=== PATIENT | female | born 1960 | race Caucasian/White ===

== ENCOUNTER 2016-09-03 11:17 | Inpatient (IN) | payer MEDICAID, MEDICARE ==
[~2016-09-03] VITALS: Ht 157.5 cm; Wt 74.8 kg
[~2016-09-03 11:17] MED LIST: ABILIFY10 MG ORAL; ABILIFY2 MG ORAL; ABILIFY5 MG ORAL; ACETAMINOPHEN325 M1 ORAL; ACETAMINOPHEN325 M3 PO; ACYCLOVIR400 MG ORAL; ALPRAZOLAM1 MG ORAL; AMBIEN10 M1 ORAL; AMBIEN5 MG ORAL; ASPIRIN EC81 MG ORAL; ATARAX25 MG ORAL; ATIVAN1 MG ORAL; ATIVAN2 MG ORAL; BENADRYL ALLERG25 M1 PO; BENADRYL25 M3 PO; BENADRYL25 MG ORAL; BENADRYL50 MG ORAL; BLOOD GLUCOSE1 EAC1 MC; BLOOD GLUCOSE1 EAC5 MC; CARVEDILOL3.125 MG ORAL; CATAPRES0.1 MG ORAL; CATAPRES0.3 MG ORAL; CELEXA20 MG ORAL; CEPHALEXIN500 M1 ORAL; CLONIDINE 0.2M0.2 MG ORAL; CLONIDINE0.1 MG PO; COLACE100 MG ORAL; COREG3.125 MG ORAL; COZAAR25 MG ORAL; CYCLOBENZAPRINE10 MG ORAL; DILAUDID2 MG ORAL; DILAUDID4 MG ORAL; DILAUDID4 MG PO; DITROPAN10 MG ORAL; DUONEB 0.5-3(2.53 ML HHN; ESCITALOPRAM OX20 MG ORAL; FERROUS SULFAT325 MG ORAL; FLUOXETINE HCL20 M2 ORAL; FOLIC ACID1 MG ORAL; FUROSEMIDE40 MG ORAL; GLUCOPHAGE500 MG ORAL; HUMALOG100 UNIT/4 SUBQ; HUMULIN 70100 UNIT/3; IBUPROFEN600 MG ORAL; KENALOG 0.1% CR15 GM APPLIC; LACTULOSE20 GM/301 ORAL; LEVAQUIN500 MG ORAL; LEVEMIR FL100 UNIT/1 SUBQ; LEVEMIR100 UNITS/ SUBQ; LIDOCAINE700 M1 TP; LISINOPRIL20 MG ORAL; LISINOPRIL40 MG ORAL; LISINOPRIL5 MG ORAL; LOMOTIL TABLET1 EACH ORAL; LORAZEPAM1 MG ORAL; LORAZEPAM2 MG ORAL; LYRICA50 MG ORAL; MAGNESIUM OXID400 M1 ORAL; METFORMIN HCL1000 M1 ORAL; METHOCARBAMOL500 MG ORAL; METOPROLOL SUCC25 MG ORAL; METOPROLOL TART25 MG ORAL; MIRALAX17 G2 ORAL; MIRTAZAPINE15 M3 ORAL; MIRTAZAPINE7.5 MG ORAL; MOM30 ML ORAL; MULTIVITAMINS1 EA14 PO; MUPIROCIN22 GM TOPIC; MYLANTA II30 ML ORAL; MYLANTA30 M1 PO; NEUPOGEN300 MCG/1 SQ; NICODERM 21MG/241 EA TD; NICODERM 7MG/24H1 EA TD; NICODERM CQ1 EAC3 TD; NITROGLYCERIN0.4 MG SL; NITROGLYCERIN2.5 M1 SL; NITROSTAT0.4 M1 SL; NORCO 5-325 TA1 EAC1 ORAL; NOVOLOG MI100 UNIT/3 SQ; NOVOLOG MI100 UNIT/3 SUBQ; NOVOLOG100 UNIT/3 SUBQ; NOVOLOG100 UNIT/4 SQ; NTG SL; OMEPRAZOLE20 M2 ORAL; OXYCODONE IR15 MG ORAL; PANTOPRAZOLE SO40 MG ORAL; PERMETHRIN60 GM TOPIC; POTASSIUM CHLO20 ME2 ORAL; PREDNISONE20 M1 PO; PROMETHAZINE-C118 M1 ORAL; PROZAC10 MG ORAL; RANITIDINE HCL150 M1 ORAL; ROBAXIN500 MG PO; SIDEKICK BLOOD1 EACH MC; SPIRONOLACTONE100 MG ORAL; TEMAZEPAM15 MG ORAL; TOPIRAMATE25 MG ORAL; TRAZODONE HCL150 MG ORAL; TYLENOL EXTRA500 MG ORAL; TYLENOL325 MG ORAL; TYLENOL650 MG/20. ORAL; VENLAFAXINE HCL75 M2 ORAL; VENTOLIN HFA18 GM INH; XANAX0.5 MG PO; ZITHROMAX250 MG ORAL; ZOFRAN 4 MG4 MG/2 ML IV; [UNRECOGNIZED DRUG - OTHER] MC
[2016-09-03] MEDS ORDERED: ASPIR 8181 MG ORAL (11:40)
[2016-09-03] MEDS ORDERED: ATIVAN2 MG ORAL (11:40)
[2016-09-03] MEDS ORDERED: Mylanta II UD 30ml ORAL ONE (12:30)
[2016-09-03] MEDS ORDERED: Dicyclomine HCl 10mg/5ml oral soln ORAL ONE (12:30)
[2016-09-03] MEDS ORDERED: Lidocaine 2% Visc 15ml soln ORAL ONE (12:30)
[2016-09-03 12:46] LABS: APPEARANCE,URINE CLEAR; KETONES,URINE 1+ (NEGATIVE); LEUKOCYTE ESTERASE ,URINE 1+ (NEGATIVE); NITRITE,URINE NEGATIVE (NEGATIVE); PH,URINE 5 (4.5-8.0); PROTEIN,URINE 2+ (NEGATIVE); UROBILINOGEN,URINE 1 MG/DL (0.0-1.0)
[2016-09-03 13:05] LABS: BACTERIA,URINE FEW /HPF; HYALINE CASTS, URINE 0-2 /LPF; RBC,URINE 0-2 /HPF (0 - 2); SQUAMOUS EPITHELIAL CELL,UR FEW /LPF (NONE/OCC)
[2016-09-03 13:06] LABS: ICTOTEST NEGATIVE
[2016-09-03 13:22] LABS: MEAN CORPUSCULAR HEMOGLOBIN 30.1 PG (27.0-31.0); MEAN CORPUSCULAR HGB CONC 33.7 G/DL (32.0-36.0); MEAN CORPUSCULAR VOLUME 90 FL (80-99); MEAN PLATELET VOLUME 8.5 FL (6.5-10.1); PLATELET COUNT 95 K/UL (150-450); RED CELL DISTRIBUTION WIDTH 13.9 % (11.6-14.8); WHITE BLOOD COUNT 4.9 K/UL (4.8-10.8)
[2016-09-03 13:39] LABS: ALANINE AMINOTRANSFERASE 32 U/L (3-33); ALBUMIN/GLOBULIN RATIO 0.5 (1.0-2.7); ANION GAP 14 (5-15); ASPARTATE AMINO TRANSFERASE 36 U/L (5-40); CARBON DIOXIDE 24 mEQ/L (20-30); CHLORIDE 93 mEQ/L (98-107); CREATININE 0.7 mg/dL (0.5-0.9); GLOMERULAR FILTRATION RATE > 60 mL/min (>60); HEMOLYSIS 26; LIPASE 83 U/L (< 60); POTASSIUM 4.1 mEQ/L (3.4-4.9); SODIUM 131 mEQ/L (135-145); TOTAL PROTEIN 8.9 g/dL (6.6-8.7)
[2016-09-03 14:22] LABS: EOSINOPHILS % (MANUAL) 3 % (0-3); LYMPHOCYTES % (MANUAL) 24 % (20-45); NEUTROPHILS % (MANUAL) 68 % (45-75); TOTAL CELLS COUNTED 100
[2016-09-03 14:23] LABS: BAND NEUTROPHILS % (MANUAL) 0 % (0-8); BASOPHILS % (MANUAL) 0 % (0-2); HYPOCHROMASIA 1+; PLATELET ESTIMATE DECREASED; PLATELET MORPHOLOGY NORMAL
[2016-09-03] MEDS ORDERED: Morphine Sulfate 4mg/ml Inj IM ONE (15:00)
--- NOTE | 2016-09-03 15:04 | Emergency Room Report ---
History of Present Illness General Chief Complaint: Abdominal Pain Source: Patient Present Illness HPI 56 YO Female presents to the ED c/o RUQ 10/10 abdominal pain with N/V/D x 2 days.Denies blood in the vomit or stool denies dark tarry stools. Patient denies recent travel or ill contacts. Patient states the pain is constant and sharp in nature. Patient denies previous history of abdominal surgeries. Patient denies fevers or chills.-Pt. with recent fx of the left arm. Denies CP, Palpitations, LOC, AMS, dizziness, Changes in Vision, Sensation, paresthesias, or a sudden severe headache. Allergies: Coded Allergies: METOCLOPRAMIDE (Verified Allergy, Severe, Anaphylaxis, 01/31/16) tongue swelling PROCHLORPERAZINE (Verified Allergy, Severe, Anaphylaxis, 01/31/16) tongue swelling PREDNISONE (Verified Allergy, Mild, Facial Edema , 07/28/15) EGG (Unverified Allergy, Unknown, 03/16/15) Pt sts she is allergic to eggs but not products made with eggs such as muffins IODINE (Verified Allergy, Unknown, 01/25/15) SHELLFISH DERIVED (Verified Allergy, Unknown, 04/07/14) Uncoded Allergies: plastic tape (Allergy, Mild, Rash, 01/25/15) PREDISONE (Allergy, Unknown, 04/12/16) SHELLFISH (Allergy, Unknown, 04/12/16) Patient History Past Medical History: see triage record Past Surgical History: none Pertinent Family History: none Last Menstrual Period: Total hysterectomy 2001 Now: No : 2 Para: 2 Reviewed Nursing Documentation: PMH: Agreed, PSxH: Agreed Nursing Documentation-PMH Hx Cardiac Problems: Yes - CHF, NE 2007 and 2011 Hx Hypertension: Yes Hx Pacemaker: No Hx Asthma: Yes Hx COPD: Yes Hx Diabetes: Yes Hx Cancer: No Hx Gastrointestinal Problems: Yes Hx Dialysis: No Hx Neurological Problems: Yes - Anxiety, depression Hx Cerebrovascular Accident: Yes - 1 and 2 years ago stroke Hx Seizures: Yes - last Sezure 07/23/2015 Hx Peripheral Neuropathy: Yes Hx Dizziness: Yes Hx Headaches: Yes Hx Weakness: Yes Hx Neurologic Surgery: No Hx Brain Shunt: No Review of Systems All Other Systems: negative except mentioned in HPI Physical Exam Vital Signs Date Time Temp Pulse Resp B/P Pulse Ox O2 Delivery O2 Flow Rate FiO2 09/03/16 11:31 98.8 94 16 117/81 100 Room Air Sp02 EP Interpretation: reviewed, normal General Appearance: no apparent distress, alert, GCS 15, non-toxic Head: normocephalic, atraumatic Eyes: bilateral eye PERRL, bilateral eye normal inspection ENT: hearing grossly normal, normal pharynx, no angioedema, normal voice Neck: full range of motion, supple/symm/no masses Respiratory: chest non-tender, lungs clear, normal breath sounds, speaking full sentences Cardiovascular #1: regular rate, rhythm, no edema Gastrointestinal: normal bowel sounds, non tender, soft, no guarding, no rebound, tenderness - TTP RUQ and LUQ, no guarding, non-distended. Rectal: deferred Genitourinary: normal inspection, no CVA tenderness Musculoskeletal: back normal, gait/station normal, normal range of motion, no calf tenderness, other - PT has long arm posterior splint on the left arm, good capillary refill. Neurologic: alert, oriented x3, responsive, motor strength/tone normal, sensory intact, speech normal Psychiatric: judgement/insight normal, memory normal, mood/affect normal, no suicidal/homicidal ideation Skin: normal color, no rash, warm/dry, well hydrated Lymphatic: no adenopathy Medical Decision Making PA Attestation Dr. Tyler is my supervising Physician whom patient management has been discussed with. Diagnostic Impression: Primary Impression: Pancreatitis Qualified Codes: K85.90 - Acute pancreatitis without necrosis or infection, unspecified Additional Impression: Hyponatremia ER Course Pt. presents to the ED c/o RUQ abdominal pain with N/V/D x 2 days Ddx considered but are not limited to Diverticulitis, acute appy, diarrhea,UC, PUD, GE, pancreatitis, gallstone Vital signs: are WNL, pt. is afebrile H&PE are most consistent with acute pancreatitis. ORDERS: -CBC, CMP: evidence of mild dehydration with hyponatremia and hypochloremia -lipase: Elevated at 86 -UA: unremarkable -CT Abdomen and Pelvis : PENDING ED INTERVENTIONS: -- 1000NS, -Gi Cocktail -4mg morphine IM -Pt. is placed NPO DISPOSITION: at this time pt. will be admitted to Dr. Hanley for Pancreatitis. Pt is Endorsed to Dr. Hanley 3:00pm whom agreed to admit the pt. and to continue pt. care management. Labs Test 09/03/16 12:00 09/03/16 13:00 Urine Color Brown Urine Appearance Clear Urine pH 5 (4.5-8.0) Urine Specific [place] 1.020 (1.005-1.035) Urine Protein 2+ (NEGATIVE) Urine Glucose (UA) Negative (NEGATIVE) Urine Ketones 1+ (NEGATIVE) Urine Occult Blood Negative (NEGATIVE) Urine Nitrite Negative (NEGATIVE) Urine Bilirubin 1+ (NEGATIVE) Urine Ictotest Negative Urine Urobilinogen 1 MG/DL (0.0-1.0) Urine Leukocyte Esterase 1+ (NEGATIVE) Urine RBC 0-2 /HPF (0 - 2) Urine WBC 2-4 /HPF (0 - 2) Urine Squamous Epithelial Cells Few /LPF (NONE/OCC) Urine Bacteria Few /HPF (NONE) Urine Hyaline Casts 0-2 /LPF (NONE) White Blood Count 4.9 K/UL (4.8-10.8) Red Blood Count 4.00 M/UL (4.20-5.40) Hemoglobin 12.1 G/DL (12.0-16.0) Hematocrit 35.8 % (37.0-47.0) Mean Corpuscular Volume 90 FL (80-99) Mean Corpuscular Hemoglobin 30.1 PG (27.0-31.0) Mean Corpuscular Hemoglobin Concent 33.7 G/DL (32.0-36.0) Red Cell Distribution Width 13.9 % (11.6-14.8) Platelet Count 95 K/UL (150-450) Mean Platelet Volume 8.5 FL (6.5-10.1) Neutrophils (%) (Auto) % (45.0-75.0) Lymphocytes (%) (Auto) % (20.0-45.0) Monocytes (%) (Auto) % (1.0-10.0) Eosinophils (%) (Auto) % (0.0-3.0) Basophils (%) (Auto) % (0.0-2.0) Differential Total Cells Counted 100 Neutrophils % (Manual) 68 % (45-75) Lymphocytes % (Manual) 24 % (20-45) Monocytes % (Manual) 5 % (1-10) Eosinophils % (Manual) 3 % (0-3) Basophils % (Manual) 0 % (0-2) Band Neutrophils 0 % (0-8) Platelet Estimate Decreased Platelet Morphology Normal Hypochromasia 1+ Anisocytosis Sodium Level 131 mEQ/L (135-145) Potassium Level 4.1 mEQ/L (3.4-4.9) Chloride Level 93 mEQ/L (98-107) Carbon Dioxide Level 24 mEQ/L (20-30) Anion Gap 14 (5-15) Blood Urea Nitrogen 16 mg/dL (7-23) Creatinine 0.7 mg/dL (0.5-0.9) Estimat Glomerular Filtration Rate > 60 mL/min (>60) Glucose Level 201 mg/dL (74-106) Calcium Level 9.0 mg/dL (8.6-10.2) Total Bilirubin 0.7 mg/dL (0.0-1.2) Aspartate Amino Transf (AST/SGOT) 36 U/L (5-40) Alanine Aminotransferase (ALT/SGPT) 32 U/L (3-33) Alkaline Phosphatase 100 U/L (35-104) Total Protein 8.9 g/dL (6.6-8.7) Albumin 3.2 g/dL (3.5-5.2) Globulin 5.7 g/dL Albumin/Globulin Ratio 0.5 (1.0-2.7) Lipase 83 U/L (< 60) Last Vital Signs Date Time Temp Pulse Resp B/P Pulse Ox O2 Delivery O2 Flow Rate FiO2 09/03/16 11:31 98.8 94 16 117/81 100 Room Air Disposition: ADMITTED INPATIENT Condition: Stable Referrals: NON PHYSICIAN (PCP) Kylah Odell Sep 03, 2016 15:04
[2016-09-03 15:30] VITALS: BP 121/84
[2016-09-03 18:33] VITALS: BP 114/82
[2016-09-03 20:10] VITALS: BP 129/77
[2016-09-03] MEDS ORDERED: Nitroglycerin Subl 0.4mg tab (Bottle Of 25) SL PRN (22:00)
[2016-09-03] MEDS ORDERED: Miralax 17gm pkt ORAL PRN (22:00)
[2016-09-03] MEDS ORDERED: HYDROmorphone 2mg tab ORAL PRN (22:00)
[2016-09-03] MEDS ORDERED: Mylanta II UD 30ml ORAL PRN (22:00)
[2016-09-03] MEDS: D5 1/2NS 1,000 ML IV SCH (22:26)
[2016-09-03] MEDS: Morphine Sulfate 2mg/ml Inj IVP PRN (22:31)
[2016-09-04] VITALS (7 sets, daily range): BP systolic 117–156; BP diastolic 66–94
[2016-09-04] MEDS: HYDROmorphone 2mg tab ORAL PRN ×4 (02:30→23:23)
[2016-09-04] MEDS: NovoLOG Insulin Flexpen SUBQ SCH ×4 (05:52→20:47)
[2016-09-04] MEDS: D5 1/2NS 1,000 ML IV SCH ×2 (07:00→20:20)
[2016-09-04 07:15] LABS: MEAN CORPUSCULAR HEMOGLOBIN 29.8 PG (27.0-31.0); MEAN CORPUSCULAR HGB CONC 32.8 G/DL (32.0-36.0); MEAN CORPUSCULAR VOLUME 91 FL (80-99); MEAN PLATELET VOLUME 7.5 FL (6.5-10.1); PLATELET COUNT 97 K/UL (150-450); RED BLOOD COUNT 4.04 M/UL (4.20-5.40); WHITE BLOOD COUNT 4.3 K/UL (4.8-10.8)
[2016-09-04 07:17] LABS: ALANINE AMINOTRANSFERASE 34 U/L (3-33); ALBUMIN/GLOBULIN RATIO 0.5 (1.0-2.7); AMYLASE 39 U/L (10-110); ANION GAP 12 (5-15); ASPARTATE AMINO TRANSFERASE 43 U/L (5-40); CALCIUM 8.8 mg/dL (8.6-10.2); CARBON DIOXIDE 24 mEQ/L (20-30); CHLORIDE 100 mEQ/L (98-107); CREATININE 0.5 mg/dL (0.5-0.9); GLOMERULAR FILTRATION RATE > 60 mL/min (>60); HEMOLYSIS 7; LIPASE 51 U/L (< 60); POTASSIUM 4.4 mEQ/L (3.4-4.9); SODIUM 136 mEQ/L (135-145); TOTAL PROTEIN 8.9 g/dL (6.6-8.7)
[2016-09-04 07:55] LABS: CHOLESTEROL/HDL RATIO 1.7 (3.3-4.4); MAGNESIUM 1.3 mg/dL (1.7-2.5); PHOSPHORUS 3.4 mg/dL (2.5-4.8)
--- NOTE | 2016-09-04 08:42 | General Progress Note ---
Assessment/Plan Assessment/Plan (1) Lumbar spondylosis (2) DDD (degenerative disc disease), lumbar (3) OA (osteoarthritis) of knee (4) Pain in limb (5) Cirrhosis (6) S/p left humeral Fracture (7) Intractable Abdominal pain (8) Pancreatitis We will continue Dilaudid tabs and morphine IV. Pt was d/w Dr. Coburn and he concurred. Subjective Date patient seen: Sep 04, 2016 Time patient seen: 08:15 - am Allergies: Coded Allergies: METOCLOPRAMIDE (Verified Allergy, Severe, Anaphylaxis, 01/31/16) tongue swelling PROCHLORPERAZINE (Verified Allergy, Severe, Anaphylaxis, 01/31/16) tongue swelling PREDNISONE (Verified Allergy, Mild, Facial Edema , 07/28/15) EGG (Unverified Allergy, Unknown, 03/16/15) Pt sts she is allergic to eggs but not products made with eggs such as muffins IODINE (Verified Allergy, Unknown, 01/25/15) SHELLFISH DERIVED (Verified Allergy, Unknown, 04/07/14) Uncoded Allergies: plastic tape (Allergy, Mild, Rash, 01/25/15) PREDISONE (Allergy, Unknown, 04/12/16) SHELLFISH (Allergy, Unknown, 04/12/16) Subjective Constitutional: Reports: weakness, Denies: chills, diaphoresis, fever, malaise HEENT: Denies: blurred vision, double vision, ear discharge, ear pain, eye pain , mouth pain, mouth swelling, no symptoms, nose congestion, nose pain, other, tearing, throat pain, throat swelling Cardiovascular: Denies: chest pain, edema, irregular heart rate, lightheadedness, no symptoms, other, palpitations, syncope Respiratory: Denies: SOB at rest, SOB with excertion, cough, no symptoms, orthopnea, other, shortness of breath, sputum, stridor, wheezing Gastrointestinal/Abdominal: Reports: abdominal pain, Denies: abdomen distended , black stools, blood in stool, constipated, diarrhea, difficulty swallowing, nausea, poor appetite, poor fluid intake, rectal bleeding, tarry stools, vomiting Genitourinary: Denies: burning, discharge, flank pain, frequency, hematuria, incontinence, pain, urgency Neurologic/Psychiatric: Reports: weakness, Denies: anxiety, depressed, emotional problems, headache, no symptoms, numbness paresthesia, pre-existing deficit, seizure, tingling, tremors Endocrine: Denies: excessive sweating, flushing, increased hunger, increased thirst, increased urine, intolerance to cold, intolerance to heat, unexplained weight gain, unexplained weight loss Hematologic/Lymphatic: Denies: anemia, easy bleeding, easy bruising Subjective Patient was seen in the past and last admission. She has returned due to abdominal pain due to pancreatitis and left UE pain due to fx in a sling at this time. Patient was started on Dilaudid 2mg PO 1 tab Q4H PRN and Morphine 2mg IV Q4H as needed and is comfortable at this time. Objective Last 24 Hour Vital Signs Date Time Temp Pulse Resp B/P Pulse Ox O2 Delivery O2 Flow Rate FiO2 09/04/16 08:08 97.7 70 20 146/66 96 Room Air 09/04/16 04:00 98.2 66 19 146/94 94 Room Air 09/04/16 03:29 99.1 09/04/16 00:16 99.1 67 20 156/78 95 Room Air 09/03/16 20:10 98.7 65 20 129/77 96 Room Air 09/03/16 18:45 98.5 94 17 114/82 100 Room Air 09/03/16 18:33 98.5 94 17 114/82 100 Room Air 09/03/16 16:01 98.5 09/03/16 15:30 98.6 97 15 121/84 100 Room Air 09/03/16 11:31 98.8 94 16 117/81 100 Room Air Intake and Output 09/03/16 09/04/16 19:00 07:00 Intake Total 1000 ml 525 ml Balance 1000 ml 525 ml Intake IV Total 1000 ml 525 ml # Voids 1 Laboratory Tests 09/03/16 12:00: Urine Color Brown, Urine Appearance Clear, Urine pH 5, Urine Specific [place] 1.020, Urine Protein 2+H, Urine Glucose (UA) Negative, Urine Ketones 1+H, Urine Occult Blood Negative, Urine Nitrite Negative, Urine Bilirubin 1+H, Urine Ictotest Negative, Urine Urobilinogen 1H, Urine Leukocyte Esterase 1+H, Urine RBC 0-2, Urine WBC 2-4, Urine Squamous Epithelial Cells Few, Urine Bacteria Few , Urine Hyaline Casts 0-2H 09/03/16 13:00: White Blood Count 4.9, Red Blood Count 4.00L, Hemoglobin 12.1, Hematocrit 35.8L , Mean Corpuscular Volume 90, Mean Corpuscular Hemoglobin 30.1, Mean Corpuscular Hemoglobin Concent 33.7, Red Cell Distribution Width 13.9, Platelet Count 95L, Mean Platelet Volume 8.5, Neutrophils (%) (Auto) , Lymphocytes (%) ( Auto) , Monocytes (%) (Auto) , Eosinophils (%) (Auto) , Basophils (%) (Auto) , Differential Total Cells Counted 100, Neutrophils % (Manual) 68, Lymphocytes % ( Manual) 24, Monocytes % (Manual) 5, Eosinophils % (Manual) 3, Basophils % ( Manual) 0, Band Neutrophils 0, Platelet Estimate DecreasedL, Platelet Morphology Normal, Hypochromasia 1+, Anisocytosis , Sodium Level 131L, Potassium Level 4.1, Chloride Level 93L, Carbon Dioxide Level 24, Anion Gap 14, Blood Urea Nitrogen 16, Creatinine 0.7, Estimat Glomerular Filtration Rate > 60 , Glucose Level 201H, Calcium Level 9.0, Total Bilirubin 0.7, Aspartate Amino Transf (AST/SGOT) 36, Alanine Aminotransferase (ALT/SGPT) 32, Alkaline Phosphatase 100, Total Protein 8.9H, Albumin 3.2L, Globulin 5.7, Albumin/ Globulin Ratio 0.5L, Lipase 83H 09/04/16 05:10: White Blood Count 4.3L, Red Blood Count 4.04L, Hemoglobin 12.0, Hematocrit 36.7L , Mean Corpuscular Volume 91, Mean Corpuscular Hemoglobin 29.8, Mean Corpuscular Hemoglobin Concent 32.8, Red Cell Distribution Width 14.0, Platelet Count 97L, Mean Platelet Volume 7.5, Neutrophils (%) (Auto) , Lymphocytes (%) ( Auto) , Monocytes (%) (Auto) , Eosinophils (%) (Auto) , Basophils (%) (Auto) , Neutrophils % (Manual) [Pending], Lymphocytes % (Manual) [Pending], Platelet Estimate [Pending], Platelet Morphology [Pending], Sodium Level 136, Potassium Level 4.4, Chloride Level 100, Carbon Dioxide Level 24, Anion Gap 12, Blood Urea Nitrogen 8, Creatinine 0.5, Estimat Glomerular Filtration Rate > 60, Glucose Level 134H, Calcium Level 8.8, Total Bilirubin 1.0, Aspartate Amino Transf (AST/SGOT) 43H, Alanine Aminotransferase (ALT/SGPT) 34H, Alkaline Phosphatase 101, Total Protein 8.9H, Albumin 3.1L, Globulin 5.8, Albumin/ Globulin Ratio 0.5L, Lipase 51, Activated Partial Thromboplast Time 22L, Phosphorus Level 3.4, Magnesium Level 1.3L, Triglycerides Level 43, Cholesterol Level 90, LDL Cholesterol 29L, HDL Cholesterol 52, Cholesterol/HDL Ratio 1.7L, Amylase Level 39 Height (Feet): 5 Height (Inches): 2.00 Weight (Pounds): 165 Objective General Appearance: no apparent distress, alert, mild distress EENT: normal ENT inspection Neck: non-tender, normal alignment Cardiovascular: normal rate Respiratory/Chest: lungs clear, normal breath sounds Abdomen: distended Extremities: swelling, left UE in sling Edema: mild edema Neurologic: alert, oriented x 3 Skin: warm/dry LUIS JOHNSON N. P.Jose Antonio Sep 04, 2016 08:42
[2016-09-04 08:43] LABS: ANISOCYTOSIS 1+; BAND NEUTROPHILS % (MANUAL) 0 % (0-8); BASOPHILS % (MANUAL) 0 % (0-2); EOSINOPHILS % (MANUAL) 4 % (0-3); LYMPHOCYTES % (MANUAL) 19 % (20-45); NEUTROPHILS % (MANUAL) 74 % (45-75); PLATELET ESTIMATE DECREASED; PLATELET MORPHOLOGY NORMAL; TOTAL CELLS COUNTED 100
[2016-09-04] MEDS: Lisinopril 20mg tab ORAL SCH (08:55)
[2016-09-04] MEDS: Oxybutynin 5mg tab ORAL SCH ×2 (08:55→17:05)
[2016-09-04] MEDS: Citalopram 20mg Tab ORAL SCH (08:55)
[2016-09-04] MEDS: Aspirin EC 81mg tab ORAL SCH (08:56)
[2016-09-04] MEDS: Heparin 5000 units/ml inj SUBQ SCH ×2 (09:00→20:43)
--- NOTE | 2016-09-04 11:19 | GI Initial Consult Note ---
History of Present Illness General Date patient seen: Sep 04, 2016 Time patient seen: 10:00 Reason for Hospitalization: Abdominal Pain Referring physician: CHARLIE PEREZ Reason for Consultation: PANCREATITIS Present Illness HPI 56 YO Female presents to the ED c/o RUQ 10/10 abdominal pain with N/V/D x 2 days.Denies blood in the vomit or stool denies dark tarry stools. Patient denies recent travel or ill contacts. Patient states the pain is constant and sharp in nature. Patient denies previous history of abdominal surgeries. Patient denies fevers or chills.-Pt. with recent fx of the left arm. Denies CP, Palpitations, LOC, AMS, dizziness, Changes in Vision, Sensation, paresthesias, or a sudden severe headache. GI CONSULT: HPI as noted above. GI consulted for pancreatitis. Pt seen on floor, awake A&Ox4 NAD with no abdominal complaints at this time. C/o of left elbow fx pain with splint. Pt admitted for pancreatitis now with normal lipase levels. Denies ETOH and IVDA. Tobacco user. Pt presents today with abdominal pain and abnormal LFTs. Pt has history of gastritis and hepatitis C. Last colonoscopy over 5 years ago with unknown results. Endoscopy Procedure Note Indication for Procedure: abd pain Procedures Performed: EGD Operative Findings/Diagnosis: gastritis HENRIEDITH - Aug 02, 2015 11:24 Home Meds Active Scripts Metoprolol Succinate* (METOPROLOL SUCCINATE*) 25 Mg Tab.er.24h, 25 MG ORAL BID, #60 TAB Prov:Shirley Ward ASSISTANT PROFESSOR [employer] 07/17/15 Aripiprazole* (ABILIFY*) 5 Mg Tablet, 10 MG ORAL DAILY, #1 TAB Prov:Shirley Ward ASSISTANT PROFESSOR [employer] ART 07/17/15 Reported Medications Lorazepam* (ATIVAN*) 2 Mg Tablet, 2 MG ORAL Q6HR, TAB 09/03/16 Aspirin* (ASPIR 81*) 81 Mg Tablet.dr, 81 MG ORAL DAILY, TAB 09/03/16 Fluoxetine Hcl* (PROZAC*) 10 Mg Capsule, ORAL DAILY, CAP 03/09/16 Ranitidine Hcl (RANITIDINE HCL) 150 Mg Capsule, 150 MG ORAL BIDAC, CAP 03/07/16 Nicotine (Nicotine Patch) 1 Each Patch.td24, 1 EA TD DAILY, PATCH 03/07/16 Mupirocin* (MUPIROCIN*) 22 Gm Oint...g., 1 APPLIC TOPIC THREE TIMES A DAY, GM 03/07/16 Insulin Aspart* (NOVOLOG*) 100 Unit/1 Ml Insuln.pen, 12 SUBQ AC, #1 EA 0 Refills 03/07/16 Insulin Detemir (LEVEMIR FLEXPEN) 100 Unit/1 Ml Insuln.pen, 20 SUBQ Q12HR, #300 UNITS 0 Refills 03/07/16 Clonidine Hcl* (CATAPRES*) 0.1 Mg Tablet, 0.1 MG ORAL EVERY 6 HOURS Y for For High Blood Pressure, TAB 03/07/16 Codeine/Promethazine Hcl* (PROMETHAZINE-CODEINE SYRUP*) 118 Ml Syrup, 5 ML ORAL Q6H Y for For Cough, ML 0 Refills 03/07/16 Alprazolam* (XANAX*) 1 Mg Tablet, 1 MG ORAL TID Y for PRN, TAB 03/07/16 Acetaminophen (Acetaminophen) 325 Mg Capsule, 650 MG PO Q4HR Y for Prn Headache/ Temp > 101, CAP 03/07/16 Nitroglycerin/D5w (NTG 0.2 MG/ML IN D5W) 50 Mg/250 Ml Infus..btl, 0.4 MG SL PRN for Prn Chest Pain 02/05/16 Ipratropium/Albuterol Sulfate (DuoNeb 0.5-3(2.5)mg/3ml) 3 Ml Ampul.neb, 3 ML HHN EVERY 4 HOURS Y for Shortness of Breath, EA 02/05/16 Temazepam (TEMAZEPAM*) 15 Mg Capsule, 15 MG ORAL HS Y for Insomnia, #30 CAP 0 Refills 01/01/16 Hydromorphone HCl (Dilaudid) 2 Mg Tab, 2 MG ORAL Q4H Y for Severe Pain (Pain Scale 7-10), #20 TAB 0 Refills 01/01/16 Citalopram Hydrobromide* (CELEXA*) 20 Mg Tablet, 20 MG ORAL DAILY, TAB 07/28/15 Lisinopril (LISINOPRIL*) 20 Mg Tablet, 40 MG ORAL DAILY, TAB 07/28/15 Oxybutynin Chloride (Oxybutynin Chloride) 10 Mg Tab, 5 MG ORAL TWICE A DAY, TAB 04/08/15 Med list reviewed/reconciled: Yes Allergies: Coded Allergies: METOCLOPRAMIDE (Verified Allergy, Severe, Anaphylaxis, 01/31/16) tongue swelling PROCHLORPERAZINE (Verified Allergy, Severe, Anaphylaxis, 01/31/16) tongue swelling PREDNISONE (Verified Allergy, Mild, Facial Edema , 07/28/15) EGG (Unverified Allergy, Unknown, 03/16/15) Pt sts she is allergic to eggs but not products made with eggs such as muffins IODINE (Verified Allergy, Unknown, 01/25/15) SHELLFISH DERIVED (Verified Allergy, Unknown, 04/07/14) Uncoded Allergies: plastic tape (Allergy, Mild, Rash, 01/25/15) PREDISONE (Allergy, Unknown, 04/12/16) SHELLFISH (Allergy, Unknown, 04/12/16) Patient History History Provided By: Patient, Medical Record PMH Narrative Past Medical History: see triage record Past Surgical History: none Pertinent Family History: none Last Menstrual Period: Total hysterectomy 2001 Now: No : 2 Para: 2 Reviewed Nursing Documentation: PMH: Agreed, PSxH: Agreed Nursing Documentation-PMH Hx Cardiac Problems: Yes - CHF, OK 2007 and 2011 Hx Hypertension: Yes Hx Pacemaker: No Hx Asthma: Yes Hx COPD: Yes Hx Diabetes: Yes Hx Cancer: No Hx Gastrointestinal Problems: Yes Hx Dialysis: No Hx Neurological Problems: Yes - Anxiety, depression Hx Cerebrovascular Accident: Yes - 1 and 2 years ago stroke Hx Seizures: Yes - last Sezure 07/23/2015 Hx Peripheral Neuropathy: Yes Hx Dizziness: Yes Hx Headaches: Yes Hx Weakness: Yes Hx Neurologic Surgery: No Hx Brain Shunt: No Social History: Reports: smoking Review of Systems All Other Systems: negative except mentioned in HPI Physical Exam Vital Signs Date Time Temp Pulse Resp B/P Pulse Ox O2 Delivery O2 Flow Rate FiO2 09/03/16 11:31 98.8 94 16 117/81 100 Room Air Sp02 EP Interpretation: reviewed Labs Laboratory Tests Test 09/03/16 12:00 09/03/16 13:00 09/04/16 05:10 Urine Color Brown Urine Appearance Clear Urine pH 5 (4.5-8.0) Urine Specific Roper 1.020 (1.005-1.035) Urine Protein 2+ (NEGATIVE) H Urine Glucose (UA) Negative (NEGATIVE) Urine Ketones 1+ (NEGATIVE) H Urine Occult Blood Negative (NEGATIVE) Urine Nitrite Negative (NEGATIVE) Urine Bilirubin 1+ (NEGATIVE) H Urine Ictotest Negative Urine Urobilinogen 1 MG/DL (0.0-1.0) H Urine Leukocyte Esterase 1+ (NEGATIVE) H Urine RBC 0-2 /HPF (0 - 2) Urine WBC 2-4 /HPF (0 - 2) Urine Squamous Epithelial Cells Few /LPF (NONE/OCC) Urine Bacteria Few /HPF (NONE) Urine Hyaline Casts 0-2 /LPF (NONE) H White Blood Count 4.9 K/UL (4.8-10.8) 4.3 K/UL (4.8-10.8) L Red Blood Count 4.00 M/UL (4.20-5.40) L 4.04 M/UL (4.20-5.40) L Hemoglobin 12.1 G/DL (12.0-16.0) 12.0 G/DL (12.0-16.0) Hematocrit 35.8 % (37.0-47.0) L 36.7 % (37.0-47.0) L Mean Corpuscular Volume 90 FL (80-99) 91 FL (80-99) Mean Corpuscular Hemoglobin 30.1 PG (27.0-31.0) 29.8 PG (27.0-31.0) Mean Corpuscular Hemoglobin Concent 33.7 G/DL (32.0-36.0) 32.8 G/DL (32.0-36.0) Red Cell Distribution Width 13.9 % (11.6-14.8) 14.0 % (11.6-14.8) Platelet Count 95 K/UL (150-450) L 97 K/UL (150-450) L Mean Platelet Volume 8.5 FL (6.5-10.1) 7.5 FL (6.5-10.1) Neutrophils (%) (Auto) % (45.0-75.0) % (45.0-75.0) Lymphocytes (%) (Auto) % (20.0-45.0) % (20.0-45.0) Monocytes (%) (Auto) % (1.0-10.0) % (1.0-10.0) Eosinophils (%) (Auto) % (0.0-3.0) % (0.0-3.0) Basophils (%) (Auto) % (0.0-2.0) % (0.0-2.0) Differential Total Cells Counted 100 100 Neutrophils % (Manual) 68 % (45-75) 74 % (45-75) Lymphocytes % (Manual) 24 % (20-45) 19 % (20-45) L Monocytes % (Manual) 5 % (1-10) 3 % (1-10) Eosinophils % (Manual) 3 % (0-3) 4 % (0-3) H Basophils % (Manual) 0 % (0-2) 0 % (0-2) Band Neutrophils 0 % (0-8) 0 % (0-8) Platelet Estimate Decreased L Decreased L Platelet Morphology Normal Normal Hypochromasia 1+ Anisocytosis 1+ Sodium Level 131 mEQ/L (135-145) L 136 mEQ/L (135-145) Potassium Level 4.1 mEQ/L (3.4-4.9) 4.4 mEQ/L (3.4-4.9) Chloride Level 93 mEQ/L (98-107) L 100 mEQ/L (98-107) Carbon Dioxide Level 24 mEQ/L (20-30) 24 mEQ/L (20-30) Anion Gap 14 (5-15) 12 (5-15) Blood Urea Nitrogen 16 mg/dL (7-23) 8 mg/dL (7-23) Creatinine 0.7 mg/dL (0.5-0.9) 0.5 mg/dL (0.5-0.9) Estimat Glomerular Filtration Rate > 60 mL/min (>60) > 60 mL/min (>60) Glucose Level 201 mg/dL (74-106) H 134 mg/dL (74-106) H Calcium Level 9.0 mg/dL (8.6-10.2) 8.8 mg/dL (8.6-10.2) Total Bilirubin 0.7 mg/dL (0.0-1.2) 1.0 mg/dL (0.0-1.2) Aspartate Amino Transf (AST/SGOT) 36 U/L (5-40) 43 U/L (5-40) H Alanine Aminotransferase (ALT/SGPT) 32 U/L (3-33) 34 U/L (3-33) H Alkaline Phosphatase 100 U/L (35-104) 101 U/L (35-104) Total Protein 8.9 g/dL (6.6-8.7) H 8.9 g/dL (6.6-8.7) H Albumin 3.2 g/dL (3.5-5.2) L 3.1 g/dL (3.5-5.2) L Globulin 5.7 g/dL 5.8 g/dL Albumin/Globulin Ratio 0.5 (1.0-2.7) L 0.5 (1.0-2.7) L Lipase 83 U/L (< 60) H 51 U/L (< 60) Activated Partial Thromboplast Time 22 SEC (23-33) L Phosphorus Level 3.4 mg/dL (2.5-4.8) Magnesium Level 1.3 mg/dL (1.7-2.5) L Triglycerides Level 43 mg/dL (< 150) Cholesterol Level 90 mg/dL (< 200) LDL Cholesterol 29 mg/dL (60-99) L HDL Cholesterol 52 mg/dL (> 60) Cholesterol/HDL Ratio 1.7 (3.3-4.4) L Amylase Level 39 U/L (10-110) General Appearance: well appearing, no apparent distress, alert Head: normocephalic EENT: normal ENT inspection Neck: normal inspection, full range of motion, supple Respiratory: normal inspection, normal breath sounds, no respiratory distress Cardiovascular: normal rate Gastrointestinal: normal inspection, non tender, soft, normal bowel sounds Neurologic: alert, oriented x3 Psychiatric: normal inspection, judgement/insight normal, memory normal Skin: normal inspection, normal color, no rash, warm/dry Lymphatic: normal inspection, no adenopathy Current Medications Current Medications Medications (Trade) Dose Ordered Sig/Bill Route PRN Reason Start Time Stop Time Status Last Admin Dose Admin Acetaminophen (Tylenol) 650 mg Q4H PRN ORAL fever 09/03/16 22:00 10/03/16 21:59 Al Hydroxide/Mg Hydroxide (Mylanta II) 30 ml Q6H PRN ORAL dyspepsia 09/03/16 22:00 10/03/16 21:59 Aripiprazole (Abilify) 10 mg DAILY ORAL 09/04/16 09:00 10/04/16 08:59 09/04/16 08:55 Aspirin (Ecotrin) 81 mg DAILY ORAL 09/04/16 09:00 10/04/16 08:59 09/04/16 08:56 Citalopram Hydrobromide (celeXA) 20 mg DAILY ORAL 09/04/16 09:00 10/04/16 08:59 09/04/16 08:55 Clonidine HCl (Catapres) 0.1 mg EVERY 6 HOURS PRN ORAL For High Blood Pressure 09/03/16 22:00 10/03/16 21:59 Dextrose (Dextrose 50%) STAT PRN IV Hypoglycemia 09/03/16 22:00 10/03/16 21:59 Dextrose (Dextrose 50%) STAT PRN IV Hypoglycemia 09/03/16 22:00 10/03/16 21:59 Dextrose/Sodium Chloride (D5 0.45% NS) 1,000 ml @ 75 mls/hr [id number] IV 09/03/16 17:40 10/03/16 17:39 09/04/16 07:00 Diphenhydramine HCl (Benadryl) 25 mg Q6H PRN ORAL Itching/Pruritis 09/03/16 22:00 10/03/16 21:59 Heparin Sodium (Porcine) (Heparin 5000 units/ml) 5,000 units EVERY 12 HOURS SUBQ 09/04/16 09:00 10/04/16 08:59 Hydromorphone HCl (Dilaudid) 2 mg Q4H PRN ORAL moderate pain 4-6 09/04/16 02:00 09/11/16 01:59 09/04/16 07:04 Insulin Aspart (NovoLOG) BEFORE MEALS AND HS SUBQ 09/04/16 06:30 10/04/16 06:29 09/04/16 05:52 Lisinopril (Prinivil) 40 mg DAILY ORAL 09/04/16 09:00 10/04/16 08:59 09/04/16 08:55 Lorazepam 1 mg 1 mg Q6H PRN ORAL For Anxiety 09/04/16 11:00 09/11/16 10:59 Magnesium Sulfate (Magnesium Sulfate 1gm/100ml) 100 ml @ 100 mls/hr Q1H IVPB 09/04/16 11:00 09/04/16 13:59 Metoprolol Succinate (Toprol XL) 25 mg BID ORAL 09/04/16 09:00 10/04/16 08:59 09/04/16 08:55 Morphine Sulfate (Morphine Sulfate) 2 mg EVERY 4 HOURS PRN IVP severe Pain (Pain Scale 7-10) 09/03/16 22:00 09/10/16 21:59 09/03/16 22:31 Nitroglycerin (Ntg) 0.4 mg Q5M X 3 DOSES PRN SL Prn Chest Pain 09/03/16 22:00 10/03/16 21:59 Ondansetron HCl (Zofran) 4 mg Q6H PRN IVP Nausea & Vomiting 09/03/16 22:00 10/03/16 21:59 Oxybutynin Chloride (Ditropan) 5 mg TWICE A DAY ORAL 09/04/16 09:00 10/04/16 08:59 09/04/16 08:55 Polyethylene Glycol (Miralax) 17 gm HSPRN PRN ORAL Constipation 09/03/16 22:00 10/03/16 21:59 Ranitidine HCl 150 mg 150 mg DAILY ORAL 09/04/16 09:00 10/04/16 08:59 09/04/16 08:55 Temazepam (Restoril) 15 mg HSPRN PRN ORAL Insomnia 09/03/16 22:00 09/10/16 21:59 09/04/16 02:30 GI: Plan Problems: (1) Hepatitis C (2) Pancreatitis (3) Anxiety (4) Diabetes mellitus (5) Abdominal pain (6) Thrombocytopenia Plan lipid panel unremarkable maintain IVF's CLD for lunch, okay for cardiac diet if tolerated monitor H&H monitor lipase H2 pain mgmt fu labs outpatient colonoscopy & hep C tx abx ortho consult for left elbow fx Kenyetta Cobos N.P. Sep 04, 2016 11:19
[2016-09-04] MEDS: LORazepam 1mg tab ORAL PRN ×2 (11:28→17:35)
[2016-09-04] MEDS: Morphine Sulfate 2mg/ml Inj IVP PRN ×2 (15:30→18:49)
--- NOTE | 2016-09-04 16:31 | Infectious Diseases Prog Note ---
Assessment/Plan Problems: (1) Acute inflammation of the pancreas Assessment & Plan: continue NPO, supportive care, and IVF for hydration, and pain managemnt, GI is following no need for antibiotics for now, just monitor clinically (2) Hepatitis C Assessment & Plan: will confirm and obtain viral load and genotype. (3) Intractable pain Assessment & Plan: due to one, continue pain management as per primary (4) Diabetes mellitus out of control Assessment & Plan: recommend tight glycemic control to keep blood glucose between 80-120 Subjective Allergies: Coded Allergies: METOCLOPRAMIDE (Verified Allergy, Severe, Anaphylaxis, 01/31/16) tongue swelling PROCHLORPERAZINE (Verified Allergy, Severe, Anaphylaxis, 01/31/16) tongue swelling PREDNISONE (Verified Allergy, Mild, Facial Edema , 07/28/15) EGG (Unverified Allergy, Unknown, 03/16/15) Pt sts she is allergic to eggs but not products made with eggs such as muffins IODINE (Verified Allergy, Unknown, 01/25/15) SHELLFISH DERIVED (Verified Allergy, Unknown, 04/07/14) Uncoded Allergies: plastic tape (Allergy, Mild, Rash, 01/25/15) PREDISONE (Allergy, Unknown, 04/12/16) SHELLFISH (Allergy, Unknown, 04/12/16) Objective Vital Signs Last 24 Hour Vital Signs Date Time Temp Pulse Resp B/P Pulse Ox O2 Delivery O2 Flow Rate FiO2 09/04/16 15:57 99.3 58 20 125/80 95 Room Air 09/04/16 14:51 98.2 09/04/16 11:42 98.2 57 20 117/79 97 Room Air 09/04/16 08:55 70 146/66 09/04/16 08:55 146/66 09/04/16 08:08 97.7 70 20 146/66 96 Room Air 09/04/16 04:00 98.2 66 19 146/94 94 Room Air 09/04/16 00:16 99.1 67 20 156/78 95 Room Air 09/03/16 20:10 98.7 65 20 129/77 96 Room Air 09/03/16 18:45 98.5 94 17 114/82 100 Room Air 09/03/16 18:33 98.5 94 17 114/82 100 Room Air Height (Feet): 5 Height (Inches): 2.00 Weight (Pounds): 165 Laboratory Tests Test 09/04/16 05:10 White Blood Count 4.3 K/UL (4.8-10.8) L Red Blood Count 4.04 M/UL (4.20-5.40) L Hemoglobin 12.0 G/DL (12.0-16.0) Hematocrit 36.7 % (37.0-47.0) L Mean Corpuscular Volume 91 FL (80-99) Mean Corpuscular Hemoglobin 29.8 PG (27.0-31.0) Mean Corpuscular Hemoglobin Concent 32.8 G/DL (32.0-36.0) Red Cell Distribution Width 14.0 % (11.6-14.8) Platelet Count 97 K/UL (150-450) L Mean Platelet Volume 7.5 FL (6.5-10.1) Neutrophils (%) (Auto) % (45.0-75.0) Lymphocytes (%) (Auto) % (20.0-45.0) Monocytes (%) (Auto) % (1.0-10.0) Eosinophils (%) (Auto) % (0.0-3.0) Basophils (%) (Auto) % (0.0-2.0) Differential Total Cells Counted 100 Neutrophils % (Manual) 74 % (45-75) Lymphocytes % (Manual) 19 % (20-45) L Monocytes % (Manual) 3 % (1-10) Eosinophils % (Manual) 4 % (0-3) H Basophils % (Manual) 0 % (0-2) Band Neutrophils 0 % (0-8) Platelet Estimate Decreased L Platelet Morphology Normal Anisocytosis 1+ Activated Partial Thromboplast Time 22 SEC (23-33) L Sodium Level 136 mEQ/L (135-145) Potassium Level 4.4 mEQ/L (3.4-4.9) Chloride Level 100 mEQ/L (98-107) Carbon Dioxide Level 24 mEQ/L (20-30) Anion Gap 12 (5-15) Blood Urea Nitrogen 8 mg/dL (7-23) Creatinine 0.5 mg/dL (0.5-0.9) Estimat Glomerular Filtration Rate > 60 mL/min (>60) Glucose Level 134 mg/dL (74-106) H Calcium Level 8.8 mg/dL (8.6-10.2) Phosphorus Level 3.4 mg/dL (2.5-4.8) Magnesium Level 1.3 mg/dL (1.7-2.5) L Total Bilirubin 1.0 mg/dL (0.0-1.2) Aspartate Amino Transf (AST/SGOT) 43 U/L (5-40) H Alanine Aminotransferase (ALT/SGPT) 34 U/L (3-33) H Alkaline Phosphatase 101 U/L (35-104) Total Protein 8.9 g/dL (6.6-8.7) H Albumin 3.1 g/dL (3.5-5.2) L Globulin 5.8 g/dL Albumin/Globulin Ratio 0.5 (1.0-2.7) L Triglycerides Level 43 mg/dL (< 150) Cholesterol Level 90 mg/dL (< 200) LDL Cholesterol 29 mg/dL (60-99) L HDL Cholesterol 52 mg/dL (> 60) Cholesterol/HDL Ratio 1.7 (3.3-4.4) L Amylase Level 39 U/L (10-110) Lipase 51 U/L (< 60) Current Medications Medications (Trade) Dose Ordered Sig/Bill Route PRN Reason Start Time Stop Time Status Last Admin Dose Admin Acetaminophen (Tylenol) 650 mg Q4H PRN ORAL fever 09/03/16 22:00 10/03/16 21:59 Al Hydroxide/Mg Hydroxide (Mylanta II) 30 ml Q6H PRN ORAL dyspepsia 09/03/16 22:00 10/03/16 21:59 Aripiprazole (Abilify) 10 mg DAILY ORAL 09/04/16 09:00 10/04/16 08:59 09/04/16 08:55 Aspirin (Ecotrin) 81 mg DAILY ORAL 09/04/16 09:00 10/04/16 08:59 09/04/16 08:56 Citalopram Hydrobromide (celeXA) 20 mg DAILY ORAL 09/04/16 09:00 10/04/16 08:59 09/04/16 08:55 Clonidine HCl (Catapres) 0.1 mg EVERY 6 HOURS PRN ORAL For High Blood Pressure 09/03/16 22:00 10/03/16 21:59 Dextrose (Dextrose 50%) STAT PRN IV Hypoglycemia 09/03/16 22:00 10/03/16 21:59 Dextrose (Dextrose 50%) STAT PRN IV Hypoglycemia 09/03/16 22:00 10/03/16 21:59 Dextrose/Sodium Chloride (D5 0.45% NS) 1,000 ml @ 75 mls/hr [id number] IV 09/03/16 17:40 10/03/16 17:39 09/04/16 07:00 Diphenhydramine HCl (Benadryl) 25 mg Q6H PRN ORAL Itching/Pruritis 09/03/16 22:00 10/03/16 21:59 Heparin Sodium (Porcine) (Heparin 5000 units/ml) 5,000 units EVERY 12 HOURS SUBQ 09/04/16 09:00 10/04/16 08:59 Hydromorphone HCl (Dilaudid) 2 mg Q4H PRN ORAL moderate pain 4-6 09/04/16 02:00 09/11/16 01:59 09/04/16 13:52 Insulin Aspart (NovoLOG) BEFORE MEALS AND HS SUBQ 09/04/16 06:30 10/04/16 06:29 09/04/16 11:32 Lisinopril (Prinivil) 40 mg DAILY ORAL 09/04/16 09:00 10/04/16 08:59 09/04/16 08:55 Lorazepam (Ativan) 1 mg Q6H PRN ORAL For Anxiety 09/04/16 11:00 09/11/16 10:59 09/04/16 11:28 Metoprolol Succinate (Toprol XL) 25 mg BID ORAL 09/04/16 09:00 10/04/16 08:59 09/04/16 08:55 Morphine Sulfate (Morphine Sulfate) 2 mg EVERY 4 HOURS PRN IVP severe Pain (Pain Scale 7-10) 09/03/16 22:00 09/10/16 21:59 09/04/16 15:30 Nicotine (Nicoderm) 1 patch Q24H TDERMAL 09/04/16 13:00 10/04/16 12:59 09/04/16 14:57 Nitroglycerin (Ntg) 0.4 mg Q5M X 3 DOSES PRN SL Prn Chest Pain 09/03/16 22:00 10/03/16 21:59 Ondansetron HCl (Zofran) 4 mg Q6H PRN IVP Nausea & Vomiting 09/03/16 22:00 10/03/16 21:59 Oxybutynin Chloride (Ditropan) 5 mg TWICE A DAY ORAL 09/04/16 09:00 10/04/16 08:59 09/04/16 08:55 Polyethylene Glycol (Miralax) 17 gm HSPRN PRN ORAL Constipation 09/03/16 22:00 10/03/16 21:59 Ranitidine HCl 150 mg 150 mg DAILY ORAL 09/04/16 09:00 10/04/16 08:59 09/04/16 08:55 Temazepam (Restoril) 15 mg HSPRN PRN ORAL Insomnia 09/03/16 22:00 09/10/16 21:59 09/04/16 02:30 Yordy Contreras M.D. Sep 04, 2016 16:31
--- NOTE | 2016-09-04 19:36 | Consultation ---
Consult Note Consult Note DATE OF CONSULTATION: 09/04/16 HEMATOLOGY AND ONCOLOGY CONSULT: CONSULTING PHYSICIAN: Buddy Rubin M.D. ATTENDING PHYSICIAN: Bubba Hanley M.D. REASON FOR CONSULTATION: Leukopenia and throbocytopenia evaluation CURRENT COMPLAINT/HISTORY OF PRESENT ILLNESS: Dear Dr. Bubba Hanley, Today, I had an opportunity to see one of your patients, the patient is a 56 years old delightful female with an extensive past medical history remarkable for history of pancytopenia, liver cirrhosis, hepatitis C, chronic pain syndrome , opioid dependence, history of drug abuse, COPD, arthritis, hypertension, asthma, anxiety attack, and chronic pain syndrome as well as moderate cytopenias. The patient ended up in [facility] for nausea, vomiting and abdominal pain and a clinical diagnosis of pancreatitis was made. Patient was noted to have leukopenia/thrombocytopenia. Our service was called to handle this issue. PAST MEDICAL HISTORY: 1. History of pancytopenia and leukopenia, persistent. 2. Thrombocytopenia, persistent, hepatitis C, liver cirrhosis, and hepatic encephalopathy. 3. History of hypertension. 4. Opioid dependence. 5. Hypoglycemia. 6. Chronic abdominal pain. 7. Hyponatremia. 8. COPD exacerbation. 9. Diabetes mellitus. 10. Back pain. 11. Osteoarthritis/degenerative joint disease. 12. Chronic knee pain. MEDICATIONS: 1. Albuterol. 2. Abilify. 3. Ecotrin. 4. Celexa. 5. Catapres. 6. Dextrose. 7. Cardizem. 8. Benadryl. 9. Vibramycin. 10. Dilaudid. 11. NovoLog. 12. Levemir. 13. Renagel. 14. Ativan. 15. Nicardipine. ALLERGIES: Eggs, iodine, prednisone, shellfish, and plastic tape. FAMILY HISTORY: Noncontributory. SOCIAL HISTORY: No history of smoking. No history of alcohol abuse. No history of illicit drug use. REVIEW OF SYSTEMS: General Description: The patient not in any significant distress, but looks chronically ill. Respiratory System: Mild shortness of breath on exertion. Gastrointestinal: The patient claims constipation and some abd pain. Neuromuscular: The patient also complains about back pain. PHYSICAL EXAMINATION: VITAL SIGNS: Last 24 Hour Vital Signs Date Time Temp Pulse Resp B/P Pulse Ox O2 Delivery O2 Flow Rate FiO2 09/04/16 17:04 58 125/80 09/04/16 15:57 99.3 58 20 125/80 95 Room Air 09/04/16 14:51 98.2 09/04/16 11:42 98.2 57 20 117/79 97 Room Air 09/04/16 08:55 70 146/66 09/04/16 08:55 146/66 09/04/16 08:08 97.7 70 20 146/66 96 Room Air 09/04/16 04:00 98.2 66 19 146/94 94 Room Air 09/04/16 00:16 99.1 67 20 156/78 95 Room Air 09/03/16 20:10 98.7 65 20 129/77 96 Room Air HEENT: Head is normocephalic and atraumatic. NECK: Supple. No thyroid enlargement. No lymphadenopathy. LUNGS: Decreased breath sounds bilaterally with few rhonchi in the bases. HEART: S1 and S2, regular. ABDOMEN: Soft and benign. No organomegaly present. Bowel sounds present. EXTREMITIES: No cyanosis, clubbing, or edema. LABs: Laboratory Tests Test 09/04/16 05:10 White Blood Count 4.3 K/UL (4.8-10.8) L Red Blood Count 4.04 M/UL (4.20-5.40) L Hemoglobin 12.0 G/DL (12.0-16.0) Hematocrit 36.7 % (37.0-47.0) L Mean Corpuscular Volume 91 FL (80-99) Mean Corpuscular Hemoglobin 29.8 PG (27.0-31.0) Mean Corpuscular Hemoglobin Concent 32.8 G/DL (32.0-36.0) Red Cell Distribution Width 14.0 % (11.6-14.8) Platelet Count 97 K/UL (150-450) L Mean Platelet Volume 7.5 FL (6.5-10.1) Neutrophils (%) (Auto) % (45.0-75.0) Lymphocytes (%) (Auto) % (20.0-45.0) Monocytes (%) (Auto) % (1.0-10.0) Eosinophils (%) (Auto) % (0.0-3.0) Basophils (%) (Auto) % (0.0-2.0) Differential Total Cells Counted 100 Neutrophils % (Manual) 74 % (45-75) Lymphocytes % (Manual) 19 % (20-45) L Monocytes % (Manual) 3 % (1-10) Eosinophils % (Manual) 4 % (0-3) H Basophils % (Manual) 0 % (0-2) Band Neutrophils 0 % (0-8) Platelet Estimate Decreased L Platelet Morphology Normal Anisocytosis 1+ Activated Partial Thromboplast Time 22 SEC (23-33) L Sodium Level 136 mEQ/L (135-145) Potassium Level 4.4 mEQ/L (3.4-4.9) Chloride Level 100 mEQ/L (98-107) Carbon Dioxide Level 24 mEQ/L (20-30) Anion Gap 12 (5-15) Blood Urea Nitrogen 8 mg/dL (7-23) Creatinine 0.5 mg/dL (0.5-0.9) Estimat Glomerular Filtration Rate > 60 mL/min (>60) Glucose Level 134 mg/dL (74-106) H Calcium Level 8.8 mg/dL (8.6-10.2) Phosphorus Level 3.4 mg/dL (2.5-4.8) Magnesium Level 1.3 mg/dL (1.7-2.5) L Total Bilirubin 1.0 mg/dL (0.0-1.2) Aspartate Amino Transf (AST/SGOT) 43 U/L (5-40) H Alanine Aminotransferase (ALT/SGPT) 34 U/L (3-33) H Alkaline Phosphatase 101 U/L (35-104) Total Protein 8.9 g/dL (6.6-8.7) H Albumin 3.1 g/dL (3.5-5.2) L Globulin 5.8 g/dL Albumin/Globulin Ratio 0.5 (1.0-2.7) L Triglycerides Level 43 mg/dL (< 150) Cholesterol Level 90 mg/dL (< 200) LDL Cholesterol 29 mg/dL (60-99) L HDL Cholesterol 52 mg/dL (> 60) Cholesterol/HDL Ratio 1.7 (3.3-4.4) L Amylase Level 39 U/L (10-110) Lipase 51 U/L (< 60) IMPRESSION: 1. Pancytopenia secondary to liver cirrhosis/hepatitis C. 2. Leukopenia, persistent secondary to liver cirrhosis/hepatitis C. 3. Thrombocytopenia, persistent secondary to liver cirrhosis/hepatitis C/drug side effect. 4. Anemia of chronic disease. 5. Pancreatitis 6. Hepatitis C. 7. Liver cirrhosis. 8. Hepatic encephalopathy. 9. History of narcotic dependence. 10. History of migraine headaches. 11. Diabetes mellitus. 12. History of osteoarthritis/degenerative joint disease. 13. History of anxiety attack. 14. Psychosis. 15. Chronic obstructive pulmonary disease. 16. Failure to thrive. RECOMMENDATIONS: 1. Watch count. 2. Watch coagulopathy. 3. PRBC transfusion p.r.n. basis. 4. Platelet transfusion p.r.n. basis. 5. Neupogen on p.r.n. basis. 6. Check hepatitis profile-->+ for hep C 7. Prior duplex negative for clot of lower ext 8. No heparin. 9. Appreciate GI and pulm recs 10. SCD (compression boots). 11. CT scan shows splenomegaly --> obtain US abd again 12. Close followup. Thank you Dr. Bubba Avina for this kind referral, please do not hesitate to contact me with any further questions, Sincerely, MD Scottie David Roman L. Sep 04, 2016 19:36
[2016-09-04 21:02] LABS: INR 1.2 (0.9-1.1); PROTHROMBIN TIME 12.6 SEC (9.30-11.50)
--- NOTE | 2016-09-04 21:48 | History and Physical Report ---
DATE OF ADMISSION: 09/04/2016 CONSULTANTS: 1. Tony Hill M.D. 2. April Denny M.D. 3. Soren Coburn M.D. 4. Oneil Olson M.D. 5. Jerry Torres M.D. CHIEF COMPLAINT: Abdominal pain, pancreatitis, shortness of breath, COPD, and chronic pain. BRIEF HISTORY: The patient is a 56-year-old female, who lives in a [facility], presented to [facility] last night with history of increased nausea, vomiting, and abdominal pain for two days, diagnosed with pancreatitis, and admitted to medical floor for further treatment. Currently, calm in bed, sleeping, and not talking much. PAST MEDICAL HISTORY: Includes diabetes, hypertension, CHF, and COPD. PAST SURGICAL HISTORY: Left knee. MEDICATIONS: Include Ativan, Abilify, Ecotrin, Celexa, Prinivil, metoprolol, Ditropan, Zantac, NovoLog, and Dilaudid. ALLERGIES: Iodine and . SOCIAL HISTORY: No smoking, no alcohol, and no intravenous drug abuse. FAMILY HISTORY: Noncontributory. REVIEW OF SYSTEMS: No chest pain. Slightly short of breath. Slight nausea and vomiting. No diarrhea. PHYSICAL EXAMINATION: GENERAL: Calm in bed, oriented x3, and in no acute distress. VITAL SIGNS: Shows temperature 98 degrees, pulse 57, respirations 20, and blood pressure 117/79. CARDIOVASCULAR: No murmur. LUNGS: Poor air exchange. ABDOMEN: Bowel sounds are positive. Nontender and nondistended. EXTREMITIES: No cyanosis, clubbing, or edema. NEUROLOGIC: The patient moves all extremities. Slightly weak. LABORATORY DATA: Labs at this time show white count 4.3, hemoglobin and hematocrit are 12 and 36, and platelets is 97,000. BNP shows glucose 134. AST 43 and ALT 34. Lipase initially 83 and now it is 51. PTT is 22. Urinalysis show 1+ leukocyte esterase. ASSESSMENT: 1. Pancreatitis. 2. Abdominal pain. 3. Urinary tract infection. 4. Chronic pain. 5. Diabetes. 6. Hypertension. 7. Congestive heart failure. 8. Chronic obstructive pulmonary disease. PLAN: 1. Continue premedications. 2. NPO. 3. IV fluids. 4. Pain control. 5. OT, PT, and dietary evaluation. 6. CBC and BMP in the morning. 7. Resume home medications. 8. Accu-Cheks and sliding scale. 9. Antibiotics per Infectious Disease. 10. Dr. Hill, Dr. Denny, Dr. Coburn, Dr. Olson, Dr. Torres, Dr. Rubin, and Dr. Contreras to consult. Bubba Hanley D.O. DR: BAYRON JOB#: [id number] CC:
--- NOTE | 2016-09-04 22:58 | Consultation ---
DATE OF CONSULTATION: 09/04/2016 INFECTIOUS DISEASE CONSULTATION CONSULTING PHYSICIAN: Yordy Contreras M.D. REQUESTING PHYSICIAN: Bubba Hanley D.O. REASON FOR CONSULTATION: Acute pancreatitis. Recommendation for antibiotics therapy. HISTORY OF PRESENT ILLNESS: The patient is a 56-year-old female with history of chronic hepatitis C, presented to the emergency room with intractable abdominal pain associated with nausea, vomiting, and diarrhea for two days. Her abdominal pain was generalized mainly in the central part of her abdomen, 10/10, dull, deep ache, sometimes radiate to her back. It gets better with fasting and pain medicine. It gets worse with movement and eating. The patient denied any recent travel or sick contact. Her abdominal pain has been constant and sharp sometimes. No previous history of abdominal pain similar to this. No previous abdominal surgery. Denied any fever or chills. The patient had a recent fracture of the left arm with a cast on it. In the emergency department, the patient's lipase was found to be elevated so she was admitted to the hospital for management of acute pancreatitis and I was consulted by the primary provider for antibiotics recommendation. PAST MEDICAL HISTORY: Significant for CHF, coronary artery disease status post NH in 2007 and 2011, hypertension, asthma, COPD, diabetes, GERD, anxiety, depression, CVA, seizure, peripheral neuropathy, dizziness and headache. PAST SURGICAL HISTORY: She had a total hysterectomy in 2001. MEDICATIONS: Please refer to the MAR for further details. ALLERGIES: She is allergic to metoclopramide, prochlorperazine, prednisone, eggs, iodine and shell fish derivatives. FAMILY HISTORY: Negative. Noncontributory. SOCIAL HISTORY: She is unemployed. Denied recent drugs, tobacco, or alcohol. REVIEW OF SYSTEMS: A 12-point of review of system reviewed were all negative apart from the one I mentioned above in my History and Physical. PHYSICAL EXAMINATION: VITAL SIGNS: Temperature is 98.2 degrees, pulse 57, respirations 20, blood pressure 117/79, and pulse oximetry 97% on room air. GENERAL: Middle-aged female, lying in bed with abdominal discomfort, awake, alert, and oriented, not in distress. HEENT: Normocephalic and atraumatic. Pupils reactive to light equally. Moist oral mucosa. NECK: Supple. No lymphadenopathy. CARDIOVASCULAR: Regular rate and rhythm. No murmur or gallop. LUNGS: Clear bilaterally. No wheezing or rhonchi. ABDOMEN: Soft, tender and not distended. No rebound. No organomegaly. EXTREMITIES: No edema. No cyanosis. LABORATORY DATA: White count 4.3, hemoglobin 12, hematocrit 36.7, and platelet count 97,000. BUN of 8 and creatinine of 0.5. Urinalysis showed +1 leukocyte esterase, WBC 2 to 4 and few bacteria. IMAGING STUDIES: I do not see any images done. ASSESSMENT AND PLAN: 1. Acute inflammation of the pancreas suspect pancreatitis. Recommend no antibiotics at this point since she does not have necrosis or phlegmon formation. Recommend CT scan for further evaluation. Continue NPO, supportive care, intravenous fluids and pain management. Gastrointestinal is following. 2. Chronic hepatitis C. We will confirm obtain viral load and genotype. Need referral to gastrointestinal as an outpatient for treatment. 3. Intractable abdominal pain due to #1. Continue supportive care. Pain management as the primary provider. 4. Diabetes out of control. Recommend tight glycemic control to keep blood glucose between 80 to 120. 5. Congestive heart failure, stable. Continue diuretics. Monitor daily weights. Thank you for the consult. Yordy Contreras M.D. DR: KENYATTA JOB#: [id number] CC:
--- NOTE | 2016-09-04 23:22 | Consultation ---
History of Present Illness General Date patient seen: Sep 04, 2016 Chief Complaint: Abdominal Pain Referring physician: CHARLIE PEREZ Reason for Consultation: dyspnea, inpatient management Present Illness HPI 56 year old female with hx of COPD, DM, HTN, chronic pain, presented to [facility] with CC of increased abdominal pain. She has chronic bronchitis and emphysema which is now stable. Allergies: Coded Allergies: METOCLOPRAMIDE (Verified Allergy, Severe, Anaphylaxis, 01/31/16) tongue swelling PROCHLORPERAZINE (Verified Allergy, Severe, Anaphylaxis, 01/31/16) tongue swelling PREDNISONE (Verified Allergy, Mild, Facial Edema , 07/28/15) EGG (Unverified Allergy, Unknown, 03/16/15) Pt sts she is allergic to eggs but not products made with eggs such as muffins IODINE (Verified Allergy, Unknown, 01/25/15) SHELLFISH DERIVED (Verified Allergy, Unknown, 04/07/14) Uncoded Allergies: plastic tape (Allergy, Mild, Rash, 01/25/15) PREDISONE (Allergy, Unknown, 04/12/16) SHELLFISH (Allergy, Unknown, 04/12/16) Medication History Scheduled Aripiprazole* (Abilify*), 10 MG ORAL DAILY Aspirin* (Aspir 81*), 81 MG ORAL DAILY, (Reported) Citalopram Hydrobromide* (Celexa*), 20 MG ORAL DAILY, (Reported) Fluoxetine Hcl* (Prozac*), Unknown Dose ORAL DAILY, (Reported) Insulin Aspart* (Novolog*), 12 SUBQ AC, (Reported) Insulin Detemir (Levemir Flexpen), 20 SUBQ Q12HR, (Reported) Lisinopril (Lisinopril*), 40 MG ORAL DAILY, (Reported) Lorazepam* (Ativan*), 2 MG ORAL Q6HR, (Reported) Metoprolol Succinate* (Metoprolol Succinate*), 25 MG ORAL BID Mupirocin* (Mupirocin*), 1 APPLIC TOPIC THREE TIMES A DAY, (Reported) Nicotine (Nicotine Patch), 1 EA TD DAILY, (Reported) Nitroglycerin/D5w (Ntg 0.2 Mg/Ml In D5w), 0.4 MG SL PRN, (Reported) Oxybutynin Chloride (Oxybutynin Chloride), 5 MG ORAL TWICE A DAY, (Reported) Ranitidine Hcl (Ranitidine Hcl), 150 MG ORAL BIDAC, (Reported) Scheduled PRN Acetaminophen (Acetaminophen), 650 MG PO Q4HR PRN for Prn Headache/Temp > 101, ( Reported) Alprazolam* (Xanax*), 1 MG ORAL TID PRN for PRN, (Reported) Clonidine Hcl* (Catapres*), 0.1 MG ORAL EVERY 6 HOURS PRN for For High Blood Pressure, (Reported) Codeine/Promethazine Hcl* (Promethazine-Codeine Syrup*), 5 ML ORAL Q6H PRN for For Cough, (Reported) Hydromorphone HCl (Dilaudid), 2 MG ORAL Q4H PRN for Severe Pain (Pain Scale 7-10 ), (Reported) Ipratropium/Albuterol Sulfate (DuoNeb 0.5-3(2.5)mg/3ml), 3 ML HHN EVERY 4 HOURS PRN for Shortness of Breath, (Reported) Temazepam (Temazepam*), 15 MG ORAL HS PRN for Insomnia, (Reported) Patient History Healthcare decision maker Resuscitation status Advanced Directive on File Review of Systems All Other Systems: negative except mentioned in HPI Physical Exam Last 24 Hour Vital Signs Date Time Temp Pulse Resp B/P Pulse Ox O2 Delivery O2 Flow Rate FiO2 09/04/16 20:00 98.2 63 20 155/78 97 Room Air 09/04/16 17:04 58 125/80 09/04/16 15:57 99.3 58 20 125/80 95 Room Air 09/04/16 14:51 98.2 09/04/16 11:42 98.2 57 20 117/79 97 Room Air 09/04/16 08:55 70 146/66 09/04/16 08:55 146/66 09/04/16 08:08 97.7 70 20 146/66 96 Room Air 09/04/16 04:00 98.2 66 19 146/94 94 Room Air 09/04/16 00:16 99.1 67 20 156/78 95 Room Air Intake and Output 09/03/16 09/04/16 19:00 07:00 Intake Total 1000 ml 525 ml Balance 1000 ml 525 ml IV Total 1000 ml 525 ml # Voids 1 Laboratory Tests Test 09/04/16 05:10 09/04/16 20:30 White Blood Count 4.3 K/UL (4.8-10.8) L Red Blood Count 4.04 M/UL (4.20-5.40) L Hemoglobin 12.0 G/DL (12.0-16.0) Hematocrit 36.7 % (37.0-47.0) L Mean Corpuscular Volume 91 FL (80-99) Mean Corpuscular Hemoglobin 29.8 PG (27.0-31.0) Mean Corpuscular Hemoglobin Concent 32.8 G/DL (32.0-36.0) Red Cell Distribution Width 14.0 % (11.6-14.8) Platelet Count 97 K/UL (150-450) L Mean Platelet Volume 7.5 FL (6.5-10.1) Neutrophils (%) (Auto) % (45.0-75.0) Lymphocytes (%) (Auto) % (20.0-45.0) Monocytes (%) (Auto) % (1.0-10.0) Eosinophils (%) (Auto) % (0.0-3.0) Basophils (%) (Auto) % (0.0-2.0) Differential Total Cells Counted 100 Neutrophils % (Manual) 74 % (45-75) Lymphocytes % (Manual) 19 % (20-45) L Monocytes % (Manual) 3 % (1-10) Eosinophils % (Manual) 4 % (0-3) H Basophils % (Manual) 0 % (0-2) Band Neutrophils 0 % (0-8) Platelet Estimate Decreased L Platelet Morphology Normal Anisocytosis 1+ Activated Partial Thromboplast Time 22 SEC (23-33) L Sodium Level 136 mEQ/L (135-145) Potassium Level 4.4 mEQ/L (3.4-4.9) Chloride Level 100 mEQ/L (98-107) Carbon Dioxide Level 24 mEQ/L (20-30) Anion Gap 12 (5-15) Blood Urea Nitrogen 8 mg/dL (7-23) Creatinine 0.5 mg/dL (0.5-0.9) Estimat Glomerular Filtration Rate > 60 mL/min (>60) Glucose Level 134 mg/dL (74-106) H Calcium Level 8.8 mg/dL (8.6-10.2) Phosphorus Level 3.4 mg/dL (2.5-4.8) Magnesium Level 1.3 mg/dL (1.7-2.5) L Total Bilirubin 1.0 mg/dL (0.0-1.2) Aspartate Amino Transf (AST/SGOT) 43 U/L (5-40) H Alanine Aminotransferase (ALT/SGPT) 34 U/L (3-33) H Alkaline Phosphatase 101 U/L (35-104) Total Protein 8.9 g/dL (6.6-8.7) H Albumin 3.1 g/dL (3.5-5.2) L Globulin 5.8 g/dL Albumin/Globulin Ratio 0.5 (1.0-2.7) L Triglycerides Level 43 mg/dL (< 150) Cholesterol Level 90 mg/dL (< 200) LDL Cholesterol 29 mg/dL (60-99) L HDL Cholesterol 52 mg/dL (> 60) Cholesterol/HDL Ratio 1.7 (3.3-4.4) L Amylase Level 39 U/L (10-110) Lipase 51 U/L (< 60) Prothrombin Time 12.6 SEC (9.30-11.50) H Prothromb Time International Ratio 1.2 (0.9-1.1) H Height (Feet): 5 Height (Inches): 2.00 Weight (Pounds): 165 Medications Current Medications Medications (Trade) Dose Ordered Sig/Bill Route PRN Reason Start Time Stop Time Status Last Admin Dose Admin Acetaminophen (Tylenol) 650 mg Q4H PRN ORAL fever 09/03/16 22:00 10/03/16 21:59 Al Hydroxide/Mg Hydroxide (Mylanta II) 30 ml Q6H PRN ORAL dyspepsia 09/03/16 22:00 10/03/16 21:59 Aripiprazole (Abilify) 10 mg DAILY ORAL 09/04/16 09:00 10/04/16 08:59 09/04/16 08:55 Aspirin (Ecotrin) 81 mg DAILY ORAL 09/04/16 09:00 10/04/16 08:59 09/04/16 08:56 Citalopram Hydrobromide (celeXA) 20 mg DAILY ORAL 09/04/16 09:00 10/04/16 08:59 09/04/16 08:55 Clonidine HCl (Catapres) 0.1 mg EVERY 6 HOURS PRN ORAL For High Blood Pressure 09/03/16 22:00 10/03/16 21:59 Dextrose (Dextrose 50%) STAT PRN IV Hypoglycemia 09/03/16 22:00 10/03/16 21:59 Dextrose/Sodium Chloride (D5 0.45% NS) 1,000 ml @ 75 mls/hr [id number] IV 09/03/16 17:40 10/03/16 17:39 09/04/16 07:00 Diphenhydramine HCl (Benadryl) 25 mg Q6H PRN ORAL Itching/Pruritis 09/03/16 22:00 10/03/16 21:59 09/04/16 20:52 Heparin Sodium (Porcine) (Heparin 5000 units/ml) 5,000 units EVERY 12 HOURS SUBQ 09/04/16 09:00 10/04/16 08:59 Hydromorphone HCl (Dilaudid) 2 mg Q4H PRN ORAL moderate pain 4-6 09/04/16 02:00 09/11/16 01:59 09/04/16 13:52 Insulin Aspart (NovoLOG) BEFORE MEALS AND HS SUBQ 09/04/16 06:30 10/04/16 06:29 09/04/16 20:47 Lisinopril (Prinivil) 40 mg DAILY ORAL 09/04/16 09:00 10/04/16 08:59 09/04/16 08:55 Lorazepam (Ativan) 1 mg Q6H PRN ORAL For Anxiety 09/04/16 11:00 09/11/16 10:59 09/04/16 17:35 Metoprolol Succinate (Toprol XL) 25 mg BID ORAL 09/04/16 09:00 10/04/16 08:59 09/04/16 17:04 Morphine Sulfate (Morphine Sulfate) 2 mg Q4H PRN IVP Severe Pain (Pain Scale 7-10) 09/04/16 17:30 09/11/16 17:29 09/04/16 18:49 Nicotine (Nicoderm) 1 patch Q24H TDERMAL 09/04/16 13:00 10/04/16 12:59 09/04/16 14:57 Nitroglycerin (Ntg) 0.4 mg Q5M X 3 DOSES PRN SL Prn Chest Pain 09/03/16 22:00 10/03/16 21:59 Ondansetron HCl (Zofran) 4 mg Q6H PRN IVP Nausea & Vomiting 09/03/16 22:00 10/03/16 21:59 Oxybutynin Chloride (Ditropan) 5 mg TWICE A DAY ORAL 09/04/16 09:00 10/04/16 08:59 09/04/16 17:05 Polyethylene Glycol (Miralax) 17 gm HSPRN PRN ORAL Constipation 09/03/16 22:00 10/03/16 21:59 Ranitidine HCl 150 mg 150 mg DAILY ORAL 09/04/16 09:00 10/04/16 08:59 09/04/16 08:55 Temazepam (Restoril) 15 mg HSPRN PRN ORAL Insomnia 09/03/16 22:00 09/10/16 21:59 09/04/16 02:30 Objective Narrative General Appearance: WD/WN, no apparent distress, alert EENT: PERRL/EOMI, normal ENT inspection, TMs normal, hair lose. Neck: non-tender, normal alignment, supple, normal inspection Cardiovascular: normal peripheral pulses, normal rate, regular rhythm, no murmur. 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 Skin: normal pigmentation, warm/dry Assessment/Plan Problem List: (1) COPD (chronic obstructive pulmonary disease) ICD Codes: J44.9 - Chronic obstructive pulmonary disease SNOMED: 15364401 (2) Pancreatitis ICD Codes: K85.90 - Acute pancreatitis without necrosis or infection, unspecified SNOMED: 40862624 Qualifiers: Qualified Codes: K85.90 - Acute pancreatitis without necrosis or infection, unspecified (3) Multiple injuries due to trauma ICD Codes: T07 - Unspecified multiple injuries SNOMED: 306493300 (4) Narcotic dependence ICD Codes: F19.20 - Narcotic dependence SNOMED: 44246358 (5) Hypertension ICD Codes: I10 - Essential (primary) hypertension SNOMED: 27827679 (6) Diabetes ICD Codes: E11.9 - Type 2 diabetes mellitus without complications SNOMED: 67629396 (7) Chronic pain ICD Codes: G89.29 - Chronic pain SNOMED: 40097910 Assessment/Plan npo IV fluids pain management respiratory treatment titrate fio2 to sat of 92% no need for steroids now GI evaluation ORALIA GÓMEZ Sep 04, 2016 23:22
[2016-09-05] MEDS: LORazepam 1mg tab ORAL PRN ×3 (02:27→18:02)
[2016-09-05 04:00] VITALS: BP 120/75
[2016-09-05] MEDS: HYDROmorphone 2mg tab ORAL PRN ×3 (06:05→14:55)
[2016-09-05] MEDS: NovoLOG Insulin Flexpen SUBQ SCH ×4 (06:06→21:22)
[2016-09-05 07:24] LABS: BASOPHILS % (AUTO) 1.2 % (0.0-2.0); EOSINOPHILS % (AUTO) 4.1 % (0.0-3.0); LYMPHOCYTES % (AUTO) 22.3 % (20.0-45.0); MEAN CORPUSCULAR HGB CONC 33.3 G/DL (32.0-36.0); MEAN CORPUSCULAR VOLUME 90 FL (80-99); MEAN PLATELET VOLUME 7.2 FL (6.5-10.1); MONOCYTES % (AUTO) 8.6 % (1.0-10.0); NEUTROPHILS % (AUTO) 63.8 % (45.0-75.0); PLATELET COUNT 104 K/UL (150-450); WHITE BLOOD COUNT 5.1 K/UL (4.8-10.8)
[2016-09-05 07:27] LABS: ANION GAP 11 (5-15); CALCIUM 8.7 mg/dL (8.6-10.2); CARBON DIOXIDE 26 mEQ/L (20-30); CHLORIDE 93 mEQ/L (98-107); CREATININE 0.6 mg/dL (0.5-0.9); GLOMERULAR FILTRATION RATE > 60 mL/min (>60); HEMOLYSIS 12; MAGNESIUM 1.6 mg/dL (1.7-2.5); POTASSIUM 4.2 mEQ/L (3.4-4.9); SODIUM 130 mEQ/L (135-145)
[2016-09-05 08:32] VITALS: BP 125/90
[2016-09-05] MEDS: Citalopram 20mg Tab ORAL SCH (08:39)
[2016-09-05] MEDS: Lisinopril 20mg tab ORAL SCH (08:39)
[2016-09-05] MEDS: Aspirin EC 81mg tab ORAL SCH (08:40)
[2016-09-05] MEDS: Heparin 5000 units/ml inj SUBQ SCH ×2 (08:40→19:41)
[2016-09-05] MEDS: Oxybutynin 5mg tab ORAL SCH ×2 (08:40→18:02)
--- NOTE | 2016-09-05 09:42 | General Progress Note ---
Assessment/Plan Assessment/Plan (1) Lumbar spondylosis (2) DDD (degenerative disc disease), lumbar (3) OA (osteoarthritis) of knee (4) Pain in limb (5) Cirrhosis (6) S/p left humeral Fracture (7) Intractable Abdominal pain (8) Pancreatitis We will continue Dilaudid tabs and morphine IV. A Rx for tramadol 50mg PO 1 tab Q4-6 hrs 30 tabs written for discharge. Pt was d/w Dr. Coburn and he concurred. Subjective Date patient seen: Sep 05, 2016 Time patient seen: 08:30 - am Allergies: Coded Allergies: METOCLOPRAMIDE (Verified Allergy, Severe, Anaphylaxis, 01/31/16) tongue swelling PROCHLORPERAZINE (Verified Allergy, Severe, Anaphylaxis, 01/31/16) tongue swelling PREDNISONE (Verified Allergy, Mild, Facial Edema , 07/28/15) EGG (Unverified Allergy, Unknown, 03/16/15) Pt sts she is allergic to eggs but not products made with eggs such as muffins IODINE (Verified Allergy, Unknown, 01/25/15) SHELLFISH DERIVED (Verified Allergy, Unknown, 04/07/14) Uncoded Allergies: plastic tape (Allergy, Mild, Rash, 01/25/15) PREDISONE (Allergy, Unknown, 04/12/16) SHELLFISH (Allergy, Unknown, 04/12/16) Subjective Constitutional: Reports: weakness, Denies: chills, diaphoresis, fever, malaise HEENT: Denies: blurred vision, double vision, ear discharge, ear pain, eye pain , mouth pain, mouth swelling, no symptoms, nose congestion, nose pain, other, tearing, throat pain, throat swelling Cardiovascular: Denies: chest pain, edema, irregular heart rate, lightheadedness, no symptoms, other, palpitations, syncope Respiratory: Denies: SOB at rest, SOB with excertion, cough, no symptoms, orthopnea, other, shortness of breath, sputum, stridor, wheezing Gastrointestinal/Abdominal: Reports: abdominal pain, Denies: abdomen distended , black stools, blood in stool, constipated, diarrhea, difficulty swallowing, nausea, poor appetite, poor fluid intake, rectal bleeding, tarry stools, vomiting Genitourinary: Denies: burning, discharge, flank pain, frequency, hematuria, incontinence, pain, urgency Neurologic/Psychiatric: Reports: weakness, Denies: anxiety, depressed, emotional problems, headache, no symptoms, numbness paresthesia, pre-existing deficit, seizure, tingling, tremors Endocrine: Denies: excessive sweating, flushing, increased hunger, increased thirst, increased urine, intolerance to cold, intolerance to heat, unexplained weight gain, unexplained weight loss Hematologic/Lymphatic: Denies: anemia, easy bleeding, easy bruising Subjective Pt is comfortable and is tolerating the pain at this time rating it a 5/10. Objective Last 24 Hour Vital Signs Date Time Temp Pulse Resp B/P Pulse Ox O2 Delivery O2 Flow Rate FiO2 09/05/16 08:40 61 120/75 09/05/16 08:39 120/75 09/05/16 08:32 98.2 61 20 125/90 95 Room Air 09/05/16 04:00 98.4 61 18 120/75 96 Room Air 09/04/16 23:58 98.2 58 20 124/77 94 09/04/16 20:00 98.2 63 20 155/78 97 Room Air 09/04/16 17:04 58 125/80 09/04/16 15:57 99.3 58 20 125/80 95 Room Air 09/04/16 14:51 98.2 09/04/16 11:42 98.2 57 20 117/79 97 Room Air Intake and Output 09/04/16 09/05/16 19:00 07:00 Intake Total 1525 ml 240 ml Balance 1525 ml 240 ml Intake Oral 650 ml 240 ml IV Total 875 ml # Voids 2 5 Laboratory Tests 09/04/16 20:30: Prothrombin Time 12.6H, Prothromb Time International Ratio 1.2H 09/05/16 06:00: White Blood Count 5.1, Red Blood Count 4.20, Hemoglobin 12.6, Hematocrit 37.8, Mean Corpuscular Volume 90, Mean Corpuscular Hemoglobin 30.0, Mean Corpuscular Hemoglobin Concent 33.3, Red Cell Distribution Width 14.0, Platelet Count 104L, Mean Platelet Volume 7.2, Neutrophils (%) (Auto) 63.8, Lymphocytes (%) (Auto) 22.3, Monocytes (%) (Auto) 8.6, Eosinophils (%) (Auto) 4.1H, Basophils (%) (Auto ) 1.2, Sodium Level 130L, Potassium Level 4.2, Chloride Level 93L, Carbon Dioxide Level 26, Anion Gap 11, Blood Urea Nitrogen 7, Creatinine 0.6, Estimat Glomerular Filtration Rate > 60, Glucose Level 185H, Calcium Level 8.7, Magnesium Level 1.6L Height (Feet): 5 Height (Inches): 2.00 Weight (Pounds): 165 Objective General Appearance: no apparent distress, alert, mild distress EENT: normal ENT inspection Neck: non-tender, normal alignment Cardiovascular: normal rate Respiratory/Chest: lungs clear, normal breath sounds Abdomen: distended Extremities: swelling, left UE in sling Edema: mild edema Neurologic: alert, oriented x 3 Skin: warm/dry LUIS JOHNSON PArlette Sep 05, 2016 09:42
[2016-09-05] MEDS: D5 1/2NS 1,000 ML IV SCH (11:00)
--- NOTE | 2016-09-05 11:07 | General Progress Note ---
Assessment/Plan Assessment/Plan IMPRESSION: 1. Pancytopenia secondary to liver cirrhosis/hepatitis C. 2. Leukopenia, persistent secondary to liver cirrhosis/hepatitis C. 3. Thrombocytopenia, persistent secondary to liver cirrhosis/hepatitis C/drug side effect. 4. Anemia of chronic disease. 5. Pancreatitis 6. Hepatitis C. 7. Liver cirrhosis. 8. Hepatic encephalopathy. 9. History of narcotic dependence. 10. History of migraine headaches. 11. Diabetes mellitus. 12. History of osteoarthritis/degenerative joint disease. 13. History of anxiety attack. 14. Psychosis. 15. Chronic obstructive pulmonary disease. 16. Failure to thrive. RECOMMENDATIONS: 1. Watch count. 2. Watch coagulopathy. 3. PRBC transfusion p.r.n. basis. 4. Platelet transfusion p.r.n. basis. 5. Neupogen on p.r.n. basis. 6. Check hepatitis profile-->+ for hep C 7. Prior duplex negative for clot of lower ext 8. No heparin. 9. Appreciate GI and pulm recs 10. SCD (compression boots). 11. CT scan shows splenomegaly --> US Abd shows cirrhosis 12. Close followup. Thank you, Buddy Rubin MD Subjective Constitutional: Reports: no symptoms HEENT: Reports: no symptoms Cardiovascular: Reports: no symptoms Respiratory: Reports: no symptoms Gastrointestinal/Abdominal: Reports: no symptoms Genitourinary: Reports: no symptoms Neurologic/Psychiatric: Reports: no symptoms Endocrine: Reports: no symptoms Hematologic/Lymphatic: Reports: anemia Allergies: Coded Allergies: METOCLOPRAMIDE (Verified Allergy, Severe, Anaphylaxis, 01/31/16) tongue swelling PROCHLORPERAZINE (Verified Allergy, Severe, Anaphylaxis, 01/31/16) tongue swelling PREDNISONE (Verified Allergy, Mild, Facial Edema , 07/28/15) EGG (Unverified Allergy, Unknown, 03/16/15) Pt sts she is allergic to eggs but not products made with eggs such as muffins IODINE (Verified Allergy, Unknown, 01/25/15) SHELLFISH DERIVED (Verified Allergy, Unknown, 04/07/14) Uncoded Allergies: plastic tape (Allergy, Mild, Rash, 01/25/15) PREDISONE (Allergy, Unknown, 04/12/16) SHELLFISH (Allergy, Unknown, 04/12/16) Subjective stable, no bleeding noted or reported Objective Last 24 Hour Vital Signs Date Time Temp Pulse Resp B/P Pulse Ox O2 Delivery O2 Flow Rate FiO2 09/05/16 08:40 61 120/75 09/05/16 08:39 120/75 09/05/16 08:32 98.2 61 20 125/90 95 Room Air 09/05/16 04:00 98.4 61 18 120/75 96 Room Air 09/04/16 23:58 98.2 58 20 124/77 94 09/04/16 20:00 98.2 63 20 155/78 97 Room Air 09/04/16 17:04 58 125/80 09/04/16 15:57 99.3 58 20 125/80 95 Room Air 09/04/16 14:51 98.2 09/04/16 11:42 98.2 57 20 117/79 97 Room Air Intake and Output 09/04/16 09/05/16 19:00 07:00 Intake Total 1525 ml 240 ml Balance 1525 ml 240 ml Intake Oral 650 ml 240 ml IV Total 875 ml # Voids 2 5 Laboratory Tests 09/04/16 20:30: Prothrombin Time 12.6H, Prothromb Time International Ratio 1.2H 09/05/16 06:00: White Blood Count 5.1, Red Blood Count 4.20, Hemoglobin 12.6, Hematocrit 37.8, Mean Corpuscular Volume 90, Mean Corpuscular Hemoglobin 30.0, Mean Corpuscular Hemoglobin Concent 33.3, Red Cell Distribution Width 14.0, Platelet Count 104L, Mean Platelet Volume 7.2, Neutrophils (%) (Auto) 63.8, Lymphocytes (%) (Auto) 22.3, Monocytes (%) (Auto) 8.6, Eosinophils (%) (Auto) 4.1H, Basophils (%) (Auto ) 1.2, Sodium Level 130L, Potassium Level 4.2, Chloride Level 93L, Carbon Dioxide Level 26, Anion Gap 11, Blood Urea Nitrogen 7, Creatinine 0.6, Estimat Glomerular Filtration Rate > 60, Glucose Level 185H, Calcium Level 8.7, Magnesium Level 1.6L Height (Feet): 5 Height (Inches): 2.00 Weight (Pounds): 165 General Appearance: no apparent distress EENT: TMs normal Neck: normal alignment Cardiovascular: regular rhythm Respiratory/Chest: normal breath sounds Abdomen: no organomegaly Extremities: normal inspection Edema: 1+ Leg (L), 1+ Leg (R) Edema: mild edema Neurologic: alert Skin: warm/dry Buddy Rubin Sep 05, 2016 11:07
[2016-09-05 11:52] VITALS: BP 124/74
--- NOTE | 2016-09-05 13:11 | General Progress Note ---
Assessment/Plan Problem List: (1) Pancreatitis ICD Codes: K85.90 - Acute pancreatitis without necrosis or infection, unspecified SNOMED: 88873953 (2) COPD (chronic obstructive pulmonary disease) ICD Codes: J44.9 - Chronic obstructive pulmonary disease, unspecified SNOMED: 81165220 (3) Thrombocytopenia ICD Codes: D69.6 - Thrombocytopenia, unspecified SNOMED: 479036197 (4) Failure to thrive ICD Codes: R62.51 - Failure to thrive SNOMED: 88078300 (5) Episode of generalized weakness ICD Codes: R53.1 - Episode of generalized weakness SNOMED: 24762662 (6) UTI (urinary tract infection) ICD Codes: N39.0 - Urinary tract infection, site not specified SNOMED: 81087935 (7) Chronic pain ICD Codes: G89.29 - Other chronic pain SNOMED: 45115414 (8) Narcotic dependence ICD Codes: F19.20 - Other psychoactive substance dependence, uncomplicated SNOMED: 03761995 (9) CHF (congestive heart failure) ICD Codes: I50.9 - Heart failure, unspecified SNOMED: 37580366 (10) Hyponatremia ICD Codes: E87.1 - Hypo-osmolality and hyponatremia SNOMED: 79292988 (11) HTN (hypertension) ICD Codes: I10 - Essential (primary) hypertension SNOMED: 84992017 Status: stable, progressing Assessment/Plan ot pt diet gi f/u pain control cbc bmp am Subjective Constitutional: Reports: weakness Allergies: Coded Allergies: METOCLOPRAMIDE (Verified Allergy, Severe, Anaphylaxis, 01/31/16) tongue swelling PROCHLORPERAZINE (Verified Allergy, Severe, Anaphylaxis, 01/31/16) tongue swelling PREDNISONE (Verified Allergy, Mild, Facial Edema , 07/28/15) EGG (Unverified Allergy, Unknown, 03/16/15) Pt sts she is allergic to eggs but not products made with eggs such as muffins IODINE (Verified Allergy, Unknown, 01/25/15) SHELLFISH DERIVED (Verified Allergy, Unknown, 04/07/14) Uncoded Allergies: plastic tape (Allergy, Mild, Rash, 01/25/15) PREDISONE (Allergy, Unknown, 04/12/16) SHELLFISH (Allergy, Unknown, 04/12/16) All Systems: reviewed and negative except above Subjective sleepy calm in bed Objective Last 24 Hour Vital Signs Date Time Temp Pulse Resp B/P Pulse Ox O2 Delivery O2 Flow Rate FiO2 09/05/16 11:52 98.2 54 20 124/74 99 Room Air 09/05/16 11:41 98.2 09/05/16 08:40 61 120/75 09/05/16 08:39 120/75 09/05/16 08:32 98.2 61 20 125/90 95 Room Air 09/05/16 04:00 98.4 61 18 120/75 96 Room Air 09/04/16 23:58 98.2 58 20 124/77 94 09/04/16 20:00 98.2 63 20 155/78 97 Room Air 09/04/16 17:04 58 125/80 09/04/16 15:57 99.3 58 20 125/80 95 Room Air Intake and Output 09/04/16 09/05/16 19:00 07:00 Intake Total 1525 ml 240 ml Balance 1525 ml 240 ml Intake Oral 650 ml 240 ml IV Total 875 ml # Voids 2 5 Laboratory Tests 09/04/16 20:30: Prothrombin Time 12.6H, Prothromb Time International Ratio 1.2H 09/05/16 06:00: White Blood Count 5.1, Red Blood Count 4.20, Hemoglobin 12.6, Hematocrit 37.8, Mean Corpuscular Volume 90, Mean Corpuscular Hemoglobin 30.0, Mean Corpuscular Hemoglobin Concent 33.3, Red Cell Distribution Width 14.0, Platelet Count 104L, Mean Platelet Volume 7.2, Neutrophils (%) (Auto) 63.8, Lymphocytes (%) (Auto) 22.3, Monocytes (%) (Auto) 8.6, Eosinophils (%) (Auto) 4.1H, Basophils (%) (Auto ) 1.2, Sodium Level 130L, Potassium Level 4.2, Chloride Level 93L, Carbon Dioxide Level 26, Anion Gap 11, Blood Urea Nitrogen 7, Creatinine 0.6, Estimat Glomerular Filtration Rate > 60, Glucose Level 185H, Calcium Level 8.7, Magnesium Level 1.6L Height (Feet): 5 Height (Inches): 2.00 Weight (Pounds): 165 General Appearance: lethargic EENT: normal ENT inspection Neck: normal alignment Cardiovascular: normal peripheral pulses, normal rate, regular rhythm Respiratory/Chest: chest wall non-tender, lungs clear, normal breath sounds Abdomen: normal bowel sounds, non tender, soft Extremities: normal inspection Edema: no edema noted Arm (L), no edema noted Arm (R), no edema noted Leg (L), no edema noted Leg (R), no edema noted Pedal (L), no edema noted Pedal (R), no edema noted Generalized Neurologic: responsive, motor weakness Skin: normal pigmentation, warm/dry CHARLIE PEREZ Sep 05, 2016 13:11
--- NOTE | 2016-09-05 14:22 | Nephrology Progress Note ---
Assessment/Plan Problem List: (1) Hypomagnesemia (2) Weakness (3) Diabetes (4) CHF (congestive heart failure) (5) Thrombocytopenia (6) Abdominal pain (7) Hyponatremia Plan Consult dictated # [id number] Subjective Constitutional: Denies: chills, diaphoresis, fever, malaise, no symptoms, other , weakness HEENT: Denies: blurred vision, double vision, ear discharge, ear pain, eye pain , mouth pain, mouth swelling, no symptoms, nose congestion, nose pain, other, tearing, throat pain, throat swelling Genitourinary: Denies: burning, discharge, flank pain, frequency, hematuria, incontinence, no symptoms, other, pain, urgency Neurologic/Psychiatric: Denies: anxiety, depressed, emotional problems, headache, no symptoms, numbness, other, paresthesia, pre-existing deficit, seizure, tingling, tremors, weakness Objective Objective Last 24 Hour Vital Signs Date Time Temp Pulse Resp B/P Pulse Ox O2 Delivery O2 Flow Rate FiO2 09/05/16 11:52 98.2 54 20 124/74 99 Room Air 09/05/16 11:41 98.2 09/05/16 08:40 61 120/75 09/05/16 08:39 120/75 09/05/16 08:32 98.2 61 20 125/90 95 Room Air 09/05/16 04:00 98.4 61 18 120/75 96 Room Air 09/04/16 23:58 98.2 58 20 124/77 94 09/04/16 20:00 98.2 63 20 155/78 97 Room Air 09/04/16 17:04 58 125/80 09/04/16 15:57 99.3 58 20 125/80 95 Room Air Intake and Output 09/04/16 09/05/16 19:00 07:00 Intake Total 1525 ml 240 ml Balance 1525 ml 240 ml Intake Oral 650 ml 240 ml IV Total 875 ml # Voids 2 5 Laboratory Tests 09/04/16 20:30: Prothrombin Time 12.6H, Prothromb Time International Ratio 1.2H 09/05/16 06:00: White Blood Count 5.1, Red Blood Count 4.20, Hemoglobin 12.6, Hematocrit 37.8, Mean Corpuscular Volume 90, Mean Corpuscular Hemoglobin 30.0, Mean Corpuscular Hemoglobin Concent 33.3, Red Cell Distribution Width 14.0, Platelet Count 104L, Mean Platelet Volume 7.2, Neutrophils (%) (Auto) 63.8, Lymphocytes (%) (Auto) 22.3, Monocytes (%) (Auto) 8.6, Eosinophils (%) (Auto) 4.1H, Basophils (%) (Auto ) 1.2, Sodium Level 130L, Potassium Level 4.2, Chloride Level 93L, Carbon Dioxide Level 26, Anion Gap 11, Blood Urea Nitrogen 7, Creatinine 0.6, Estimat Glomerular Filtration Rate > 60, Glucose Level 185H, Calcium Level 8.7, Magnesium Level 1.6L Height (Feet): 5 Height (Inches): 2.00 Weight (Pounds): 165 General Appearance: no apparent distress, alert EENT: normal ENT inspection Neck: normal alignment, supple, normal inspection Cardiovascular: normal peripheral pulses, normal rate, regular rhythm, no JVD Respiratory/Chest: lungs clear, normal breath sounds Abdomen: non tender, soft Extremities: normal range of motion, non-tender, normal inspection Neurologic: alert, oriented x 3, responsive, normal mood/affect Dennise Baker N.P. Sep 05, 2016 14:22
[2016-09-05 16:06] VITALS: BP 133/80
--- NOTE | 2016-09-05 17:45 | Infectious Diseases Prog Note ---
Assessment/Plan Problems: (1) Acute inflammation of the pancreas Assessment & Plan: continue supportive care, and IVF for hydration, and pain managemnt, GI is following no need for antibiotics for now, just monitor clinically (2) Hepatitis C Assessment & Plan: will confirm and obtain viral load and genotype. (3) Intractable pain Assessment & Plan: due to one, continue pain management as per primary (4) Diabetes mellitus out of control Assessment & Plan: recommend tight glycemic control to keep blood glucose between 80-120 Subjective Gastrointestinal/Abdominal: Reports: bloating, nausea Allergies: Coded Allergies: METOCLOPRAMIDE (Verified Allergy, Severe, Anaphylaxis, 01/31/16) tongue swelling PROCHLORPERAZINE (Verified Allergy, Severe, Anaphylaxis, 01/31/16) tongue swelling PREDNISONE (Verified Allergy, Mild, Facial Edema , 07/28/15) EGG (Unverified Allergy, Unknown, 03/16/15) Pt sts she is allergic to eggs but not products made with eggs such as muffins IODINE (Verified Allergy, Unknown, 01/25/15) SHELLFISH DERIVED (Verified Allergy, Unknown, 04/07/14) Uncoded Allergies: plastic tape (Allergy, Mild, Rash, 01/25/15) PREDISONE (Allergy, Unknown, 04/12/16) SHELLFISH (Allergy, Unknown, 04/12/16) All Systems: reviewed and negative except above Objective Vital Signs Last 24 Hour Vital Signs Date Time Temp Pulse Resp B/P Pulse Ox O2 Delivery O2 Flow Rate FiO2 09/05/16 16:06 98.2 63 20 133/80 96 Room Air 09/05/16 11:52 98.2 54 20 124/74 99 Room Air 09/05/16 11:41 98.2 09/05/16 08:40 61 120/75 09/05/16 08:39 120/75 09/05/16 08:32 98.2 61 20 125/90 95 Room Air 09/05/16 04:00 98.4 61 18 120/75 96 Room Air 09/04/16 23:58 98.2 58 20 124/77 94 09/04/16 20:00 98.2 63 20 155/78 97 Room Air Height (Feet): 5 Height (Inches): 2.00 Weight (Pounds): 165 General Appearance: WD/WN, no acute distress HEENT: normocephalic, atraumatic, anicteric, mucous membranes moist Respiratory/Chest: chest wall non-tender, lungs clear, normal breath sounds, no respiratory distress, no accessory muscle use Cardiovascular: normal peripheral pulses, normal rate, regular rhythm, no gallop/murmur, no JVD Abdomen: normal bowel sounds, soft, non tender, no organomegaly, non distended , no mass, no scars Extremities: no cyanosis, no clubbing Skin: no rash Laboratory Tests Test 09/04/16 20:30 09/05/16 06:00 Prothrombin Time 12.6 SEC (9.30-11.50) H Prothromb Time International Ratio 1.2 (0.9-1.1) H White Blood Count 5.1 K/UL (4.8-10.8) Red Blood Count 4.20 M/UL (4.20-5.40) Hemoglobin 12.6 G/DL (12.0-16.0) Hematocrit 37.8 % (37.0-47.0) Mean Corpuscular Volume 90 FL (80-99) Mean Corpuscular Hemoglobin 30.0 PG (27.0-31.0) Mean Corpuscular Hemoglobin Concent 33.3 G/DL (32.0-36.0) Red Cell Distribution Width 14.0 % (11.6-14.8) Platelet Count 104 K/UL (150-450) L Mean Platelet Volume 7.2 FL (6.5-10.1) Neutrophils (%) (Auto) 63.8 % (45.0-75.0) Lymphocytes (%) (Auto) 22.3 % (20.0-45.0) Monocytes (%) (Auto) 8.6 % (1.0-10.0) Eosinophils (%) (Auto) 4.1 % (0.0-3.0) H Basophils (%) (Auto) 1.2 % (0.0-2.0) Sodium Level 130 mEQ/L (135-145) L Potassium Level 4.2 mEQ/L (3.4-4.9) Chloride Level 93 mEQ/L (98-107) L Carbon Dioxide Level 26 mEQ/L (20-30) Anion Gap 11 (5-15) Blood Urea Nitrogen 7 mg/dL (7-23) Creatinine 0.6 mg/dL (0.5-0.9) Estimat Glomerular Filtration Rate > 60 mL/min (>60) Glucose Level 185 mg/dL (74-106) H Calcium Level 8.7 mg/dL (8.6-10.2) Magnesium Level 1.6 mg/dL (1.7-2.5) L Current Medications Medications (Trade) Dose Ordered Sig/Bill Route PRN Reason Start Time Stop Time Status Last Admin Dose Admin Acetaminophen (Tylenol) 650 mg Q4H PRN ORAL fever 09/03/16 22:00 10/03/16 21:59 Al Hydroxide/Mg Hydroxide (Mylanta II) 30 ml Q6H PRN ORAL dyspepsia 09/03/16 22:00 10/03/16 21:59 Aripiprazole (Abilify) 10 mg DAILY ORAL 09/04/16 09:00 10/04/16 08:59 09/05/16 08:39 Aspirin (Ecotrin) 81 mg DAILY ORAL 09/04/16 09:00 10/04/16 08:59 09/05/16 08:40 Citalopram Hydrobromide (celeXA) 20 mg DAILY ORAL 09/04/16 09:00 10/04/16 08:59 09/05/16 08:39 Clonidine HCl (Catapres) 0.1 mg EVERY 6 HOURS PRN ORAL For High Blood Pressure 09/03/16 22:00 10/03/16 21:59 Dextrose (Dextrose 50%) STAT PRN IV Hypoglycemia 09/03/16 22:00 10/03/16 21:59 Diphenhydramine HCl (Benadryl) 25 mg Q6H PRN ORAL Itching/Pruritis 09/03/16 22:00 10/03/16 21:59 09/04/16 20:52 Heparin Sodium (Porcine) (Heparin 5000 units/ml) 5,000 units EVERY 12 HOURS SUBQ 09/04/16 09:00 10/04/16 08:59 Hydromorphone HCl (Dilaudid) 2 mg Q4H PRN ORAL moderate pain 4-6 09/04/16 02:00 09/11/16 01:59 09/05/16 14:55 Insulin Aspart (NovoLOG) BEFORE MEALS AND HS SUBQ 09/04/16 06:30 10/04/16 06:29 09/05/16 16:57 Lisinopril (Prinivil) 40 mg DAILY ORAL 09/04/16 09:00 10/04/16 08:59 09/05/16 08:39 Lorazepam (Ativan) 2 mg Q6H PRN ORAL For Anxiety 09/05/16 12:00 09/12/16 11:59 Metoprolol Succinate (Toprol XL) 25 mg BID ORAL 09/04/16 09:00 10/04/16 08:59 09/05/16 08:40 Morphine Sulfate (Morphine Sulfate) 2 mg Q4H PRN IVP Severe Pain (Pain Scale 7-10) 09/04/16 17:30 09/11/16 17:29 09/04/16 18:49 Nicotine (Nicoderm) 1 patch Q24H TDERMAL 09/04/16 13:00 10/04/16 12:59 09/05/16 12:18 Nitroglycerin (Ntg) 0.4 mg Q5M X 3 DOSES PRN SL Prn Chest Pain 09/03/16 22:00 10/03/16 21:59 Ondansetron HCl (Zofran) 4 mg Q6H PRN IVP Nausea & Vomiting 09/03/16 22:00 10/03/16 21:59 Oxybutynin Chloride (Ditropan) 5 mg TWICE A DAY ORAL 09/04/16 09:00 10/04/16 08:59 09/05/16 08:40 Polyethylene Glycol (Miralax) 17 gm HSPRN PRN ORAL Constipation 09/03/16 22:00 10/03/16 21:59 Ranitidine HCl (Zantac) 150 mg DAILY ORAL 09/04/16 09:00 10/04/16 08:59 09/05/16 08:40 Sodium Chloride (Sodium Chloride 1000ml bag) 1,000 ml @ 100 mls/hr Q10H IV 09/05/16 14:45 10/05/16 14:44 09/05/16 15:00 Zolpidem Tartrate 5 mg 5 mg HSPRN PRN ORAL Insomnia 09/05/16 21:00 10/05/16 20:59 Yordy Contreras M.D. Sep 05, 2016 17:45
[2016-09-05] MEDS: Morphine Sulfate 2mg/ml Inj IVP PRN (19:50)
[2016-09-05 19:58] VITALS: BP 127/71
[2016-09-05] MEDS ORDERED: Tubing IV Secondary IV ONE (21:17)
[2016-09-05] MEDS: Zolpidem 5mg tab ORAL PRN (21:22)
--- NOTE | 2016-09-05 21:49 | Consultation ---
DATE OF CONSULTATION: 09/05/2016 REFERRING PHYSICIAN: Bubba Hanley D.O. CHIEF COMPLAINT: Left shoulder pain. HISTORY OF PRESENT ILLNESS: The patient is a pleasant female, who is well known to me from previous admissions. She recently had a fall. She lives in a board and [facility]. She was diagnosed with humerus fracture. She was placed in a splint with . Orthopedic consultation was obtained for further care and recommendation. PAST MEDICAL HISTORY: Reviewed from the intake chart. PAST SURGICAL HISTORY: Reviewed from the intake chart. MEDICATIONS: Reviewed from the intake chart. PHYSICAL EXAMINATION: The patient has a posterior splint in place. She is able to flex and extend the fingers. Radial and ulnar pulses +2. IMAGING STUDIES: Not available. ASSESSMENT: Left proximal humerus fracture. DISCUSSION: At this point, we will go ahead and get x-rays of the left shoulder to evaluate the fracture pattern. Further recommendations can be made once to review the imaging studies. Jerry Torres M.D. DR: PHONG JOB#: [id number] CC: Bubba Hanley D.O.
--- NOTE | 2016-09-05 22:40 | Consultation ---
DATE OF CONSULTATION: 09/05/2016 NEPHROLOGY CONSULTATION REFERRING PHYSICIAN: uBbba Hanley D.O. REASON FOR CONSULTATION: Hyponatremia. HISTORY OF PRESENT ILLNESS: The patient is a pleasant 56-year-old female, who resides in a [facility] and [facility] and then presented to the ED with a complaint of nausea, vomiting and abdominal pain x2 days. She has been diagnosed with pancreatitis and admitted to the medical floor. Currently, she is in bed, calm, in no distress. Denies discomfort at this time. MEDICAL HISTORY: Includes hypertension, congestive heart failure, chronic obstructive pulmonary disease and diabetes. MEDICATIONS: Current medications include Ambien, Ativan, morphine sulfate, Abilify, aspirin, lisinopril, metoprolol, Ditropan, , heparin, NovoLog, Dilaudid, Catapres and Tylenol. ALLERGIES: She is allergic to iodine, metoclopramide, prednisone, shellfish, and egg. SOCIAL HISTORY: She has no known history of smoking, alcohol use, or illicit drug use. She resides in a [facility] and [facility]. FAMILY HISTORY: Noncontributory. REVIEW OF SYSTEMS: A full 12-point review of system was reviewed with the patient and positive as stated in history of present illness. PHYSICAL EXAMINATION: VITAL SIGNS: Blood pressure 124/74, heart rate 54, temperature 98.2 degrees, respiratory rate 20, and O2 saturation is 99% on room air. HEENT: Head is normocephalic and atraumatic with moist mucous membranes. Pupils are equal, round, and reactive to light and accommodation. NECK: Supple. No JVD noted. LUNGS: Reduced breath sounds bilaterally. No wheezing. CARDIOVASCULAR: Regular rate and rhythm. S1 and S2. ABDOMEN: Soft and nontender. Positive for normoactive bowel sounds in all 4 quadrants. EXTREMITIES: No edema. No cyanosis. No clubbing. However, the patient has a left upper arm pain. NEUROLOGIC: The patient is awake, alert, and oriented with no focal deficits. LABORATORY DATA: CBC, white count is 5.1, hemoglobin is 12.6, hematocrit is 27.8, and platelet count is 104,000. BMP, sodium is 130, potassium is 4.2, chloride is 93, bicarbonate is 26, BUN is 7, creatinine is 0.6, and glucose is 185. Calcium is 8.7. Magnesium is 1.6. ASSESSMENT: 1. Hyponatremia. 2. Thrombocytopenia. 3. Pancreatitis. 4. Abdominal pain. 5. Diabetes. 6. Hypertension. 7. Congestive heart failure. 8. Chronic obstructive pulmonary disease. PLAN: Plan is to start the patient on normal saline at 100 mL/h. Pain management with current medications. Monitor patient's electrolytes. Monitor magnesium. Continue Accu-Chek with sliding scale coverage. DVT prophylaxis. Monitor the patient's response to treatment. Albert Levi M.D. Dennise Baker DR: VALENTINE JOB#: [id number] CC:
[2016-09-06] VITALS: BP 113/73
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
[2016-09-06] MEDS: Morphine Sulfate 2mg/ml Inj IVP PRN (00:04)
[2016-09-06] MEDS: LORazepam 1mg tab ORAL PRN ×4 (02:06→22:09)
[2016-09-06 04:00] VITALS: BP 125/67
[2016-09-06] MEDS: HYDROmorphone 2mg tab ORAL PRN ×4 (04:08→20:28)
[2016-09-06] MEDS: NovoLOG Insulin Flexpen SUBQ SCH ×4 (06:33→20:33)
[2016-09-06 07:13] LABS: BASOPHILS % (AUTO) 1.3 % (0.0-2.0); EOSINOPHILS % (AUTO) 3.2 % (0.0-3.0); LYMPHOCYTES % (AUTO) 20.2 % (20.0-45.0); MEAN CORPUSCULAR HEMOGLOBIN 30.3 PG (27.0-31.0); MEAN CORPUSCULAR VOLUME 89 FL (80-99); MEAN PLATELET VOLUME 8.5 FL (6.5-10.1); MONOCYTES % (AUTO) 8.5 % (1.0-10.0); NEUTROPHILS % (AUTO) 66.8 % (45.0-75.0); PLATELET COUNT 107 K/UL (150-450); RED BLOOD COUNT 4.17 M/UL (4.20-5.40); RED CELL DISTRIBUTION WIDTH 13.6 % (11.6-14.8); WHITE BLOOD COUNT 5.8 K/UL (4.8-10.8)
[2016-09-06 07:38] LABS: ALANINE AMINOTRANSFERASE 38 U/L (3-33); ALBUMIN/GLOBULIN RATIO 0.4 (1.0-2.7); ANION GAP 14 (5-15); ASPARTATE AMINO TRANSFERASE 49 U/L (5-40); CALCIUM 8.8 mg/dL (8.6-10.2); CARBON DIOXIDE 22 mEQ/L (20-30); CHLORIDE 93 mEQ/L (98-107); CREATININE 0.5 mg/dL (0.5-0.9); GLOMERULAR FILTRATION RATE > 60 mL/min (>60); HEMOLYSIS 33; MAGNESIUM 1.3 mg/dL (1.7-2.5); POTASSIUM 4.7 mEQ/L (3.4-4.9); SODIUM 129 mEQ/L (135-145); TOTAL PROTEIN 9.3 g/dL (6.6-8.7)
--- NOTE | 2016-09-06 07:43 | General Progress Note ---
Assessment/Plan Problem List: (1) Pancreatitis ICD Codes: K85.90 - Acute pancreatitis without necrosis or infection, unspecified SNOMED: 64411957 (2) COPD (chronic obstructive pulmonary disease) ICD Codes: J44.9 - Chronic obstructive pulmonary disease, unspecified SNOMED: 05505640 (3) Thrombocytopenia ICD Codes: D69.6 - Thrombocytopenia, unspecified SNOMED: 110830319 (4) Failure to thrive ICD Codes: R62.51 - Failure to thrive SNOMED: 48338960 (5) Episode of generalized weakness ICD Codes: R53.1 - Episode of generalized weakness SNOMED: 24472433 (6) UTI (urinary tract infection) ICD Codes: N39.0 - Urinary tract infection, site not specified SNOMED: 76783875 (7) Chronic pain ICD Codes: G89.29 - Other chronic pain SNOMED: 94441465 (8) Narcotic dependence ICD Codes: F19.20 - Other psychoactive substance dependence, uncomplicated SNOMED: 73524372 (9) CHF (congestive heart failure) ICD Codes: I50.9 - Heart failure, unspecified SNOMED: 31907013 (10) Hyponatremia ICD Codes: E87.1 - Hypo-osmolality and hyponatremia SNOMED: 42649628 (11) HTN (hypertension) ICD Codes: I10 - Essential (primary) hypertension SNOMED: 00540432 Status: stable, progressing, tolerating diet Assessment/Plan ot pt diet gi f/u pain control cbc bmp am promise ltach eval Subjective Constitutional: Reports: weakness Allergies: Coded Allergies: METOCLOPRAMIDE (Verified Allergy, Severe, Anaphylaxis, 01/31/16) tongue swelling PROCHLORPERAZINE (Verified Allergy, Severe, Anaphylaxis, 01/31/16) tongue swelling PREDNISONE (Verified Allergy, Mild, Facial Edema , 07/28/15) EGG (Unverified Allergy, Unknown, 03/16/15) Pt sts she is allergic to eggs but not products made with eggs such as muffins IODINE (Verified Allergy, Unknown, 01/25/15) SHELLFISH DERIVED (Verified Allergy, Unknown, 04/07/14) Uncoded Allergies: plastic tape (Allergy, Mild, Rash, 01/25/15) PREDISONE (Allergy, Unknown, 04/12/16) SHELLFISH (Allergy, Unknown, 04/12/16) All Systems: reviewed and negative except above Subjective sleepy calm in bed Objective Last 24 Hour Vital Signs Date Time Temp Pulse Resp B/P Pulse Ox O2 Delivery O2 Flow Rate FiO2 09/06/16 04:00 98.1 55 16 125/67 96 Room Air 09/06/16 00:00 99.1 56 16 113/73 97 Room Air 09/05/16 19:58 97.8 60 20 127/71 94 Room Air 09/05/16 18:02 63 133/80 09/05/16 16:06 98.2 63 20 133/80 96 Room Air 09/05/16 11:52 98.2 54 20 124/74 99 Room Air 09/05/16 11:41 98.2 09/05/16 08:40 61 120/75 09/05/16 08:39 120/75 09/05/16 08:32 98.2 61 20 125/90 95 Room Air Intake and Output 09/05/16 09/06/16 19:00 07:00 Intake Total 1060 ml 600 ml Output Total 920 ml 950 ml Balance 140 ml -350 ml Intake Oral 360 ml 300 ml IV Total 700 ml 300 ml Output Urine Total 920 ml 950 ml # Voids 4 2 Laboratory Tests 09/05/16 18:30: Hepatitis C Antibody [Pending], Hepatitis C RNA (PCR) IUs/ml [Pending], Hepatitis C RNA (PCR) log IUs/ml [Pending], Hepatitis C Genotype [Pending] 09/06/16 05:15: White Blood Count 5.8, Red Blood Count 4.17L, Hemoglobin 12.7, Hematocrit 37.2, Mean Corpuscular Volume 89, Mean Corpuscular Hemoglobin 30.3, Mean Corpuscular Hemoglobin Concent 34.0, Red Cell Distribution Width 13.6, Platelet Count 107L, Mean Platelet Volume 8.5, Neutrophils (%) (Auto) 66.8, Lymphocytes (%) (Auto) 20.2, Monocytes (%) (Auto) 8.5, Eosinophils (%) (Auto) 3.2H, Basophils (%) (Auto ) 1.3, Sodium Level 129L, Potassium Level 4.7, Chloride Level 93L, Carbon Dioxide Level 22, Anion Gap 14, Blood Urea Nitrogen 10, Creatinine 0.5, Estimat Glomerular Filtration Rate > 60, Glucose Level 167H, Calcium Level 8.8, Magnesium Level 1.3L, Total Bilirubin 0.8, Aspartate Amino Transf (AST/SGOT) 49H , Alanine Aminotransferase (ALT/SGPT) 38H, Alkaline Phosphatase 104, Total Protein 9.3H, Albumin 3.0L, Globulin 6.3, Albumin/Globulin Ratio 0.4L Height (Feet): 5 Height (Inches): 2.00 Weight (Pounds): 165 General Appearance: lethargic EENT: normal ENT inspection Neck: normal alignment Cardiovascular: normal peripheral pulses, normal rate, regular rhythm Respiratory/Chest: chest wall non-tender, lungs clear, normal breath sounds Abdomen: normal bowel sounds, non tender, soft Extremities: normal inspection Edema: no edema noted Arm (L), no edema noted Arm (R), no edema noted Leg (L), no edema noted Leg (R), no edema noted Pedal (L), no edema noted Pedal (R), no edema noted Generalized Neurologic: responsive, motor weakness Skin: normal pigmentation, warm/dry CHARLIE PEREZ Sep 06, 2016 07:43
[2016-09-06 07:44] VITALS: BP 119/80
[2016-09-06] MEDS: Aspirin EC 81mg tab ORAL SCH (08:32)
[2016-09-06] MEDS: Lisinopril 20mg tab ORAL SCH (08:33)
[2016-09-06] MEDS: Citalopram 20mg Tab ORAL SCH (08:34)
[2016-09-06] MEDS: Oxybutynin 5mg tab ORAL SCH ×2 (08:34→17:17)
[2016-09-06] MEDS: Heparin 5000 units/ml inj SUBQ SCH ×2 (08:34→20:22)
--- NOTE | 2016-09-06 10:40 | Diagnostic Imaging Report ---
Indication: Left shoulder pain Technique: XRAY SHOULDER MIN 3V LEFT Comparison: None Findings: There is a comminuted fracture of the left proximal humerus with involvement of the surgical neck and greater tuberosity. There is no dislocation. Impression: Comminuted fracture of the left proximal humerus with involvement of the surgical neck and greater tuberosity.
[2016-09-06] MEDS ORDERED: Sodium Bicarbonate 8.4% 50ml Inj IV ONE (12:00)
[2016-09-06] MEDS ORDERED: Lidocaine 1% Plain 30 ml INJ ONE (12:00)
[2016-09-06 12:13] VITALS: BP 120/77
--- NOTE | 2016-09-06 12:45 | Nephrology Progress Note ---
Assessment/Plan Problem List: (1) Hypomagnesemia (2) Weakness (3) Diabetes (4) CHF (congestive heart failure) (5) Thrombocytopenia (6) Abdominal pain (7) Hyponatremia Plan Severe Hyponatremia - no IV access, piccline ordered, restart IVF Free water restriction Replace mag Pain management DVT prophylaxis Will monitor lytes AM labs Subjective Constitutional: Denies: chills, diaphoresis, fever, malaise, no symptoms, other , weakness HEENT: Denies: blurred vision, double vision, ear discharge, ear pain, eye pain , mouth pain, mouth swelling, no symptoms, nose congestion, nose pain, other, tearing, throat pain, throat swelling Genitourinary: Denies: burning, discharge, flank pain, frequency, hematuria, incontinence, no symptoms, other, pain, urgency Neurologic/Psychiatric: Denies: anxiety, depressed, emotional problems, headache, no symptoms, numbness, other, paresthesia, pre-existing deficit, seizure, tingling, tremors, weakness Subjective In bed, in no distress Objective Objective Last 24 Hour Vital Signs Date Time Temp Pulse Resp B/P Pulse Ox O2 Delivery O2 Flow Rate FiO2 09/06/16 12:13 99.5 66 19 120/77 98 Room Air 09/06/16 09:32 98.2 09/06/16 08:33 119/80 09/06/16 08:32 63 119/80 09/06/16 07:44 98.2 63 19 119/80 98 Room Air 09/06/16 04:00 98.1 55 16 125/67 96 Room Air 09/06/16 00:00 99.1 56 16 113/73 97 Room Air 09/05/16 19:58 97.8 60 20 127/71 94 Room Air 09/05/16 18:02 63 133/80 09/05/16 16:06 98.2 63 20 133/80 96 Room Air Intake and Output 09/05/16 09/06/16 19:00 07:00 Intake Total 1060 ml 940 ml Output Total 920 ml 950 ml Balance 140 ml -10 ml Intake Oral 360 ml 540 ml IV Total 700 ml 400 ml Output Urine Total 920 ml 950 ml # Voids 4 3 Laboratory Tests 09/05/16 18:30: Hepatitis C Antibody [Pending], Hepatitis C RNA (PCR) IUs/ml [Pending], Hepatitis C RNA (PCR) log IUs/ml [Pending], Hepatitis C Genotype [Pending] 09/06/16 05:15: White Blood Count 5.8, Red Blood Count 4.17L, Hemoglobin 12.7, Hematocrit 37.2, Mean Corpuscular Volume 89, Mean Corpuscular Hemoglobin 30.3, Mean Corpuscular Hemoglobin Concent 34.0, Red Cell Distribution Width 13.6, Platelet Count 107L, Mean Platelet Volume 8.5, Neutrophils (%) (Auto) 66.8, Lymphocytes (%) (Auto) 20.2, Monocytes (%) (Auto) 8.5, Eosinophils (%) (Auto) 3.2H, Basophils (%) (Auto ) 1.3, Sodium Level 129L, Potassium Level 4.7, Chloride Level 93L, Carbon Dioxide Level 22, Anion Gap 14, Blood Urea Nitrogen 10, Creatinine 0.5, Estimat Glomerular Filtration Rate > 60, Glucose Level 167H, Calcium Level 8.8, Magnesium Level 1.3L, Total Bilirubin 0.8, Aspartate Amino Transf (AST/SGOT) 49H , Alanine Aminotransferase (ALT/SGPT) 38H, Alkaline Phosphatase 104, Total Protein 9.3H, Albumin 3.0L, Globulin 6.3, Albumin/Globulin Ratio 0.4L Height (Feet): 5 Height (Inches): 2.00 Weight (Pounds): 165 General Appearance: no apparent distress, alert EENT: normal ENT inspection Neck: normal alignment, supple, normal inspection Cardiovascular: normal rate, regular rhythm, no JVD Respiratory/Chest: normal breath sounds, no respiratory distress Abdomen: soft, no organomegaly Extremities: normal range of motion, non-tender, normal inspection, no calf tenderness, other - left shoulder splint Neurologic: alert, oriented x 3, responsive, normal mood/affect Dennise Baker N.P. Sep 06, 2016 12:45
[2016-09-06] MEDS: Sodium Chloride 1gm Tab ORAL SCH ×2 (14:41→17:20)
[2016-09-06 15:52] VITALS: BP 114/68
--- NOTE | 2016-09-06 15:52 | Infectious Diseases Prog Note ---
Assessment/Plan Problems: (1) Acute inflammation of the pancreas Assessment & Plan: continue supportive care, and IVF for hydration, and pain managemnt, GI is following no need for antibiotics for now, just monitor clinically (2) Hepatitis C Assessment & Plan: will confirm and obtain viral load and genotype. (3) Intractable pain Assessment & Plan: due to one, continue pain management as per primary (4) Diabetes mellitus out of control Assessment & Plan: recommend tight glycemic control to keep blood glucose between 80-120 (5) Humerus head fracture Assessment & Plan: in splint, consult ortho. (6) Fever Assessment & Plan: low grade. suspect due to her fracture, will send blood culture and UA , check CXR Subjective Constitutional: Denies: anorexia, chills, drenching sweats, fatigue, fever, no symptoms, other HEENT: Denies: congestion, coryza, dysphagia, hearing change, no symptoms, other, visual change Respiratory: Denies: dry cough, no symptoms, other, productive cough, shortness of breath Breasts: Denies: discharge, no symptoms, other, swelling, tenderness Cardiovascular: Denies: chest pain, dyspnea on exertion, no symptoms, other, palpitations Gastrointestinal/Abdominal: Denies: bloating, blood in stool, constipation, diarrhea, nausea, no symptoms, other, vomiting Genitourinary: Denies: dysuria, frequency, hematuria, last menstrual period, no symptoms, nocturia, other, vaginal bleed/discharge Neurologic: Denies: confusion, headache, no symptoms, numbness, other, weakness Psychiatric: Denies: anxiety, depression, no symptoms, other Skin: Denies: no symptoms, other, rash, ulcer Endocrine: Denies: feels cold, feels warm, no symptoms, other Musculoskeletal: Reports: pain, swelling - of the left shoulder Allergies: Coded Allergies: METOCLOPRAMIDE (Verified Allergy, Severe, Anaphylaxis, 01/31/16) tongue swelling PROCHLORPERAZINE (Verified Allergy, Severe, Anaphylaxis, 01/31/16) tongue swelling PREDNISONE (Verified Allergy, Mild, Facial Edema , 07/28/15) EGG (Unverified Allergy, Unknown, 03/16/15) Pt sts she is allergic to eggs but not products made with eggs such as muffins IODINE (Verified Allergy, Unknown, 01/25/15) SHELLFISH DERIVED (Verified Allergy, Unknown, 04/07/14) Uncoded Allergies: plastic tape (Allergy, Mild, Rash, 01/25/15) PREDISONE (Allergy, Unknown, 04/12/16) SHELLFISH (Allergy, Unknown, 04/12/16) Objective Vital Signs Last 24 Hour Vital Signs Date Time Temp Pulse Resp B/P Pulse Ox O2 Delivery O2 Flow Rate FiO2 09/06/16 13:42 99.5 09/06/16 13:40 99.5 09/06/16 12:13 99.5 66 19 120/77 98 Room Air 09/06/16 08:33 119/80 09/06/16 08:32 63 119/80 09/06/16 07:44 98.2 63 19 119/80 98 Room Air 09/06/16 04:00 98.1 55 16 125/67 96 Room Air 09/06/16 00:00 99.1 56 16 113/73 97 Room Air 09/05/16 19:58 97.8 60 20 127/71 94 Room Air 09/05/16 18:02 63 133/80 09/05/16 16:06 98.2 63 20 133/80 96 Room Air Height (Feet): 5 Height (Inches): 2.00 Weight (Pounds): 165 General Appearance: WD/WN, no acute distress HEENT: normocephalic, atraumatic, anicteric, mucous membranes moist Respiratory/Chest: chest wall non-tender, lungs clear, normal breath sounds, no respiratory distress, no accessory muscle use Cardiovascular: normal peripheral pulses, normal rate, regular rhythm, no gallop/murmur Abdomen: normal bowel sounds, soft, non tender, no organomegaly, non distended , no mass Extremities: no cyanosis, no clubbing, other - left arm in sling. Skin: no rash, no lesions, no ulcers Laboratory Tests Test 09/05/16 18:30 09/06/16 05:15 Hepatitis C Antibody Pending Hepatitis C RNA (PCR) IUs/ml Pending Hepatitis C RNA (PCR) log IUs/ml Pending Hepatitis C Genotype Pending White Blood Count 5.8 K/UL (4.8-10.8) Red Blood Count 4.17 M/UL (4.20-5.40) L Hemoglobin 12.7 G/DL (12.0-16.0) Hematocrit 37.2 % (37.0-47.0) Mean Corpuscular Volume 89 FL (80-99) Mean Corpuscular Hemoglobin 30.3 PG (27.0-31.0) Mean Corpuscular Hemoglobin Concent 34.0 G/DL (32.0-36.0) Red Cell Distribution Width 13.6 % (11.6-14.8) Platelet Count 107 K/UL (150-450) L Mean Platelet Volume 8.5 FL (6.5-10.1) Neutrophils (%) (Auto) 66.8 % (45.0-75.0) Lymphocytes (%) (Auto) 20.2 % (20.0-45.0) Monocytes (%) (Auto) 8.5 % (1.0-10.0) Eosinophils (%) (Auto) 3.2 % (0.0-3.0) H Basophils (%) (Auto) 1.3 % (0.0-2.0) Sodium Level 129 mEQ/L (135-145) L Potassium Level 4.7 mEQ/L (3.4-4.9) Chloride Level 93 mEQ/L (98-107) L Carbon Dioxide Level 22 mEQ/L (20-30) Anion Gap 14 (5-15) Blood Urea Nitrogen 10 mg/dL (7-23) Creatinine 0.5 mg/dL (0.5-0.9) Estimat Glomerular Filtration Rate > 60 mL/min (>60) Glucose Level 167 mg/dL (74-106) H Calcium Level 8.8 mg/dL (8.6-10.2) Magnesium Level 1.3 mg/dL (1.7-2.5) L Total Bilirubin 0.8 mg/dL (0.0-1.2) Aspartate Amino Transf (AST/SGOT) 49 U/L (5-40) H Alanine Aminotransferase (ALT/SGPT) 38 U/L (3-33) H Alkaline Phosphatase 104 U/L (35-104) Total Protein 9.3 g/dL (6.6-8.7) H Albumin 3.0 g/dL (3.5-5.2) L Globulin 6.3 g/dL Albumin/Globulin Ratio 0.4 (1.0-2.7) L Current Medications Medications (Trade) Dose Ordered Sig/Bill Route PRN Reason Start Time Stop Time Status Last Admin Dose Admin Acetaminophen (Tylenol) 650 mg Q4H PRN ORAL fever 09/03/16 22:00 10/03/16 21:59 09/06/16 12:43 Al Hydroxide/Mg Hydroxide (Mylanta II) 30 ml Q6H PRN ORAL dyspepsia 09/03/16 22:00 10/03/16 21:59 Aripiprazole (Abilify) 10 mg DAILY ORAL 09/04/16 09:00 10/04/16 08:59 09/06/16 08:32 Aspirin (Ecotrin) 81 mg DAILY ORAL 09/04/16 09:00 10/04/16 08:59 09/06/16 08:32 Citalopram Hydrobromide (celeXA) 20 mg DAILY ORAL 09/04/16 09:00 10/04/16 08:59 09/06/16 08:34 Clonidine HCl (Catapres) 0.1 mg EVERY 6 HOURS PRN ORAL For High Blood Pressure 09/03/16 22:00 10/03/16 21:59 Dextrose (Dextrose 50%) STAT PRN IV Hypoglycemia 09/03/16 22:00 10/03/16 21:59 Diphenhydramine HCl (Benadryl) 25 mg Q6H PRN ORAL Itching/Pruritis 09/03/16 22:00 10/03/16 21:59 09/04/16 20:52 Heparin Sodium (Porcine) (Heparin 5000 units/ml) 5,000 units EVERY 12 HOURS SUBQ 09/04/16 09:00 10/04/16 08:59 Hydromorphone HCl (Dilaudid) 2 mg Q4H PRN ORAL moderate pain 4-6 09/04/16 02:00 09/11/16 01:59 09/06/16 12:41 Insulin Aspart (NovoLOG) BEFORE MEALS AND HS SUBQ 09/04/16 06:30 10/04/16 06:29 09/06/16 11:56 Lisinopril (Prinivil) 40 mg DAILY ORAL 09/04/16 09:00 10/04/16 08:59 09/06/16 08:33 Lorazepam (Ativan) 2 mg Q6H PRN ORAL For Anxiety 09/05/16 12:00 09/12/16 11:59 09/06/16 08:37 Metoprolol Succinate (Toprol XL) 25 mg BID ORAL 09/04/16 09:00 10/04/16 08:59 09/06/16 08:32 Morphine Sulfate (Morphine Sulfate) 2 mg Q4H PRN IVP Severe Pain (Pain Scale 7-10) 09/04/16 17:30 09/11/16 17:29 09/06/16 00:04 Nicotine (Nicoderm) 1 patch Q24H TDERMAL 09/04/16 13:00 10/04/16 12:59 09/06/16 12:43 Nitroglycerin (Ntg) 0.4 mg Q5M X 3 DOSES PRN SL Prn Chest Pain 09/03/16 22:00 10/03/16 21:59 Ondansetron HCl (Zofran) 4 mg Q6H PRN IVP Nausea & Vomiting 09/03/16 22:00 10/03/16 21:59 Oxybutynin Chloride (Ditropan) 5 mg TWICE A DAY ORAL 09/04/16 09:00 10/04/16 08:59 09/06/16 08:34 Polyethylene Glycol (Miralax) 17 gm HSPRN PRN ORAL Constipation 09/03/16 22:00 10/03/16 21:59 Ranitidine HCl (Zantac) 150 mg DAILY ORAL 09/04/16 09:00 10/04/16 08:59 09/06/16 08:34 Sodium Chloride (NaCl) 1 gm THREE TIMES A DAY ORAL 09/06/16 13:30 10/06/16 13:29 09/06/16 14:41 Sodium Chloride (Sodium Chloride 1000ml bag) 1,000 ml @ 100 mls/hr Q10H IV 09/05/16 14:45 10/05/16 14:44 09/06/16 09:00 Zolpidem Tartrate 5 mg 5 mg HSPRN PRN ORAL Insomnia 09/05/16 21:00 10/05/16 20:59 09/05/16 21:22 Yordy Contreras M.D. Sep 06, 2016 15:52
--- NOTE | 2016-09-06 16:30 | General Progress Note ---
Assessment/Plan Assessment/Plan IMPRESSION: 1. Pancytopenia secondary to liver cirrhosis/hepatitis C. 2. Leukopenia, persistent secondary to liver cirrhosis/hepatitis C. 3. Thrombocytopenia, persistent secondary to liver cirrhosis/hepatitis C/drug side effect. 4. Anemia of chronic disease. 5. Pancreatitis 6. Hepatitis C. 7. Liver cirrhosis. 8. Hepatic encephalopathy. 9. History of narcotic dependence. 10. History of migraine headaches. 11. Diabetes mellitus. 12. History of osteoarthritis/degenerative joint disease. 13. History of anxiety attack. 14. Psychosis. 15. Chronic obstructive pulmonary disease. 16. Failure to thrive. RECOMMENDATIONS: 1. Watch count. 2. Watch coagulopathy. 3. PRBC transfusion p.r.n. basis. 4. Platelet transfusion p.r.n. basis. 5. Neupogen on p.r.n. basis. 6. Check hepatitis profile-->+ for hep C 7. Prior duplex negative for clot of lower ext 8. No heparin. 9. Appreciate GI and pulm recs 10. SCD (compression boots). 11. CT scan shows splenomegaly --> US Abd shows cirrhosis 12. Close followup. Thank you, Prudencio Rubin MD Subjective Constitutional: Reports: no symptoms Cardiovascular: Reports: no symptoms Respiratory: Reports: no symptoms Gastrointestinal/Abdominal: Reports: no symptoms Genitourinary: Reports: no symptoms Neurologic/Psychiatric: Reports: no symptoms Endocrine: Reports: no symptoms Hematologic/Lymphatic: Reports: no symptoms Allergies: Coded Allergies: METOCLOPRAMIDE (Verified Allergy, Severe, Anaphylaxis, 01/31/16) tongue swelling PROCHLORPERAZINE (Verified Allergy, Severe, Anaphylaxis, 01/31/16) tongue swelling PREDNISONE (Verified Allergy, Mild, Facial Edema , 07/28/15) EGG (Unverified Allergy, Unknown, 03/16/15) Pt sts she is allergic to eggs but not products made with eggs such as muffins IODINE (Verified Allergy, Unknown, 01/25/15) SHELLFISH DERIVED (Verified Allergy, Unknown, 04/07/14) Uncoded Allergies: plastic tape (Allergy, Mild, Rash, 01/25/15) PREDISONE (Allergy, Unknown, 04/12/16) SHELLFISH (Allergy, Unknown, 04/12/16) Objective Last 24 Hour Vital Signs Date Time Temp Pulse Resp B/P Pulse Ox O2 Delivery O2 Flow Rate FiO2 09/06/16 15:52 97.7 61 20 114/68 96 Room Air 09/06/16 13:42 99.5 09/06/16 13:40 99.5 09/06/16 12:13 99.5 66 19 120/77 98 Room Air 09/06/16 08:33 119/80 09/06/16 08:32 63 119/80 09/06/16 07:44 98.2 63 19 119/80 98 Room Air 09/06/16 04:00 98.1 55 16 125/67 96 Room Air 09/06/16 00:00 99.1 56 16 113/73 97 Room Air 09/05/16 19:58 97.8 60 20 127/71 94 Room Air 09/05/16 18:02 63 133/80 Intake and Output 09/05/16 09/06/16 19:00 07:00 Intake Total 1060 ml 940 ml Output Total 920 ml 950 ml Balance 140 ml -10 ml Intake Oral 360 ml 540 ml IV Total 700 ml 400 ml Output Urine Total 920 ml 950 ml # Voids 4 3 Laboratory Tests 09/05/16 18:30: Hepatitis C Antibody [Pending], Hepatitis C RNA (PCR) IUs/ml [Pending], Hepatitis C RNA (PCR) log IUs/ml [Pending], Hepatitis C Genotype [Pending] 09/06/16 05:15: White Blood Count 5.8, Red Blood Count 4.17L, Hemoglobin 12.7, Hematocrit 37.2, Mean Corpuscular Volume 89, Mean Corpuscular Hemoglobin 30.3, Mean Corpuscular Hemoglobin Concent 34.0, Red Cell Distribution Width 13.6, Platelet Count 107L, Mean Platelet Volume 8.5, Neutrophils (%) (Auto) 66.8, Lymphocytes (%) (Auto) 20.2, Monocytes (%) (Auto) 8.5, Eosinophils (%) (Auto) 3.2H, Basophils (%) (Auto ) 1.3, Sodium Level 129L, Potassium Level 4.7, Chloride Level 93L, Carbon Dioxide Level 22, Anion Gap 14, Blood Urea Nitrogen 10, Creatinine 0.5, Estimat Glomerular Filtration Rate > 60, Glucose Level 167H, Calcium Level 8.8, Magnesium Level 1.3L, Total Bilirubin 0.8, Aspartate Amino Transf (AST/SGOT) 49H , Alanine Aminotransferase (ALT/SGPT) 38H, Alkaline Phosphatase 104, Total Protein 9.3H, Albumin 3.0L, Globulin 6.3, Albumin/Globulin Ratio 0.4L Height (Feet): 5 Height (Inches): 2.00 Weight (Pounds): 165 General Appearance: no apparent distress EENT: TMs normal Neck: supple Cardiovascular: regular rhythm Respiratory/Chest: lungs clear Abdomen: soft Pelvis: no masses Extremities: non-tender Edema: no edema noted Arm (L), no edema noted Arm (R), no edema noted Leg (L), no edema noted Leg (R), no edema noted Pedal (L), no edema noted Pedal (R), no edema noted Generalized Edema: mild edema Neurologic: alert Skin: warm/dry Lymphatic: normal anterior cervical (L), normal anterior cervical (R), normal axillary (L), normal axillary (R), normal inguinal (L), normal inguinal (R), normal other, normal posterior cervical (L), normal posterior cervical (R), normal submandibular (L), normal submandibular (R), normal supraclavicular (L), normal supraclavicular (R) PRUDENCIO RUBIN Sep 06, 2016 16:30
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
[2016-09-06 19:38] VITALS: BP 102/67
[2016-09-06 20:21] LABS: APPEARANCE,URINE CLEAR; KETONES,URINE NEGATIVE (NEGATIVE); LEUKOCYTE ESTERASE ,URINE 1+ (NEGATIVE); NITRITE,URINE NEGATIVE (NEGATIVE); PH,URINE 6 (4.5-8.0); PROTEIN,URINE 1+ (NEGATIVE); UROBILINOGEN,URINE 1 MG/DL (0.0-1.0)
[2016-09-06 20:38] LABS: ICTOTEST POSITIVE
[2016-09-06 20:39] LABS: RBC,URINE 0-2 /HPF (0 - 2)
[2016-09-06 20:40] LABS: BACTERIA,URINE FEW /HPF; SQUAMOUS EPITHELIAL CELL,UR FEW /LPF (NONE/OCC)
[2016-09-07] VITALS: BP 111/57
[2016-09-07] MEDS: Zolpidem 5mg tab ORAL PRN ×2 (00:27→21:27)
[2016-09-07] MEDS: HYDROmorphone 2mg tab ORAL PRN ×4 (00:57→19:46)
[2016-09-07 04:00] VITALS: BP 111/58
[2016-09-07] MEDS: LORazepam 1mg tab ORAL PRN ×3 (04:32→16:39)
[2016-09-07] MEDS: NovoLOG Insulin Flexpen SUBQ SCH ×4 (06:30→21:27)
[2016-09-07 06:38] LABS: MEAN CORPUSCULAR HEMOGLOBIN 29.9 PG (27.0-31.0); MEAN CORPUSCULAR HGB CONC 33.1 G/DL (32.0-36.0); MEAN CORPUSCULAR VOLUME 90 FL (80-99); PLATELET COUNT 71 K/UL (150-450); RED BLOOD COUNT 3.93 M/UL (4.20-5.40); RED CELL DISTRIBUTION WIDTH 13.6 % (11.6-14.8); WHITE BLOOD COUNT 3.5 K/UL (4.8-10.8)
[2016-09-07 06:49] LABS: ANION GAP 11 (5-15); CALCIUM 8.4 mg/dL (8.6-10.2); CARBON DIOXIDE 26 mEQ/L (20-30); CHLORIDE 94 mEQ/L (98-107); CREATININE 0.6 mg/dL (0.5-0.9); GLOMERULAR FILTRATION RATE > 60 mL/min (>60); HEMOLYSIS 3; POTASSIUM 4.2 mEQ/L (3.4-4.9); SODIUM 131 mEQ/L (135-145)
--- NOTE | 2016-09-07 07:29 | General Progress Note ---
Assessment/Plan Problem List: (1) Pancreatitis ICD Codes: K85.90 - Acute pancreatitis without necrosis or infection, unspecified SNOMED: 13964068 (2) COPD (chronic obstructive pulmonary disease) ICD Codes: J44.9 - Chronic obstructive pulmonary disease, unspecified SNOMED: 57261842 (3) Thrombocytopenia ICD Codes: D69.6 - Thrombocytopenia, unspecified SNOMED: 527123083 (4) Failure to thrive ICD Codes: R62.51 - Failure to thrive SNOMED: 25523132 (5) Episode of generalized weakness ICD Codes: R53.1 - Episode of generalized weakness SNOMED: 56716605 (6) UTI (urinary tract infection) ICD Codes: N39.0 - Urinary tract infection, site not specified SNOMED: 62578496 (7) Chronic pain ICD Codes: G89.29 - Other chronic pain SNOMED: 93777097 (8) Narcotic dependence ICD Codes: F19.20 - Other psychoactive substance dependence, uncomplicated SNOMED: 31586399 (9) CHF (congestive heart failure) ICD Codes: I50.9 - Heart failure, unspecified SNOMED: 93313617 (10) Hyponatremia ICD Codes: E87.1 - Hypo-osmolality and hyponatremia SNOMED: 60963776 (11) HTN (hypertension) ICD Codes: I10 - Essential (primary) hypertension SNOMED: 64737379 Status: stable, progressing, tolerating diet Assessment/Plan ot pt diet gi f/u pain control cbc bmp am promise ltach eval Subjective Constitutional: Reports: weakness Allergies: Coded Allergies: METOCLOPRAMIDE (Verified Allergy, Severe, Anaphylaxis, 01/31/16) tongue swelling PROCHLORPERAZINE (Verified Allergy, Severe, Anaphylaxis, 01/31/16) tongue swelling PREDNISONE (Verified Allergy, Mild, Facial Edema , 07/28/15) EGG (Unverified Allergy, Unknown, 03/16/15) Pt sts she is allergic to eggs but not products made with eggs such as muffins IODINE (Verified Allergy, Unknown, 01/25/15) SHELLFISH DERIVED (Verified Allergy, Unknown, 04/07/14) Uncoded Allergies: plastic tape (Allergy, Mild, Rash, 01/25/15) PREDISONE (Allergy, Unknown, 04/12/16) SHELLFISH (Allergy, Unknown, 04/12/16) All Systems: reviewed and negative except above Subjective sleepy calm in bed Objective Last 24 Hour Vital Signs Date Time Temp Pulse Resp B/P Pulse Ox O2 Delivery O2 Flow Rate FiO2 09/07/16 04:00 98.4 57 18 111/58 96 Room Air 09/07/16 00:00 99.3 67 20 111/57 95 Room Air 09/06/16 19:38 98.7 60 20 102/67 97 Room Air 09/06/16 17:18 61 114/68 09/06/16 15:52 97.7 61 20 114/68 96 Room Air 09/06/16 13:42 99.5 09/06/16 13:40 99.5 09/06/16 12:13 99.5 66 19 120/77 98 Room Air 09/06/16 08:33 119/80 09/06/16 08:32 63 119/80 09/06/16 07:44 98.2 63 19 119/80 98 Room Air Intake and Output 09/06/16 09/07/16 19:00 07:00 Intake Total 680 ml 240 ml Output Total 420 ml Balance 260 ml 240 ml Intake Oral 480 ml 240 ml IV Total 200 ml Output Urine Total 420 ml # Voids 2 2 Laboratory Tests 09/06/16 20:00: Urine Color Laly, Urine Appearance Clear, Urine pH 6, Urine Specific [place] 1.015, Urine Protein 1+H, Urine Glucose (UA) Negative, Urine Ketones Negative, Urine Occult Blood 1+H, Urine Nitrite Negative, Urine Bilirubin Negative, Urine Ictotest Positive, Urine Urobilinogen 1H, Urine Leukocyte Esterase 1+H, Urine RBC 0-2, Urine WBC 2-4, Urine Squamous Epithelial Cells Few, Urine Bacteria Few 09/07/16 05:20: White Blood Count 3.5L, Red Blood Count 3.93L, Hemoglobin 11.8L, Hematocrit 35.5L, Mean Corpuscular Volume 90, Mean Corpuscular Hemoglobin 29.9, Mean Corpuscular Hemoglobin Concent 33.1, Red Cell Distribution Width 13.6, Platelet Count 71L, Mean Platelet Volume 8.0, Neutrophils (%) (Auto) , Lymphocytes (%) ( Auto) , Monocytes (%) (Auto) , Eosinophils (%) (Auto) , Basophils (%) (Auto) , Neutrophils % (Manual) [Pending], Lymphocytes % (Manual) [Pending], Platelet Estimate [Pending], Platelet Morphology [Pending], Sodium Level 131L, Potassium Level 4.2, Chloride Level 94L, Carbon Dioxide Level 26, Anion Gap 11, Blood Urea Nitrogen 12, Creatinine 0.6, Estimat Glomerular Filtration Rate > 60, Glucose Level 225H, Calcium Level 8.4L Height (Feet): 5 Height (Inches): 2.00 Weight (Pounds): 165 General Appearance: lethargic EENT: normal ENT inspection Neck: normal alignment Cardiovascular: normal peripheral pulses, normal rate, regular rhythm Respiratory/Chest: chest wall non-tender, lungs clear, normal breath sounds Abdomen: normal bowel sounds, non tender, soft Extremities: normal inspection Edema: no edema noted Arm (L), no edema noted Arm (R), no edema noted Leg (L), no edema noted Leg (R), no edema noted Pedal (L), no edema noted Pedal (R), no edema noted Generalized Neurologic: responsive, motor weakness Skin: normal pigmentation, warm/dry CHARLIE PEREZ Sep 07, 2016 07:29
[2016-09-07 08:08] VITALS: BP 141/84
[2016-09-07] MEDS: Sodium Chloride 1gm Tab ORAL SCH ×3 (08:27→17:49)
[2016-09-07] MEDS: Citalopram 20mg Tab ORAL SCH (08:28)
[2016-09-07] MEDS: Oxybutynin 5mg tab ORAL SCH ×2 (08:28→17:49)
[2016-09-07] MEDS: Aspirin EC 81mg tab ORAL SCH (08:28)
[2016-09-07] MEDS: Lisinopril 20mg tab ORAL SCH (08:28)
[2016-09-07] MEDS: Heparin 5000 units/ml inj SUBQ SCH (08:30)
[2016-09-07 10:01] LABS: BAND NEUTROPHILS % (MANUAL) 0 % (0-8); BASOPHILS % (MANUAL) 0 % (0-2); EOSINOPHILS % (MANUAL) 1 % (0-3); HYPOCHROMASIA 1+; LYMPHOCYTES % (MANUAL) 20 % (20-45); NEUTROPHILS % (MANUAL) 71 % (45-75); PLATELET ESTIMATE DECREASED; PLATELET MORPHOLOGY NORMAL; TOTAL CELLS COUNTED 100
--- NOTE | 2016-09-07 10:42 | General Progress Note ---
Assessment/Plan Assessment/Plan (1) Lumbar spondylosis (2) DDD (degenerative disc disease), lumbar (3) OA (osteoarthritis) of knee (4) Pain in limb (5) Cirrhosis (6) S/p left humeral Fracture (7) Intractable Abdominal pain (8) Pancreatitis We will continue Dilaudid tabs and morphine IV. Pt was d/w Dr. Coburn and he concurred. Subjective Date patient seen: Sep 07, 2016 Time patient seen: 08:30 - am Allergies: Coded Allergies: METOCLOPRAMIDE (Verified Allergy, Severe, Anaphylaxis, 01/31/16) tongue swelling PROCHLORPERAZINE (Verified Allergy, Severe, Anaphylaxis, 01/31/16) tongue swelling PREDNISONE (Verified Allergy, Mild, Facial Edema , 07/28/15) EGG (Unverified Allergy, Unknown, 03/16/15) Pt sts she is allergic to eggs but not products made with eggs such as muffins IODINE (Verified Allergy, Unknown, 01/25/15) SHELLFISH DERIVED (Verified Allergy, Unknown, 04/07/14) Uncoded Allergies: plastic tape (Allergy, Mild, Rash, 01/25/15) PREDISONE (Allergy, Unknown, 04/12/16) SHELLFISH (Allergy, Unknown, 04/12/16) Subjective Constitutional: Reports: weakness, Denies: chills, diaphoresis, fever, malaise HEENT: Denies: blurred vision, double vision, ear discharge, ear pain, eye pain , mouth pain, mouth swelling, no symptoms, nose congestion, nose pain, other, tearing, throat pain, throat swelling Cardiovascular: Denies: chest pain, edema, irregular heart rate, lightheadedness, no symptoms, other, palpitations, syncope Respiratory: Denies: SOB at rest, SOB with excertion, cough, no symptoms, orthopnea, other, shortness of breath, sputum, stridor, wheezing Gastrointestinal/Abdominal: Reports: abdominal pain, Denies: abdomen distended , black stools, blood in stool, constipated, diarrhea, difficulty swallowing, nausea, poor appetite, poor fluid intake, rectal bleeding, tarry stools, vomiting Genitourinary: Denies: burning, discharge, flank pain, frequency, hematuria, incontinence, pain, urgency Neurologic/Psychiatric: Reports: weakness, Denies: anxiety, depressed, emotional problems, headache, no symptoms, numbness paresthesia, pre-existing deficit, seizure, tingling, tremors Endocrine: Denies: excessive sweating, flushing, increased hunger, increased thirst, increased urine, intolerance to cold, intolerance to heat, unexplained weight gain, unexplained weight loss Hematologic/Lymphatic: Denies: anemia, easy bleeding, easy bruising Subjective Her pain continues to fluctuate and is now a 8/10 however is reduced on the Dilaudid. Objective Last 24 Hour Vital Signs Date Time Temp Pulse Resp B/P Pulse Ox O2 Delivery O2 Flow Rate FiO2 09/07/16 09:27 96.9 09/07/16 08:28 141/84 09/07/16 08:27 77 141/84 09/07/16 08:08 96.9 77 19 141/84 95 Room Air 09/07/16 04:00 98.4 57 18 111/58 96 Room Air 09/07/16 00:00 99.3 67 20 111/57 95 Room Air 09/06/16 19:38 98.7 60 20 102/67 97 Room Air 09/06/16 17:18 61 114/68 09/06/16 15:52 97.7 61 20 114/68 96 Room Air 09/06/16 13:42 99.5 09/06/16 12:13 99.5 66 19 120/77 98 Room Air Intake and Output 09/06/16 09/07/16 19:00 07:00 Intake Total 680 ml 240 ml Output Total 420 ml Balance 260 ml 240 ml Intake Oral 480 ml 240 ml IV Total 200 ml Output Urine Total 420 ml # Voids 2 2 Laboratory Tests 09/06/16 20:00: Urine Color Laly, Urine Appearance Clear, Urine pH 6, Urine Specific [place] 1.015, Urine Protein 1+H, Urine Glucose (UA) Negative, Urine Ketones Negative, Urine Occult Blood 1+H, Urine Nitrite Negative, Urine Bilirubin Negative, Urine Ictotest Positive, Urine Urobilinogen 1H, Urine Leukocyte Esterase 1+H, Urine RBC 0-2, Urine WBC 2-4, Urine Squamous Epithelial Cells Few, Urine Bacteria Few 09/07/16 05:20: White Blood Count 3.5L, Red Blood Count 3.93L, Hemoglobin 11.8L, Hematocrit 35.5L, Mean Corpuscular Volume 90, Mean Corpuscular Hemoglobin 29.9, Mean Corpuscular Hemoglobin Concent 33.1, Red Cell Distribution Width 13.6, Platelet Count 71L, Mean Platelet Volume 8.0, Neutrophils (%) (Auto) , Lymphocytes (%) ( Auto) , Monocytes (%) (Auto) , Eosinophils (%) (Auto) , Basophils (%) (Auto) , Differential Total Cells Counted 100, Neutrophils % (Manual) 71, Lymphocytes % ( Manual) 20, Monocytes % (Manual) 8, Eosinophils % (Manual) 1, Basophils % ( Manual) 0, Band Neutrophils 0, Platelet Estimate DecreasedL, Platelet Morphology Normal, Hypochromasia 1+, Sodium Level 131L, Potassium Level 4.2, Chloride Level 94L, Carbon Dioxide Level 26, Anion Gap 11, Blood Urea Nitrogen 12, Creatinine 0.6, Estimat Glomerular Filtration Rate > 60, Glucose Level 225H , Calcium Level 8.4L Height (Feet): 5 Height (Inches): 2.00 Weight (Pounds): 165 Objective General Appearance: no apparent distress, alert, mild distress EENT: normal ENT inspection Neck: non-tender, normal alignment Cardiovascular: normal rate Respiratory/Chest: lungs clear, normal breath sounds Abdomen: distended Extremities: swelling, left UE in sling Edema: mild edema Neurologic: alert, oriented x 3 Skin: warm/dry LUIS JOHNSON Sep 07, 2016 10:42
[2016-09-07 11:42] VITALS: BP 112/70
--- NOTE | 2016-09-07 11:51 | Nephrology Progress Note ---
Assessment/Plan Problem List: (1) Hypomagnesemia (2) Weakness (3) Diabetes (4) CHF (congestive heart failure) (5) Thrombocytopenia (6) Abdominal pain (7) Hyponatremia Plan No IV access Hyponatremia - improved Continue sodium chloride tabs Free water restriction Replace mag Pain management DVT prophylaxis Will monitor lytes AM labs Subjective Constitutional: Denies: chills, diaphoresis, fever, malaise, no symptoms, other , weakness HEENT: Denies: blurred vision, double vision, ear discharge, ear pain, eye pain , mouth pain, mouth swelling, no symptoms, nose congestion, nose pain, other, tearing, throat pain, throat swelling Genitourinary: Denies: burning, discharge, flank pain, frequency, hematuria, incontinence, no symptoms, other, pain, urgency Neurologic/Psychiatric: Denies: anxiety, depressed, emotional problems, headache, no symptoms, numbness, other, paresthesia, pre-existing deficit, seizure, tingling, tremors, weakness Subjective In bed, in no distress Objective Objective Last 24 Hour Vital Signs Date Time Temp Pulse Resp B/P Pulse Ox O2 Delivery O2 Flow Rate FiO2 09/07/16 11:42 97.0 72 19 112/70 95 Room Air 09/07/16 09:27 96.9 09/07/16 08:28 141/84 09/07/16 08:27 77 141/84 09/07/16 08:08 96.9 77 19 141/84 95 Room Air 09/07/16 04:00 98.4 57 18 111/58 96 Room Air 09/07/16 00:00 99.3 67 20 111/57 95 Room Air 09/06/16 19:38 98.7 60 20 102/67 97 Room Air 09/06/16 17:18 61 114/68 09/06/16 15:52 97.7 61 20 114/68 96 Room Air 09/06/16 13:42 99.5 09/06/16 12:13 99.5 66 19 120/77 98 Room Air Intake and Output 09/06/16 09/07/16 19:00 07:00 Intake Total 680 ml 240 ml Output Total 420 ml Balance 260 ml 240 ml Intake Oral 480 ml 240 ml IV Total 200 ml Output Urine Total 420 ml # Voids 2 2 Laboratory Tests 09/06/16 20:00: Urine Color Laly, Urine Appearance Clear, Urine pH 6, Urine Specific [place] 1.015, Urine Protein 1+H, Urine Glucose (UA) Negative, Urine Ketones Negative, Urine Occult Blood 1+H, Urine Nitrite Negative, Urine Bilirubin Negative, Urine Ictotest Positive, Urine Urobilinogen 1H, Urine Leukocyte Esterase 1+H, Urine RBC 0-2, Urine WBC 2-4, Urine Squamous Epithelial Cells Few, Urine Bacteria Few 09/07/16 05:20: White Blood Count 3.5L, Red Blood Count 3.93L, Hemoglobin 11.8L, Hematocrit 35.5L, Mean Corpuscular Volume 90, Mean Corpuscular Hemoglobin 29.9, Mean Corpuscular Hemoglobin Concent 33.1, Red Cell Distribution Width 13.6, Platelet Count 71L, Mean Platelet Volume 8.0, Neutrophils (%) (Auto) , Lymphocytes (%) ( Auto) , Monocytes (%) (Auto) , Eosinophils (%) (Auto) , Basophils (%) (Auto) , Differential Total Cells Counted 100, Neutrophils % (Manual) 71, Lymphocytes % ( Manual) 20, Monocytes % (Manual) 8, Eosinophils % (Manual) 1, Basophils % ( Manual) 0, Band Neutrophils 0, Platelet Estimate DecreasedL, Platelet Morphology Normal, Hypochromasia 1+, Sodium Level 131L, Potassium Level 4.2, Chloride Level 94L, Carbon Dioxide Level 26, Anion Gap 11, Blood Urea Nitrogen 12, Creatinine 0.6, Estimat Glomerular Filtration Rate > 60, Glucose Level 225H , Calcium Level 8.4L Height (Feet): 5 Height (Inches): 2.00 Weight (Pounds): 165 General Appearance: no apparent distress, alert EENT: normal ENT inspection Neck: supple, normal inspection Cardiovascular: normal rate, regular rhythm, no JVD Respiratory/Chest: normal breath sounds, no respiratory distress Abdomen: non tender, soft Extremities: non-tender, normal inspection, no calf tenderness Neurologic: alert, oriented x 3, responsive, normal mood/affect Dennise Baker N.P. Sep 07, 2016 11:50
--- NOTE | 2016-09-07 12:10 | Diagnostic Imaging Report ---
Clinical history: Cough. Technique: Portable AP chest radiograph was obtained. Comparison: None Findings: The lungs are well inflated and clear. There is no pneumonia or pulmonary edema. There is no pleural effusion or pneumothorax. The cardiac and mediastinal silhouettes are normal in appearance. The bony thorax is unremarkable. Impression: No acute cardiopulmonary process.
--- NOTE | 2016-09-07 13:12 | General Progress Note ---
Assessment/Plan Assessment/Plan IMPRESSION: 1. Pancytopenia secondary to liver cirrhosis/hepatitis C. plt count lower, will d/c heparin and send for HIT ab 2. Leukopenia, persistent secondary to liver cirrhosis/hepatitis C. 3. Thrombocytopenia, persistent secondary to liver cirrhosis/hepatitis C/drug side effect. 4. Anemia of chronic disease. 5. Pancreatitis 6. Hepatitis C. 7. Liver cirrhosis. 8. Hepatic encephalopathy. 9. History of narcotic dependence. 10. History of migraine headaches. 11. Diabetes mellitus. 12. History of osteoarthritis/degenerative joint disease. 13. History of anxiety attack. 14. Psychosis. 15. Chronic obstructive pulmonary disease. 16. Failure to thrive. RECOMMENDATIONS: 1. Plt count lower, will d/c heparin and send for HIT ab 2. Watch coagulopathy. 3. PRBC transfusion hgb goal >7 4. Platelet transfusion > 10k 5. Neupogen on p.r.n. basis. 6. Appreciate GI and pulm recs 7. SCD (compression boots). 8. CT scan shows splenomegaly --> US Abd shows cirrhosis 9. Close followup. Thank you, Buddy Rubin MD Subjective Constitutional: Reports: no symptoms HEENT: Reports: no symptoms Cardiovascular: Reports: no symptoms Respiratory: Reports: no symptoms Gastrointestinal/Abdominal: Reports: no symptoms Genitourinary: Reports: no symptoms Neurologic/Psychiatric: Reports: no symptoms Endocrine: Reports: no symptoms Hematologic/Lymphatic: Reports: anemia Allergies: Coded Allergies: METOCLOPRAMIDE (Verified Allergy, Severe, Anaphylaxis, 01/31/16) tongue swelling PROCHLORPERAZINE (Verified Allergy, Severe, Anaphylaxis, 01/31/16) tongue swelling PREDNISONE (Verified Allergy, Mild, Facial Edema , 07/28/15) EGG (Unverified Allergy, Unknown, 03/16/15) Pt sts she is allergic to eggs but not products made with eggs such as muffins IODINE (Verified Allergy, Unknown, 01/25/15) SHELLFISH DERIVED (Verified Allergy, Unknown, 04/07/14) Uncoded Allergies: plastic tape (Allergy, Mild, Rash, 01/25/15) PREDISONE (Allergy, Unknown, 04/12/16) SHELLFISH (Allergy, Unknown, 04/12/16) Subjective stable, no events reported, no hematocheiza, improved pain Objective Last 24 Hour Vital Signs Date Time Temp Pulse Resp B/P Pulse Ox O2 Delivery O2 Flow Rate FiO2 09/07/16 11:42 97.0 72 19 112/70 95 Room Air 09/07/16 09:27 96.9 09/07/16 08:28 141/84 09/07/16 08:27 77 141/84 09/07/16 08:08 96.9 77 19 141/84 95 Room Air 09/07/16 04:00 98.4 57 18 111/58 96 Room Air 09/07/16 00:00 99.3 67 20 111/57 95 Room Air 09/06/16 19:38 98.7 60 20 102/67 97 Room Air 09/06/16 17:18 61 114/68 09/06/16 15:52 97.7 61 20 114/68 96 Room Air 09/06/16 13:42 99.5 Intake and Output 09/06/16 09/07/16 19:00 07:00 Intake Total 680 ml 240 ml Output Total 420 ml Balance 260 ml 240 ml Intake Oral 480 ml 240 ml IV Total 200 ml Output Urine Total 420 ml # Voids 2 2 Laboratory Tests 09/06/16 20:00: Urine Color Laly, Urine Appearance Clear, Urine pH 6, Urine Specific [place] 1.015, Urine Protein 1+H, Urine Glucose (UA) Negative, Urine Ketones Negative, Urine Occult Blood 1+H, Urine Nitrite Negative, Urine Bilirubin Negative, Urine Ictotest Positive, Urine Urobilinogen 1H, Urine Leukocyte Esterase 1+H, Urine RBC 0-2, Urine WBC 2-4, Urine Squamous Epithelial Cells Few, Urine Bacteria Few 09/07/16 05:20: White Blood Count 3.5L, Red Blood Count 3.93L, Hemoglobin 11.8L, Hematocrit 35.5L, Mean Corpuscular Volume 90, Mean Corpuscular Hemoglobin 29.9, Mean Corpuscular Hemoglobin Concent 33.1, Red Cell Distribution Width 13.6, Platelet Count 71L, Mean Platelet Volume 8.0, Neutrophils (%) (Auto) , Lymphocytes (%) ( Auto) , Monocytes (%) (Auto) , Eosinophils (%) (Auto) , Basophils (%) (Auto) , Differential Total Cells Counted 100, Neutrophils % (Manual) 71, Lymphocytes % ( Manual) 20, Monocytes % (Manual) 8, Eosinophils % (Manual) 1, Basophils % ( Manual) 0, Band Neutrophils 0, Platelet Estimate DecreasedL, Platelet Morphology Normal, Hypochromasia 1+, Sodium Level 131L, Potassium Level 4.2, Chloride Level 94L, Carbon Dioxide Level 26, Anion Gap 11, Blood Urea Nitrogen 12, Creatinine 0.6, Estimat Glomerular Filtration Rate > 60, Glucose Level 225H , Calcium Level 8.4L Height (Feet): 5 Height (Inches): 2.00 Weight (Pounds): 165 General Appearance: alert EENT: normal ENT inspection Neck: supple Cardiovascular: regular rhythm Respiratory/Chest: normal breath sounds Abdomen: non tender Extremities: non-tender Edema: 1+ Leg (L), 1+ Leg (R) Edema: mild edema Neurologic: alert Skin: warm/dry Buddy Rubin Sep 07, 2016 13:12
[2016-09-07] MEDS: Magnesium Oxide 400mg tab ORAL SCH ×2 (13:37→17:49)
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
[2016-09-07 16:06] VITALS: BP 111/82
[2016-09-07 20:00] VITALS: BP 101/66
--- NOTE | 2016-09-07 21:19 | Progress Note ---
DATE: 09/06/2016 NOTE: POOR AUDIO QUALITY PSYCHOTHERAPY CONSULTATION PROGRESS NOTE TREATING ATTENDING: Bubba Hanley D.O. SUBJECTIVE: The patient is a 56-year-old female. The patient is somewhat anxious due to her current medical condition. The patient . The patient is currently anxious. psychotherapy . Continue with medication management and behavioral management. This clinician has reviewed the patient's chart and discussed the treatment with nursing staff. Josias Rowell PsyD. : ÁNGEL JOB#: [id number] CC:
[2016-09-08] VITALS: BP 133/70
[2016-09-08] MEDS: LORazepam 1mg tab ORAL PRN ×4 (00:09→20:45)
--- NOTE | 2016-09-08 00:49 | Progress Note ---
DATE: 09/06/2016 SUBJECTIVE: She has pancreatitis. She has confusion and disorganized thought process. PLAN: Plan for this patient is to treat with Celexa 20 mg daily and Abilify 10 mg daily to stabilize her mood. Chart reviewed. Discussed with staff. Oneil Olson M.D. DR: Amena JOB#: [id number] CC:
[2016-09-08] MEDS: HYDROmorphone 2mg tab ORAL PRN ×3 (01:25→11:18)
--- NOTE | 2016-09-08 02:00 | Progress Note ---
DATE: 09/07/2016 SUBJECTIVE: The patient has pancreatitis. PLAN: Plan for this patient is to treat her with a psychiatric medication regimen consisting of Celexa 20 mg daily and Abilify 10 mg daily. Chart reviewed. Discussed with staff. Seen and assessed at bedside. Oneil Olson M.D. DR: Yue JOB#: [id number] CC:
--- NOTE | 2016-09-08 02:29 | Progress Note ---
DATE: 09/04/2016. SUBJECTIVE: The patient was a 56-year-old female patient with pancreatitis. PLAN: For this patient is to treat with psychotropic medications to stabilize her mood. The patient to continue Celexa 20 mg daily and Abilify 10 mg. Chart reviewed and discussed with staff. Seen and assessed at bedside. Oneil Olson M.D. DR: [place] JOB#: [id number] CC:
--- NOTE | 2016-09-08 02:49 | Consultation ---
DATE OF CONSULTATION: 09/03/2016 INITIAL PSYCHIATRIC EVALUATION HISTORY OF PRESENT ILLNESS: The patient is a 56-year-old female patient with pancreatitis. This patient was admitted to the hospital at [facility]. REASON FOR ADMISSION: She came in secondary to pancreatitis, but she has a diagnosis of bipolar II, so now psychiatric consultation was requested to see this patient to stabilize her mood with current psychiatric management. PSYCHIATRIC HISTORY: This patient has a history of bipolar II. She has had multiple psychiatric admissions. SOCIAL HISTORY: This patient is currently living in a facility financially supported by [employer] and Medicare. SUBSTANCE ABUSE HISTORY: Denies drug and alcohol use, but she has a history of medication cheeking. ALLERGIES: Allergies to metoclopramide, prednisolone, prochlorperazine, and shellfish. MEDICAL HISTORY: The patient has a history of pancreatitis and also has a history of pancytopenia, hypoglycemia, hepatic encephalopathy, chronic obstructive pulmonary disease, and hyponatremia among the other medical problems, but the main reason for admission was pancreatitis. MENTAL STATUS EXAMINATION: This is a 56-year-old female patient. Psychomotor retardation. Mood is depressed. Affect guarded and restricted. Thought process is disorganized and illogical. Denies any current suicidal or homicidal thoughts, but insight and judgment is poor. DIAGNOSIS: Bipolar II. PLAN: Plan for this patient is to treat her with Abilify 10 mg daily and Celexa 20 mg daily to stabilize her mood. She got supportive therapy. She is assessed at bedside. The patient was seen on 09/03/2016. Chart reviewed. Discussed with staff. Seen and assessed at bedside. I would like to thank, Bubba Hanley D.O., for this interesting psychiatric consultation. Oneil Olson M.D. DR: GISELL JOB#: [id number] CC:
--- NOTE | 2016-09-08 02:59 | Consultation ---
DATE OF CONSULTATION: 09/05/2016 SUBJECTIVE: She has pancreatitis and also bipolar II. PLAN: Treat with Abilify 10 mg daily. Celexa 20 mg daily. Chart was reviewed. Discussed with staff. Gm for anxiety. Seen and assessed at the bedside. Oneil Olson M.D. DR: NAVJOT JOB#: [id number] CC:
[2016-09-08 04:00] VITALS: BP 133/73
[2016-09-08] MEDS ORDERED: Sodium Bicarbonate 8.4% 50ml Inj IV PRN (06:00)
[2016-09-08] MEDS ORDERED: Lidocaine 1% Plain 30 ml INJ PRN (06:00)
[2016-09-08] MEDS: NovoLOG Insulin Flexpen SUBQ SCH ×4 (06:17→20:48)
[2016-09-08 07:44] LABS: ANION GAP 10 (5-15); CALCIUM 8.2 mg/dL (8.6-10.2); CARBON DIOXIDE 25 mEQ/L (20-30); CHLORIDE 100 mEQ/L (98-107); CREATININE 0.6 mg/dL (0.5-0.9); GLOMERULAR FILTRATION RATE > 60 mL/min (>60); HEMOLYSIS 1; POTASSIUM 4.2 mEQ/L (3.4-4.9); SODIUM 135 mEQ/L (135-145)
[2016-09-08 07:49] LABS: MEAN CORPUSCULAR HEMOGLOBIN 30.3 PG (27.0-31.0); MEAN CORPUSCULAR HGB CONC 33.4 G/DL (32.0-36.0); MEAN CORPUSCULAR VOLUME 91 FL (80-99); MEAN PLATELET VOLUME 7.7 FL (6.5-10.1); PLATELET COUNT 69 K/UL (150-450); RED BLOOD COUNT 3.72 M/UL (4.20-5.40); RED CELL DISTRIBUTION WIDTH 13.9 % (11.6-14.8); WHITE BLOOD COUNT 3.1 K/UL (4.8-10.8)
[2016-09-08 08:12] VITALS: BP 115/73
--- NOTE | 2016-09-08 08:36 | General Progress Note ---
Assessment/Plan Assessment/Plan (1) Lumbar spondylosis (2) DDD (degenerative disc disease), lumbar (3) OA (osteoarthritis) of knee (4) Pain in limb (5) Cirrhosis (6) S/p left humeral Fracture (7) Intractable Abdominal pain (8) Pancreatitis We will continue Dilaudid tabs and morphine IV. Pt was d/w Dr. Coburn and he concurred. Subjective Date patient seen: Sep 08, 2016 Time patient seen: 07:00 - am Allergies: Coded Allergies: METOCLOPRAMIDE (Verified Allergy, Severe, Anaphylaxis, 01/31/16) tongue swelling PROCHLORPERAZINE (Verified Allergy, Severe, Anaphylaxis, 01/31/16) tongue swelling PREDNISONE (Verified Allergy, Mild, Facial Edema , 07/28/15) EGG (Unverified Allergy, Unknown, 03/16/15) Pt sts she is allergic to eggs but not products made with eggs such as muffins IODINE (Verified Allergy, Unknown, 01/25/15) SHELLFISH DERIVED (Verified Allergy, Unknown, 04/07/14) Uncoded Allergies: plastic tape (Allergy, Mild, Rash, 01/25/15) PREDISONE (Allergy, Unknown, 04/12/16) SHELLFISH (Allergy, Unknown, 04/12/16) Subjective Constitutional: Reports: weakness, Denies: chills, diaphoresis, fever, malaise HEENT: Denies: blurred vision, double vision, ear discharge, ear pain, eye pain , mouth pain, mouth swelling, no symptoms, nose congestion, nose pain, other, tearing, throat pain, throat swelling Cardiovascular: Denies: chest pain, edema, irregular heart rate, lightheadedness, no symptoms, other, palpitations, syncope Respiratory: Denies: SOB at rest, SOB with excertion, cough, no symptoms, orthopnea, other, shortness of breath, sputum, stridor, wheezing Gastrointestinal/Abdominal: Reports: abdominal pain, Denies: abdomen distended , black stools, blood in stool, constipated, diarrhea, difficulty swallowing, nausea, poor appetite, poor fluid intake, rectal bleeding, tarry stools, vomiting Genitourinary: Denies: burning, discharge, flank pain, frequency, hematuria, incontinence, pain, urgency Neurologic/Psychiatric: Reports: weakness, Denies: anxiety, depressed, emotional problems, headache, no symptoms, numbness paresthesia, pre-existing deficit, seizure, tingling, tremors Endocrine: Denies: excessive sweating, flushing, increased hunger, increased thirst, increased urine, intolerance to cold, intolerance to heat, unexplained weight gain, unexplained weight loss Hematologic/Lymphatic: Denies: anemia, easy bleeding, easy bruising Subjective Pain is reduced on the Dialudid and Morphine from a 7/10 to a 2/10. Objective Last 24 Hour Vital Signs Date Time Temp Pulse Resp B/P Pulse Ox O2 Delivery O2 Flow Rate FiO2 09/08/16 08:12 99.0 100 20 115/73 100 Room Air 09/08/16 07:12 97.5 09/08/16 04:00 97.5 58 18 133/73 98 Room Air 09/08/16 00:00 99.5 62 18 133/70 96 Room Air 09/07/16 20:00 99.5 18 101/66 100 Room Air 09/07/16 17:49 66 111/82 09/07/16 16:06 98.6 66 20 111/82 98 Room Air 09/07/16 11:42 97.0 72 19 112/70 95 Room Air Intake and Output 09/07/16 09/08/16 19:00 07:00 Intake Total 360 ml 735 ml Balance 360 ml 735 ml Intake Oral 360 ml 735 ml # Voids 3 4 Laboratory Tests 09/08/16 06:30: White Blood Count 3.1L, Red Blood Count 3.72L, Hemoglobin 11.3L, Hematocrit 33.7L, Mean Corpuscular Volume 91, Mean Corpuscular Hemoglobin 30.3, Mean Corpuscular Hemoglobin Concent 33.4, Red Cell Distribution Width 13.9, Platelet Count 69L, Mean Platelet Volume 7.7, Neutrophils (%) (Auto) , Lymphocytes (%) ( Auto) , Monocytes (%) (Auto) , Eosinophils (%) (Auto) , Basophils (%) (Auto) , Neutrophils % (Manual) [Pending], Lymphocytes % (Manual) [Pending], Platelet Estimate [Pending], Platelet Morphology [Pending], Sodium Level 135, Potassium Level 4.2, Chloride Level 100, Carbon Dioxide Level 25, Anion Gap 10, Blood Urea Nitrogen 11, Creatinine 0.6, Estimat Glomerular Filtration Rate > 60, Glucose Level 250H, Calcium Level 8.2L Height (Feet): 5 Height (Inches): 2.00 Weight (Pounds): 165 Objective General Appearance: no apparent distress, alert, mild distress EENT: normal ENT inspection Neck: non-tender, normal alignment Cardiovascular: normal rate Respiratory/Chest: lungs clear, normal breath sounds Abdomen: distended Extremities: swelling, left UE in sling Edema: mild edema Neurologic: alert, oriented x 3 Skin: warm/dry LUIS JOHNSON PArlette Sep 08, 2016 08:36
[2016-09-08] MEDS: Citalopram 20mg Tab ORAL SCH (08:54)
[2016-09-08] MEDS: ARIPiprazole 10mg tab ORAL SCH (08:54)
[2016-09-08] MEDS: Sodium Chloride 1gm Tab ORAL SCH ×2 (08:54→11:17)
[2016-09-08] MEDS: Lisinopril 20mg tab ORAL SCH (08:54)
[2016-09-08] MEDS: Magnesium Oxide 400mg tab ORAL SCH ×2 (08:55→11:17)
[2016-09-08] MEDS: Aspirin EC 81mg tab ORAL SCH (08:55)
[2016-09-08] MEDS: Oxybutynin 5mg tab ORAL SCH ×2 (08:55→18:15)
[2016-09-08 11:11] LABS: BAND NEUTROPHILS % (MANUAL) 0 % (0-8); BASOPHILS % (MANUAL) 1 % (0-2); EOSINOPHILS % (MANUAL) 3 % (0-3); LYMPHOCYTES % (MANUAL) 26 % (20-45); NEUTROPHILS % (MANUAL) 57 % (45-75); PLATELET ESTIMATE DECREASED; PLATELET MORPHOLOGY NORMAL; TOTAL CELLS COUNTED 100
--- NOTE | 2016-09-08 11:15 | General Progress Note ---
Assessment/Plan Assessment/Plan IMPRESSION: 1. Pancytopenia secondary to liver cirrhosis/hepatitis C. plt count lower, heparin discontinued and HIT ab pending 2. Leukopenia, persistent secondary to liver cirrhosis/hepatitis C. 3. Thrombocytopenia, persistent secondary to liver cirrhosis/hepatitis C/drug side effect. 4. Anemia of chronic disease. 5. Pancreatitis 6. Hepatitis C. 7. Liver cirrhosis. 8. Hepatic encephalopathy. 9. History of narcotic dependence. 10. History of migraine headaches. 11. Diabetes mellitus. 12. History of osteoarthritis/degenerative joint disease. 13. History of anxiety attack. 14. Psychosis. 15. Chronic obstructive pulmonary disease. 16. Failure to thrive. RECOMMENDATIONS: 1. Plt count lower, will d/c heparin and send for HIT ab 2. Watch coagulopathy. 3. PRBC transfusion hgb goal >7 4. Platelet transfusion > 10k 5. Neupogen on p.r.n. basis. 6. Appreciate GI and pulm recs 7. DVT ppx with SCDs 8. GI ppx with zantac 9. Staff Thank you, Buddy Rubin MD Subjective Constitutional: Reports: no symptoms HEENT: Reports: no symptoms Cardiovascular: Reports: no symptoms Respiratory: Reports: cough Gastrointestinal/Abdominal: Reports: nausea, no symptoms Genitourinary: Reports: no symptoms Neurologic/Psychiatric: Reports: anxiety Endocrine: Reports: no symptoms Hematologic/Lymphatic: Reports: anemia Allergies: Coded Allergies: METOCLOPRAMIDE (Verified Allergy, Severe, Anaphylaxis, 01/31/16) tongue swelling PROCHLORPERAZINE (Verified Allergy, Severe, Anaphylaxis, 01/31/16) tongue swelling PREDNISONE (Verified Allergy, Mild, Facial Edema , 07/28/15) EGG (Unverified Allergy, Unknown, 03/16/15) Pt sts she is allergic to eggs but not products made with eggs such as muffins IODINE (Verified Allergy, Unknown, 01/25/15) SHELLFISH DERIVED (Verified Allergy, Unknown, 04/07/14) Uncoded Allergies: plastic tape (Allergy, Mild, Rash, 01/25/15) PREDISONE (Allergy, Unknown, 04/12/16) SHELLFISH (Allergy, Unknown, 04/12/16) Subjective stable, no events reported, no hematocheiza, pain has improved Objective Last 24 Hour Vital Signs Date Time Temp Pulse Resp B/P Pulse Ox O2 Delivery O2 Flow Rate FiO2 09/08/16 09:54 99.0 09/08/16 08:54 100 115/73 09/08/16 08:54 115/73 09/08/16 08:12 99.0 100 20 115/73 100 Room Air 09/08/16 07:12 97.5 09/08/16 04:00 97.5 58 18 133/73 98 Room Air 09/08/16 00:00 99.5 62 18 133/70 96 Room Air 09/07/16 20:00 99.5 18 101/66 100 Room Air 09/07/16 17:49 66 111/82 09/07/16 16:06 98.6 66 20 111/82 98 Room Air 09/07/16 11:42 97.0 72 19 112/70 95 Room Air Intake and Output 09/07/16 09/08/16 19:00 07:00 Intake Total 360 ml 735 ml Balance 360 ml 735 ml Intake Oral 360 ml 735 ml # Voids 3 4 Laboratory Tests 09/08/16 06:30: White Blood Count 3.1L, Red Blood Count 3.72L, Hemoglobin 11.3L, Hematocrit 33.7L, Mean Corpuscular Volume 91, Mean Corpuscular Hemoglobin 30.3, Mean Corpuscular Hemoglobin Concent 33.4, Red Cell Distribution Width 13.9, Platelet Count 69L, Mean Platelet Volume 7.7, Neutrophils (%) (Auto) , Lymphocytes (%) ( Auto) , Monocytes (%) (Auto) , Eosinophils (%) (Auto) , Basophils (%) (Auto) , Differential Total Cells Counted 100, Neutrophils % (Manual) 57, Lymphocytes % ( Manual) 26, Monocytes % (Manual) 13H, Eosinophils % (Manual) 3, Basophils % ( Manual) 1, Band Neutrophils 0, Platelet Estimate DecreasedL, Platelet Morphology Normal, Red Blood Cell Morphology Normal, Sodium Level 135, Potassium Level 4.2, Chloride Level 100, Carbon Dioxide Level 25, Anion Gap 10, Blood Urea Nitrogen 11, Creatinine 0.6, Estimat Glomerular Filtration Rate > 60 , Glucose Level 250H, Calcium Level 8.2L Height (Feet): 5 Height (Inches): 2.00 Weight (Pounds): 165 General Appearance: no apparent distress EENT: normal ENT inspection Neck: supple Cardiovascular: regular rhythm Respiratory/Chest: lungs clear Abdomen: soft Extremities: non-tender Edema: 1+ Leg (L), 1+ Leg (R) Edema: mild edema Neurologic: alert Skin: warm/dry Buddy Rubin Sep 08, 2016 11:15
[2016-09-08] MEDS ORDERED: Heparin 2000 units/Ns 1000ml IV PRN (11:45)
--- NOTE | 2016-09-08 11:51 | Nephrology Progress Note ---
Assessment/Plan Problem List: (1) Hypomagnesemia (2) Weakness (3) Diabetes (4) CHF (congestive heart failure) (5) Thrombocytopenia (6) Abdominal pain (7) Hyponatremia Plan Hyponatremia - improved Continue sodium chloride tabs Free water restriction Replace mag Pain management DVT prophylaxis Will monitor lytes AM labs Subjective Subjective Out of unit to radiology for a piccline Objective Objective Last 24 Hour Vital Signs Date Time Temp Pulse Resp B/P Pulse Ox O2 Delivery O2 Flow Rate FiO2 09/08/16 09:54 99.0 09/08/16 08:54 100 115/73 09/08/16 08:54 115/73 09/08/16 08:12 99.0 100 20 115/73 100 Room Air 09/08/16 07:12 97.5 09/08/16 04:00 97.5 58 18 133/73 98 Room Air 09/08/16 00:00 99.5 62 18 133/70 96 Room Air 09/07/16 20:00 99.5 18 101/66 100 Room Air 09/07/16 17:49 66 111/82 09/07/16 16:06 98.6 66 20 111/82 98 Room Air Intake and Output 09/07/16 09/08/16 19:00 07:00 Intake Total 360 ml 735 ml Balance 360 ml 735 ml Intake Oral 360 ml 735 ml # Voids 3 4 Laboratory Tests 09/08/16 06:30: White Blood Count 3.1L, Red Blood Count 3.72L, Hemoglobin 11.3L, Hematocrit 33.7L, Mean Corpuscular Volume 91, Mean Corpuscular Hemoglobin 30.3, Mean Corpuscular Hemoglobin Concent 33.4, Red Cell Distribution Width 13.9, Platelet Count 69L, Mean Platelet Volume 7.7, Neutrophils (%) (Auto) , Lymphocytes (%) ( Auto) , Monocytes (%) (Auto) , Eosinophils (%) (Auto) , Basophils (%) (Auto) , Differential Total Cells Counted 100, Neutrophils % (Manual) 57, Lymphocytes % ( Manual) 26, Monocytes % (Manual) 13H, Eosinophils % (Manual) 3, Basophils % ( Manual) 1, Band Neutrophils 0, Platelet Estimate DecreasedL, Platelet Morphology Normal, Red Blood Cell Morphology Normal, Sodium Level 135, Potassium Level 4.2, Chloride Level 100, Carbon Dioxide Level 25, Anion Gap 10, Blood Urea Nitrogen 11, Creatinine 0.6, Estimat Glomerular Filtration Rate > 60 , Glucose Level 250H, Calcium Level 8.2L Height (Feet): 5 Height (Inches): 2.00 Weight (Pounds): 165 Dennise Baker N.P. Sep 08, 2016 11:51
[2016-09-08 12:32] VITALS: BP 100/66
[2016-09-08] MEDS: Morphine Sulfate 2mg/ml Inj IVP PRN ×3 (13:01→21:29)
--- NOTE | 2016-09-08 13:22 | General Progress Note ---
Assessment/Plan Problem List: (1) Pancreatitis ICD Codes: K85.90 - Acute pancreatitis without necrosis or infection, unspecified SNOMED: 78802955 (2) COPD (chronic obstructive pulmonary disease) ICD Codes: J44.9 - Chronic obstructive pulmonary disease, unspecified SNOMED: 79470431 (3) Thrombocytopenia ICD Codes: D69.6 - Thrombocytopenia, unspecified SNOMED: 531611300 (4) Failure to thrive ICD Codes: R62.51 - Failure to thrive SNOMED: 64444241 (5) Episode of generalized weakness ICD Codes: R53.1 - Episode of generalized weakness SNOMED: 81580931 (6) UTI (urinary tract infection) ICD Codes: N39.0 - Urinary tract infection, site not specified SNOMED: 61484523 (7) Chronic pain ICD Codes: G89.29 - Other chronic pain SNOMED: 16825990 (8) Narcotic dependence ICD Codes: F19.20 - Other psychoactive substance dependence, uncomplicated SNOMED: 49171325 (9) CHF (congestive heart failure) ICD Codes: I50.9 - Heart failure, unspecified SNOMED: 50203077 (10) Hyponatremia ICD Codes: E87.1 - Hypo-osmolality and hyponatremia SNOMED: 39789283 (11) HTN (hypertension) ICD Codes: I10 - Essential (primary) hypertension SNOMED: 41481818 Status: stable, progressing, tolerating diet Assessment/Plan ot pt diet gi f/u pain control cbc bmp am promise ltach eval Subjective Constitutional: Reports: weakness Allergies: Coded Allergies: METOCLOPRAMIDE (Verified Allergy, Severe, Anaphylaxis, 01/31/16) tongue swelling PROCHLORPERAZINE (Verified Allergy, Severe, Anaphylaxis, 01/31/16) tongue swelling PREDNISONE (Verified Allergy, Mild, Facial Edema , 07/28/15) EGG (Unverified Allergy, Unknown, 03/16/15) Pt sts she is allergic to eggs but not products made with eggs such as muffins IODINE (Verified Allergy, Unknown, 01/25/15) SHELLFISH DERIVED (Verified Allergy, Unknown, 04/07/14) Uncoded Allergies: plastic tape (Allergy, Mild, Rash, 01/25/15) PREDISONE (Allergy, Unknown, 04/12/16) SHELLFISH (Allergy, Unknown, 04/12/16) All Systems: reviewed and negative except above Subjective sleepy calm in bed Objective Last 24 Hour Vital Signs Date Time Temp Pulse Resp B/P Pulse Ox O2 Delivery O2 Flow Rate FiO2 09/08/16 12:32 98.2 53 19 100/66 99 Room Air 09/08/16 12:17 98.2 09/08/16 09:54 99.0 09/08/16 08:54 100 115/73 09/08/16 08:54 115/73 09/08/16 08:12 99.0 100 20 115/73 100 Room Air 09/08/16 04:00 97.5 58 18 133/73 98 Room Air 09/08/16 00:00 99.5 62 18 133/70 96 Room Air 09/07/16 20:00 99.5 18 101/66 100 Room Air 09/07/16 17:49 66 111/82 09/07/16 16:06 98.6 66 20 111/82 98 Room Air Intake and Output 09/07/16 09/08/16 18:59 06:59 Intake Total 360 ml 735 ml Balance 360 ml 735 ml Intake Oral 360 ml 735 ml # Voids 3 4 Laboratory Tests 09/08/16 06:30: White Blood Count 3.1L, Red Blood Count 3.72L, Hemoglobin 11.3L, Hematocrit 33.7L, Mean Corpuscular Volume 91, Mean Corpuscular Hemoglobin 30.3, Mean Corpuscular Hemoglobin Concent 33.4, Red Cell Distribution Width 13.9, Platelet Count 69L, Mean Platelet Volume 7.7, Neutrophils (%) (Auto) , Lymphocytes (%) ( Auto) , Monocytes (%) (Auto) , Eosinophils (%) (Auto) , Basophils (%) (Auto) , Differential Total Cells Counted 100, Neutrophils % (Manual) 57, Lymphocytes % ( Manual) 26, Monocytes % (Manual) 13H, Eosinophils % (Manual) 3, Basophils % ( Manual) 1, Band Neutrophils 0, Platelet Estimate DecreasedL, Platelet Morphology Normal, Red Blood Cell Morphology Normal, Sodium Level 135, Potassium Level 4.2, Chloride Level 100, Carbon Dioxide Level 25, Anion Gap 10, Blood Urea Nitrogen 11, Creatinine 0.6, Estimat Glomerular Filtration Rate > 60 , Glucose Level 250H, Calcium Level 8.2L, Magnesium Level 1.3L Height (Feet): 5 Height (Inches): 2.00 Weight (Pounds): 165 General Appearance: lethargic EENT: normal ENT inspection Neck: normal alignment Cardiovascular: normal peripheral pulses, normal rate, regular rhythm Respiratory/Chest: chest wall non-tender, lungs clear, normal breath sounds Abdomen: normal bowel sounds, non tender, soft Extremities: normal inspection Edema: no edema noted Arm (L), no edema noted Arm (R), no edema noted Leg (L), no edema noted Leg (R), no edema noted Pedal (L), no edema noted Pedal (R), no edema noted Generalized Neurologic: responsive, motor weakness Skin: normal pigmentation, warm/dry CHARLIE PEREZ Sep 08, 2016 13:22
--- NOTE | 2016-09-08 14:44 | GI Progress Note ---
Assessment/Plan Problems: (1) Hepatitis C ICD Codes: B19.20 - Hepatitis C SNOMED: 41514423 (2) Opiate dependence ICD Codes: F11.20 - Opioid dependence, uncomplicated SNOMED: 55288021 (3) Pancytopenia ICD Codes: D61.818 - Other pancytopenia SNOMED: 989470776 (4) Diabetes ICD Codes: E11.9 - Type 2 diabetes mellitus without complications SNOMED: 23888236 (5) Pancreatitis ICD Codes: K85.90 - Acute pancreatitis without necrosis or infection, unspecified SNOMED: 19474508 (6) Abdominal pain ICD Codes: R10.9 - Abdominal pain SNOMED: 17586609 Status: stable Status Narrative Discussed with Dr. Hill. Assessment/Plan ok for DC per GI standpoint lipid panel unremarkable elevated lipase >> normal ADA diet, tolerating H2 pain mgmt fu labs outpatient colonoscopy & hep C tx abx Subjective Gastrointestinal/Abdominal: Reports: abdominal pain - resolved, no symptoms Objective Last 24 Hour Vital Signs Date Time Temp Pulse Resp B/P Pulse Ox O2 Delivery O2 Flow Rate FiO2 09/08/16 13:31 98.2 09/08/16 12:32 98.2 53 19 100/66 99 Room Air 09/08/16 12:17 98.2 09/08/16 09:54 99.0 09/08/16 08:54 100 115/73 09/08/16 08:54 115/73 09/08/16 08:12 99.0 100 20 115/73 100 Room Air 09/08/16 04:00 97.5 58 18 133/73 98 Room Air 09/08/16 00:00 99.5 62 18 133/70 96 Room Air 09/07/16 20:00 99.5 18 101/66 100 Room Air 09/07/16 17:49 66 111/82 09/07/16 16:06 98.6 66 20 111/82 98 Room Air Intake and Output 09/07/16 09/08/16 19:00 07:00 Intake Total 360 ml 735 ml Balance 360 ml 735 ml Intake Oral 360 ml 735 ml # Voids 3 4 Laboratory Tests Test 09/08/16 06:30 White Blood Count 3.1 K/UL (4.8-10.8) L Red Blood Count 3.72 M/UL (4.20-5.40) L Hemoglobin 11.3 G/DL (12.0-16.0) L Hematocrit 33.7 % (37.0-47.0) L Mean Corpuscular Volume 91 FL (80-99) Mean Corpuscular Hemoglobin 30.3 PG (27.0-31.0) Mean Corpuscular Hemoglobin Concent 33.4 G/DL (32.0-36.0) Red Cell Distribution Width 13.9 % (11.6-14.8) Platelet Count 69 K/UL (150-450) L Mean Platelet Volume 7.7 FL (6.5-10.1) Neutrophils (%) (Auto) % (45.0-75.0) Lymphocytes (%) (Auto) % (20.0-45.0) Monocytes (%) (Auto) % (1.0-10.0) Eosinophils (%) (Auto) % (0.0-3.0) Basophils (%) (Auto) % (0.0-2.0) Differential Total Cells Counted 100 Neutrophils % (Manual) 57 % (45-75) Lymphocytes % (Manual) 26 % (20-45) Monocytes % (Manual) 13 % (1-10) H Eosinophils % (Manual) 3 % (0-3) Basophils % (Manual) 1 % (0-2) Band Neutrophils 0 % (0-8) Platelet Estimate Decreased L Platelet Morphology Normal Red Blood Cell Morphology Normal Sodium Level 135 mEQ/L (135-145) Potassium Level 4.2 mEQ/L (3.4-4.9) Chloride Level 100 mEQ/L (98-107) Carbon Dioxide Level 25 mEQ/L (20-30) Anion Gap 10 (5-15) Blood Urea Nitrogen 11 mg/dL (7-23) Creatinine 0.6 mg/dL (0.5-0.9) Estimat Glomerular Filtration Rate > 60 mL/min (>60) Glucose Level 250 mg/dL (74-106) H Calcium Level 8.2 mg/dL (8.6-10.2) L Magnesium Level 1.3 mg/dL (1.7-2.5) L Height (Feet): 5 Height (Inches): 2.00 Weight (Pounds): 165 General Appearance: no apparent distress, alert, obese Cardiovascular: normal rate Respiratory/Chest: normal breath sounds, no respiratory distress Abdominal Exam: normal bowel sounds, non tender, soft Kenyetta Cobos N.P. Sep 08, 2016 14:44
[2016-09-08 16:00] VITALS: BP 137/75
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
[2016-09-08 20:00] VITALS: BP 101/65
[2016-09-09] MEDS: Zolpidem 5mg tab ORAL PRN (00:56)
[2016-09-09] MEDS: Morphine Sulfate 2mg/ml Inj IVP PRN ×5 (01:42→21:44)
[2016-09-09] MEDS: LORazepam 1mg tab ORAL PRN ×4 (03:05→22:41)
[2016-09-09 04:00] VITALS: BP 138/100
[2016-09-09] MEDS: HYDROmorphone 2mg tab ORAL PRN (05:53)
[2016-09-09] MEDS: NovoLOG Insulin Flexpen SUBQ SCH ×4 (06:42→21:53)
[2016-09-09 08:00] VITALS: BP 139/92
--- NOTE | 2016-09-09 08:13 | General Progress Note ---
Assessment/Plan Assessment/Plan (1) Lumbar spondylosis (2) DDD (degenerative disc disease), lumbar (3) OA (osteoarthritis) of knee (4) Pain in limb (5) Cirrhosis (6) S/p left humeral Fracture (7) Intractable Abdominal pain (8) Pancreatitis We will continue Dilaudid tabs and morphine IV. Pt was d/w Dr. Coburn and he concurred. Subjective Date patient seen: Sep 09, 2016 Time patient seen: 07:30 - am Allergies: Coded Allergies: METOCLOPRAMIDE (Verified Allergy, Severe, Anaphylaxis, 01/31/16) tongue swelling PROCHLORPERAZINE (Verified Allergy, Severe, Anaphylaxis, 01/31/16) tongue swelling PREDNISONE (Verified Allergy, Mild, Facial Edema , 07/28/15) EGG (Unverified Allergy, Unknown, 03/16/15) Pt sts she is allergic to eggs but not products made with eggs such as muffins IODINE (Verified Allergy, Unknown, 01/25/15) SHELLFISH DERIVED (Verified Allergy, Unknown, 04/07/14) Uncoded Allergies: plastic tape (Allergy, Mild, Rash, 01/25/15) PREDISONE (Allergy, Unknown, 04/12/16) SHELLFISH (Allergy, Unknown, 04/12/16) Subjective Constitutional: Reports: weakness, Denies: chills, diaphoresis, fever, malaise HEENT: Denies: blurred vision, double vision, ear discharge, ear pain, eye pain , mouth pain, mouth swelling, no symptoms, nose congestion, nose pain, other, tearing, throat pain, throat swelling Cardiovascular: Denies: chest pain, edema, irregular heart rate, lightheadedness, no symptoms, other, palpitations, syncope Respiratory: Denies: SOB at rest, SOB with excertion, cough, no symptoms, orthopnea, other, shortness of breath, sputum, stridor, wheezing Gastrointestinal/Abdominal: Reports: abdominal pain, Denies: abdomen distended , black stools, blood in stool, constipated, diarrhea, difficulty swallowing, nausea, poor appetite, poor fluid intake, rectal bleeding, tarry stools, vomiting Genitourinary: Denies: burning, discharge, flank pain, frequency, hematuria, incontinence, pain, urgency Neurologic/Psychiatric: Reports: weakness, Denies: anxiety, depressed, emotional problems, headache, no symptoms, numbness paresthesia, pre-existing deficit, seizure, tingling, tremors Endocrine: Denies: excessive sweating, flushing, increased hunger, increased thirst, increased urine, intolerance to cold, intolerance to heat, unexplained weight gain, unexplained weight loss Hematologic/Lymphatic: Denies: anemia, easy bleeding, easy bruising Subjective Pt is comfortable and in bed tolerating the pain on the Dilaudid and Morphine. She has no new complaints. Objective Last 24 Hour Vital Signs Date Time Temp Pulse Resp B/P Pulse Ox O2 Delivery O2 Flow Rate FiO2 09/09/16 04:00 96.8 52 20 138/100 100 Room Air 09/08/16 20:00 99.0 55 19 101/65 100 Room Air 09/08/16 18:15 49 137/75 09/08/16 16:00 98.9 49 18 137/75 97 Room Air 09/08/16 13:31 98.2 09/08/16 12:32 98.2 53 19 100/66 99 Room Air 09/08/16 12:17 98.2 09/08/16 09:54 99.0 09/08/16 08:54 100 115/73 09/08/16 08:54 115/73 Intake and Output 09/08/16 09/09/16 19:00 07:00 Intake Total 460 ml 1225 ml Output Total 500 ml Balance 460 ml 725 ml Intake Oral 360 ml 1025 ml IV Total 100 ml 200 ml Output Urine Total 500 ml # Voids 2 6 # Bowel Movements 1 Height (Feet): 5 Height (Inches): 2.00 Weight (Pounds): 165 Objective General Appearance: no apparent distress, alert, mild distress EENT: normal ENT inspection Neck: non-tender, normal alignment Cardiovascular: normal rate Respiratory/Chest: lungs clear, normal breath sounds Abdomen: distended Extremities: swelling, left UE in sling Edema: mild edema Neurologic: alert, oriented x 3 Skin: warm/dry LUIS JOHNSON Sep 09, 2016 08:13
[2016-09-09 08:34] LABS: ANION GAP 12 (5-15); CARBON DIOXIDE 24 mEQ/L (20-30); CHLORIDE 99 mEQ/L (98-107); CREATININE 0.6 mg/dL (0.5-0.9); GLOMERULAR FILTRATION RATE > 60 mL/min (>60); HEMOLYSIS 2; MEAN CORPUSCULAR HEMOGLOBIN 30.8 PG (27.0-31.0); MEAN CORPUSCULAR HGB CONC 32.6 G/DL (32.0-36.0); MEAN CORPUSCULAR VOLUME 94 FL (80-99); MEAN PLATELET VOLUME 7.3 FL (6.5-10.1); PLATELET COUNT 60 K/UL (150-450); POTASSIUM 4.2 mEQ/L (3.4-4.9); RED BLOOD COUNT 3.35 M/UL (4.20-5.40); RED CELL DISTRIBUTION WIDTH 13.7 % (11.6-14.8); SODIUM 135 mEQ/L (135-145); WHITE BLOOD COUNT 3.1 K/UL (4.8-10.8)
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
[2016-09-09] MEDS: Citalopram 20mg Tab ORAL SCH (09:42)
[2016-09-09] MEDS: Oxybutynin 5mg tab ORAL SCH ×2 (09:43→17:05)
[2016-09-09] MEDS: Aspirin EC 81mg tab ORAL SCH (09:43)
[2016-09-09] MEDS: Lisinopril 20mg tab ORAL SCH (09:43)
[2016-09-09] MEDS ORDERED: HYDROmorphone 2mg tab ORAL PRN (10:00)
[2016-09-09 10:06] LABS: BAND NEUTROPHILS % (MANUAL) 1 % (0-8); BASOPHILS % (MANUAL) 0 % (0-2); EOSINOPHILS % (MANUAL) 2 % (0-3); LYMPHOCYTES % (MANUAL) 23 % (20-45); NEUTROPHILS % (MANUAL) 69 % (45-75); PLATELET ESTIMATE DECREASED; PLATELET MORPHOLOGY NORMAL; TOTAL CELLS COUNTED 100
--- NOTE | 2016-09-09 10:15 | GI Progress Note ---
Assessment/Plan Problems: (1) Hepatitis C ICD Codes: B19.20 - Hepatitis C SNOMED: 56510449 (2) Opiate dependence ICD Codes: F11.20 - Opioid dependence, uncomplicated SNOMED: 67727272 (3) Pancytopenia ICD Codes: D61.818 - Other pancytopenia SNOMED: 674124226 (4) Diabetes ICD Codes: E11.9 - Type 2 diabetes mellitus without complications SNOMED: 11014937 (5) Pancreatitis ICD Codes: K85.90 - Acute pancreatitis without necrosis or infection, unspecified SNOMED: 71030325 (6) Abdominal pain ICD Codes: R10.9 - Abdominal pain SNOMED: 57237858 Status: stable Status Narrative Discussed with Dr. Hill. Assessment/Plan ok for DC per GI standpoint lipid panel unremarkable elevated lipase >> normal ADA diet, tolerating H2 pain mgmt fu labs outpatient colonoscopy & hep C tx abx Subjective Gastrointestinal/Abdominal: Reports: abdominal pain - occasional Subjective denies N/V, diarrhea Objective Last 24 Hour Vital Signs Date Time Temp Pulse Resp B/P Pulse Ox O2 Delivery O2 Flow Rate FiO2 09/09/16 09:43 62 139/92 09/09/16 09:43 139/92 09/09/16 08:00 97.9 62 18 139/92 98 Room Air 09/09/16 04:00 96.8 52 20 138/100 100 Room Air 09/08/16 20:00 99.0 55 19 101/65 100 Room Air 09/08/16 18:15 49 137/75 09/08/16 16:00 98.9 49 18 137/75 97 Room Air 09/08/16 13:31 98.2 09/08/16 12:32 98.2 53 19 100/66 99 Room Air 09/08/16 12:17 98.2 Intake and Output 09/08/16 09/09/16 19:00 07:00 Intake Total 460 ml 1225 ml Output Total 500 ml Balance 460 ml 725 ml Intake Oral 360 ml 1025 ml IV Total 100 ml 200 ml Output Urine Total 500 ml # Voids 2 6 # Bowel Movements 1 Laboratory Tests Test 09/09/16 06:00 White Blood Count 3.1 K/UL (4.8-10.8) L Red Blood Count 3.35 M/UL (4.20-5.40) L Hemoglobin 10.3 G/DL (12.0-16.0) L Hematocrit 31.6 % (37.0-47.0) L Mean Corpuscular Volume 94 FL (80-99) Mean Corpuscular Hemoglobin 30.8 PG (27.0-31.0) Mean Corpuscular Hemoglobin Concent 32.6 G/DL (32.0-36.0) Red Cell Distribution Width 13.7 % (11.6-14.8) Platelet Count 60 K/UL (150-450) L Mean Platelet Volume 7.3 FL (6.5-10.1) Neutrophils (%) (Auto) % (45.0-75.0) Lymphocytes (%) (Auto) % (20.0-45.0) Monocytes (%) (Auto) % (1.0-10.0) Eosinophils (%) (Auto) % (0.0-3.0) Basophils (%) (Auto) % (0.0-2.0) Differential Total Cells Counted 100 Neutrophils % (Manual) 69 % (45-75) Lymphocytes % (Manual) 23 % (20-45) Monocytes % (Manual) 5 % (1-10) Eosinophils % (Manual) 2 % (0-3) Basophils % (Manual) 0 % (0-2) Band Neutrophils 1 % (0-8) Platelet Estimate Decreased L Platelet Morphology Normal Red Blood Cell Morphology Normal Sodium Level 135 mEQ/L (135-145) Potassium Level 4.2 mEQ/L (3.4-4.9) Chloride Level 99 mEQ/L (98-107) Carbon Dioxide Level 24 mEQ/L (20-30) Anion Gap 12 (5-15) Blood Urea Nitrogen 12 mg/dL (7-23) Creatinine 0.6 mg/dL (0.5-0.9) Estimat Glomerular Filtration Rate > 60 mL/min (>60) Glucose Level 285 mg/dL (74-106) H Calcium Level 8.0 mg/dL (8.6-10.2) L Height (Feet): 5 Height (Inches): 2.00 Weight (Pounds): 165 General Appearance: no apparent distress, alert Cardiovascular: normal rate Respiratory/Chest: normal breath sounds, no respiratory distress Abdominal Exam: normal bowel sounds, non tender, soft Extremities: normal range of motion Cobos,Kenyetta Jose N.P. Sep 09, 2016 10:15
[2016-09-09] MEDS: ARIPiprazole 10mg tab ORAL SCH (10:29)
[2016-09-09 12:00] VITALS: BP 127/88
--- NOTE | 2016-09-09 15:17 | General Progress Note ---
Assessment/Plan Problem List: (1) Pancreatitis ICD Codes: K85.90 - Acute pancreatitis without necrosis or infection, unspecified SNOMED: 21356037 (2) COPD (chronic obstructive pulmonary disease) ICD Codes: J44.9 - Chronic obstructive pulmonary disease, unspecified SNOMED: 30292643 (3) Thrombocytopenia ICD Codes: D69.6 - Thrombocytopenia, unspecified SNOMED: 282140129 (4) Failure to thrive ICD Codes: R62.51 - Failure to thrive SNOMED: 46882924 (5) Episode of generalized weakness ICD Codes: R53.1 - Episode of generalized weakness SNOMED: 54432629 (6) UTI (urinary tract infection) ICD Codes: N39.0 - Urinary tract infection, site not specified SNOMED: 09446056 (7) Chronic pain ICD Codes: G89.29 - Other chronic pain SNOMED: 11916755 (8) Narcotic dependence ICD Codes: F19.20 - Other psychoactive substance dependence, uncomplicated SNOMED: 85082299 (9) CHF (congestive heart failure) ICD Codes: I50.9 - Heart failure, unspecified SNOMED: 34145048 (10) Hyponatremia ICD Codes: E87.1 - Hypo-osmolality and hyponatremia SNOMED: 30684594 (11) HTN (hypertension) ICD Codes: I10 - Essential (primary) hypertension SNOMED: 11116099 Status: stable, progressing, tolerating diet Assessment/Plan ot pt diet gi f/u pain control cbc bmp am dc plan snf Subjective Constitutional: Reports: weakness Allergies: Coded Allergies: METOCLOPRAMIDE (Verified Allergy, Severe, Anaphylaxis, 01/31/16) tongue swelling PROCHLORPERAZINE (Verified Allergy, Severe, Anaphylaxis, 01/31/16) tongue swelling PREDNISONE (Verified Allergy, Mild, Facial Edema , 07/28/15) EGG (Unverified Allergy, Unknown, 03/16/15) Pt sts she is allergic to eggs but not products made with eggs such as muffins IODINE (Verified Allergy, Unknown, 01/25/15) SHELLFISH DERIVED (Verified Allergy, Unknown, 04/07/14) Uncoded Allergies: plastic tape (Allergy, Mild, Rash, 01/25/15) PREDISONE (Allergy, Unknown, 04/12/16) SHELLFISH (Allergy, Unknown, 04/12/16) All Systems: reviewed and negative except above Subjective sleepy calm in bed Objective Last 24 Hour Vital Signs Date Time Temp Pulse Resp B/P Pulse Ox O2 Delivery O2 Flow Rate FiO2 09/09/16 14:15 97.9 09/09/16 13:19 97.9 09/09/16 12:00 97.3 65 19 127/88 98 Room Air 09/09/16 10:41 97.9 09/09/16 09:43 62 139/92 09/09/16 09:43 139/92 09/09/16 08:00 97.9 62 18 139/92 98 Room Air 09/09/16 04:00 96.8 52 20 138/100 100 Room Air 09/08/16 20:00 99.0 55 19 101/65 100 Room Air 09/08/16 18:15 49 137/75 09/08/16 16:00 98.9 49 18 137/75 97 Room Air Intake and Output 09/08/16 09/09/16 19:00 07:00 Intake Total 460 ml 1225 ml Output Total 500 ml Balance 460 ml 725 ml Intake Oral 360 ml 1025 ml IV Total 100 ml 200 ml Output Urine Total 500 ml # Voids 2 6 # Bowel Movements 1 Laboratory Tests 09/09/16 06:00: White Blood Count 3.1L, Red Blood Count 3.35L, Hemoglobin 10.3L, Hematocrit 31.6L, Mean Corpuscular Volume 94, Mean Corpuscular Hemoglobin 30.8, Mean Corpuscular Hemoglobin Concent 32.6, Red Cell Distribution Width 13.7, Platelet Count 60L, Mean Platelet Volume 7.3, Neutrophils (%) (Auto) , Lymphocytes (%) ( Auto) , Monocytes (%) (Auto) , Eosinophils (%) (Auto) , Basophils (%) (Auto) , Differential Total Cells Counted 100, Neutrophils % (Manual) 69, Lymphocytes % ( Manual) 23, Monocytes % (Manual) 5, Eosinophils % (Manual) 2, Basophils % ( Manual) 0, Band Neutrophils 1, Platelet Estimate DecreasedL, Platelet Morphology Normal, Red Blood Cell Morphology Normal, Sodium Level 135, Potassium Level 4.2, Chloride Level 99, Carbon Dioxide Level 24, Anion Gap 12, Blood Urea Nitrogen 12, Creatinine 0.6, Estimat Glomerular Filtration Rate > 60 , Glucose Level 285H, Calcium Level 8.0L Height (Feet): 5 Height (Inches): 2.00 Weight (Pounds): 165 General Appearance: alert EENT: normal ENT inspection Neck: normal alignment Cardiovascular: normal peripheral pulses, normal rate, regular rhythm Respiratory/Chest: chest wall non-tender, lungs clear, normal breath sounds Abdomen: normal bowel sounds, non tender, soft Extremities: normal inspection Edema: no edema noted Arm (L), no edema noted Arm (R), no edema noted Leg (L), no edema noted Leg (R), no edema noted Pedal (L), no edema noted Pedal (R), no edema noted Generalized Neurologic: responsive, motor weakness Skin: normal pigmentation, warm/dry CHARLIE PEREZ Sep 09, 2016 15:17
--- NOTE | 2016-09-09 15:47 | General Progress Note ---
Assessment/Plan Assessment/Plan IMPRESSION: 1. Pancytopenia secondary to liver cirrhosis/hepatitis C. plt count lower, heparin has been discontinued 2. Leukopenia, persistent secondary to liver cirrhosis/hepatitis C. 3. Thrombocytopenia, persistent secondary to liver cirrhosis/hepatitis C/drug side effect. 4. Anemia of chronic disease. 5. Pancreatitis 6. Hepatitis C. 7. Liver cirrhosis. 8. Hepatic encephalopathy. 9. History of narcotic dependence. 10. History of migraine headaches. 11. Diabetes mellitus. 12. History of osteoarthritis/degenerative joint disease. 13. History of anxiety attack. 14. Psychosis. 15. Chronic obstructive pulmonary disease 16. Failure to thrive. RECOMMENDATIONS: 1. Plt count lower, HIT pending 2. Monitor coagulopathy. 3. PRBC transfusion hgb goal >7 4. Platelet transfusion > 10k 5. Neupogen on p.r.n. basis. 6. Appreciate GI and pulm recs 7. DVT ppx with SCDs 8. GI ppx with zantac 9. Staff Thank you, Buddy Rubin MD Subjective Constitutional: Reports: no symptoms HEENT: Reports: no symptoms Cardiovascular: Reports: no symptoms Respiratory: Reports: no symptoms Gastrointestinal/Abdominal: Reports: no symptoms Genitourinary: Reports: no symptoms Neurologic/Psychiatric: Reports: no symptoms Endocrine: Reports: no symptoms Hematologic/Lymphatic: Reports: anemia Allergies: Coded Allergies: METOCLOPRAMIDE (Verified Allergy, Severe, Anaphylaxis, 01/31/16) tongue swelling PROCHLORPERAZINE (Verified Allergy, Severe, Anaphylaxis, 01/31/16) tongue swelling PREDNISONE (Verified Allergy, Mild, Facial Edema , 07/28/15) EGG (Unverified Allergy, Unknown, 03/16/15) Pt sts she is allergic to eggs but not products made with eggs such as muffins IODINE (Verified Allergy, Unknown, 01/25/15) SHELLFISH DERIVED (Verified Allergy, Unknown, 04/07/14) Uncoded Allergies: plastic tape (Allergy, Mild, Rash, 01/25/15) PREDISONE (Allergy, Unknown, 04/12/16) SHELLFISH (Allergy, Unknown, 04/12/16) Subjective stable, no events reported, no hematocheiza, pain has improved Objective Last 24 Hour Vital Signs Date Time Temp Pulse Resp B/P Pulse Ox O2 Delivery O2 Flow Rate FiO2 09/09/16 14:15 97.9 09/09/16 13:19 97.9 09/09/16 12:00 97.3 65 19 127/88 98 Room Air 09/09/16 10:41 97.9 09/09/16 09:43 62 139/92 09/09/16 09:43 139/92 09/09/16 08:00 97.9 62 18 139/92 98 Room Air 09/09/16 04:00 96.8 52 20 138/100 100 Room Air 09/08/16 20:00 99.0 55 19 101/65 100 Room Air 09/08/16 18:15 49 137/75 09/08/16 16:00 98.9 49 18 137/75 97 Room Air Intake and Output 09/08/16 09/09/16 19:00 07:00 Intake Total 460 ml 1225 ml Output Total 500 ml Balance 460 ml 725 ml Intake Oral 360 ml 1025 ml IV Total 100 ml 200 ml Output Urine Total 500 ml # Voids 2 6 # Bowel Movements 1 Laboratory Tests 09/09/16 06:00: White Blood Count 3.1L, Red Blood Count 3.35L, Hemoglobin 10.3L, Hematocrit 31.6L, Mean Corpuscular Volume 94, Mean Corpuscular Hemoglobin 30.8, Mean Corpuscular Hemoglobin Concent 32.6, Red Cell Distribution Width 13.7, Platelet Count 60L, Mean Platelet Volume 7.3, Neutrophils (%) (Auto) , Lymphocytes (%) ( Auto) , Monocytes (%) (Auto) , Eosinophils (%) (Auto) , Basophils (%) (Auto) , Differential Total Cells Counted 100, Neutrophils % (Manual) 69, Lymphocytes % ( Manual) 23, Monocytes % (Manual) 5, Eosinophils % (Manual) 2, Basophils % ( Manual) 0, Band Neutrophils 1, Platelet Estimate DecreasedL, Platelet Morphology Normal, Red Blood Cell Morphology Normal, Sodium Level 135, Potassium Level 4.2, Chloride Level 99, Carbon Dioxide Level 24, Anion Gap 12, Blood Urea Nitrogen 12, Creatinine 0.6, Estimat Glomerular Filtration Rate > 60 , Glucose Level 285H, Calcium Level 8.0L Height (Feet): 5 Height (Inches): 2.00 Weight (Pounds): 165 General Appearance: no apparent distress EENT: TMs normal Neck: supple Cardiovascular: regular rhythm Respiratory/Chest: normal breath sounds Abdomen: soft Extremities: non-tender Edema: 1+ Leg (L), 1+ Leg (R) Edema: mild edema Neurologic: alert Skin: warm/dry Buddy Rubin Sep 09, 2016 15:47
[2016-09-09 15:57] VITALS: BP 124/78
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
[2016-09-09] MEDS ORDERED: Tubing IV Secondary IV ONE (17:56)
[2016-09-09 19:00] VITALS: BP 126/75
--- NOTE | 2016-09-09 21:30 | Infectious Diseases Prog Note ---
Assessment/Plan Problems: (1) Acute inflammation of the pancreas Assessment & Plan: continue supportive care, and IVF for hydration, and pain managemnt, GI is following, keep off antibiotics and monitor clinically (2) Hepatitis C Assessment & Plan: will confirm and obtain viral load and genotype.recommend treatment with GI as an outpatient (3) Intractable pain Assessment & Plan: due to one, continue pain management as per primary (4) Diabetes mellitus out of control Assessment & Plan: recommend tight glycemic control to keep blood glucose between 80-120 (5) Humerus head fracture Assessment & Plan: in splint, consult ortho. Subjective Constitutional: Reports: no symptoms HEENT: Reports: no symptoms Respiratory: Reports: no symptoms Breasts: Reports: no symptoms Cardiovascular: Reports: no symptoms Gastrointestinal/Abdominal: Reports: no symptoms Genitourinary: Reports: no symptoms Neurologic: Reports: no symptoms Psychiatric: Reports: no symptoms Skin: Reports: other - right arm redness and swelling due to infiltrated line Endocrine: Reports: no symptoms Allergies: Coded Allergies: METOCLOPRAMIDE (Verified Allergy, Severe, Anaphylaxis, 01/31/16) tongue swelling PROCHLORPERAZINE (Verified Allergy, Severe, Anaphylaxis, 01/31/16) tongue swelling PREDNISONE (Verified Allergy, Mild, Facial Edema , 07/28/15) EGG (Unverified Allergy, Unknown, 03/16/15) Pt sts she is allergic to eggs but not products made with eggs such as muffins IODINE (Verified Allergy, Unknown, 01/25/15) SHELLFISH DERIVED (Verified Allergy, Unknown, 04/07/14) Uncoded Allergies: plastic tape (Allergy, Mild, Rash, 01/25/15) PREDISONE (Allergy, Unknown, 04/12/16) SHELLFISH (Allergy, Unknown, 04/12/16) Objective Vital Signs Last 24 Hour Vital Signs Date Time Temp Pulse Resp B/P Pulse Ox O2 Delivery O2 Flow Rate FiO2 09/09/16 17:34 54 124/78 09/09/16 15:57 97.9 54 20 124/78 100 Room Air 09/09/16 14:15 97.9 09/09/16 13:19 97.9 09/09/16 12:00 97.3 65 19 127/88 98 Room Air 09/09/16 10:41 97.9 09/09/16 09:43 62 139/92 09/09/16 09:43 139/92 09/09/16 08:00 97.9 62 18 139/92 98 Room Air 09/09/16 04:00 96.8 52 20 138/100 100 Room Air Height (Feet): 5 Height (Inches): 2.00 Weight (Pounds): 165 General Appearance: WD/WN, no acute distress HEENT: normocephalic, atraumatic, anicteric, mucous membranes moist Respiratory/Chest: chest wall non-tender, lungs clear, normal breath sounds, no respiratory distress, no accessory muscle use Cardiovascular: normal peripheral pulses, normal rate, regular rhythm, no gallop/murmur, no JVD Abdomen: normal bowel sounds, soft, non tender, no organomegaly, non distended , no mass, no scars Extremities: no cyanosis, no clubbing, other - right arm swelling and redness Laboratory Tests Test 09/09/16 06:00 White Blood Count 3.1 K/UL (4.8-10.8) L Red Blood Count 3.35 M/UL (4.20-5.40) L Hemoglobin 10.3 G/DL (12.0-16.0) L Hematocrit 31.6 % (37.0-47.0) L Mean Corpuscular Volume 94 FL (80-99) Mean Corpuscular Hemoglobin 30.8 PG (27.0-31.0) Mean Corpuscular Hemoglobin Concent 32.6 G/DL (32.0-36.0) Red Cell Distribution Width 13.7 % (11.6-14.8) Platelet Count 60 K/UL (150-450) L Mean Platelet Volume 7.3 FL (6.5-10.1) Neutrophils (%) (Auto) % (45.0-75.0) Lymphocytes (%) (Auto) % (20.0-45.0) Monocytes (%) (Auto) % (1.0-10.0) Eosinophils (%) (Auto) % (0.0-3.0) Basophils (%) (Auto) % (0.0-2.0) Differential Total Cells Counted 100 Neutrophils % (Manual) 69 % (45-75) Lymphocytes % (Manual) 23 % (20-45) Monocytes % (Manual) 5 % (1-10) Eosinophils % (Manual) 2 % (0-3) Basophils % (Manual) 0 % (0-2) Band Neutrophils 1 % (0-8) Platelet Estimate Decreased L Platelet Morphology Normal Red Blood Cell Morphology Normal Sodium Level 135 mEQ/L (135-145) Potassium Level 4.2 mEQ/L (3.4-4.9) Chloride Level 99 mEQ/L (98-107) Carbon Dioxide Level 24 mEQ/L (20-30) Anion Gap 12 (5-15) Blood Urea Nitrogen 12 mg/dL (7-23) Creatinine 0.6 mg/dL (0.5-0.9) Estimat Glomerular Filtration Rate > 60 mL/min (>60) Glucose Level 285 mg/dL (74-106) H Calcium Level 8.0 mg/dL (8.6-10.2) L Current Medications Medications (Trade) Dose Ordered Sig/Bill Route PRN Reason Start Time Stop Time Status Last Admin Dose Admin Acetaminophen (Tylenol) 650 mg Q4H PRN ORAL fever 09/03/16 22:00 10/03/16 21:59 09/06/16 20:28 Al Hydroxide/Mg Hydroxide (Mylanta II) 30 ml Q6H PRN ORAL dyspepsia 09/03/16 22:00 10/03/16 21:59 Aripiprazole (Abilify) 10 mg DAILY ORAL 09/08/16 09:00 10/08/16 08:59 09/09/16 10:29 Aspirin (Ecotrin) 81 mg DAILY ORAL 09/04/16 09:00 10/04/16 08:59 09/09/16 09:43 Citalopram Hydrobromide (celeXA) 20 mg DAILY ORAL 09/04/16 09:00 10/04/16 08:59 09/09/16 09:42 Clonidine HCl (Catapres) 0.1 mg EVERY 6 HOURS PRN ORAL For High Blood Pressure 09/03/16 22:00 10/03/16 21:59 Dextrose (Dextrose 50%) STAT PRN IV Hypoglycemia 09/03/16 22:00 10/03/16 21:59 Diphenhydramine HCl (Benadryl) 25 mg Q6H PRN ORAL Itching/Pruritis 09/03/16 22:00 10/03/16 21:59 09/04/16 20:52 Hydromorphone HCl (Dilaudid) 2 mg Q4H PRN ORAL Moderate Pain (Pain Scale 4-6) 09/09/16 10:00 09/16/16 09:59 09/09/16 12:20 Ibuprofen (Motrin) 500 mg BID ORAL 09/08/16 09:00 10/08/16 08:59 09/09/16 09:42 Insulin Aspart (NovoLOG) BEFORE MEALS AND HS SUBQ 09/04/16 06:30 10/04/16 06:29 09/09/16 16:44 Lisinopril (Prinivil) 40 mg DAILY ORAL 09/04/16 09:00 10/04/16 08:59 09/09/16 09:43 Lorazepam (Ativan) 2 mg Q6H PRN ORAL For Anxiety 09/05/16 12:00 09/12/16 11:59 09/09/16 16:39 Metoprolol Succinate (Toprol XL) 25 mg BID ORAL 09/04/16 09:00 10/04/16 08:59 09/09/16 09:43 Morphine Sulfate (Morphine Sulfate) 2 mg Q4H PRN IVP Severe Pain (Pain Scale 7-10) 09/09/16 08:30 09/16/16 08:29 09/09/16 17:31 Nicotine (Nicoderm) 1 patch Q24H TDERMAL 09/04/16 13:00 10/04/16 12:59 09/09/16 12:10 Nitroglycerin (Ntg) 0.4 mg Q5M X 3 DOSES PRN SL Prn Chest Pain 09/03/16 22:00 10/03/16 21:59 Ondansetron HCl (Zofran) 4 mg Q6H PRN IVP Nausea & Vomiting 09/03/16 22:00 10/03/16 21:59 Oxybutynin Chloride (Ditropan) 5 mg TWICE A DAY ORAL 09/04/16 09:00 10/04/16 08:59 09/09/16 17:05 Polyethylene Glycol (Miralax) 17 gm HSPRN PRN ORAL Constipation 09/03/16 22:00 10/03/16 21:59 Ranitidine HCl (Zantac) 150 mg DAILY ORAL 09/04/16 09:00 10/04/16 08:59 09/09/16 09:43 Sodium Chloride (Sodium Chloride 1000ml bag) 1,000 ml @ 100 mls/hr Q10H IV 09/05/16 14:45 10/05/16 14:44 09/09/16 09:42 Zolpidem Tartrate 5 mg 5 mg HSPRN PRN ORAL Insomnia 09/05/16 21:00 10/05/16 20:59 09/09/16 00:56 Yordy Contreras M.D. Sep 09, 2016 21:29
--- NOTE | 2016-09-09 22:52 | Nephrology Progress Note ---
Assessment/Plan Problem List: (1) Chronic pain (2) Hyponatremia Assessment: improving. (3) Diabetes (4) Pancreatitis (5) CHF (congestive heart failure) (6) COPD (chronic obstructive pulmonary disease) (7) Hepatitis C (8) Abdominal pain Plan d/c IVF. patient eating and drinking on own. d/c planning per PMD. monitor labs. Subjective Subjective no new c/o. Objective Objective Last 24 Hour Vital Signs Date Time Temp Pulse Resp B/P Pulse Ox O2 Delivery O2 Flow Rate FiO2 09/09/16 19:00 98.1 57 20 126/75 100 Room Air 09/09/16 17:34 54 124/78 09/09/16 15:57 97.9 54 20 124/78 100 Room Air 09/09/16 14:15 97.9 09/09/16 13:19 97.9 09/09/16 12:00 97.3 65 19 127/88 98 Room Air 09/09/16 10:41 97.9 09/09/16 09:43 62 139/92 09/09/16 09:43 139/92 09/09/16 08:00 97.9 62 18 139/92 98 Room Air 09/09/16 04:00 96.8 52 20 138/100 100 Room Air Intake and Output 09/08/16 09/09/16 19:00 07:00 Intake Total 460 ml 1225 ml Output Total 500 ml Balance 460 ml 725 ml Intake Oral 360 ml 1025 ml IV Total 100 ml 200 ml Output Urine Total 500 ml # Voids 2 6 # Bowel Movements 1 Laboratory Tests 09/09/16 06:00: White Blood Count 3.1L, Red Blood Count 3.35L, Hemoglobin 10.3L, Hematocrit 31.6L, Mean Corpuscular Volume 94, Mean Corpuscular Hemoglobin 30.8, Mean Corpuscular Hemoglobin Concent 32.6, Red Cell Distribution Width 13.7, Platelet Count 60L, Mean Platelet Volume 7.3, Neutrophils (%) (Auto) , Lymphocytes (%) ( Auto) , Monocytes (%) (Auto) , Eosinophils (%) (Auto) , Basophils (%) (Auto) , Differential Total Cells Counted 100, Neutrophils % (Manual) 69, Lymphocytes % ( Manual) 23, Monocytes % (Manual) 5, Eosinophils % (Manual) 2, Basophils % ( Manual) 0, Band Neutrophils 1, Platelet Estimate DecreasedL, Platelet Morphology Normal, Red Blood Cell Morphology Normal, Sodium Level 135, Potassium Level 4.2, Chloride Level 99, Carbon Dioxide Level 24, Anion Gap 12, Blood Urea Nitrogen 12, Creatinine 0.6, Estimat Glomerular Filtration Rate > 60 , Glucose Level 285H, Calcium Level 8.0L Height (Feet): 5 Height (Inches): 2.00 Weight (Pounds): 165 General Appearance: no apparent distress Cardiovascular: normal rate, regular rhythm Respiratory/Chest: lungs clear Abdomen: non tender, soft BENJA LOBO Sep 09, 2016 22:51
[2016-09-10] VITALS: BP 128/78
[2016-09-10] MEDS: Morphine Sulfate 2mg/ml Inj IVP PRN ×5 (01:58→17:13)
[2016-09-10 03:57] VITALS: BP 124/76
[2016-09-10] MEDS: LORazepam 1mg tab ORAL PRN ×3 (04:44→17:00)
[2016-09-10] MEDS: NovoLOG Insulin Flexpen SUBQ SCH ×3 (06:07→16:31)
[2016-09-10 07:46] LABS: MEAN CORPUSCULAR HEMOGLOBIN 29.9 PG (27.0-31.0); MEAN CORPUSCULAR VOLUME 93 FL (80-99); MEAN PLATELET VOLUME 8.8 FL (6.5-10.1); PLATELET COUNT 84 K/UL (150-450); RED BLOOD COUNT 3.49 M/UL (4.20-5.40); RED CELL DISTRIBUTION WIDTH 13.5 % (11.6-14.8); WHITE BLOOD COUNT 2.3 K/UL (4.8-10.8)
[2016-09-10 07:52] LABS: ANION GAP 10 (5-15); CALCIUM 8.5 mg/dL (8.6-10.2); CARBON DIOXIDE 27 mEQ/L (20-30); CHLORIDE 100 mEQ/L (98-107); CREATININE 0.5 mg/dL (0.5-0.9); GLOMERULAR FILTRATION RATE > 60 mL/min (>60); HEMOLYSIS 2; MAGNESIUM 1.3 mg/dL (1.7-2.5); POTASSIUM 4.1 mEQ/L (3.4-4.9); SODIUM 137 mEQ/L (135-145)
[2016-09-10 08:00] VITALS: BP 123/76
--- NOTE | 2016-09-10 08:37 | General Progress Note ---
Assessment/Plan Assessment/Plan (1) Lumbar spondylosis (2) DDD (degenerative disc disease), lumbar (3) OA (osteoarthritis) of knee (4) Pain in limb (5) Cirrhosis (6) S/p left humeral Fracture (7) Intractable Abdominal pain (8) Pancreatitis We will continue Dilaudid tabs and morphine IV. When pt is discharged she would like to be on Tramadol which had been written and is in chart. Pt was d/w Dr. Coburn and he concurred. Subjective Date patient seen: Sep 10, 2016 Time patient seen: 07:00 - am Allergies: Coded Allergies: METOCLOPRAMIDE (Verified Allergy, Severe, Anaphylaxis, 01/31/16) tongue swelling PROCHLORPERAZINE (Verified Allergy, Severe, Anaphylaxis, 01/31/16) tongue swelling PREDNISONE (Verified Allergy, Mild, Facial Edema , 07/28/15) EGG (Unverified Allergy, Unknown, 03/16/15) Pt sts she is allergic to eggs but not products made with eggs such as muffins IODINE (Verified Allergy, Unknown, 01/25/15) SHELLFISH DERIVED (Verified Allergy, Unknown, 04/07/14) Uncoded Allergies: plastic tape (Allergy, Mild, Rash, 01/25/15) PREDISONE (Allergy, Unknown, 04/12/16) SHELLFISH (Allergy, Unknown, 04/12/16) Subjective Constitutional: Reports: weakness, Denies: chills, diaphoresis, fever, malaise HEENT: Denies: blurred vision, double vision, ear discharge, ear pain, eye pain , mouth pain, mouth swelling, no symptoms, nose congestion, nose pain, other, tearing, throat pain, throat swelling Cardiovascular: Denies: chest pain, edema, irregular heart rate, lightheadedness, no symptoms, other, palpitations, syncope Respiratory: Denies: SOB at rest, SOB with excertion, cough, no symptoms, orthopnea, other, shortness of breath, sputum, stridor, wheezing Gastrointestinal/Abdominal: Reports: abdominal pain, Denies: abdomen distended , black stools, blood in stool, constipated, diarrhea, difficulty swallowing, nausea, poor appetite, poor fluid intake, rectal bleeding, tarry stools, vomiting Genitourinary: Denies: burning, discharge, flank pain, frequency, hematuria, incontinence, pain, urgency Neurologic/Psychiatric: Reports: weakness, Denies: anxiety, depressed, emotional problems, headache, no symptoms, numbness paresthesia, pre-existing deficit, seizure, tingling, tremors Endocrine: Denies: excessive sweating, flushing, increased hunger, increased thirst, increased urine, intolerance to cold, intolerance to heat, unexplained weight gain, unexplained weight loss Hematologic/Lymphatic: Denies: anemia, easy bleeding, easy bruising Subjective She is in bed in no acute distress at this time. Pain continues to fluctuate, she has tolerated the pain on the medications and is looking forward to being transferred to a SNF. Pt reports that she would like to be on tramadol when she is discharged. Objective Last 24 Hour Vital Signs Date Time Temp Pulse Resp B/P Pulse Ox O2 Delivery O2 Flow Rate FiO2 09/10/16 08:00 97.5 72 18 123/76 100 Room Air 09/10/16 06:38 98.1 09/10/16 03:57 98.1 56 18 124/76 100 Room Air 09/10/16 00:00 98.0 59 18 128/78 100 Room Air 09/09/16 19:00 98.1 57 20 126/75 100 Room Air 09/09/16 17:34 54 124/78 09/09/16 15:57 97.9 54 20 124/78 100 Room Air 09/09/16 13:19 97.9 09/09/16 12:00 97.3 65 19 127/88 98 Room Air 09/09/16 10:41 97.9 09/09/16 09:43 62 139/92 09/09/16 09:43 139/92 Intake and Output 09/09/16 09/10/16 19:00 07:00 Intake Total 1080 ml 695 ml Balance 1080 ml 695 ml Intake Oral 780 ml 695 ml IV Total 300 ml # Voids 3 7 # Bowel Movements 1 Laboratory Tests 09/10/16 05:00: White Blood Count 2.3L, Red Blood Count 3.49L, Hemoglobin 10.4L, Hematocrit 32.5L, Mean Corpuscular Volume 93, Mean Corpuscular Hemoglobin 29.9, Mean Corpuscular Hemoglobin Concent 32.0, Red Cell Distribution Width 13.5, Platelet Count 84L, Mean Platelet Volume 8.8, Neutrophils (%) (Auto) , Lymphocytes (%) ( Auto) , Monocytes (%) (Auto) , Eosinophils (%) (Auto) , Basophils (%) (Auto) , Neutrophils % (Manual) [Pending], Lymphocytes % (Manual) [Pending], Platelet Estimate [Pending], Platelet Morphology [Pending], Sodium Level 137, Potassium Level 4.1, Chloride Level 100, Carbon Dioxide Level 27, Anion Gap 10, Blood Urea Nitrogen 8, Creatinine 0.5, Estimat Glomerular Filtration Rate > 60, Glucose Level 217H, Calcium Level 8.5L, Magnesium Level 1.3L Height (Feet): 5 Height (Inches): 2.00 Weight (Pounds): 165 Objective General Appearance: no apparent distress, alert, mild distress EENT: normal ENT inspection Neck: non-tender, normal alignment Cardiovascular: normal rate Respiratory/Chest: lungs clear, normal breath sounds Abdomen: distended Extremities: swelling, left UE in sling Edema: mild edema Neurologic: alert, oriented x 3 Skin: warm/dry LUIS JOHNSON N. P.Jose Antonio Sep 10, 2016 08:37
[2016-09-10 08:58] LABS: BAND NEUTROPHILS % (MANUAL) 0 % (0-8); BASOPHILS % (MANUAL) 0 % (0-2); EOSINOPHILS % (MANUAL) 7 % (0-3); LYMPHOCYTES % (MANUAL) 26 % (20-45); NEUTROPHILS % (MANUAL) 54 % (45-75); PLATELET ESTIMATE DECREASED; PLATELET MORPHOLOGY NORMAL; TOTAL CELLS COUNTED 100
[2016-09-10] MEDS: ARIPiprazole 10mg tab ORAL SCH (09:01)
[2016-09-10] MEDS: Aspirin EC 81mg tab ORAL SCH (09:02)
[2016-09-10] MEDS: Oxybutynin 5mg tab ORAL SCH (09:06)
[2016-09-10] MEDS: Citalopram 20mg Tab ORAL SCH (09:06)
[2016-09-10] MEDS: Lisinopril 20mg tab ORAL SCH (09:07)
--- NOTE | 2016-09-10 10:49 | Nephrology Progress Note ---
Assessment/Plan Problem List: (1) Hypomagnesemia (2) Weakness (3) Diabetes (4) CHF (congestive heart failure) (5) Thrombocytopenia (6) Abdominal pain (7) Hyponatremia Plan Hyponatremia - resolved Replace mag Free water restriction Pain management DVT prophylaxis Will monitor lytes AM labs Subjective Constitutional: Denies: chills, diaphoresis, fever, malaise, no symptoms, other , weakness HEENT: Denies: blurred vision, double vision, ear discharge, ear pain, eye pain , mouth pain, mouth swelling, no symptoms, nose congestion, nose pain, other, tearing, throat pain, throat swelling Genitourinary: Denies: burning, discharge, flank pain, frequency, hematuria, incontinence, no symptoms, other, pain, urgency Neurologic/Psychiatric: Denies: anxiety, depressed, emotional problems, headache, no symptoms, numbness, other, paresthesia, pre-existing deficit, seizure, tingling, tremors, weakness Objective Objective Last 24 Hour Vital Signs Date Time Temp Pulse Resp B/P Pulse Ox O2 Delivery O2 Flow Rate FiO2 09/10/16 10:06 97.5 09/10/16 09:07 123/76 09/10/16 09:01 72 123/76 09/10/16 08:00 97.5 72 18 123/76 100 Room Air 09/10/16 06:38 98.1 09/10/16 03:57 98.1 56 18 124/76 100 Room Air 09/10/16 00:00 98.0 59 18 128/78 100 Room Air 09/09/16 19:00 98.1 57 20 126/75 100 Room Air 09/09/16 17:34 54 124/78 09/09/16 15:57 97.9 54 20 124/78 100 Room Air 09/09/16 13:19 97.9 09/09/16 12:00 97.3 65 19 127/88 98 Room Air Intake and Output 09/09/16 09/10/16 19:00 07:00 Intake Total 1080 ml 695 ml Balance 1080 ml 695 ml Intake Oral 780 ml 695 ml IV Total 300 ml # Voids 3 7 # Bowel Movements 1 Laboratory Tests 09/10/16 05:00: White Blood Count 2.3L, Red Blood Count 3.49L, Hemoglobin 10.4L, Hematocrit 32.5L, Mean Corpuscular Volume 93, Mean Corpuscular Hemoglobin 29.9, Mean Corpuscular Hemoglobin Concent 32.0, Red Cell Distribution Width 13.5, Platelet Count 84L, Mean Platelet Volume 8.8, Neutrophils (%) (Auto) , Lymphocytes (%) ( Auto) , Monocytes (%) (Auto) , Eosinophils (%) (Auto) , Basophils (%) (Auto) , Differential Total Cells Counted 100, Neutrophils % (Manual) 54, Lymphocytes % ( Manual) 26, Monocytes % (Manual) 13H, Eosinophils % (Manual) 7H, Basophils % ( Manual) 0, Band Neutrophils 0, Platelet Estimate DecreasedL, Platelet Morphology Normal, Red Blood Cell Morphology Normal, Sodium Level 137, Potassium Level 4.1, Chloride Level 100, Carbon Dioxide Level 27, Anion Gap 10, Blood Urea Nitrogen 8, Creatinine 0.5, Estimat Glomerular Filtration Rate > 60, Glucose Level 217H, Calcium Level 8.5L, Magnesium Level 1.3L Height (Feet): 5 Height (Inches): 2.00 Weight (Pounds): 165 General Appearance: no apparent distress, alert EENT: normal ENT inspection Neck: normal alignment, supple, normal inspection Cardiovascular: normal rate, regular rhythm, no JVD Respiratory/Chest: lungs clear, normal breath sounds, no respiratory distress Abdomen: soft, no organomegaly Extremities: non-tender, normal inspection Neurologic: alert, oriented x 3, responsive, normal mood/affect Dennise Baker N.P. Sep 10, 2016 10:49
--- NOTE | 2016-09-10 11:25 | GI Progress Note ---
Assessment/Plan Problems: (1) Hepatitis C ICD Codes: B19.20 - Hepatitis C SNOMED: 84265727 (2) Opiate dependence ICD Codes: F11.20 - Opioid dependence, uncomplicated SNOMED: 73178056 (3) Pancytopenia ICD Codes: D61.818 - Other pancytopenia SNOMED: 767123572 (4) Diabetes ICD Codes: E11.9 - Type 2 diabetes mellitus without complications SNOMED: 10315582 (5) Pancreatitis ICD Codes: K85.90 - Acute pancreatitis without necrosis or infection, unspecified SNOMED: 15798259 (6) Abdominal pain ICD Codes: R10.9 - Abdominal pain SNOMED: 87204295 Status: stable Status Narrative Discussed with Dr. Hill. Assessment/Plan ok for DC per GI standpoint lipid panel unremarkable elevated lipase >> normal ADA diet, tolerating H2 pain mgmt fu labs outpatient colonoscopy & hep C tx abx Subjective Gastrointestinal/Abdominal: Reports: no symptoms Subjective denies N/V, diarrhea Objective Last 24 Hour Vital Signs Date Time Temp Pulse Resp B/P Pulse Ox O2 Delivery O2 Flow Rate FiO2 09/10/16 10:30 97.5 09/10/16 10:06 97.5 09/10/16 09:07 123/76 09/10/16 09:01 72 123/76 09/10/16 08:00 97.5 72 18 123/76 100 Room Air 09/10/16 03:57 98.1 56 18 124/76 100 Room Air 09/10/16 00:00 98.0 59 18 128/78 100 Room Air 09/09/16 19:00 98.1 57 20 126/75 100 Room Air 09/09/16 17:34 54 124/78 09/09/16 15:57 97.9 54 20 124/78 100 Room Air 09/09/16 13:19 97.9 09/09/16 12:00 97.3 65 19 127/88 98 Room Air Intake and Output 09/09/16 09/10/16 19:00 07:00 Intake Total 1080 ml 695 ml Balance 1080 ml 695 ml Intake Oral 780 ml 695 ml IV Total 300 ml # Voids 3 7 # Bowel Movements 1 Laboratory Tests Test 09/10/16 05:00 White Blood Count 2.3 K/UL (4.8-10.8) L Red Blood Count 3.49 M/UL (4.20-5.40) L Hemoglobin 10.4 G/DL (12.0-16.0) L Hematocrit 32.5 % (37.0-47.0) L Mean Corpuscular Volume 93 FL (80-99) Mean Corpuscular Hemoglobin 29.9 PG (27.0-31.0) Mean Corpuscular Hemoglobin Concent 32.0 G/DL (32.0-36.0) Red Cell Distribution Width 13.5 % (11.6-14.8) Platelet Count 84 K/UL (150-450) L Mean Platelet Volume 8.8 FL (6.5-10.1) Neutrophils (%) (Auto) % (45.0-75.0) Lymphocytes (%) (Auto) % (20.0-45.0) Monocytes (%) (Auto) % (1.0-10.0) Eosinophils (%) (Auto) % (0.0-3.0) Basophils (%) (Auto) % (0.0-2.0) Differential Total Cells Counted 100 Neutrophils % (Manual) 54 % (45-75) Lymphocytes % (Manual) 26 % (20-45) Monocytes % (Manual) 13 % (1-10) H Eosinophils % (Manual) 7 % (0-3) H Basophils % (Manual) 0 % (0-2) Band Neutrophils 0 % (0-8) Platelet Estimate Decreased L Platelet Morphology Normal Red Blood Cell Morphology Normal Sodium Level 137 mEQ/L (135-145) Potassium Level 4.1 mEQ/L (3.4-4.9) Chloride Level 100 mEQ/L (98-107) Carbon Dioxide Level 27 mEQ/L (20-30) Anion Gap 10 (5-15) Blood Urea Nitrogen 8 mg/dL (7-23) Creatinine 0.5 mg/dL (0.5-0.9) Estimat Glomerular Filtration Rate > 60 mL/min (>60) Glucose Level 217 mg/dL (74-106) H Calcium Level 8.5 mg/dL (8.6-10.2) L Magnesium Level 1.3 mg/dL (1.7-2.5) L Height (Feet): 5 Height (Inches): 2.00 Weight (Pounds): 165 General Appearance: no apparent distress, alert Cardiovascular: normal rate Respiratory/Chest: normal breath sounds, no respiratory distress Abdominal Exam: normal bowel sounds, non tender, soft Extremities: normal range of motion Kenyetta Cobos N.P. Sep 10, 2016 11:25
[2016-09-10 12:14] VITALS: BP 149/73
--- NOTE | 2016-09-10 14:16 | General Progress Note ---
Assessment/Plan Problem List: (1) Pancreatitis ICD Codes: K85.90 - Acute pancreatitis without necrosis or infection, unspecified SNOMED: 56785520 (2) COPD (chronic obstructive pulmonary disease) ICD Codes: J44.9 - Chronic obstructive pulmonary disease, unspecified SNOMED: 43219049 (3) Thrombocytopenia ICD Codes: D69.6 - Thrombocytopenia, unspecified SNOMED: 549075255 (4) Failure to thrive ICD Codes: R62.51 - Failure to thrive SNOMED: 55502289 (5) Episode of generalized weakness ICD Codes: R53.1 - Episode of generalized weakness SNOMED: 10438571 (6) UTI (urinary tract infection) ICD Codes: N39.0 - Urinary tract infection, site not specified SNOMED: 80815566 (7) Chronic pain ICD Codes: G89.29 - Other chronic pain SNOMED: 68179220 (8) Narcotic dependence ICD Codes: F19.20 - Other psychoactive substance dependence, uncomplicated SNOMED: 52967975 (9) CHF (congestive heart failure) ICD Codes: I50.9 - Heart failure, unspecified SNOMED: 14294442 (10) Hyponatremia ICD Codes: E87.1 - Hypo-osmolality and hyponatremia SNOMED: 70182497 (11) HTN (hypertension) ICD Codes: I10 - Essential (primary) hypertension SNOMED: 27661200 Status: stable, progressing, tolerating diet Assessment/Plan ot pt diet gi f/u pain control cbc bmp am dc plan snf Subjective Constitutional: Reports: weakness Allergies: Coded Allergies: METOCLOPRAMIDE (Verified Allergy, Severe, Anaphylaxis, 01/31/16) tongue swelling PROCHLORPERAZINE (Verified Allergy, Severe, Anaphylaxis, 01/31/16) tongue swelling PREDNISONE (Verified Allergy, Mild, Facial Edema , 07/28/15) EGG (Unverified Allergy, Unknown, 03/16/15) Pt sts she is allergic to eggs but not products made with eggs such as muffins IODINE (Verified Allergy, Unknown, 01/25/15) SHELLFISH DERIVED (Verified Allergy, Unknown, 04/07/14) Uncoded Allergies: plastic tape (Allergy, Mild, Rash, 01/25/15) PREDISONE (Allergy, Unknown, 04/12/16) SHELLFISH (Allergy, Unknown, 04/12/16) All Systems: reviewed and negative except above Subjective sleepy calm in bed Objective Last 24 Hour Vital Signs Date Time Temp Pulse Resp B/P Pulse Ox O2 Delivery O2 Flow Rate FiO2 09/10/16 12:14 98.1 51 18 149/73 99 Room Air 09/10/16 10:30 97.5 09/10/16 10:06 97.5 09/10/16 09:07 123/76 09/10/16 09:01 72 123/76 09/10/16 08:00 97.5 72 18 123/76 100 Room Air 09/10/16 03:57 98.1 56 18 124/76 100 Room Air 09/10/16 00:00 98.0 59 18 128/78 100 Room Air 09/09/16 19:00 98.1 57 20 126/75 100 Room Air 09/09/16 17:34 54 124/78 09/09/16 15:57 97.9 54 20 124/78 100 Room Air Intake and Output 09/09/16 09/10/16 19:00 07:00 Intake Total 1080 ml 695 ml Balance 1080 ml 695 ml Intake Oral 780 ml 695 ml IV Total 300 ml # Voids 3 7 # Bowel Movements 1 Laboratory Tests 09/10/16 05:00: White Blood Count 2.3L, Red Blood Count 3.49L, Hemoglobin 10.4L, Hematocrit 32.5L, Mean Corpuscular Volume 93, Mean Corpuscular Hemoglobin 29.9, Mean Corpuscular Hemoglobin Concent 32.0, Red Cell Distribution Width 13.5, Platelet Count 84L, Mean Platelet Volume 8.8, Neutrophils (%) (Auto) , Lymphocytes (%) ( Auto) , Monocytes (%) (Auto) , Eosinophils (%) (Auto) , Basophils (%) (Auto) , Differential Total Cells Counted 100, Neutrophils % (Manual) 54, Lymphocytes % ( Manual) 26, Monocytes % (Manual) 13H, Eosinophils % (Manual) 7H, Basophils % ( Manual) 0, Band Neutrophils 0, Platelet Estimate DecreasedL, Platelet Morphology Normal, Red Blood Cell Morphology Normal, Sodium Level 137, Potassium Level 4.1, Chloride Level 100, Carbon Dioxide Level 27, Anion Gap 10, Blood Urea Nitrogen 8, Creatinine 0.5, Estimat Glomerular Filtration Rate > 60, Glucose Level 217H, Calcium Level 8.5L, Magnesium Level 1.3L Height (Feet): 5 Height (Inches): 2.00 Weight (Pounds): 165 EENT: normal ENT inspection Neck: normal alignment Cardiovascular: normal peripheral pulses, normal rate, regular rhythm Respiratory/Chest: chest wall non-tender, lungs clear, normal breath sounds Abdomen: normal bowel sounds, non tender, soft Extremities: normal inspection Edema: no edema noted Arm (L), no edema noted Arm (R), no edema noted Leg (L), no edema noted Leg (R), no edema noted Pedal (L), no edema noted Pedal (R), no edema noted Generalized Neurologic: responsive, motor weakness Skin: normal pigmentation, warm/dry CHARLIE PEREZ Sep 10, 2016 14:16
[2016-09-10] MEDS ORDERED: AMBIEN5 MG ORAL (15:19)
[2016-09-10] MEDS ORDERED: ZANTAC150 MG ORAL (15:19)
[2016-09-10] MEDS ORDERED: OXYBUTYNIN CHLOR5 M1 ORAL (15:20)
[2016-09-10] MEDS ORDERED: DIPHENHYDRAMINE25 M1 ORAL (15:21)
[2016-09-10] MEDS ORDERED: MORPHINE 22 MG/1 ML IV (15:21)
[2016-09-10] MEDS ORDERED: NOVOLOG100 UNIT/4 SQ (15:23)
[2016-09-10] MEDS ORDERED: LEVEMIR100 UNIT/1 SUBQ (15:24)
[2016-09-10 16:00] VITALS: BP 137/74
--- NOTE | 2016-09-10 16:53 | Infectious Diseases Prog Note ---
Assessment/Plan Problems: (1) Acute inflammation of the pancreas Assessment & Plan: continue supportive care, and hydration, with pain managemnt, GI is following, keep off antibiotics and monitor clinically (2) Hepatitis C Assessment & Plan: will confirm and obtain viral load and genotype.recommend treatment with GI as an outpatient (3) Diabetes mellitus out of control Assessment & Plan: recommend tight glycemic control to keep blood glucose between 80-120 (4) Humerus head fracture Assessment & Plan: in splint, continue pain management, follow up with ortho. Subjective Constitutional: Denies: anorexia, chills, drenching sweats, fatigue, fever, no symptoms, other HEENT: Denies: congestion, coryza, dysphagia, hearing change, no symptoms, other, visual change Respiratory: Denies: dry cough, no symptoms, other, productive cough, shortness of breath Breasts: Denies: discharge, no symptoms, other, swelling, tenderness Cardiovascular: Denies: chest pain, dyspnea on exertion, no symptoms, other, palpitations Gastrointestinal/Abdominal: Denies: bloating, blood in stool, constipation, diarrhea, nausea, no symptoms, other, vomiting Genitourinary: Denies: dysuria, frequency, hematuria, last menstrual period, no symptoms, nocturia, other, vaginal bleed/discharge Neurologic: Denies: confusion, headache, no symptoms, numbness, other, weakness Psychiatric: Denies: anxiety, depression, no symptoms, other Skin: Reports: other - redness and edema on the right arm Allergies: Coded Allergies: METOCLOPRAMIDE (Verified Allergy, Severe, Anaphylaxis, 01/31/16) tongue swelling PROCHLORPERAZINE (Verified Allergy, Severe, Anaphylaxis, 01/31/16) tongue swelling PREDNISONE (Verified Allergy, Mild, Facial Edema , 07/28/15) EGG (Unverified Allergy, Unknown, 03/16/15) Pt sts she is allergic to eggs but not products made with eggs such as muffins IODINE (Verified Allergy, Unknown, 01/25/15) SHELLFISH DERIVED (Verified Allergy, Unknown, 04/07/14) Uncoded Allergies: plastic tape (Allergy, Mild, Rash, 01/25/15) PREDISONE (Allergy, Unknown, 04/12/16) SHELLFISH (Allergy, Unknown, 04/12/16) Objective Vital Signs Last 24 Hour Vital Signs Date Time Temp Pulse Resp B/P Pulse Ox O2 Delivery O2 Flow Rate FiO2 09/10/16 16:00 98.3 58 20 137/74 97 Room Air 09/10/16 14:06 98.1 09/10/16 12:14 98.1 51 18 149/73 99 Room Air 09/10/16 10:06 97.5 09/10/16 09:07 123/76 09/10/16 09:01 72 123/76 09/10/16 08:00 97.5 72 18 123/76 100 Room Air 09/10/16 03:57 98.1 56 18 124/76 100 Room Air 09/10/16 00:00 98.0 59 18 128/78 100 Room Air 09/09/16 19:00 98.1 57 20 126/75 100 Room Air 09/09/16 17:34 54 124/78 Height (Feet): 5 Height (Inches): 2.00 Weight (Pounds): 165 General Appearance: WD/WN, no acute distress HEENT: normocephalic, atraumatic, anicteric, mucous membranes moist Respiratory/Chest: chest wall non-tender, lungs clear, normal breath sounds, no respiratory distress, no accessory muscle use Cardiovascular: normal peripheral pulses, normal rate, regular rhythm, no gallop/murmur, no JVD Abdomen: normal bowel sounds, soft, non tender, no organomegaly, non distended , no mass, no scars Extremities: no cyanosis, no clubbing Skin: no rash, no lesions Laboratory Tests Test 09/10/16 05:00 White Blood Count 2.3 K/UL (4.8-10.8) L Red Blood Count 3.49 M/UL (4.20-5.40) L Hemoglobin 10.4 G/DL (12.0-16.0) L Hematocrit 32.5 % (37.0-47.0) L Mean Corpuscular Volume 93 FL (80-99) Mean Corpuscular Hemoglobin 29.9 PG (27.0-31.0) Mean Corpuscular Hemoglobin Concent 32.0 G/DL (32.0-36.0) Red Cell Distribution Width 13.5 % (11.6-14.8) Platelet Count 84 K/UL (150-450) L Mean Platelet Volume 8.8 FL (6.5-10.1) Neutrophils (%) (Auto) % (45.0-75.0) Lymphocytes (%) (Auto) % (20.0-45.0) Monocytes (%) (Auto) % (1.0-10.0) Eosinophils (%) (Auto) % (0.0-3.0) Basophils (%) (Auto) % (0.0-2.0) Differential Total Cells Counted 100 Neutrophils % (Manual) 54 % (45-75) Lymphocytes % (Manual) 26 % (20-45) Monocytes % (Manual) 13 % (1-10) H Eosinophils % (Manual) 7 % (0-3) H Basophils % (Manual) 0 % (0-2) Band Neutrophils 0 % (0-8) Platelet Estimate Decreased L Platelet Morphology Normal Red Blood Cell Morphology Normal Sodium Level 137 mEQ/L (135-145) Potassium Level 4.1 mEQ/L (3.4-4.9) Chloride Level 100 mEQ/L (98-107) Carbon Dioxide Level 27 mEQ/L (20-30) Anion Gap 10 (5-15) Blood Urea Nitrogen 8 mg/dL (7-23) Creatinine 0.5 mg/dL (0.5-0.9) Estimat Glomerular Filtration Rate > 60 mL/min (>60) Glucose Level 217 mg/dL (74-106) H Calcium Level 8.5 mg/dL (8.6-10.2) L Magnesium Level 1.3 mg/dL (1.7-2.5) L Current Medications Medications (Trade) Dose Ordered Sig/Bill Route PRN Reason Start Time Stop Time Status Last Admin Dose Admin Acetaminophen (Tylenol) 650 mg Q4H PRN ORAL fever 09/03/16 22:00 10/03/16 21:59 09/06/16 20:28 Al Hydroxide/Mg Hydroxide (Mylanta II) 30 ml Q6H PRN ORAL dyspepsia 09/03/16 22:00 10/03/16 21:59 Aripiprazole (Abilify) 10 mg DAILY ORAL 09/08/16 09:00 10/08/16 08:59 09/10/16 09:01 Aspirin (Ecotrin) 81 mg DAILY ORAL 09/04/16 09:00 10/04/16 08:59 09/10/16 09:02 Citalopram Hydrobromide (celeXA) 20 mg DAILY ORAL 09/04/16 09:00 10/04/16 08:59 09/10/16 09:06 Clonidine HCl (Catapres) 0.1 mg EVERY 6 HOURS PRN ORAL For High Blood Pressure 09/03/16 22:00 10/03/16 21:59 Dextrose (Dextrose 50%) STAT PRN IV Hypoglycemia 09/03/16 22:00 10/03/16 21:59 Diphenhydramine HCl (Benadryl) 25 mg Q6H PRN ORAL Itching/Pruritis 09/03/16 22:00 10/03/16 21:59 09/04/16 20:52 Hydromorphone HCl (Dilaudid) 2 mg Q4H PRN ORAL Moderate Pain (Pain Scale 4-6) 09/09/16 10:00 09/16/16 09:59 09/09/16 12:20 Ibuprofen (Motrin) 500 mg BID ORAL 09/08/16 09:00 10/08/16 08:59 09/10/16 09:07 Insulin Aspart (NovoLOG) BEFORE MEALS AND HS SUBQ 09/04/16 06:30 10/04/16 06:29 09/10/16 16:31 Insulin Detemir (Levemir) 10 units BEDTIME SUBQ 09/10/16 21:00 10/10/16 20:59 Lisinopril (Prinivil) 40 mg DAILY ORAL 09/04/16 09:00 10/04/16 08:59 09/10/16 09:07 Lorazepam (Ativan) 2 mg Q6H PRN ORAL For Anxiety 09/05/16 12:00 09/12/16 11:59 09/10/16 10:50 Metoprolol Succinate (Toprol XL) 25 mg BID ORAL 09/04/16 09:00 10/04/16 08:59 09/10/16 09:01 Morphine Sulfate (Morphine Sulfate) 2 mg Q4H PRN IVP Severe Pain (Pain Scale 7-10) 09/09/16 08:30 09/16/16 08:29 09/10/16 13:36 Nicotine (Nicoderm) 1 patch Q24H TDERMAL 09/04/16 13:00 10/04/16 12:59 09/10/16 10:55 Nitroglycerin (Ntg) 0.4 mg Q5M X 3 DOSES PRN SL Prn Chest Pain 09/03/16 22:00 10/03/16 21:59 Ondansetron HCl (Zofran) 4 mg Q6H PRN IVP Nausea & Vomiting 09/03/16 22:00 10/03/16 21:59 Oxybutynin Chloride (Ditropan) 5 mg TWICE A DAY ORAL 09/04/16 09:00 10/04/16 08:59 09/10/16 09:06 Polyethylene Glycol (Miralax) 17 gm HSPRN PRN ORAL Constipation 09/03/16 22:00 10/03/16 21:59 Ranitidine HCl (Zantac) 150 mg DAILY ORAL 09/04/16 09:00 10/04/16 08:59 09/10/16 09:06 Zolpidem Tartrate (Ambien) 5 mg HSPRN PRN ORAL Insomnia 09/05/16 21:00 10/05/16 20:59 09/09/16 00:56 Yordy Contreras M.D. Sep 10, 2016 16:53
--- NOTE | 2016-09-10 18:05 | General Progress Note ---
Assessment/Plan Assessment/Plan IMPRESSION: 1. Pancytopenia secondary to liver cirrhosis/hepatitis C. plt count lower 2. Leukopenia, persistent secondary to liver cirrhosis/hepatitis C. 3. Thrombocytopenia, persistent secondary to liver cirrhosis/hepatitis C/drug side effect. 4. Anemia of chronic disease. 5. Pancreatitis 6. Hepatitis C. 7. Liver cirrhosis. 8. Hepatic encephalopathy. 9. History of narcotic dependence. 10. History of migraine headaches. 11. Diabetes mellitus. 12. History of osteoarthritis/degenerative joint disease. 13. History of anxiety attack. 14. Psychosis. 15. Chronic obstructive pulmonary disease 16. Failure to thrive. RECOMMENDATIONS: 1. In future can consider a bone marrow bx, patient has followup in heme clinic in one week 2. Monitor coagulopathy. 3. PRBC transfusion hgb goal >7 4. Platelet transfusion > 10k 5. Neupogen on p.r.n. basis. 6. Appreciate GI and pulm recs 7. DVT ppx with SCDs 8. GI ppx with zantac 9. DW Staff Thank you, Buddy Rubin MD Subjective Constitutional: Reports: no symptoms HEENT: Reports: no symptoms Cardiovascular: Reports: no symptoms Respiratory: Reports: no symptoms Gastrointestinal/Abdominal: Reports: no symptoms Genitourinary: Reports: no symptoms Neurologic/Psychiatric: Reports: no symptoms Endocrine: Reports: no symptoms Hematologic/Lymphatic: Reports: anemia Allergies: Coded Allergies: METOCLOPRAMIDE (Verified Allergy, Severe, Anaphylaxis, 01/31/16) tongue swelling PROCHLORPERAZINE (Verified Allergy, Severe, Anaphylaxis, 01/31/16) tongue swelling PREDNISONE (Verified Allergy, Mild, Facial Edema , 07/28/15) EGG (Unverified Allergy, Unknown, 03/16/15) Pt sts she is allergic to eggs but not products made with eggs such as muffins IODINE (Verified Allergy, Unknown, 01/25/15) SHELLFISH DERIVED (Verified Allergy, Unknown, 04/07/14) Uncoded Allergies: plastic tape (Allergy, Mild, Rash, 01/25/15) PREDISONE (Allergy, Unknown, 04/12/16) SHELLFISH (Allergy, Unknown, 04/12/16) Subjective stable, no events reported, no hematocheiza, pain improved Objective Last 24 Hour Vital Signs Date Time Temp Pulse Resp B/P Pulse Ox O2 Delivery O2 Flow Rate FiO2 09/10/16 16:00 98.3 58 20 137/74 97 Room Air 09/10/16 14:06 98.1 09/10/16 12:14 98.1 51 18 149/73 99 Room Air 09/10/16 10:06 97.5 09/10/16 09:07 123/76 09/10/16 09:01 72 123/76 09/10/16 08:00 97.5 72 18 123/76 100 Room Air 09/10/16 03:57 98.1 56 18 124/76 100 Room Air 09/10/16 00:00 98.0 59 18 128/78 100 Room Air 09/09/16 19:00 98.1 57 20 126/75 100 Room Air Intake and Output 09/09/16 09/10/16 19:00 07:00 Intake Total 1080 ml 695 ml Balance 1080 ml 695 ml Intake Oral 780 ml 695 ml IV Total 300 ml # Voids 3 7 # Bowel Movements 1 Laboratory Tests 09/10/16 05:00: White Blood Count 2.3L, Red Blood Count 3.49L, Hemoglobin 10.4L, Hematocrit 32.5L, Mean Corpuscular Volume 93, Mean Corpuscular Hemoglobin 29.9, Mean Corpuscular Hemoglobin Concent 32.0, Red Cell Distribution Width 13.5, Platelet Count 84L, Mean Platelet Volume 8.8, Neutrophils (%) (Auto) , Lymphocytes (%) ( Auto) , Monocytes (%) (Auto) , Eosinophils (%) (Auto) , Basophils (%) (Auto) , Differential Total Cells Counted 100, Neutrophils % (Manual) 54, Lymphocytes % ( Manual) 26, Monocytes % (Manual) 13H, Eosinophils % (Manual) 7H, Basophils % ( Manual) 0, Band Neutrophils 0, Platelet Estimate DecreasedL, Platelet Morphology Normal, Red Blood Cell Morphology Normal, Sodium Level 137, Potassium Level 4.1, Chloride Level 100, Carbon Dioxide Level 27, Anion Gap 10, Blood Urea Nitrogen 8, Creatinine 0.5, Estimat Glomerular Filtration Rate > 60, Glucose Level 217H, Calcium Level 8.5L, Magnesium Level 1.3L Height (Feet): 5 Height (Inches): 2.00 Weight (Pounds): 165 General Appearance: no apparent distress EENT: normal ENT inspection Neck: supple Cardiovascular: regular rhythm Respiratory/Chest: normal breath sounds Abdomen: soft Extremities: non-tender Edema: 1+ Leg (L), 1+ Leg (R) Neurologic: alert Skin: warm/dry Buddy Rubin Sep 10, 2016 18:05
[2016-09-10 19:09] LABS: HEP C VIRUS RNA (LOG IU/ML) 6.378 (.); HEPATITIS C QUANT 2388090 IU/mL (.)
[2016-09-10] MEDS ORDERED: Levemir Flexpen SUBQ SCH (21:00)
--- NOTE | 2016-09-11 10:45 | Diagnostic Imaging Report ---
Indications: Needs long-term IV access Technique: Ultrasound confirms patent compressible right distal vein. Total sterile technique, including sterile probe cover and sterile gel, hat, mask,, sterile gown, large sterile drape, and preparation with 2% chlorhexidine utilized. Local anesthesia with 1% lidocaine. Under real-time ultrasound guidance, puncture basilic vein using 21-gauge needle, documented and archived, passage 0.018 guidewire under direct fluoroscopy, which was used to determine appropriate catheter length, exchange for 5 English peel-away sheath. 5 English dual-lumen power PICC cut to 38 cm. It was inserted through the peel-away sheath. Peel-away sheath and guidewire removed. Catheter fixed to the skin. Both catheter ports aspirated and flushed. Patient tolerated procedure well, without immediate complication. Digital radiograph documents satisfactory catheter tip position, at the cavoatrial junction. Total fluoroscopy time 0.1 minutes. Total dose area product 4 dGycm2 Impression: Successful placement of right arm PICC under sonographic and fluoroscopic guidance, as described above.
--- NOTE | 2016-09-11 17:31 | Discharge Summary ---
Discharge Summary Hospital Course Date of Admission Sep 03, 2016 at 15:50 Date of Discharge Sep 10, 2016 at 17:20 Admitting Diagnosis Pancreatitis HPI Teetee Armstrong is a 56 year old female who was admitted on Sep 03, 2016 at 15: 50 for Pancreatitus Hospital Course [id number] Discharge Discharge Disposition Patient was discharged to SNF/Subacute Facility(03) Discharge Diagnoses: Shirley Ward NP Sep 11, 2016 17:31
--- NOTE | 2016-09-12 02:09 | Discharge Summary 2 SIG ---
DATE OF ADMISSION: 09/03/2016 DATE OF DISCHARGE: 09/10/2016 CONSULTANTS: 1. Tony Hill M.D. 2. Yordy Contreras M.D. 3. Gabriel Rubin M.D. 4. Albert Levi M.D. 5. Oneil Olson M.D. 6. Josias Rowell M.D. 7. Soren Coburn M.D. 8. Jerry Torres M.D. 9. April Denny M.D. BRIEF HOSPITAL COURSE: The patient is a 56-year-old female who [facility] presented to [place] with increased nausea, vomiting, and abdominal pain for two days. She was diagnosed with pancreatitis and was admitted to medical floor. She was placed on IV fluids and on NPO. Dr. Hill was consulted. Lipase was elevated to 83. She was given pain management consisting of Dilaudid p.o. and morphine IV. Dr. Rubin was consulted for evaluation of leukopenia and thrombocytopenia, which was assessed to be secondary to liver cirrhosis and hepatitis C. Dr. Contreras was consulted and recommended no antibiotics as she does not have any necrosis or phlegmon formation. She has history of hepatitis C and recommend outpatient treatment. She had COPD and was given respiratory treatments. She recently had a fall and was diagnosed to have a fracture of the left humerus and was seen by Dr. Torres. She had posterior splint in place. She had hyponatremia and was placed on IV NS with free water restriction. She was diagnosed to have bipolar type 2 disorder and was given Abilify and Celexa. She was eventually discharged to [facility]. FINAL DIAGNOSES: 1. Acute pancreatitis. 2. Hepatitis C. 3. Diabetes mellitus out of control. 4. Thrombocytopenia secondary to liver cirrhosis and hepatitis C. 5. Leukopenia secondary to liver cirrhosis and hepatitis C. 6. Anemia of chronic disease. 7. Chronic obstructive pulmonary disease. 8. Hyponatremia. 9. Hypertension. 10. Bipolar II disorder. 11. Left humeral fracture. 12. Opiate dependence. 13. Hepatitis C. 14. Chronic pain. 15. Lumbar spondylosis. 16. Osteoarthritis of the knee. 17. Degenerative disk disease on the lumbar area. Bubba Hanley D.O. I have been assigned to dictate discharge summary on this account and I was not involved in the patient's management. Shirley Ward N.P. DR: Nikki JOB#: [id number] CC: TOÑO
--- NOTE | 2016-09-12 13:49 | Diagnostic Imaging Report ---
Indications: Abdominal pain Technique: Continuous helical CT imaging of the abdomen and pelvis was performed with automatic exposure control on a Siemens sensation [address] scanner. Axial, coronal, sagittal images reconstructed at 3 mm slice thickness. No IV contrast was administered per requesting physician's order, due to history of severe iodine contrast allergy. No oral contrast was administered per requesting physician's order, despite no contraindications listed in either submitted clinical data or tech note.. CTDI volume(s): 18 mGy Total DLP: 834 mGy-cm Findings: Comparison: 12/28/2015 Lack of oral and IV contrast limits evaluation. Gastrointestinal tract remains nondilated throughout. No obvious mural thickening, adjacent stranding, extraluminal gas or fluid collections. Again noted are and diffusely nodular liver surface contour, enlarged spleen, small varices in the upper abdomen, absence of gallbladder, presence of surgical clips in gallbladder fossa, absence of uterus, nonvisualization of ovaries, apparent thickening of urinary bladder, unchanged. Remainder visualized abdominopelvic anatomy demonstrates no other obvious acute abnormality. Pleural-based linear densities in both lung bases. Disc space narrowing with marginal formation, vacuum phenomenon again noted in lumbar spine. IMPRESSION: No evidence of acute abdominopelvic disease, with limitation as described. Subtle but potentially significant abnormalities may be missed. Repeat CT scan with full oral and IV contrast preparation following full premedication regimen for iodine contrast allergy recommended for more complete evaluation, as clinically indicated Stable chronic changes as described including cirrhosis with stigmata of portal hypertension
--- NOTE | 2016-09-12 13:49 | Diagnostic Imaging Report ---
Indication: Abnormal liver function tests. Abnormal lipase Technique: Macias-scale and duplex images of the upper abdomen were obtained Comparison: 03/16/2016. Recent CT scan 09/03/2016 Findings: . Gallbladder is surgically absent. . Common bile duct measures 8 mm in diameter. This is unchanged from the prior exam. No intrahepatic biliary ductal dilatation. Liver demonstrates coarsened echogenicity, with surface nodularity. 8 mm cyst is seen within the left lobe. This is also demonstrated previously. Portal vein and hepatic veins are patent.. Pancreas is unremarkable. The spleen is enlarged, measuring 14 cm long axis dimension. Left kidney measures well cm in length. Right kidney measures 11.3 cm length. Both kidneys demonstrate normal echogenicity. There is no hydronephrosis. No focal abnormality. . Abdominal aorta is partially obscured by bowel gas, visualized portions are non-aneurysmal. Impression: Coarsened hepatic echogenicity with surface nodularity, consistent with previously reported history of cirrhosis Splenomegaly, suspect portal hypertension as etiology Surgically absent gallbladder. Mild extra hepatic biliary ductal dilatation, probably related to postcholecystectomy state, unchanged. Downstream obstruction not completely excludable, however, this and correlation with liver function tests is recommended or MRCP if clinically indicated Incidental finding left hepatic lobe cyst Note incomplete visualization of the abdominal aorta
--- NOTE | 2016-09-12 21:48 | Diagnostic Imaging Report ---
APPROVED REPORT CPT Code: 88068 Present Symptoms Comments: Swelling Hx of right upper arm PICC line. RIGHT UPPER EXTREMITY: Venous imaging reveals patency of the internal jugular, subclavian, axillary and brachial veins. The cephalic and basilic veins are also patent. Doppler indicates normal spontaneous flow within these venous segments.
--- NOTE | 2016-09-26 09:20 | Progress Note ---
DATE: 09/07/2016 PSYCHOTHERAPY CONSULTATION PROGRESS NOTE TREATING ATTENDING: Bubba Hanley D.O. HISTORY: The patient is a 56-year-old female. The patient has been depressed and anxious, feeling helpless and hopeless. hospitalization with stabilization of her symptoms. The patient was depression, anxiety and . This clinician provided the patient with reality orientation and supportive psychotherapy and coping skills. Encouraging the patient to participate in treatment as well as with medication regimen. Continue with medication management and behavioral management. This clinician has reviewed the patient's chart. Discussed the treatment with nursing staff. Josias Rowell PsyD. DR: JIGNESH JOB#: [id number] CC:
--- NOTE | 2016-09-26 09:20 | Progress Note ---
DATE: 09/05/2016 PSYCHOTHERAPY CONSULTATION PROGRESS NOTE: TREATING ATTENDING: Bubba Hanley D.O. History Of Present Illness: The patient is a 56-year-old female. The patient had a diagnosis of schizoaffective disorder bipolar type, anxiety, and bipolar disorder. She has been anxious in the past and states that she is anxious due to her current medical condition, does not know what has happened to her. Her father states that she is feeling weak and her arms are hurting her. The patient has poor insight, poor judgement, and poor impulse control. 00:59. This clinician assessed this patient and provided the patient with reality orientation, supportive psychotherapy, and coping skills. I encouraged the patient to participate in treatment. The patient has poor attention and concentration. Poor insight, judgment, and impulse control. Continue with medication management and behavioral management. This clinician has reviewed the patient's chart and discussed the treatment with nursing staff. 01:21. Josias Rowell PsyD. DR: ÁNGEL JOB#: [id number] CC:
--- NOTE | 2016-09-26 09:30 | Consultation ---
DATE OF CONSULTATION: 09/04/2016 PSYCHOTHERAPY CONSULTATION PROGRESS NOTE CONSULTING PHYSICIAN: Josias Rowell M.D. TREATING ATTENDING: Bubba Hanley D.O. HISTORY OF PRESENT ILLNESS: The patient is a 56-year-old female. The patient admitted to the hospital for pancreatitis. The patient has a longstanding history of , depression and anxiety. The patient hospitalized. She denies suicidal or homicidal thoughts of ideations. Denies auditory or visual hallucinations. However, had continued depressed . She feels very depressed going back home. depression is high. The patient has schizoaffective disorder bipolar type . This clinician assessed this patient and provided the patient with reality orientation, supportive psychotherapy. PAST MEDICAL HISTORY: Include history of diabetes, hypertension, congestive heart failure, and COPD. ALLERGIES: The patient is allergic to iodine, . SUBSTANCE USE HISTORY: The patient denies any history of alcohol use, illicit substance use, or smoking cigarettes. SOCIAL HISTORY: The patient is a 56-year-old female. The patient is apparently living in a Housing Facility. Financially sustained through Medicare and [employer]. PSYCHIATRIC HISTORY: The patient is alert and oriented. She has depression, anxiety abuse in the past. She has had multiple psychiatric hospitalizations in the past. MENTAL STATUS EXAMINATION: The patient is alert and oriented x3 to person. Mood is depressed. Affect is blunted. Thought process is disorganized. The patient has poor attention and concentration. Poor insight, judgment, and impulse control. DIAGNOSES: AXIS I: Schizoaffective disorder bipolar type. AXIS II: Deferred. AXIS III: Per History and Physical. AXIS IV: Problem with social environment. PLAN: This clinician assessed the patient and provided the patient with reality orientation, supportive psychotherapy and coping skills. Encouraging the patient to participate in treatment. Continue with medication management and behavioral management. This clinician has reviewed the patient's chart and discussed the treatment with nursing staff. Josias oRwell PsyD. : [place] JOB#: [id number] CC:
== END 2016-09-10 17:20 | DRG 439 ==
LOC: EMR 12:23 → EDBEDREQ 15:22 → 4W 15:50 → UNDOADMIN 15:50 → CANBEDREQ 17:57 → EDBEDREQ 18:14 → EMR 18:45
PROC: 02HV33Z Insertion of Infusion Device into Superior Vena Cava, Percutaneous Approach (ICD-10-PCS; principal; 2016-09-06)
DX: K85.90 Acute pancreatitis without necrosis or infection, unspecified (principal); N39.0 Urinary tract infection, site not specified; D61.818 Other pancytopenia; D69.59 Other secondary thrombocytopenia; I50.9 Heart failure, unspecified; E11.65 Type 2 diabetes mellitus with hyperglycemia; F11.20 Opioid dependence, uncomplicated; F31.81 Bipolar II disorder; E87.1 Hypo-osmolality and hyponatremia; K74.60 Unspecified cirrhosis of liver; I10 Essential (primary) hypertension; J44.9 Chronic obstructive pulmonary disease, unspecified; B18.2 Chronic viral hepatitis C; M47.9 Spondylosis, unspecified; M51.36 Other intervertebral disc degeneration, lumbar region; D63.8 Anemia in other chronic diseases classified elsewhere; M47.896 Other spondylosis, lumbar region; M17.9 Osteoarthritis of knee, unspecified; I25.2 Old myocardial infarction; Z86.73 Personal history of transient ischemic attack (TIA), and cerebral infarction without residual deficits; F41.9 Anxiety disorder, unspecified; S42.402D Unspecified fracture of lower end of left humerus, subsequent encounter for fracture with routine healing; Z79.4 Long term (current) use of insulin; Z88.8 Allergy status to other drugs, medicaments and biological substances; K72.90 Hepatic failure, unspecified without coma; I25.10 Atherosclerotic heart disease of native coronary artery without angina pectoris; R62.7 Adult failure to thrive; E83.42 Hypomagnesemia
CPT/HCPCS: 36415; 36569; 71010; 74176; 76700; 76937; 80048; 80053; 80061; 81001; 81003; 82150; 82962; 83690; 83735; 84100; 85007; 85025; 85610; 85730; 87040; 87522; 87902; 93971; J1815; S5561

== ENCOUNTER 2017-01-14 13:11 | Emergency (ER) | payer MEDICARE, MEDICAID ==
[~2017-01-14] VITALS: Ht 157.5 cm; Wt 72.6 kg
[~2017-01-14 13:11] MED LIST changes: +ASPIR 8181 MG ORAL; +DIPHENHYDRAMINE25 M1 ORAL; +LEVEMIR100 UNIT/1 SUBQ; +MORPHINE 22 MG/1 ML IV; +OXYBUTYNIN CHLOR5 M1 ORAL; +ZANTAC150 MG ORAL
[2017-01-14 13:35] VITALS: BP 152/105
--- NOTE | 2017-01-14 13:59 | Emergency Room Report ---
History of Present Illness General Chief Complaint: Pain Source: Patient, Medical Record Present Illness HPI 56-year-old female presents emergency department complaining of 10 out of 10 in severity left shoulder pain x2 weeks. Patient states she was sent here by Dr. De Souza for a pain shot. She reports previous shoulder fracture or denies new trauma or fall. Patient also reports twitching of the affected extremity. Patient denies skin color changes, numbness or tingling. Patient states she was prescribed Fairfield which provided no relief. Pt also c/o itchy rash of the wrists and thighs for "weeks". Denies numbness tingling or loss of sensation or gross motor movements of the extremities, incontinence of bowel or bladder. Denies CP, Palpitations, LOC, AMS, dizziness, Changes in Vision, Sensation, paresthesias, or a sudden severe headache. Allergies: Coded Allergies: METOCLOPRAMIDE (Verified Allergy, Severe, Anaphylaxis, 01/31/16) tongue swelling PROCHLORPERAZINE (Verified Allergy, Severe, Anaphylaxis, 01/31/16) tongue swelling PREDNISONE (Verified Allergy, Mild, Facial Edema , 07/28/15) EGG (Unverified Allergy, Unknown, 03/16/15) Pt sts she is allergic to eggs but not products made with eggs such as muffins IODINE (Verified Allergy, Unknown, 01/25/15) SHELLFISH DERIVED (Verified Allergy, Unknown, 04/07/14) Uncoded Allergies: plastic tape (Allergy, Mild, Rash, 01/25/15) PREDISONE (Allergy, Unknown, 04/12/16) SHELLFISH (Allergy, Unknown, 04/12/16) Patient History Past Medical History: see triage record Past Surgical History: none Pertinent Family History: none Now: No Immunizations: UTD Reviewed Nursing Documentation: PMH: Agreed, PSxH: Agreed Nursing Documentation-PMH Past Medical History: No History, Except For Hx Cardiac Problems: Yes - CHF, [place] 2007 and 2011 Hx Hypertension: Yes Hx Pacemaker: No Hx Asthma: Yes Hx COPD: Yes Hx Diabetes: Yes Hx Cancer: No Hx Gastrointestinal Problems: Yes Hx Dialysis: No Hx Neurological Problems: Yes - Anxiety, depression Hx Cerebrovascular Accident: Yes - 1 and 2 years ago stroke Hx Seizures: Yes - last Sezure 07/23/2015 Hx Peripheral Neuropathy: Yes Hx Dizziness: Yes Hx Headaches: Yes Hx Weakness: Yes Hx Neurologic Surgery: No Hx Brain Shunt: No Review of Systems All Other Systems: negative except mentioned in HPI Physical Exam Vital Signs Date Time Temp Pulse Resp B/P Pulse Ox O2 Delivery O2 Flow Rate FiO2 01/14/17 13:13 99.1 101 16 150/92 98 Room Air Sp02 EP Interpretation: reviewed, normal General Appearance: no apparent distress, alert, GCS 15, non-toxic Head: normocephalic, atraumatic Eyes: bilateral eye PERRL, bilateral eye normal inspection ENT: hearing grossly normal, normal pharynx, no angioedema, normal voice Neck: full range of motion, supple/symm/no masses Respiratory: lungs clear, normal breath sounds, speaking full sentences Cardiovascular #1: regular rate, rhythm, no edema, normal capillary refill Musculoskeletal: back normal, gait/station normal, normal range of motion, tender - TTP to the left lateral humerus/shoulder, pt. is currently in shoulder immobilizer, no swelling, bruising or obvious deformity noted. Neurologic: alert, oriented x3, responsive, motor strength/tone normal, sensory intact, speech normal Psychiatric: judgement/insight normal, memory normal, mood/affect normal Skin: normal color, warm/dry, well hydrated, rash - small erythematous lesions in linear pattern with excoriations to the bilateral inner thighs and bilateral wrists , no evidence of secondary infeciton at this time. Medical Decision Making PA Attestation Dr. Conley is my supervising Physician whom patient management has been discussed with. Diagnostic Impression: Primary Impression: Shoulder pain, left Qualified Codes: M25.512 - Pain in left shoulder Additional Impressions: Opiate dependence Qualified Codes: F11.20 - Opioid dependence, uncomplicated Rash and other nonspecific skin eruption ER Course 56-year-old female presents emergency department complaining of 10 out of 10 in severity left shoulder pain x2 weeks. Patient states she was sent here by Dr. De Souza for a pain shot. She reports previous shoulder fracture or denies new trauma or fall. Patient also reports twitching of the affected extremity. Patient denies skin color changes, numbness or tingling. Patient states she was prescribed Fairfield which provided no relief. Denies numbness tingling or loss of sensation or gross motor movements of the extremities, incontinence of bowel or bladder. Denies CP, Palpitations, LOC, AMS, dizziness, Changes in Vision, Sensation, paresthesias, or a sudden severe headache. Ddx considered but are not limited to Fracture, dislocation, contusion, Sprain/ Strain/Spasm, rash, allergic dermatitis, scabies Vital signs: are WNL, pt. is afebrile, non-toxic in appearance. H&PE are most consistent with opiate dependence, no new trauma, pt. was already evaluated for this injury presents with ED d/c paperwork. pt. has not followed up with her PCP or ortho for fracture. Pt. is habitually seen here in the ED for pain related complaints, or AMS due to taking more than the prescribed dosage of the her pain medications or benzodiazepines. pt. does have a rash suspicious for scabies. to the bilateral wrists and inner thighs bilaterally. ORDERS: - X-ray: not required as this is a pre-existing injury with no new trauma. ED INTERVENTIONS: - 5mg Fairfield PO - D/w pt. that she needs to follow up with ear specialist and PCP to address pain management. Patient stated that Dr. fields.center to the emergency department for a pain shot , after consult with Dr. fields.she states that this is not true and that she needs to followup with her PCP or doctor's [place] as this patient has a history of opiate dependence. DISCHARGE: At this time pt. is stable for d/c to home. Will provide printed patient care instructions, and any necessary prescriptions. Care plan and follow up instructions have been discussed with the patient prior to discharge. Last Vital Signs Date Time Temp Pulse Resp B/P Pulse Ox O2 Delivery O2 Flow Rate FiO2 01/14/17 13:35 99.1 93 16 152/105 98 Room Air Disposition: HOME, SELF-CARE Condition: Stable Scripts Diphenhydramine Hcl (BENADRYL ALLERGY) 25 Mg Tablet 25 MG PO Q6HR, #10 TAB Prov: Kylah Odell P.A. 01/14/17 Permethrin* (ELIMITE*) 60 Gm Cream..g. 1 APPLIC TOPIC ONCE, #60 GM 0 Refills Apply cream from head to toe; leave on for 8-14 hours before washing off with water; may reapply in 1 week if live mites appear. Prov: Kylah Odell P.A. 01/14/17 Ibuprofen* (MOTRIN*) 600 Mg Tablet 600 MG ORAL THREE TIMES A DAY, #20 TAB 0 Refills Prov: Kylah Odell 01/14/17 Referrals: IZABEL COBURN Patient Instructions: Medical Screening Exam, Shoulder Fracture Additional Instructions: Take medications as directed. Follow up with PCP in 3-5 days , follow up with Dr. Coburn , and ear specialist for re-evaluation of your shoulder injury. Return sooner to ED if new symptoms occur, or current symptoms become worse. - Please note that this Emergency Department Report was dictated using [email or web address] technology software, occasionally this can lead to erroneous entry secondary to interpretation by the dictation equipment. Kylah Odell Jan 14, 2017 13:59
[2017-01-14] MEDS ORDERED: Norco 5mg/325mg tab ORAL ONE (14:15)
[2017-01-14] MEDS ORDERED: IBUPROFEN600 MG ORAL (14:33)
[2017-01-14] MEDS ORDERED: BENADRYL ALLERG25 M1 PO (15:00)
[2017-01-14] MEDS ORDERED: PERMETHRIN60 GM TOPIC (15:00)
[2017-01-14 15:14] VITALS: BP 138/91
[2017-01-14 15:17] VITALS: BP 138/91
== END 2017-01-14 16:01 | disposition home or self-care (01) ==
LOC: EDBD 13:11 → EDUNIT# 13:11 → EMR 14:32
DX: M25.512 Pain in left shoulder (principal); F11.20 Opioid dependence, uncomplicated; R21 Rash and other nonspecific skin eruption; I10 Essential (primary) hypertension; I50.9 Heart failure, unspecified; E11.9 Type 2 diabetes mellitus without complications; F41.9 Anxiety disorder, unspecified; I25.2 Old myocardial infarction; F32.9 Major depressive disorder, single episode, unspecified; J44.9 Chronic obstructive pulmonary disease, unspecified
CPT/HCPCS: 99284

== ENCOUNTER 2017-06-26 20:14 | Inpatient (IN) | payer MEDICARE, MEDICAID ==
[~2017-06-26] VITALS: Ht 157.5 cm; Wt 76.2 kg
[2017-06-26] MEDS ORDERED: Morphine Sulfate 4mg/ml Inj IVP ONE (20:30)
[2017-06-26 21:07] LABS: MEAN CORPUSCULAR HEMOGLOBIN 30.9 PG (27.0-31.0); MEAN CORPUSCULAR HGB CONC 33.9 G/DL (32.0-36.0); MEAN CORPUSCULAR VOLUME 91 FL (80-99); MEAN PLATELET VOLUME 7.3 FL (6.5-10.1); PLATELET COUNT 74 K/UL (150-450); RED BLOOD COUNT 3.58 M/UL (4.20-5.40); RED CELL DISTRIBUTION WIDTH 12.2 % (11.6-14.8); WHITE BLOOD COUNT 2.6 K/UL (4.8-10.8)
[2017-06-26 21:09] LABS: BASOPHILS % (AUTO) 1.1 % (0.0-2.0); EOSINOPHILS % (AUTO) 3.7 % (0.0-3.0); MONOCYTES % (AUTO) 10.7 % (1.0-10.0); NEUTROPHILS % (AUTO) 54.4 % (45.0-75.0)
--- NOTE | 2017-06-26 21:11 | Emergency Room Report ---
History of Present Illness General Chief Complaint: Nausea, Vomiting, and Diarrhea Source: Patient Present Illness HPI 57-year-old female coming from [facility] for her left lower extremity rehabilitation, history of hypertension, diabetes, CAD, cholecystectomy and total abdominal hysterectomy, p/w abdominal pain for 3 days Patient states pain started gradually, localized to mostly to the upper quadrants, non radiating, are in nature, intermittent. No relieving or exacerbating factors. Pt reports n/v, 1 episode of nbnb vomiting, 3-4 episodes of watery non bloody diarrhea The patient was noted to have elevated lipase from the intermediate Allergies: Coded Allergies: METOCLOPRAMIDE (Verified Allergy, Severe, Anaphylaxis, 01/31/16) tongue swelling PROCHLORPERAZINE (Verified Allergy, Severe, Anaphylaxis, 01/31/16) tongue swelling PREDNISONE (Verified Allergy, Mild, Facial Edema , 07/28/15) EGG (Unverified Allergy, Unknown, 03/16/15) Pt sts she is allergic to eggs but not products made with eggs such as muffins IODINE (Verified Allergy, Unknown, 01/25/15) SHELLFISH DERIVED (Verified Allergy, Unknown, 04/07/14) Uncoded Allergies: plastic tape (Allergy, Mild, Rash, 01/25/15) PREDISONE (Allergy, Unknown, 04/12/16) SHELLFISH (Allergy, Unknown, 04/12/16) Patient History Past Medical History: see triage record Past Surgical History: none Pertinent Family History: none Now: No Reviewed Nursing Documentation: PMH: Agreed, PSxH: Agreed Nursing Documentation-PMH Past Medical History: No Stated History Hx Cardiac Problems: Yes - CHF, [place] 2007 and 2011 Hx Hypertension: Yes Hx Pacemaker: No Hx Asthma: Yes Hx COPD: Yes Hx Diabetes: Yes Hx Cancer: No Hx Gastrointestinal Problems: Yes Hx Dialysis: No Hx Neurological Problems: Yes - Anxiety, depression Hx Cerebrovascular Accident: Yes - 1 and 2 years ago stroke Hx Seizures: Yes - last Sezure 07/23/2015 Hx Peripheral Neuropathy: Yes Hx Dizziness: Yes Hx Headaches: Yes Hx Weakness: Yes Hx Neurologic Surgery: No Hx Brain Shunt: No Review of Systems All Other Systems: negative except mentioned in HPI Physical Exam Vital Signs Date Time Temp Pulse Resp B/P (MAP) Pulse Ox O2 Delivery O2 Flow Rate FiO2 06/26/17 20:15 98.1 84 13 107/51 98 Room Air Sp02 EP Interpretation: reviewed, normal General Appearance: alert, GCS 15, non-toxic, mild distress Head: normocephalic, atraumatic Eyes: bilateral eye normal inspection, bilateral eye PERRL, bilateral eye EOMI ENT: normal ENT inspection, normal pharynx, normal voice, moist mucus membranes Neck: normal inspection, full range of motion, supple Respiratory: normal inspection, lungs clear, normal breath sounds, no respiratory distress, no retraction, no wheezing, speaking full sentences, chest symmetrical Cardiovascular #1: normal inspection, regular rate, rhythm, no edema, normal capillary refill Cardiovascular #2: 2+ radial (R), 2+ radial (L) Gastrointestinal: non-distended, no guarding, other - mild epigastric tenderness and luq tendenress, no guarding or rebound Musculoskeletal: normal inspection, back normal, normal range of motion, non- tender Neurologic: normal inspection, alert, oriented x3, responsive, motor strength/ tone normal, sensory intact, normal gait, speech normal Psychiatric: normal inspection, judgement/insight normal, memory normal Skin: normal inspection, normal color, no rash, warm/dry, well hydrated, normal turgor Medical Decision Making Diagnostic Impression: Primary Impression: Abdominal pain ER Course 57-year-old female with abdominal pain, nausea vomiting diarrhea Differential Diagnosis: Gastritis, pancreatitis, gastroenteritis, cholecystitis, appendicitis, diverticulitis, SBO, mesenteric ischemia, cardiac, UTI/pyelo Plan: Basic labs, ua, ekg pain control, IVF CT abdopelvis ER course: Disposition: Pt to be admitted to med surg Endorsed to Dr. Charlie Perez who has accepted patient for admission Signed out patient of Dr. Tavera 57-year-old female, with abdominal pain had elevated lipase in a intermediate bloodwork -Pending CT abdomen pelvis results -Pending admission, likely under Dr. Perez Please note that this Emergency Department Report was dictated using [email or web address] administrator technology software, occasionally this can lead to erroneous entry secondary to interpretation by the dictation equipment EKG Diagnostic Results EP Interpretation: Yes Rate: normal Rhythm: NSR ST Segments: Q waves noted in 1 and aVL ASA given to patient: No Rhythm Strip EP Interpretation: Yes Rate: 63 Rhythm: NSR, no PVCs, no ectopy Last Vital Signs Date Time Temp Pulse Resp B/P (MAP) Pulse Ox O2 Delivery O2 Flow Rate FiO2 12/1/17 20:15 98.1 84 13 107/51 98 Room Air Referrals: CHARLIE PEREZ (PCP) Catherine Bridges M.D. Jun 26, 2017 21:11
[2017-06-26 21:17] LABS: APPEARANCE,URINE CLEAR; KETONES,URINE NEGATIVE (NEGATIVE); LEUKOCYTE ESTERASE ,URINE NEGATIVE (NEGATIVE); NITRITE,URINE NEGATIVE (NEGATIVE); PH,URINE 8 (4.5-8.0); PROTEIN,URINE NEGATIVE (NEGATIVE); UROBILINOGEN,URINE 1 MG/DL (0.0-1.0)
[2017-06-26 21:30] VITALS: BP 130/79
[2017-06-26 21:30] LABS: ANION GAP 5 mmol/L (5-15); CALCIUM 8.9 MG/DL (8.5-10.1); CARBON DIOXIDE 26 MMOL/L (21-32); CHLORIDE 97 MMOL/L (98-107); CREATININE 0.8 MG/DL (0.55-1.30); GLOMERULAR FILTRATION RATE > 60 mL/min (>60); POTASSIUM 4.2 MMOL/L (3.5-5.1); SODIUM 128 MMOL/L (136-145)
[2017-06-26 21:34] LABS: ALANINE AMINOTRANSFERASE 52 U/L (12-78); ASPARTATE AMINO TRANSFERASE 52 U/L (15-37)
[2017-06-26 21:35] LABS: ALBUMIN/GLOBULIN RATIO 0.5 (1.0-2.7); LIPASE 251 U/L (73-393); TOTAL PROTEIN 8.6 G/DL (6.4-8.2)
[2017-06-26] MEDS ORDERED: Miralax 17gm pkt ORAL PRN (22:30)
[2017-06-26] MEDS ORDERED: Nitroglycerin Subl 0.4mg tab SL PRN (22:30)
[2017-06-26] MEDS ORDERED: Mylanta II UD 30ml ORAL PRN (22:30)
[2017-06-26] MEDS ORDERED: Ketorolac 30mg Inj IV PRN (22:30)
[2017-06-26 22:32] VITALS: BP 143/80
[2017-06-26 23:12] VITALS: BP 129/79
[2017-06-26] MEDS: Morphine Sulfate 2mg/ml Inj IVP PRN (23:33)
[2017-06-27] VITALS (7 sets, daily range): BP systolic 108–135; BP diastolic 74–92
[2017-06-27] MEDS: Morphine Sulfate 2mg/ml Inj IVP PRN ×5 (03:51→22:00)
[2017-06-27] MEDS: NovoLOG Insulin Flexpen SUBQ SCH ×4 (06:14→21:00)
[2017-06-27 07:11] LABS: MEAN CORPUSCULAR HGB CONC 33.8 G/DL (32.0-36.0); MEAN CORPUSCULAR VOLUME 92 FL (80-99); MEAN PLATELET VOLUME 7.9 FL (6.5-10.1); PLATELET COUNT 68 K/UL (150-450); RED BLOOD COUNT 3.77 M/UL (4.20-5.40); RED CELL DISTRIBUTION WIDTH 12.3 % (11.6-14.8)
[2017-06-27 07:16] LABS: HEMOGLOBIN A1C 7.3 % (4.3-6.0)
[2017-06-27 07:35] LABS: ALANINE AMINOTRANSFERASE 52 U/L (12-78); ALBUMIN/GLOBULIN RATIO 0.5 (1.0-2.7); AMYLASE 34 U/L (25-115); ANION GAP 2 mmol/L (5-15); ASPARTATE AMINO TRANSFERASE 51 U/L (15-37); CALCIUM 9.5 MG/DL (8.5-10.1); CARBON DIOXIDE 28 MMOL/L (21-32); CHLORIDE 103 MMOL/L (98-107); CREATININE 0.7 MG/DL (0.55-1.30); GLOMERULAR FILTRATION RATE > 60 mL/min (>60); LIPASE 212 U/L (73-393); POTASSIUM 4.3 MMOL/L (3.5-5.1); SODIUM 133 MMOL/L (136-145); THYROID STIMULATING HORMONE 2.922 uiU/mL (0.358-3.740); TOTAL PROTEIN 8.5 G/DL (6.4-8.2)
[2017-06-27 07:47] LABS: INR 1.2 (0.9-1.1); PROTHROMBIN TIME 12.3 SEC (9.30-11.50)
[2017-06-27 08:29] LABS: BAND NEUTROPHILS % (MANUAL) 0 % (0-8); BASOPHILS % (MANUAL) 0 % (0-2); EOSINOPHILS % (MANUAL) 2 % (0-3); LYMPHOCYTES % (MANUAL) 39 % (20-45); NEUTROPHILS % (MANUAL) 51 % (45-75); PLATELET ESTIMATE DECREASED; PLATELET MORPHOLOGY NORMAL; TOTAL CELLS COUNTED 100
[2017-06-27] MEDS: Citalopram 20mg Tab ORAL SCH (08:37)
[2017-06-27] MEDS: Lisinopril 20mg tab ORAL SCH (08:38)
--- NOTE | 2017-06-27 09:43 | Diagnostic Imaging Report ---
Indication: Abdominal pain Technique: Continuous helical transaxial imaging of the abdomen and pelvis was obtained from the lung bases to the pubic symphysis. No intravenous contrast was administered. Coronal 2-D reformats were also obtained. Automatic Exposure Control was utilized. Total Dose length Product (DLP): [address] Dose Index Volume (CTDIvol): 0.15, 15.47 mGy Comparison: 09/03/16 Findings: Lung bases are clear. There is nodularity of the liver and heterogeneity consistent cirrhosis. Spleen is enlarged. Cholecystectomy noted. No hydronephrosis demonstrated. No free fluid or free air or evidence of bowel obstruction. Which now as a local vein demonstrated. Moderate stool noted. Appendix is normal. Surgical clips in the left lower quadrant abdomen noted. Impression: Similar findings to the prior study. No acute abnormalities identified Cirrhosis and stigmata of portal hypertension including splenomegaly and recanalized umbilical vein. Moderate stool [facility] has communicated the preliminary results to the Emergency Department. Their findings are largely concordant with this report. The CT scanner at [facility] is accredited by the [employer] and the scans are performed using dose optimization techniques as appropriate to a performed exam including Automatic Exposure control.
[2017-06-27] MEDS ORDERED: Heparin 5000 units/ml inj SUBQ SCH (10:20)
--- NOTE | 2017-06-27 11:41 | Consultation ---
History of Present Illness General Date patient seen: Jun 27, 2017 Time patient seen: 09:00 Chief Complaint: Nausea, Vomiting, and Diarrhea Referring physician: dr Hanley Reason for Consultation: inpatient management Present Illness HPI 57-year-old female with PMH of DM, HTN, CHF, MN,, CVA, depression, anxiety, liver cirrhosis, hx of hepatitis C presented with abdominal pain for 3 days Patient states pain started gradually, localized to mostly to the upper quadrants, non radiating, are in nature, intermittent. No relieving or exacerbating factors. She reported n/v, 1 episode of non bloody nonbilious vomiting, 3-4 episodes of watery non bloody diarrhea workup in ED revealed stable VS WBC-2.0, PLT-68, Na-128 troponin negative ECG with NSR jesse cute ischemic changes UA negative CT A/P reveled : No acute abnormalities Cirrhosis and stigmata of portal hypertension including splenomegaly and recanalized umbilical vein. Moderate stool lipase WNL, small elevation of AST Patient was admitted for further amangeemtn Allergies: Coded Allergies: METOCLOPRAMIDE (Verified Allergy, Severe, Anaphylaxis, 01/31/16) tongue swelling PROCHLORPERAZINE (Verified Allergy, Severe, Anaphylaxis, 01/31/16) tongue swelling PREDNISONE (Verified Allergy, Mild, Facial Edema , 07/28/15) EGG (Unverified Allergy, Unknown, 03/16/15) Pt sts she is allergic to eggs but not products made with eggs such as muffins IODINE (Verified Allergy, Unknown, 01/25/15) SHELLFISH DERIVED (Verified Allergy, Unknown, 04/07/14) Uncoded Allergies: plastic tape (Allergy, Mild, Rash, 01/25/15) PREDISONE (Allergy, Unknown, 04/12/16) SHELLFISH (Allergy, Unknown, 04/12/16) Medication History Scheduled Aripiprazole* (Abilify*), 10 MG ORAL DAILY Aspirin* (Aspir 81*), 81 MG ORAL DAILY, (Reported) Citalopram Hydrobromide* (Celexa*), 20 MG ORAL DAILY, (Reported) Diphenhydramine Hcl (Benadryl Allergy), 25 MG PO Q6HR Ibuprofen* (Motrin*), 600 MG ORAL THREE TIMES A DAY Insulin Aspart (Novolog), 100 UNIT SQ AC+HS, (Reported) Insulin Detemir (Levemir), 10 SUBQ BEDTIME, (Reported) Lisinopril (Lisinopril*), 40 MG ORAL DAILY, (Reported) Lorazepam* (Ativan*), 2 MG ORAL Q6HR, (Reported) Metoprolol Succinate* (Metoprolol Succinate*), 25 MG ORAL BID Nicotine (Nicotine Patch), 1 EA TD DAILY, (Reported) Nitroglycerin/D5w (Ntg 0.2 Mg/Ml In D5w), 0.4 MG SL PRN, (Reported) Oxybutynin Chloride (Oxybutynin Chloride), 5 MG ORAL TWICE A DAY, (Reported) Oxybutynin Chloride (Oxybutynin Chloride), 5 MG ORAL DAILY, (Reported) Permethrin* (Elimite*), 1 APPLIC TOPIC ONCE Ranitidine Hcl (Ranitidine Hcl), 150 MG ORAL BIDAC, (Reported) Ranitidine Hcl* (Zantac*), 150 MG ORAL DAILY, (Reported) Scheduled PRN Acetaminophen (Acetaminophen), 650 MG PO Q4HR PRN for Prn Headache/Temp > 101, ( Reported) Clonidine Hcl* (Catapres*), 0.1 MG ORAL EVERY 6 HOURS PRN for For High Blood Pressure, (Reported) Diphenhydramine Hcl* (Diphenhydramine Hcl*), 25 MG ORAL Q6H PRN for Itching, ( Reported) Hydromorphone HCl (Dilaudid), 2 MG ORAL Q4H PRN for Severe Pain (Pain Scale 7-10 ), (Reported) Morphine Sulfate* (Morphine Sulfate*), 2 MG IV Q4HR PRN for severe pain, ( Reported) Zolpidem Tartrate* (Ambien*), 5 MG ORAL BEDTIME PRN for Insomnia, (Reported) Patient History Healthcare decision maker Resuscitation status Full Code Advanced Directive on File Past Medical/Surgical History Past Medical/Surgical History: (1) Hepatic encephalopathy (2) Medication overdose (3) ACS (acute coronary syndrome) (4) Hepatitis C (5) Chronic pain (6) DDD (degenerative disc disease), lumbar (7) OA (osteoarthritis) of knee (8) Lumbar spondylosis (9) Opiate dependence (10) Diabetes mellitus out of control (11) Migraine (12) Anemia (13) COPD (chronic obstructive pulmonary disease) (14) Diabetes (15) CHF (congestive heart failure) (16) Hypertension (17) Hepatitis C (18) Anxiety (19) Pancreatitis (20) Thrombocytopenia Review of Systems Constitutional: Reports: weakness Eye: Reports: no symptoms ENT: Reports: no symptoms Cardiovascular: Reports: other - hx of MN, CHF, HTN Genitourinary: Reports: no symptoms Musculoskeletal: Reports: joint pain, muscle pain Psychiatric: Reports: anxiety, depressed feelings Neurological: Reports: other - migraines Endocrine: Reports: other - DM Hematologic/Lymphatic: Reports: other - pancytopenia Physical Exam General Appearance: WD/WN, no apparent distress, alert - awake, oriented x 3 female Lines, tubes and drains: peripheral HEENT: normocephalic, atraumatic, anicteric, mucous membranes moist Neck: non-tender, supple Respiratory/Chest: lungs clear - with moderate air exchange, no respiratory distress, no accessory muscle use Abdomen: normal bowel sounds, non tender, soft Extremities: normal range of motion, non-tender, no calf tenderness, normal capillary refill Skin Exam: warm/dry Neurologic: no motor/sensory deficits, alert, oriented x 3, responsive Musculoskeletal: normal muscle bulk Last 24 Hour Vital Signs Date Time Temp Pulse Resp B/P (MAP) Pulse Ox O2 Delivery O2 Flow Rate FiO2 06/27/17 08:38 131/74 06/27/17 08:26 72 131/74 06/27/17 08:00 98.1 67 20 108/88 95 06/27/17 04:00 98.2 61 18 125/79 96 Room Air 06/26/17 23:12 97.0 59 20 129/79 98 Room Air 06/26/17 22:48 98.0 63 13 143/80 98 Room Air 06/26/17 22:32 98.0 63 13 143/80 98 Room Air 06/26/17 21:32 98.0 06/26/17 21:30 98.0 64 13 130/79 98 Room Air 06/26/17 20:15 98.1 84 13 107/51 98 Room Air Intake and Output 06/27/17 06/28/17 19:00 07:00 Intake Total 50 ml Balance 50 ml IV Total 50 ml Laboratory Tests Test 06/26/17 20:45 06/26/17 20:55 06/27/17 05:00 White Blood Count 2.6 K/UL (4.8-10.8) L 2.0 K/UL (4.8-10.8) *L Red Blood Count 3.58 M/UL (4.20-5.40) L 3.77 M/UL (4.20-5.40) L Hemoglobin 11.1 G/DL (12.0-16.0) L 11.7 G/DL (12.0-16.0) L Hematocrit 32.6 % (37.0-47.0) L 34.6 % (37.0-47.0) L Mean Corpuscular Volume 91 FL (80-99) 92 FL (80-99) Mean Corpuscular Hemoglobin 30.9 PG (27.0-31.0) 31.0 PG (27.0-31.0) Mean Corpuscular Hemoglobin Concent 33.9 G/DL (32.0-36.0) 33.8 G/DL (32.0-36.0) Red Cell Distribution Width 12.2 % (11.6-14.8) 12.3 % (11.6-14.8) Platelet Count 74 K/UL (150-450) L 68 K/UL (150-450) L Mean Platelet Volume 7.3 FL (6.5-10.1) 7.9 FL (6.5-10.1) Neutrophils (%) (Auto) 54.4 % (45.0-75.0) % (45.0-75.0) Lymphocytes (%) (Auto) 30.0 % (20.0-45.0) % (20.0-45.0) Monocytes (%) (Auto) 10.7 % (1.0-10.0) H % (1.0-10.0) Eosinophils (%) (Auto) 3.7 % (0.0-3.0) H % (0.0-3.0) Basophils (%) (Auto) 1.1 % (0.0-2.0) % (0.0-2.0) Sodium Level 128 MMOL/L (136-145) L 133 MMOL/L (136-145) L Potassium Level 4.2 MMOL/L (3.5-5.1) 4.3 MMOL/L (3.5-5.1) Chloride Level 97 MMOL/L (98-107) L 103 MMOL/L (98-107) Carbon Dioxide Level 26 MMOL/L (21-32) 28 MMOL/L (21-32) Anion Gap 5 mmol/L (5-15) 2 mmol/L (5-15) L Blood Urea Nitrogen 12 mg/dL (7-18) 11 mg/dL (7-18) Creatinine 0.8 MG/DL (0.55-1.30) 0.7 MG/DL (0.55-1.30) Estimat Glomerular Filtration Rate > 60 mL/min (>60) > 60 mL/min (>60) Glucose Level 117 MG/DL (74-106) H 86 MG/DL (74-106) Calcium Level 8.9 MG/DL (8.5-10.1) 9.5 MG/DL (8.5-10.1) Total Bilirubin 0.5 MG/DL (0.2-1.0) 0.7 MG/DL (0.2-1.0) Aspartate Amino Transf (AST/SGOT) 52 U/L (15-37) H 51 U/L (15-37) H Alanine Aminotransferase (ALT/SGPT) 52 U/L (12-78) 52 U/L (12-78) Alkaline Phosphatase 64 U/L (46-116) 57 U/L (46-116) Troponin I 0.003 ng/mL (0.000-0.056) Total Protein 8.6 G/DL (6.4-8.2) H 8.5 G/DL (6.4-8.2) H Albumin 2.8 G/DL (3.4-5.0) L 2.7 G/DL (3.4-5.0) L Globulin 5.8 g/dL 5.8 g/dL Albumin/Globulin Ratio 0.5 (1.0-2.7) L 0.5 (1.0-2.7) L Lipase 251 U/L (73-393) 212 U/L (73-393) Urine Color Pale yellow Urine Appearance Clear Urine pH 8 (4.5-8.0) Urine Specific [place] 1.010 (1.005-1.035) Urine Protein Negative (NEGATIVE) Urine Glucose (UA) Negative (NEGATIVE) Urine Ketones Negative (NEGATIVE) Urine Occult Blood Negative (NEGATIVE) Urine Nitrite Negative (NEGATIVE) Urine Bilirubin Negative (NEGATIVE) Urine Urobilinogen 1 MG/DL (0.0-1.0) H Urine Leukocyte Esterase Negative (NEGATIVE) Differential Total Cells Counted 100 Neutrophils % (Manual) 51 % (45-75) Lymphocytes % (Manual) 39 % (20-45) Monocytes % (Manual) 8 % (1-10) Eosinophils % (Manual) 2 % (0-3) Basophils % (Manual) 0 % (0-2) Band Neutrophils 0 % (0-8) Platelet Estimate Decreased L Platelet Morphology Normal Red Blood Cell Morphology Normal Prothrombin Time 12.3 SEC (9.30-11.50) H Prothromb Time International Ratio 1.2 (0.9-1.1) H Activated Partial Thromboplast Time 29 SEC (23-33) Hemoglobin A1c 7.3 % (4.3-6.0) H Amylase Level 34 U/L (25-115) Thyroid Stimulating Hormone (TSH) 2.922 uiU/mL (0.358-3.740) Height (Feet): 5 Height (Inches): 2.00 Weight (Pounds): 168 Medications Current Medications Medications (Trade) Dose Ordered Sig/Bill Route PRN Reason Start Time Stop Time Status Last Admin Dose Admin Acetaminophen (Tylenol) 650 mg Q4H PRN ORAL fever 06/26/17 22:30 07/26/17 22:29 Al Hydroxide/Mg Hydroxide (Mylanta II) 30 ml Q6H PRN ORAL dyspepsia 06/26/17 22:30 07/26/17 22:29 Aripiprazole (Abilify) 10 mg DAILY ORAL 06/27/17 09:00 07/27/17 08:59 06/27/17 08:37 Citalopram Hydrobromide (celeXA) 20 mg DAILY ORAL 06/27/17 09:00 07/27/17 08:59 06/27/17 08:37 Dextrose (Dextrose 50%) STAT PRN IV Hypoglycemia 06/26/17 22:30 07/26/17 22:29 Dextrose (Dextrose 50%) STAT PRN IV Hypoglycemia 06/26/17 22:30 07/26/17 22:29 Diphenhydramine HCl (Benadryl) 25 mg Q6H PRN ORAL Itching/Pruritis 06/26/17 22:30 07/26/17 22:29 06/27/17 03:50 Heparin Sodium (Porcine) (Heparin 5000 units/ml) 5,000 units EVERY 12 HOURS SUBQ 06/27/17 10:20 07/27/17 10:19 UNV Insulin Aspart (NovoLOG) BEFORE MEALS AND HS SUBQ 06/27/17 06:30 07/27/17 06:29 Ketorolac Tromethamine (Toradol 30mg) 30 mg Q6H PRN IV moderate pian 4-6 06/26/17 22:30 07/01/17 22:29 Lisinopril (Prinivil) 40 mg DAILY ORAL 06/27/17 09:00 07/27/17 08:59 06/27/17 08:38 Lorazepam (Ativan) 2 mg Q6H PRN ORAL For Anxiety 06/27/17 11:45 07/04/17 11:44 UNV Metoprolol Succinate (Toprol XL) 25 mg BID ORAL 06/27/17 09:00 07/27/17 08:59 UNV Morphine Sulfate (Morphine Sulfate) 2 mg EVERY 4 HOURS PRN IVP severe Pain (Pain Scale 7-10) 06/26/17 22:30 07/03/17 22:29 06/27/17 08:45 Nitroglycerin (Ntg) 0.4 mg Q5M X 3 DOSES PRN SL Prn Chest Pain 06/26/17 22:30 07/26/17 22:29 Ondansetron HCl (Zofran) 4 mg Q6H PRN IVP Nausea & Vomiting 06/26/17 22:30 07/26/17 22:29 06/27/17 03:50 Polyethylene Glycol (Miralax) 17 gm HSPRN PRN ORAL Constipation 06/26/17 22:30 07/26/17 22:29 Sodium Chloride 1,000 ml @ 50 mls/hr Q20H IV 06/26/17 22:23 07/26/17 22:22 06/26/17 23:16 Tbo-Filgrastim (Granix) 300 mcg ONCE ONCE SQ 06/27/17 12:15 06/27/17 12:16 Temazepam (Restoril) 15 mg HSPRN PRN ORAL Insomnia 06/26/17 22:30 07/03/17 22:29 06/26/17 23:32 Assessment/Plan Assessment/Plan ASSESSMENT abdominal pain intractable nausea and vomiting liver cirrhosis hx of hep C COPD pancytopenia DM hypo Na chronic pain syndrome depression with anxiety PLAN OF CARE MS floor gentle IVF with Na was intimally NPO , now on trial of CL diet GI eval abdominal US monitor LFT, lipase a/emetic prn no heparin, Venous Duplex BLE if negative then SCD GI prophylaxis monitor counts, pancytopenia chronic, likely due to chronic liver disease Granix x 1 today BS management with sliding scale of insulin, [id number]-1.3 at goal BP management with BB and BEAU, optimize further as needed judicious pain management Bowel regimen case discussed and evaluated by supervising physician Ross Ram),Milvia ANAYA Jun 27, 2017 11:41
[2017-06-27] MEDS ORDERED: TBO-Filgrastim 300 mcg/0.5ml SQ ONE (12:15)
--- NOTE | 2017-06-27 15:15 | History and Physical Report ---
DATE OF ADMISSION: 06/26/2017 TIME: 9 a.m. CONSULTANTS: 1. April Denny M.D. 2. Soren Coburn M.D. 3. Oneil Olson M.D. 4. Tony Hill M.D. CHIEF COMPLAINT: Abdominal pain, nausea, vomiting, and headache. BRIEF HISTORY: The patient is a 57-year-old female from [facility], presented with above-mentioned diagnosis for about a day. The patient was diagnosed above, admitted to medical floor for further treatment. Currently, slightly anxious in bed, feeling little bit better. No complaint. REVIEW OF SYSTEMS: No chest pain. No shortness of breath. Slight nausea and vomiting. No diarrhea. PAST MEDICAL HISTORY: Diabetes, hypertension, COPD, anxiety, depression, and chronic pain. PAST SURGICAL HISTORY: Gallbladder, hysterectomy, and nasal surgery. MEDICATIONS: Abilify, Celexa, Prinivil, Toprol, Tylenol, NovoLog, morphine, Restoril, Zofran, MiraLAX, Benadryl, and Toradol. ALLERGIES: Iodine, Reglan, prednisone, prochlorperazine, and diltiazem. SOCIAL HISTORY: No smoking. No alcohol. No intravenous drug abuse. FAMILY HISTORY: Noncontributory. PHYSICAL EXAMINATION: GENERAL: Slightly anxious in bed, oriented x3, no acute distress. VITAL SIGNS: Temperature is 98 degrees, pulse 67, respiratory rate 20, blood pressure 108/88. CARDIOVASCULAR: No murmur. LUNGS: Decreased air entry. ABDOMEN: Bowel sound positive. Slightly tender. No guarding. No rigidity. No rebound. EXTREMITIES: No cyanosis or edema. NEUROLOGIC: The patient moves all extremities slightly weak. LABORATORY AND DIAGNOSTIC DATA: White count 2.0, hemoglobin and hematocrit 11/34, and platelets 68. BMP shows sodium 133 and albumin 2.7, otherwise BMP is normal. INR 1.2. Urinalysis is negative. ASSESSMENT: 1. Abdominal pain. 2. Nausea and vomiting. 3. Headache. 4. Psychiatric history. 5. Malnutrition. 6. Pancytopenia. 7. Chronic pain. 8. Hypertension. 9. Diabetes. 10. Chronic obstructive pulmonary disease. 11. Anxiety. 12. Depression. PLAN: Deniafrblake p.r.n. OT/PT. Dietary evaluation. CBC and BMP in the morning. Resume home medications. Blood pressure and blood sugar control. Dr. Denny, Dr. Coburn, Dr. Wright, and Dr. Hill and Dr. Rubin to consult. We will continue to follow this patient medically. Bubba Hanley D.O. DR: FRANCK JOB#: [id number] CC:
[2017-06-27] MEDS: LORazepam 1mg tab ORAL PRN (15:19)
[2017-06-27] MEDS ORDERED: NS 500ML ONE (15:21)
--- NOTE | 2017-06-27 18:19 | Cardiology Report ---
APPROVED REPORT EKG Measurement Heart [id number] Normal sinus rhythm Minimal voltage criteria for LVH, may be normal variant Septal infarct, age undetermined Abnormal ECG
--- NOTE | 2017-06-27 19:06 | Consultation ---
Consult Note Assessment/Plan DATE OF CONSULTATION: 06/27/17 HEMATOLOGY AND ONCOLOGY CONSULT CONSULTING PHYSICIAN: Buddy Rubin M.D. ATTENDING PHYSICIAN: Bubba Hanley M.D. REASON FOR CONSULTATION: Leukopenia and throbocytopenia evaluation CURRENT COMPLAINT/HISTORY OF PRESENT ILLNESS: Dear Dr. Bubba Hanley, Today, I had an opportunity to see one of your patients, the patient is a 57 years old delightful female with an extensive past medical history remarkable for history of pancytopenia, liver cirrhosis, hepatitis C, chronic pain syndrome , opioid dependence, history of drug abuse, COPD, arthritis, hypertension, asthma, anxiety attack, and chronic pain syndrome as well as moderate cytopenias at this time p/w nausea, vomiting, diarrhea and headache. The patient ended up in [facility] for nausea, vomiting and abdominal pain and a clinical diagnosis of pancreatitis was made. Patient was noted to have leukopenia/thrombocytopenia. Our service was called to handle this issue. PAST MEDICAL HISTORY: 1. History of pancytopenia and leukopenia, persistent. 2. Thrombocytopenia, persistent, hepatitis C, liver cirrhosis, and hepatic encephalopathy. 3. History of hypertension. 4. Opioid dependence. 5. Hypoglycemia. 6. Chronic abdominal pain. 7. Hyponatremia. 8. COPD exacerbation. 9. Diabetes mellitus. 10. Back pain. 11. Osteoarthritis/degenerative joint disease. 12. Chronic knee pain. MEDICATIONS: 1. Albuterol. 2. Abilify. 3. Ecotrin. 4. Celexa. 5. Catapres. 6. Dextrose. 7. Cardizem. 8. Benadryl. 9. Vibramycin. 10. Dilaudid. 11. NovoLog. 12. Levemir. 13. Renagel. 14. Ativan. 15. Nicardipine. ALLERGIES: Eggs, iodine, prednisone, shellfish, and plastic tape. FAMILY HISTORY: Noncontributory. SOCIAL HISTORY: No history of smoking. No history of alcohol abuse. No history of illicit drug use. REVIEW OF SYSTEMS: General Description: The patient not in any significant distress, but looks chronically ill. Respiratory System: Mild shortness of breath on exertion. Gastrointestinal: The patient claims constipation and some abd pain. Neuromuscular: The patient also complains about back pain. PHYSICAL EXAMINATION: VITAL SIGNS: Last 24 Hour Vital Signs Date Time Temp Pulse Resp B/P (MAP) Pulse Ox O2 Delivery O2 Flow Rate FiO2 12/2/17 16:00 Room Air 06/27/17 16:00 98.2 64 20 128/92 97 06/27/17 12:00 97.3 69 20 135/84 96 06/27/17 12:00 Room Air 06/27/17 08:38 131/74 06/27/17 08:26 72 131/74 06/27/17 08:00 98.1 67 20 108/88 95 06/27/17 08:00 Room Air 06/27/17 04:00 98.2 61 18 125/79 96 Room Air 06/26/17 23:12 97.0 59 20 129/79 98 Room Air 06/26/17 22:48 98.0 63 13 143/80 98 Room Air 06/26/17 22:32 98.0 63 13 143/80 98 Room Air 06/26/17 21:32 98.0 06/26/17 21:30 98.0 64 13 130/79 98 Room Air 06/26/17 20:15 98.1 84 13 107/51 98 Room Air HEENT: Head is normocephalic and atraumatic. NECK: Supple. No thyroid enlargement. No lymphadenopathy. LUNGS: Decreased breath sounds bilaterally with few rhonchi in the bases. HEART: S1 and S2, regular. ABDOMEN: Soft and benign. No organomegaly present. Bowel sounds present. EXTREMITIES: No cyanosis, clubbing, or edema. Laboratory Tests Test 06/26/17 20:45 06/26/17 20:55 06/27/17 05:00 White Blood Count 2.6 K/UL (4.8-10.8) L 2.0 K/UL (4.8-10.8) *L Red Blood Count 3.58 M/UL (4.20-5.40) L 3.77 M/UL (4.20-5.40) L Hemoglobin 11.1 G/DL (12.0-16.0) L 11.7 G/DL (12.0-16.0) L Hematocrit 32.6 % (37.0-47.0) L 34.6 % (37.0-47.0) L Mean Corpuscular Volume 91 FL (80-99) 92 FL (80-99) Mean Corpuscular Hemoglobin 30.9 PG (27.0-31.0) 31.0 PG (27.0-31.0) Mean Corpuscular Hemoglobin Concent 33.9 G/DL (32.0-36.0) 33.8 G/DL (32.0-36.0) Red Cell Distribution Width 12.2 % (11.6-14.8) 12.3 % (11.6-14.8) Platelet Count 74 K/UL (150-450) L 68 K/UL (150-450) L Mean Platelet Volume 7.3 FL (6.5-10.1) 7.9 FL (6.5-10.1) Neutrophils (%) (Auto) 54.4 % (45.0-75.0) % (45.0-75.0) Lymphocytes (%) (Auto) 30.0 % (20.0-45.0) % (20.0-45.0) Monocytes (%) (Auto) 10.7 % (1.0-10.0) H % (1.0-10.0) Eosinophils (%) (Auto) 3.7 % (0.0-3.0) H % (0.0-3.0) Basophils (%) (Auto) 1.1 % (0.0-2.0) % (0.0-2.0) Sodium Level 128 MMOL/L (136-145) L 133 MMOL/L (136-145) L Potassium Level 4.2 MMOL/L (3.5-5.1) 4.3 MMOL/L (3.5-5.1) Chloride Level 97 MMOL/L (98-107) L 103 MMOL/L (98-107) Carbon Dioxide Level 26 MMOL/L (21-32) 28 MMOL/L (21-32) Anion Gap 5 mmol/L (5-15) 2 mmol/L (5-15) L Blood Urea Nitrogen 12 mg/dL (7-18) 11 mg/dL (7-18) Creatinine 0.8 MG/DL (0.55-1.30) 0.7 MG/DL (0.55-1.30) Estimat Glomerular Filtration Rate > 60 mL/min (>60) > 60 mL/min (>60) Glucose Level 117 MG/DL (74-106) H 86 MG/DL (74-106) Calcium Level 8.9 MG/DL (8.5-10.1) 9.5 MG/DL (8.5-10.1) Total Bilirubin 0.5 MG/DL (0.2-1.0) 0.7 MG/DL (0.2-1.0) Aspartate Amino Transf (AST/SGOT) 52 U/L (15-37) H 51 U/L (15-37) H Alanine Aminotransferase (ALT/SGPT) 52 U/L (12-78) 52 U/L (12-78) Alkaline Phosphatase 64 U/L (46-116) 57 U/L (46-116) Troponin I 0.003 ng/mL (0.000-0.056) Total Protein 8.6 G/DL (6.4-8.2) H 8.5 G/DL (6.4-8.2) H Albumin 2.8 G/DL (3.4-5.0) L 2.7 G/DL (3.4-5.0) L Globulin 5.8 g/dL 5.8 g/dL Albumin/Globulin Ratio 0.5 (1.0-2.7) L 0.5 (1.0-2.7) L Lipase 251 U/L (73-393) 212 U/L (73-393) Urine Color Pale yellow Urine Appearance Clear Urine pH 8 (4.5-8.0) Urine Specific [place] 1.010 (1.005-1.035) Urine Protein Negative (NEGATIVE) Urine Glucose (UA) Negative (NEGATIVE) Urine Ketones Negative (NEGATIVE) Urine Occult Blood Negative (NEGATIVE) Urine Nitrite Negative (NEGATIVE) Urine Bilirubin Negative (NEGATIVE) Urine Urobilinogen 1 MG/DL (0.0-1.0) H Urine Leukocyte Esterase Negative (NEGATIVE) Differential Total Cells Counted 100 Neutrophils % (Manual) 51 % (45-75) Lymphocytes % (Manual) 39 % (20-45) Monocytes % (Manual) 8 % (1-10) Eosinophils % (Manual) 2 % (0-3) Basophils % (Manual) 0 % (0-2) Band Neutrophils 0 % (0-8) Platelet Estimate Decreased L Platelet Morphology Normal Red Blood Cell Morphology Normal Prothrombin Time 12.3 SEC (9.30-11.50) H Prothromb Time International Ratio 1.2 (0.9-1.1) H Activated Partial Thromboplast Time 29 SEC (23-33) Hemoglobin A1c 7.3 % (4.3-6.0) H Amylase Level 34 U/L (25-115) Thyroid Stimulating Hormone (TSH) 2.922 uiU/mL (0.358-3.740) Imaging: reviewed IMPRESSION/RECS: 1. Pancytopenia secondary to liver cirrhosis/hepatitis C. has cirrhosis and splenomegaly --> For leukopenia have administered one dose of neupogen today 06/27/17 2. Leukopenia, persistent secondary to liver cirrhosis/hepatitis C. 3. Thrombocytopenia, persistent secondary to liver cirrhosis/hepatitis C/drug side effect. 4. Anemia of chronic disease. 5. Pancreatitis hx now with n/v 6. Hepatitis C. 7. Liver cirrhosis. 8. Hepatic encephalopathy. 9. History of narcotic dependence. 10. History of migraine headaches. 11. Diabetes mellitus. 12. History of osteoarthritis/degenerative joint disease. 13. History of anxiety attack. 14. Psychosis. 15. Chronic obstructive pulmonary disease. 16. Failure to thrive. Buddy Rubin. Jun 27, 2017 19:06
[2017-06-27] MEDS: Metoprolol 25mg tab ORAL SCH (21:00)
[2017-06-28] MEDS: Morphine Sulfate 2mg/ml Inj IVP PRN ×6 (02:38→23:34)
--- NOTE | 2017-06-28 03:00 | Consultation ---
DATE OF CONSULTATION: 06/27/2017 GASTROENTEROLOGY CONSULTATION CONSULTING PHYSICIAN: Justine Balderas M.D. REFERRING PHYSICIAN: Bubba Hanley D.O. CHIEF COMPLAINT: I was asked to see this patient by Dr. Bubba Hanley for evaluation. HISTORY OF PRESENT ILLNESS: The patient is a 57-year-old woman with multiple medical problems in the past including hepatitis C, cirrhosis, and anxiety, who comes in due to 8-day history of diarrhea. The patient states that she has multiple roommates in her facility who have similar issues. She has had some nausea, vomiting, and abdominal pain. These have worsened over the last few days and therefore she came to the hospital. The pain is epigastric with no radiation. PAST MEDICAL HISTORY: Remarkable for history of hypertension, diabetes, congestive heart failure, myocardial infarction, stroke, depression, anxiety, liver cirrhosis, and history of hepatitis C. FAMILY HISTORY: Noncontributory. SOCIAL HISTORY: The patient resides in a [facility] and she is full code. REVIEW OF SYSTEMS: Otherwise negative. PHYSICAL EXAMINATION: GENERAL: Well-developed, well-nourished white woman seen in her room. HEENT: Normocephalic and atraumatic. Sclerae anicteric. Oropharynx clear. NECK: Supple. CHEST: Clear to auscultation. CARDIOVASCULAR: Regular rate. ABDOMEN: Soft. Good bowel sounds. There is no organomegaly. EXTREMITIES: No edema. NEUROLOGIC: Nonfocal. LABORATORY DATA: Noted. ASSESSMENT: This patient presents with acute complaint of nausea, vomiting, abdominal pain, and diarrhea with other contacts, persons being positive in their facility. This is likely either a facility food-borne illness versus some type of gastroenteritis that is infecting multiple residents. The patient should have complete stool cultures checked for bacteria and she can be placed on prophylactic antibiotics for now until the cultures are available. Given her history of cirrhosis and hepatitis C, her liver function should be checked. She can be started on clear-liquid diet and advanced as tolerated. RECOMMENDATIONS: Per above discussion and per orders written in the chart. Thank you for asking me to participate in the care of this patient. Justine Balderas M.D. DR: Camille JOB#: [id number] CC: TOÑO
[2017-06-28 04:00] VITALS: BP 138/85
[2017-06-28] MEDS: LORazepam 1mg tab ORAL PRN ×3 (06:14→20:39)
[2017-06-28] MEDS: NovoLOG Insulin Flexpen SUBQ SCH ×4 (06:30→20:01)
[2017-06-28 07:52] LABS: MEAN CORPUSCULAR HEMOGLOBIN 31.7 PG (27.0-31.0); MEAN CORPUSCULAR VOLUME 93 FL (80-99); MEAN PLATELET VOLUME 7.2 FL (6.5-10.1); PLATELET COUNT 67 K/UL (150-450); RED BLOOD COUNT 3.47 M/UL (4.20-5.40); RED CELL DISTRIBUTION WIDTH 12.6 % (11.6-14.8); WHITE BLOOD COUNT 7.8 K/UL (4.8-10.8)
[2017-06-28 08:00] VITALS: BP_SYST 109; BP_SYST 177; BP_DIAS 65; BP_DIAS 96
[2017-06-28 08:14] LABS: ANION GAP 4 mmol/L (5-15); CALCIUM 8.4 MG/DL (8.5-10.1); CARBON DIOXIDE 28 MMOL/L (21-32); CHLORIDE 103 MMOL/L (98-107); CREATININE 0.6 MG/DL (0.55-1.30); GLOMERULAR FILTRATION RATE > 60 mL/min (>60); POTASSIUM 4.1 MMOL/L (3.5-5.1); SODIUM 134 MMOL/L (136-145)
--- NOTE | 2017-06-28 08:21 | General Progress Note ---
Assessment/Plan Problem List: (1) Pancytopenia ICD Codes: D61.818 - Other pancytopenia SNOMED: 961697948 (2) Chronic pain ICD Codes: G89.29 - Other chronic pain SNOMED: 30435972 (3) Diarrhea ICD Codes: R19.7 - Diarrhea, unspecified SNOMED: 69723441 (4) Low back pain ICD Codes: M54.5 - Low back pain SNOMED: 844446922 (5) Diabetes mellitus ICD Codes: E11.9 - Type 2 diabetes mellitus without complications SNOMED: 60151859 (6) HTN (hypertension) ICD Codes: I10 - Essential (primary) hypertension SNOMED: 18956971 (7) COPD (chronic obstructive pulmonary disease) ICD Codes: J44.9 - Chronic obstructive pulmonary disease, unspecified SNOMED: 41010156 (8) Weakness ICD Codes: R53.1 - Weakness SNOMED: 84943041 (9) Anxiety ICD Codes: F41.9 - Anxiety disorder, unspecified SNOMED: 48286221, 724028647 Status: stable, progressing Assessment/Plan ot pt diet pain control cbc bmp am Subjective Allergies: Coded Allergies: METOCLOPRAMIDE (Verified Allergy, Severe, Anaphylaxis, 01/31/16) tongue swelling PROCHLORPERAZINE (Verified Allergy, Severe, Anaphylaxis, 01/31/16) tongue swelling PREDNISONE (Verified Allergy, Mild, Facial Edema , 07/28/15) EGG (Unverified Allergy, Unknown, 03/16/15) Pt sts she is allergic to eggs but not products made with eggs such as muffins IODINE (Verified Allergy, Unknown, 01/25/15) SHELLFISH DERIVED (Verified Allergy, Unknown, 04/07/14) Uncoded Allergies: plastic tape (Allergy, Mild, Rash, 01/25/15) PREDISONE (Allergy, Unknown, 04/12/16) SHELLFISH (Allergy, Unknown, 04/12/16) All Systems: reviewed and negative except above Subjective sleepy calm Objective Last 24 Hour Vital Signs Date Time Temp Pulse Resp B/P (MAP) Pulse Ox O2 Delivery O2 Flow Rate FiO2 06/28/17 07:50 98.2 06/28/17 04:00 98.2 57 21 138/85 96 06/27/17 23:20 98.1 62 20 120/77 95 Room Air 06/27/17 21:00 62 148/89 06/27/17 20:00 Room Air 06/27/17 19:20 97.9 72 20 135/76 93 Room Air 06/27/17 16:00 Room Air 06/27/17 16:00 98.2 64 20 128/92 97 06/27/17 12:00 97.3 69 20 135/84 96 06/27/17 12:00 Room Air 06/27/17 08:38 131/74 06/27/17 08:26 72 131/74 Laboratory Tests 06/28/17 06:40: White Blood Count [Pending], Red Blood Count [Pending], Hemoglobin [Pending], Hematocrit [Pending], Mean Corpuscular Volume [Pending], Mean Corpuscular Hemoglobin [Pending], Mean Corpuscular Hemoglobin Concent [Pending], Red Cell Distribution Width [Pending], Platelet Count [Pending], Mean Platelet Volume [ Pending], Neutrophils (%) (Auto) [Pending], Lymphocytes (%) (Auto) [Pending], Monocytes (%) (Auto) [Pending], Eosinophils (%) (Auto) [Pending], Basophils (%) (Auto) [Pending], Sodium Level 134L, Potassium Level 4.1, Chloride Level 103, Carbon Dioxide Level 28, Anion Gap 4L, Blood Urea Nitrogen 8, Creatinine 0.6, Estimat Glomerular Filtration Rate > 60, Glucose Level 104, Calcium Level 8.4L Height (Feet): 5 Height (Inches): 2.00 Weight (Pounds): 168 General Appearance: lethargic EENT: normal ENT inspection Neck: normal alignment Cardiovascular: normal peripheral pulses, normal rate, regular rhythm Respiratory/Chest: chest wall non-tender, lungs clear, normal breath sounds Abdomen: normal bowel sounds, non tender, soft Extremities: normal inspection Edema: no edema noted Arm (L), no edema noted Arm (R), no edema noted Leg (L), no edema noted Leg (R), no edema noted Pedal (L), no edema noted Pedal (R), no edema noted Generalized Neurologic: motor weakness Skin: normal pigmentation, warm/dry CHARLIE PEREZ Jun 28, 2017 08:21
[2017-06-28] MEDS: Metoprolol 25mg tab ORAL SCH ×2 (09:00→19:58)
[2017-06-28] MEDS: Lisinopril 20mg tab ORAL SCH (09:00)
[2017-06-28] MEDS: Citalopram 20mg Tab ORAL SCH (09:05)
[2017-06-28 09:23] LABS: BAND NEUTROPHILS % (MANUAL) 2 % (0-8); BASOPHILS % (MANUAL) 0 % (0-2); EOSINOPHILS % (MANUAL) 0 % (0-3); HYPOCHROMASIA 1+; LYMPHOCYTES % (MANUAL) 18 % (20-45); NEUTROPHILS % (MANUAL) 77 % (45-75); PLATELET ESTIMATE DECREASED; PLATELET MORPHOLOGY NORMAL; TOTAL CELLS COUNTED 100
--- NOTE | 2017-06-28 10:32 | General Progress Note ---
Assessment/Plan Assessment/Plan (1) Lumbar spondylosis (2) DDD (degenerative disc disease), lumbar (3) OA (osteoarthritis) of knee (4) Pain in limb (5) Cirrhosis (6) Abdominal pain We will continue morphine IV. Pt was d/w Dr. Coburn and he concurred. Thank you for the courtesy of this consultation. Subjective Date patient seen: Jun 28, 2017 Time patient seen: 07:00 - am Allergies: Coded Allergies: METOCLOPRAMIDE (Verified Allergy, Severe, Anaphylaxis, 01/31/16) tongue swelling PROCHLORPERAZINE (Verified Allergy, Severe, Anaphylaxis, 01/31/16) tongue swelling PREDNISONE (Verified Allergy, Mild, Facial Edema , 07/28/15) EGG (Unverified Allergy, Unknown, 03/16/15) Pt sts she is allergic to eggs but not products made with eggs such as muffins IODINE (Verified Allergy, Unknown, 01/25/15) SHELLFISH DERIVED (Verified Allergy, Unknown, 04/07/14) Uncoded Allergies: plastic tape (Allergy, Mild, Rash, 01/25/15) PREDISONE (Allergy, Unknown, 04/12/16) SHELLFISH (Allergy, Unknown, 04/12/16) Subjective Constitutional: Reports: weakness, Denies: chills, diaphoresis, fever, malaise HEENT: Denies: blurred vision, double vision, ear discharge, ear pain, eye pain , mouth pain, mouth swelling, no symptoms, nose congestion, nose pain, other, tearing, throat pain, throat swelling Cardiovascular: Denies: chest pain, edema, irregular heart rate, lightheadedness, no symptoms, other, palpitations, syncope Respiratory: Denies: SOB at rest, SOB with excertion, cough, no symptoms, orthopnea, other, shortness of breath, sputum, stridor, wheezing Gastrointestinal/Abdominal: Reports: abdominal pain, Denies: abdomen distended , black stools, blood in stool, constipated, diarrhea, difficulty swallowing, nausea, poor appetite, poor fluid intake, rectal bleeding, tarry stools, vomiting Genitourinary: Denies: burning, discharge, flank pain, frequency, hematuria, incontinence, pain, urgency Neurologic/Psychiatric: Reports: weakness, Denies: anxiety, depressed, emotional problems, headache, no symptoms, numbness paresthesia, pre-existing deficit, seizure, tingling, tremors Endocrine: Denies: excessive sweating, flushing, increased hunger, increased thirst, increased urine, intolerance to cold, intolerance to heat, unexplained weight gain, unexplained weight loss Hematologic/Lymphatic: Denies: anemia, easy bleeding, easy bruising Subjective Patient is a known patient from prior admission c/o body pain and abdominal pain. Seen by GI. Started on Morphine 2mg IV. Objective Last 24 Hour Vital Signs Date Time Temp Pulse Resp B/P (MAP) Pulse Ox O2 Delivery O2 Flow Rate FiO2 06/28/17 09:00 72 109/65 06/28/17 09:00 109/65 06/28/17 08:00 98.1 72 20 109/65 96 06/28/17 07:50 98.2 06/28/17 04:00 98.2 57 21 138/85 96 06/27/17 23:20 98.1 62 20 120/77 95 Room Air 06/27/17 21:00 62 148/89 06/27/17 20:00 Room Air 06/27/17 19:20 97.9 72 20 135/76 93 Room Air 06/27/17 16:00 Room Air 06/27/17 16:00 98.2 64 20 128/92 97 06/27/17 12:00 97.3 69 20 135/84 96 06/27/17 12:00 Room Air Laboratory Tests 06/28/17 06:40: White Blood Count 7.8#, Red Blood Count 3.47L, Hemoglobin 11.0L, Hematocrit 32.2L, Mean Corpuscular Volume 93, Mean Corpuscular Hemoglobin 31.7H, Mean Corpuscular Hemoglobin Concent 34.0, Red Cell Distribution Width 12.6, Platelet Count 67L, Mean Platelet Volume 7.2, Neutrophils (%) (Auto) , Lymphocytes (%) ( Auto) , Monocytes (%) (Auto) , Eosinophils (%) (Auto) , Basophils (%) (Auto) , Differential Total Cells Counted 100, Neutrophils % (Manual) 77H, Lymphocytes % (Manual) 18L, Monocytes % (Manual) 3, Eosinophils % (Manual) 0, Basophils % ( Manual) 0, Band Neutrophils 2, Platelet Estimate DecreasedL, Platelet Morphology Normal, Hypochromasia 1+, Sodium Level 134L, Potassium Level 4.1, Chloride Level 103, Carbon Dioxide Level 28, Anion Gap 4L, Blood Urea Nitrogen 8 , Creatinine 0.6, Estimat Glomerular Filtration Rate > 60, Glucose Level 104, Calcium Level 8.4L Height (Feet): 5 Height (Inches): 2.00 Weight (Pounds): 168 Objective General Appearance: no apparent distress, alert, mild distress EENT: normal ENT inspection Neck: non-tender, normal alignment Cardiovascular: normal rate Respiratory/Chest: lungs clear, normal breath sounds Abdomen: distended Extremities: swelling Edema: mild edema Neurologic: alert, oriented x 3 Skin: warm/dry LUIS JOHNSON Jun 28, 2017 10:32
[2017-06-28 12:00] VITALS: BP 127/84
--- NOTE | 2017-06-28 12:43 | Pulmonology Progress Note ---
Assessment/Plan Assessment/Plan ASSESSMENT abdominal pain intractable nausea and vomiting possible gastroenteritis possible food poisoning liver cirrhosis hx of hep C COPD pancytopenia DM hypo Na chronic pain syndrome depression with anxiety PLAN OF CARE MS floor gentle IVF with Na, Na up diet advanced as tolerated GI follows abdominal US monitor LFT, lipase - stable a/emetic prn no heparin, Venous Duplex BLE if negative then SCD GI prophylaxis monitor counts, pancytopenia chronic, likely due to chronic liver disease s/p Granix x 1 06/27 , WBC up to 7.8 BS management with sliding scale of insulin, [id number] at goal BP management with BB and BEAU, optimize further as needed judicious pain management , pain specialist follows Bowel regimen case discussed and evaluated by supervising physician Subjective Allergies: Coded Allergies: METOCLOPRAMIDE (Verified Allergy, Severe, Anaphylaxis, 01/31/16) tongue swelling PROCHLORPERAZINE (Verified Allergy, Severe, Anaphylaxis, 01/31/16) tongue swelling PREDNISONE (Verified Allergy, Mild, Facial Edema , 07/28/15) EGG (Unverified Allergy, Unknown, 03/16/15) Pt sts she is allergic to eggs but not products made with eggs such as muffins IODINE (Verified Allergy, Unknown, 01/25/15) SHELLFISH DERIVED (Verified Allergy, Unknown, 04/07/14) Uncoded Allergies: plastic tape (Allergy, Mild, Rash, 01/25/15) PREDISONE (Allergy, Unknown, 04/12/16) SHELLFISH (Allergy, Unknown, 04/12/16) Subjective reports feeling better denies SOB, chest pain, cough tolerated CL diet no further vomiting episodes WBC up after Granix Objective Last 24 Hour Vital Signs Date Time Temp Pulse Resp B/P (MAP) Pulse Ox O2 Delivery O2 Flow Rate FiO2 06/28/17 11:58 98.1 06/28/17 09:00 72 109/65 06/28/17 09:00 109/65 06/28/17 08:00 98.1 72 20 109/65 96 06/28/17 04:00 98.2 57 21 138/85 96 06/27/17 23:20 98.1 62 20 120/77 95 Room Air 06/27/17 21:00 62 148/89 06/27/17 20:00 Room Air 06/27/17 19:20 97.9 72 20 135/76 93 Room Air 06/27/17 16:00 Room Air 06/27/17 16:00 98.2 64 20 128/92 97 Objective General Appearance: WD/WN, no apparent distress, alert - awake, oriented x 3 female Lines, tubes and drains: peripheral HEENT: normocephalic, atraumatic, anicteric, mucous membranes moist Neck: non-tender, supple Respiratory/Chest: lungs clear - with moderate air exchange, no respiratory distress, no accessory muscle use Abdomen: normal bowel sounds, non tender, soft Extremities: normal range of motion, non-tender, no calf tenderness, normal capillary refill Skin Exam: warm/dry Neurologic: no motor/sensory deficits, alert, oriented x 3, responsive Musculoskeletal: normal muscle bulk Laboratory Tests 06/28/17 06:40: White Blood Count 7.8#, Red Blood Count 3.47L, Hemoglobin 11.0L, Hematocrit 32.2L, Mean Corpuscular Volume 93, Mean Corpuscular Hemoglobin 31.7H, Mean Corpuscular Hemoglobin Concent 34.0, Red Cell Distribution Width 12.6, Platelet Count 67L, Mean Platelet Volume 7.2, Neutrophils (%) (Auto) , Lymphocytes (%) ( Auto) , Monocytes (%) (Auto) , Eosinophils (%) (Auto) , Basophils (%) (Auto) , Differential Total Cells Counted 100, Neutrophils % (Manual) 77H, Lymphocytes % (Manual) 18L, Monocytes % (Manual) 3, Eosinophils % (Manual) 0, Basophils % ( Manual) 0, Band Neutrophils 2, Platelet Estimate DecreasedL, Platelet Morphology Normal, Hypochromasia 1+, Sodium Level 134L, Potassium Level 4.1, Chloride Level 103, Carbon Dioxide Level 28, Anion Gap 4L, Blood Urea Nitrogen 8 , Creatinine 0.6, Estimat Glomerular Filtration Rate > 60, Glucose Level 104, Calcium Level 8.4L Current Medications Medications (Trade) Dose Ordered Sig/Bill Route PRN Reason Start Time Stop Time Status Last Admin Dose Admin Acetaminophen (Tylenol) 650 mg Q4H PRN ORAL fever 06/26/17 22:30 07/26/17 22:29 Al Hydroxide/Mg Hydroxide (Mylanta II) 30 ml Q6H PRN ORAL dyspepsia 06/26/17 22:30 07/26/17 22:29 Aripiprazole (Abilify) 10 mg DAILY ORAL 06/27/17 09:00 07/27/17 08:59 06/28/17 09:05 Citalopram Hydrobromide (celeXA) 20 mg DAILY ORAL 06/27/17 09:00 07/27/17 08:59 06/28/17 09:05 Dextrose (Dextrose 50%) STAT PRN IV Hypoglycemia 06/26/17 22:30 07/26/17 22:29 Diphenhydramine HCl (Benadryl) 25 mg Q6H PRN ORAL Itching/Pruritis 06/26/17 22:30 07/26/17 22:29 06/28/17 09:05 Insulin Aspart (NovoLOG) BEFORE MEALS AND HS SUBQ 06/27/17 06:30 07/27/17 06:29 06/27/17 17:05 Ketorolac Tromethamine (Toradol 30mg) 30 mg Q6H PRN IV moderate pian 4-6 06/26/17 22:30 07/01/17 22:29 Lisinopril (Prinivil) 40 mg DAILY ORAL 06/27/17 09:00 07/27/17 08:59 06/27/17 08:38 Lorazepam (Ativan) 2 mg Q6H PRN ORAL For Anxiety 06/27/17 11:45 07/04/17 11:44 06/28/17 06:14 Metoprolol Tartrate (Lopressor) 25 mg Q12HR ORAL 06/27/17 21:00 07/27/17 20:59 06/27/17 21:00 Morphine Sulfate (Morphine Sulfate) 2 mg EVERY 4 HOURS PRN IVP severe Pain (Pain Scale 7-10) 06/26/17 22:30 07/03/17 22:29 06/28/17 11:28 Nitroglycerin (Ntg) 0.4 mg Q5M X 3 DOSES PRN SL Prn Chest Pain 06/26/17 22:30 07/26/17 22:29 Ondansetron HCl (Zofran) 4 mg Q6H PRN IVP Nausea & Vomiting 06/26/17 22:30 07/26/17 22:29 06/27/17 13:11 Polyethylene Glycol (Miralax) 17 gm HSPRN PRN ORAL Constipation 06/26/17 22:30 07/26/17 22:29 Sodium Chloride 1,000 ml @ 50 mls/hr Q20H IV 06/26/17 22:23 07/26/17 22:22 06/27/17 17:37 Temazepam (Restoril) 15 mg HSPRN PRN ORAL Insomnia 06/26/17 22:30 07/03/17 22:29 06/26/17 23:32 Ross ([facility])Milvia NP Jun 28, 2017 12:43
[2017-06-28 16:00] VITALS: BP 121/66
[2017-06-28 20:00] VITALS: BP 123/66
--- NOTE | 2017-06-28 20:35 | General Progress Note ---
Assessment/Plan Assessment/Plan Assessment - abd pain - improved - diarrhea - improved Recommendations - advance diet - follow labs and exam - check stool OB Subjective Allergies: Coded Allergies: METOCLOPRAMIDE (Verified Allergy, Severe, Anaphylaxis, 01/31/16) tongue swelling PROCHLORPERAZINE (Verified Allergy, Severe, Anaphylaxis, 01/31/16) tongue swelling PREDNISONE (Verified Allergy, Mild, Facial Edema , 07/28/15) EGG (Unverified Allergy, Unknown, 03/16/15) Pt sts she is allergic to eggs but not products made with eggs such as muffins IODINE (Verified Allergy, Unknown, 01/25/15) SHELLFISH DERIVED (Verified Allergy, Unknown, 04/07/14) Uncoded Allergies: plastic tape (Allergy, Mild, Rash, 01/25/15) PREDISONE (Allergy, Unknown, 04/12/16) SHELLFISH (Allergy, Unknown, 04/12/16) Subjective Feels better improved abd pain wants to advance diet Objective Last 24 Hour Vital Signs Date Time Temp Pulse Resp B/P (MAP) Pulse Ox O2 Delivery O2 Flow Rate FiO2 06/28/17 20:00 98.2 65 20 123/66 97 Room Air 06/28/17 19:58 65 135/66 06/28/17 16:05 97.3 06/28/17 16:00 Room Air 06/28/17 16:00 97.3 67 20 121/66 96 06/28/17 12:00 98.1 62 20 127/84 98 06/28/17 09:00 72 109/65 06/28/17 09:00 109/65 06/28/17 08:00 98.1 72 20 109/65 96 06/28/17 04:00 98.2 57 21 138/85 96 06/27/17 23:20 98.1 62 20 120/77 95 Room Air 06/27/17 21:00 62 148/89 Intake and Output 06/28/17 06/29/17 19:00 07:00 Intake Total 200 ml Balance 200 ml Intake Oral 200 ml # Voids 4 Laboratory Tests 06/28/17 06:40: White Blood Count 7.8#, Red Blood Count 3.47L, Hemoglobin 11.0L, Hematocrit 32.2L, Mean Corpuscular Volume 93, Mean Corpuscular Hemoglobin 31.7H, Mean Corpuscular Hemoglobin Concent 34.0, Red Cell Distribution Width 12.6, Platelet Count 67L, Mean Platelet Volume 7.2, Neutrophils (%) (Auto) , Lymphocytes (%) ( Auto) , Monocytes (%) (Auto) , Eosinophils (%) (Auto) , Basophils (%) (Auto) , Differential Total Cells Counted 100, Neutrophils % (Manual) 77H, Lymphocytes % (Manual) 18L, Monocytes % (Manual) 3, Eosinophils % (Manual) 0, Basophils % ( Manual) 0, Band Neutrophils 2, Platelet Estimate DecreasedL, Platelet Morphology Normal, Hypochromasia 1+, Sodium Level 134L, Potassium Level 4.1, Chloride Level 103, Carbon Dioxide Level 28, Anion Gap 4L, Blood Urea Nitrogen 8 , Creatinine 0.6, Estimat Glomerular Filtration Rate > 60, Glucose Level 104, Calcium Level 8.4L Height (Feet): 5 Height (Inches): 2.00 Weight (Pounds): 168 Objective WDWN NCAT supple CTA RRR soft ND NT no edema EDITH ÁLVAREZ Jun 28, 2017 20:35
--- NOTE | 2017-06-28 21:11 | General Progress Note ---
Assessment/Plan Assessment/Plan IMPRESSION/RECS: 1. Pancytopenia secondary to liver cirrhosis/hepatitis C. has cirrhosis and splenomegaly --> For leukopenia have administered one dose of neupogen 06/27/17 --> wbc count improved 2. Leukopenia, persistent secondary to liver cirrhosis/hepatitis C. 3. Thrombocytopenia, persistent secondary to liver cirrhosis/hepatitis C/drug side effect. 4. Anemia of chronic disease. 5. Pancreatitis hx now with n/v 6. Hepatitis C. 7. Liver cirrhosis. 8. Hepatic encephalopathy. 9. History of narcotic dependence. 10. History of migraine headaches. 11. Diabetes mellitus. 12. History of osteoarthritis/degenerative joint disease. 13. History of anxiety attack. 14. Psychosis. 15. Chronic obstructive pulmonary disease. 16. Failure to thrive. Subjective Allergies: Coded Allergies: METOCLOPRAMIDE (Verified Allergy, Severe, Anaphylaxis, 01/31/16) tongue swelling PROCHLORPERAZINE (Verified Allergy, Severe, Anaphylaxis, 01/31/16) tongue swelling PREDNISONE (Verified Allergy, Mild, Facial Edema , 07/28/15) EGG (Unverified Allergy, Unknown, 03/16/15) Pt sts she is allergic to eggs but not products made with eggs such as muffins IODINE (Verified Allergy, Unknown, 01/25/15) SHELLFISH DERIVED (Verified Allergy, Unknown, 04/07/14) Uncoded Allergies: plastic tape (Allergy, Mild, Rash, 01/25/15) PREDISONE (Allergy, Unknown, 04/12/16) SHELLFISH (Allergy, Unknown, 04/12/16) All Systems: reviewed and negative except above Subjective better, less abdominal pain. no fevers or chills Objective Last 24 Hour Vital Signs Date Time Temp Pulse Resp B/P (MAP) Pulse Ox O2 Delivery O2 Flow Rate FiO2 06/28/17 20:00 98.2 65 20 123/66 97 Room Air 06/28/17 20:00 98.2 06/28/17 19:58 65 135/66 06/28/17 16:00 Room Air 06/28/17 16:00 97.3 67 20 121/66 96 06/28/17 12:00 98.1 62 20 127/84 98 06/28/17 09:00 72 109/65 06/28/17 09:00 109/65 06/28/17 08:00 98.1 72 20 109/65 96 06/28/17 04:00 98.2 57 21 138/85 96 06/27/17 23:20 98.1 62 20 120/77 95 Room Air Intake and Output 06/28/17 06/29/17 19:00 07:00 Intake Total 200 ml Balance 200 ml Intake Oral 200 ml # Voids 4 Laboratory Tests 06/28/17 06:40: White Blood Count 7.8#, Red Blood Count 3.47L, Hemoglobin 11.0L, Hematocrit 32.2L, Mean Corpuscular Volume 93, Mean Corpuscular Hemoglobin 31.7H, Mean Corpuscular Hemoglobin Concent 34.0, Red Cell Distribution Width 12.6, Platelet Count 67L, Mean Platelet Volume 7.2, Neutrophils (%) (Auto) , Lymphocytes (%) ( Auto) , Monocytes (%) (Auto) , Eosinophils (%) (Auto) , Basophils (%) (Auto) , Differential Total Cells Counted 100, Neutrophils % (Manual) 77H, Lymphocytes % (Manual) 18L, Monocytes % (Manual) 3, Eosinophils % (Manual) 0, Basophils % ( Manual) 0, Band Neutrophils 2, Platelet Estimate DecreasedL, Platelet Morphology Normal, Hypochromasia 1+, Sodium Level 134L, Potassium Level 4.1, Chloride Level 103, Carbon Dioxide Level 28, Anion Gap 4L, Blood Urea Nitrogen 8 , Creatinine 0.6, Estimat Glomerular Filtration Rate > 60, Glucose Level 104, Calcium Level 8.4L Height (Feet): 5 Height (Inches): 2.00 Weight (Pounds): 168 General Appearance: no apparent distress EENT: normal ENT inspection Cardiovascular: normal peripheral pulses Respiratory/Chest: chest wall non-tender Edema: trace edema Neurologic: food service agent II-XII grossly normal, no motor/sensory deficits Buddy Rubin Jun 28, 2017 21:11
[2017-06-29] VITALS: BP 118/64
[2017-06-29] MEDS: Morphine Sulfate 2mg/ml Inj IVP PRN ×4 (03:34→16:32)
[2017-06-29 04:00] VITALS: BP 114/71
[2017-06-29] MEDS: LORazepam 1mg tab ORAL PRN ×2 (05:16→14:44)
[2017-06-29] MEDS: NovoLOG Insulin Flexpen SUBQ SCH ×3 (06:06→16:38)
[2017-06-29 07:08] LABS: MEAN CORPUSCULAR HEMOGLOBIN 30.6 PG (27.0-31.0); MEAN CORPUSCULAR HGB CONC 32.9 G/DL (32.0-36.0); MEAN CORPUSCULAR VOLUME 93 FL (80-99); MEAN PLATELET VOLUME 6.5 FL (6.5-10.1); PLATELET COUNT 62 K/UL (150-450); RED BLOOD COUNT 3.64 M/UL (4.20-5.40); RED CELL DISTRIBUTION WIDTH 12.6 % (11.6-14.8); WHITE BLOOD COUNT 4.9 K/UL (4.8-10.8)
[2017-06-29 07:10] LABS: ANION GAP 5 mmol/L (5-15); CALCIUM 8.1 MG/DL (8.5-10.1); CARBON DIOXIDE 26 MMOL/L (21-32); CHLORIDE 101 MMOL/L (98-107); CREATININE 0.8 MG/DL (0.55-1.30); GLOMERULAR FILTRATION RATE > 60 mL/min (>60); SODIUM 132 MMOL/L (136-145)
[2017-06-29 07:51] LABS: ANISOCYTOSIS 1+; BAND NEUTROPHILS % (MANUAL) 0 % (0-8); BASOPHILS % (MANUAL) 2 % (0-2); EOSINOPHILS % (MANUAL) 0 % (0-3); HYPOCHROMASIA 1+; LYMPHOCYTES % (MANUAL) 22 % (20-45); NEUTROPHILS % (MANUAL) 74 % (45-75); PLATELET ESTIMATE DECREASED; PLATELET MORPHOLOGY NORMAL; TOTAL CELLS COUNTED 100
[2017-06-29 08:00] VITALS: BP_SYST 126; BP_SYST 128; BP_DIAS 69; BP_DIAS 72
[2017-06-29] MEDS: Citalopram 20mg Tab ORAL SCH (08:09)
[2017-06-29] MEDS: Metoprolol 25mg tab ORAL SCH (08:10)
[2017-06-29] MEDS: Lisinopril 20mg tab ORAL SCH (08:10)
--- NOTE | 2017-06-29 08:14 | General Progress Note ---
Assessment/Plan Assessment/Plan (1) Lumbar spondylosis (2) DDD (degenerative disc disease), lumbar (3) OA (osteoarthritis) of knee (4) Pain in limb (5) Cirrhosis (6) Abdominal pain We will continue morphine Pt was d/w Dr. Coburn and he concurred. Subjective Date patient seen: Jun 29, 2017 Time patient seen: 07:00 - am Allergies: Coded Allergies: METOCLOPRAMIDE (Verified Allergy, Severe, Anaphylaxis, 01/31/16) tongue swelling PROCHLORPERAZINE (Verified Allergy, Severe, Anaphylaxis, 01/31/16) tongue swelling PREDNISONE (Verified Allergy, Mild, Facial Edema , 07/28/15) EGG (Unverified Allergy, Unknown, 03/16/15) Pt sts she is allergic to eggs but not products made with eggs such as muffins IODINE (Verified Allergy, Unknown, 01/25/15) SHELLFISH DERIVED (Verified Allergy, Unknown, 04/07/14) Uncoded Allergies: plastic tape (Allergy, Mild, Rash, 01/25/15) PREDISONE (Allergy, Unknown, 04/12/16) SHELLFISH (Allergy, Unknown, 04/12/16) Subjective Constitutional: Reports: weakness, Denies: chills, diaphoresis, fever, malaise HEENT: Denies: blurred vision, double vision, ear discharge, ear pain, eye pain , mouth pain, mouth swelling, no symptoms, nose congestion, nose pain, other, tearing, throat pain, throat swelling Cardiovascular: Denies: chest pain, edema, irregular heart rate, lightheadedness, no symptoms, other, palpitations, syncope Respiratory: Denies: SOB at rest, SOB with excertion, cough, no symptoms, orthopnea, other, shortness of breath, sputum, stridor, wheezing Gastrointestinal/Abdominal: Reports: abdominal pain, Denies: abdomen distended , black stools, blood in stool, constipated, diarrhea, difficulty swallowing, nausea, poor appetite, poor fluid intake, rectal bleeding, tarry stools, vomiting Genitourinary: Denies: burning, discharge, flank pain, frequency, hematuria, incontinence, pain, urgency Neurologic/Psychiatric: Reports: weakness, Denies: anxiety, depressed, emotional problems, headache, no symptoms, numbness paresthesia, pre-existing deficit, seizure, tingling, tremors Endocrine: Denies: excessive sweating, flushing, increased hunger, increased thirst, increased urine, intolerance to cold, intolerance to heat, unexplained weight gain, unexplained weight loss Hematologic/Lymphatic: Denies: anemia, easy bleeding, easy bruising Subjective Patient is in bed no signs of pain or distress. Her pain has been tolerated on the Morphine. Objective Last 24 Hour Vital Signs Date Time Temp Pulse Resp B/P (MAP) Pulse Ox O2 Delivery O2 Flow Rate FiO2 06/29/17 08:10 63 128/72 06/29/17 08:10 128/72 06/29/17 08:00 97.7 63 20 128/72 98 Room Air 06/29/17 04:04 97.7 06/29/17 04:00 97.7 51 20 114/71 97 Room Air 06/29/17 00:00 Room Air 06/29/17 00:00 97.7 54 20 118/64 95 Room Air 06/28/17 20:00 Room Air 06/28/17 20:00 98.2 65 20 123/66 97 Room Air 06/28/17 19:58 65 135/66 06/28/17 16:00 Room Air 06/28/17 16:00 97.3 67 20 121/66 96 06/28/17 12:00 98.1 62 20 127/84 98 06/28/17 09:00 72 109/65 06/28/17 09:00 109/65 Laboratory Tests 06/29/17 05:00: White Blood Count 4.9, Red Blood Count 3.64L, Hemoglobin 11.2L, Hematocrit 33.8L , Mean Corpuscular Volume 93, Mean Corpuscular Hemoglobin 30.6, Mean Corpuscular Hemoglobin Concent 32.9, Red Cell Distribution Width 12.6, Platelet Count 62L, Mean Platelet Volume 6.5, Neutrophils (%) (Auto) , Lymphocytes (%) ( Auto) , Monocytes (%) (Auto) , Eosinophils (%) (Auto) , Basophils (%) (Auto) , Differential Total Cells Counted 100, Neutrophils % (Manual) 74, Lymphocytes % ( Manual) 22, Monocytes % (Manual) 2, Eosinophils % (Manual) 0, Basophils % ( Manual) 2, Band Neutrophils 0, Platelet Estimate DecreasedL, Platelet Morphology Normal, Hypochromasia 1+, Anisocytosis 1+, Sodium Level 132L, Potassium Level 4.0, Chloride Level 101, Carbon Dioxide Level 26, Anion Gap 5, Blood Urea Nitrogen 10, Creatinine 0.8, Estimat Glomerular Filtration Rate > 60 , Glucose Level 235#H, Calcium Level 8.1L Height (Feet): 5 Height (Inches): 2.00 Weight (Pounds): 168 Objective General Appearance: no apparent distress, alert, mild distress EENT: normal ENT inspection Neck: non-tender, normal alignment Cardiovascular: normal rate Respiratory/Chest: lungs clear, normal breath sounds Abdomen: distended Extremities: swelling Edema: mild edema Neurologic: alert, oriented x 3 Skin: warm/dry LUIS JOHNSON Jun 29, 2017 08:14
--- NOTE | 2017-06-29 09:57 | GI Progress Note ---
Assessment/Plan Problems: (1) Hepatitis C ICD Codes: B19.20 - Hepatitis C SNOMED: 58681790 (2) Narcotic dependence ICD Codes: F19.20 - Narcotic dependence SNOMED: 58442793 (3) Anemia ICD Codes: D64.9 - Anemia, unspecified SNOMED: 639214332 (4) Abdominal pain ICD Codes: R10.9 - Abdominal pain SNOMED: 33818903 (5) Anemia ICD Codes: D64.9 - Anemia, unspecified SNOMED: 170523888 Status: stable Status Narrative Discussed with Dr. Hill. Assessment/Plan Assessment - abd pain - resolved - diarrhea -resolved Recommendations okay for DC per GI standpoint - advance diet, tolerating - follow labs and exam - check stool OB outpatient colonoscopy & Hep C treatment Subjective Subjective diarrhea resolved Objective Last 24 Hour Vital Signs Date Time Temp Pulse Resp B/P (MAP) Pulse Ox O2 Delivery O2 Flow Rate FiO2 06/29/17 08:41 97.7 06/29/17 08:10 63 128/72 06/29/17 08:10 128/72 06/29/17 08:00 97.4 56 17 126/69 96 Room Air 06/29/17 08:00 97.7 63 20 128/72 98 Room Air 06/29/17 04:00 97.7 51 20 114/71 97 Room Air 06/29/17 00:00 Room Air 06/29/17 00:00 97.7 54 20 118/64 95 Room Air 06/28/17 20:00 Room Air 06/28/17 20:00 98.2 65 20 123/66 97 Room Air 06/28/17 19:58 65 135/66 06/28/17 16:00 Room Air 06/28/17 16:00 97.3 67 20 121/66 96 06/28/17 12:00 98.1 62 20 127/84 98 Laboratory Tests Test 06/29/17 05:00 White Blood Count 4.9 K/UL (4.8-10.8) Red Blood Count 3.64 M/UL (4.20-5.40) L Hemoglobin 11.2 G/DL (12.0-16.0) L Hematocrit 33.8 % (37.0-47.0) L Mean Corpuscular Volume 93 FL (80-99) Mean Corpuscular Hemoglobin 30.6 PG (27.0-31.0) Mean Corpuscular Hemoglobin Concent 32.9 G/DL (32.0-36.0) Red Cell Distribution Width 12.6 % (11.6-14.8) Platelet Count 62 K/UL (150-450) L Mean Platelet Volume 6.5 FL (6.5-10.1) Neutrophils (%) (Auto) % (45.0-75.0) Lymphocytes (%) (Auto) % (20.0-45.0) Monocytes (%) (Auto) % (1.0-10.0) Eosinophils (%) (Auto) % (0.0-3.0) Basophils (%) (Auto) % (0.0-2.0) Differential Total Cells Counted 100 Neutrophils % (Manual) 74 % (45-75) Lymphocytes % (Manual) 22 % (20-45) Monocytes % (Manual) 2 % (1-10) Eosinophils % (Manual) 0 % (0-3) Basophils % (Manual) 2 % (0-2) Band Neutrophils 0 % (0-8) Platelet Estimate Decreased L Platelet Morphology Normal Hypochromasia 1+ Anisocytosis 1+ Sodium Level 132 MMOL/L (136-145) L Potassium Level 4.0 MMOL/L (3.5-5.1) Chloride Level 101 MMOL/L (98-107) Carbon Dioxide Level 26 MMOL/L (21-32) Anion Gap 5 mmol/L (5-15) Blood Urea Nitrogen 10 mg/dL (7-18) Creatinine 0.8 MG/DL (0.55-1.30) Estimat Glomerular Filtration Rate > 60 mL/min (>60) Glucose Level 235 MG/DL (74-106) #H Calcium Level 8.1 MG/DL (8.5-10.1) L Height (Feet): 5 Height (Inches): 2.00 Weight (Pounds): 168 General Appearance: WD/WN, no apparent distress, alert Cardiovascular: normal rate Respiratory/Chest: normal breath sounds, no respiratory distress Abdominal Exam: normal bowel sounds, non tender, soft Extremities: non-tender Kenyetta Cobos N.PIsamar Jun 29, 2017 09:57
[2017-06-29 12:00] VITALS: BP 135/80
--- NOTE | 2017-06-29 13:27 | General Progress Note ---
Assessment/Plan Problem List: (1) Pancytopenia ICD Codes: D61.818 - Other pancytopenia SNOMED: 144491512 (2) Chronic pain ICD Codes: G89.29 - Other chronic pain SNOMED: 95173755 (3) Diarrhea ICD Codes: R19.7 - Diarrhea, unspecified SNOMED: 24391359 (4) Low back pain ICD Codes: M54.5 - Low back pain SNOMED: 753901440 (5) Diabetes mellitus ICD Codes: E11.9 - Type 2 diabetes mellitus without complications SNOMED: 83264372 (6) HTN (hypertension) ICD Codes: I10 - Essential (primary) hypertension SNOMED: 33077936 (7) COPD (chronic obstructive pulmonary disease) ICD Codes: J44.9 - Chronic obstructive pulmonary disease, unspecified SNOMED: 36895259 (8) Weakness ICD Codes: R53.1 - Weakness SNOMED: 16571980 (9) Anxiety ICD Codes: F41.9 - Anxiety disorder, unspecified SNOMED: 94812951, 404217157 Status: stable, progressing, tolerating diet Assessment/Plan ot pt diet pain control dc to snf Subjective Constitutional: Reports: weakness Allergies: Coded Allergies: METOCLOPRAMIDE (Verified Allergy, Severe, Anaphylaxis, 01/31/16) tongue swelling PROCHLORPERAZINE (Verified Allergy, Severe, Anaphylaxis, 01/31/16) tongue swelling PREDNISONE (Verified Allergy, Mild, Facial Edema , 07/28/15) EGG (Unverified Allergy, Unknown, 03/16/15) Pt sts she is allergic to eggs but not products made with eggs such as muffins IODINE (Verified Allergy, Unknown, 01/25/15) SHELLFISH DERIVED (Verified Allergy, Unknown, 04/07/14) Uncoded Allergies: plastic tape (Allergy, Mild, Rash, 01/25/15) PREDISONE (Allergy, Unknown, 04/12/16) SHELLFISH (Allergy, Unknown, 04/12/16) All Systems: reviewed and negative except above Subjective feeling better Objective Last 24 Hour Vital Signs Date Time Temp Pulse Resp B/P (MAP) Pulse Ox O2 Delivery O2 Flow Rate FiO2 06/29/17 12:00 96.2 53 16 135/80 96 06/29/17 08:41 97.7 06/29/17 08:10 63 128/72 06/29/17 08:10 128/72 06/29/17 08:00 97.4 56 17 126/69 96 Room Air 06/29/17 08:00 97.7 63 20 128/72 98 Room Air 06/29/17 04:00 97.7 51 20 114/71 97 Room Air 06/29/17 00:00 Room Air 06/29/17 00:00 97.7 54 20 118/64 95 Room Air 06/28/17 20:00 Room Air 06/28/17 20:00 98.2 65 20 123/66 97 Room Air 06/28/17 19:58 65 135/66 06/28/17 16:00 Room Air 06/28/17 16:00 97.3 67 20 121/66 96 Intake and Output 06/29/17 06/30/17 19:00 07:00 Intake Total 250 ml Balance 250 ml Intake Oral 250 ml Laboratory Tests 06/29/17 05:00: White Blood Count 4.9, Red Blood Count 3.64L, Hemoglobin 11.2L, Hematocrit 33.8L , Mean Corpuscular Volume 93, Mean Corpuscular Hemoglobin 30.6, Mean Corpuscular Hemoglobin Concent 32.9, Red Cell Distribution Width 12.6, Platelet Count 62L, Mean Platelet Volume 6.5, Neutrophils (%) (Auto) , Lymphocytes (%) ( Auto) , Monocytes (%) (Auto) , Eosinophils (%) (Auto) , Basophils (%) (Auto) , Differential Total Cells Counted 100, Neutrophils % (Manual) 74, Lymphocytes % ( Manual) 22, Monocytes % (Manual) 2, Eosinophils % (Manual) 0, Basophils % ( Manual) 2, Band Neutrophils 0, Platelet Estimate DecreasedL, Platelet Morphology Normal, Hypochromasia 1+, Anisocytosis 1+, Sodium Level 132L, Potassium Level 4.0, Chloride Level 101, Carbon Dioxide Level 26, Anion Gap 5, Blood Urea Nitrogen 10, Creatinine 0.8, Estimat Glomerular Filtration Rate > 60 , Glucose Level 235#H, Calcium Level 8.1L Height (Feet): 5 Height (Inches): 2.00 Weight (Pounds): 168 General Appearance: alert EENT: normal ENT inspection Neck: normal alignment Cardiovascular: normal peripheral pulses, normal rate, regular rhythm Respiratory/Chest: chest wall non-tender, lungs clear, normal breath sounds Abdomen: normal bowel sounds, non tender, soft Extremities: normal inspection Edema: no edema noted Arm (L), no edema noted Arm (R), no edema noted Leg (L), no edema noted Leg (R), no edema noted Pedal (L), no edema noted Pedal (R), no edema noted Generalized Neurologic: responsive, motor weakness Skin: normal pigmentation, warm/dry CHARLIE PEREZ Jun 29, 2017 13:27
--- NOTE | 2017-06-29 14:08 | Diagnostic Imaging Report ---
Indication: Abdominal pain, diabetes, history of cirrhosis, history of cholecystectomy Technique: Macias-scale and duplex images of the upper abdomen were obtained Comparison: 09/03/2016 Findings: Gallbladder is unremarkable, without stones, wall thickening, nor pericholecystic fluid. Sonographic Mckenzie's sign is negative. Common bile duct measures 4 mm in diameter. No intrahepatic biliary ductal dilatation. Liver demonstrates coarsened echogenicity and surface nodularity, also preserved border, consistent with known history of cirrhosis. Previously demonstrated left lobe cyst is not evident on this exam Portal vein and hepatic veins are patent. Pancreas is unremarkable. Spleen is enlarged, measuring 14 cm long axis dimension. Left kidney measures 10.9 cm in length. Right kidney measures 10.2 cm length. Both kidneys demonstrate normal echogenicity. There is no hydronephrosis. No focal abnormality . Non-aneurysmal abdominal aorta . Findings are unchanged Impression: Evidence of hepatic cirrhosis, also previously described Splenomegaly, possibly secondary to portal hypertension, also previously reported Surgically absent gallbladder. Negative for dilated ducts.
[2017-06-29 16:00] VITALS: BP 136/81
--- NOTE | 2017-06-29 16:20 | Pulmonology Progress Note ---
Assessment/Plan Problems: (1) COPD (chronic obstructive pulmonary disease) (2) Chronic pain (3) Psychiatric care (4) Abdominal pain Assessment/Plan respiratory treatment titrate fio2 to sat of 92% symptomatic treatment pain management Subjective ROS Limited/Unobtainable: No Constitutional: Reports: no symptoms HEENT: Repors: no symptoms Respiratory: Reports: no symptoms Allergies: Coded Allergies: METOCLOPRAMIDE (Verified Allergy, Severe, Anaphylaxis, 01/31/16) tongue swelling PROCHLORPERAZINE (Verified Allergy, Severe, Anaphylaxis, 01/31/16) tongue swelling PREDNISONE (Verified Allergy, Mild, Facial Edema , 07/28/15) EGG (Unverified Allergy, Unknown, 03/16/15) Pt sts she is allergic to eggs but not products made with eggs such as muffins IODINE (Verified Allergy, Unknown, 01/25/15) SHELLFISH DERIVED (Verified Allergy, Unknown, 04/07/14) Uncoded Allergies: plastic tape (Allergy, Mild, Rash, 01/25/15) PREDISONE (Allergy, Unknown, 04/12/16) SHELLFISH (Allergy, Unknown, 04/12/16) Objective Last 24 Hour Vital Signs Date Time Temp Pulse Resp B/P (MAP) Pulse Ox O2 Delivery O2 Flow Rate FiO2 06/29/17 12:00 96.2 53 16 135/80 96 06/29/17 08:41 97.7 06/29/17 08:10 63 128/72 06/29/17 08:10 128/72 06/29/17 08:00 97.4 56 17 126/69 96 Room Air 06/29/17 08:00 97.7 63 20 128/72 98 Room Air 06/29/17 04:00 97.7 51 20 114/71 97 Room Air 06/29/17 00:00 Room Air 06/29/17 00:00 97.7 54 20 118/64 95 Room Air 06/28/17 20:00 Room Air 06/28/17 20:00 98.2 65 20 123/66 97 Room Air 06/28/17 19:58 65 135/66 Intake and Output 06/29/17 06/30/17 19:00 07:00 Intake Total 250 ml Balance 250 ml Intake Oral 250 ml General Appearance: WD/WN HEENT: normocephalic, atraumatic Respiratory/Chest: chest wall non-tender, lungs clear, no respiratory distress Cardiovascular: normal peripheral pulses, normal rate Abdomen: normal bowel sounds, soft, non tender, non distended Extremities: no clubbing Neurologic/Psychiatric: supervisor facepiece line II-XII grossly normal, no motor/sensory deficits Lymphatic: no neck adenopathy Musculoskeletal: no effusion Laboratory Tests 06/29/17 05:00: White Blood Count 4.9, Red Blood Count 3.64L, Hemoglobin 11.2L, Hematocrit 33.8L , Mean Corpuscular Volume 93, Mean Corpuscular Hemoglobin 30.6, Mean Corpuscular Hemoglobin Concent 32.9, Red Cell Distribution Width 12.6, Platelet Count 62L, Mean Platelet Volume 6.5, Neutrophils (%) (Auto) , Lymphocytes (%) ( Auto) , Monocytes (%) (Auto) , Eosinophils (%) (Auto) , Basophils (%) (Auto) , Differential Total Cells Counted 100, Neutrophils % (Manual) 74, Lymphocytes % ( Manual) 22, Monocytes % (Manual) 2, Eosinophils % (Manual) 0, Basophils % ( Manual) 2, Band Neutrophils 0, Platelet Estimate DecreasedL, Platelet Morphology Normal, Hypochromasia 1+, Anisocytosis 1+, Sodium Level 132L, Potassium Level 4.0, Chloride Level 101, Carbon Dioxide Level 26, Anion Gap 5, Blood Urea Nitrogen 10, Creatinine 0.8, Estimat Glomerular Filtration Rate > 60 , Glucose Level 235#H, Calcium Level 8.1L Current Medications Medications (Trade) Dose Ordered Sig/Bill Route PRN Reason Start Time Stop Time Status Last Admin Dose Admin Acetaminophen (Tylenol) 650 mg Q4H PRN ORAL fever 06/26/17 22:30 07/26/17 22:29 Al Hydroxide/Mg Hydroxide (Mylanta II) 30 ml Q6H PRN ORAL dyspepsia 06/26/17 22:30 07/26/17 22:29 Aripiprazole (Abilify) 10 mg DAILY ORAL 06/27/17 09:00 07/27/17 08:59 06/29/17 08:10 Citalopram Hydrobromide (celeXA) 20 mg DAILY ORAL 06/27/17 09:00 07/27/17 08:59 06/29/17 08:09 Dextrose (Dextrose 50%) STAT PRN IV Hypoglycemia 06/26/17 22:30 07/26/17 22:29 Diphenhydramine HCl (Benadryl) 25 mg Q6H PRN ORAL Itching/Pruritis 06/26/17 22:30 07/26/17 22:29 06/28/17 09:05 Insulin Aspart (NovoLOG) BEFORE MEALS AND HS SUBQ 06/27/17 06:30 07/27/17 06:29 06/29/17 12:10 Ketorolac Tromethamine (Toradol 30mg) 30 mg Q6H PRN IV moderate pian 4-6 06/26/17 22:30 07/01/17 22:29 Lisinopril (Prinivil) 40 mg DAILY ORAL 06/27/17 09:00 07/27/17 08:59 06/29/17 08:10 Lorazepam (Ativan) 2 mg Q6H PRN ORAL For Anxiety 06/27/17 11:45 07/04/17 11:44 06/29/17 14:44 Metoprolol Tartrate (Lopressor) 25 mg Q12HR ORAL 06/27/17 21:00 07/27/17 20:59 06/29/17 08:10 Morphine Sulfate (Morphine Sulfate) 2 mg EVERY 4 HOURS PRN IVP severe Pain (Pain Scale 7-10) 06/26/17 22:30 07/03/17 22:29 06/29/17 12:31 Nitroglycerin (Ntg) 0.4 mg Q5M X 3 DOSES PRN SL Prn Chest Pain 06/26/17 22:30 07/26/17 22:29 Ondansetron HCl (Zofran) 4 mg Q6H PRN IVP Nausea & Vomiting 06/26/17 22:30 07/26/17 22:29 06/27/17 13:11 Polyethylene Glycol (Miralax) 17 gm HSPRN PRN ORAL Constipation 06/26/17 22:30 07/26/17 22:29 Temazepam (Restoril) 15 mg HSPRN PRN ORAL Insomnia 06/26/17 22:30 07/03/17 22:29 06/26/17 23:32 ORALIA GÓMEZ Jun 29, 2017 16:20
[2017-06-29] MEDS ORDERED: MYLANTA30 M1 PO (16:57)
[2017-06-29] MEDS ORDERED: DIPHENHYDRAMINE25 M1 ORAL (16:58)
[2017-06-29] MEDS ORDERED: NOVOLOG100 UNITS1 (16:58)
[2017-06-29] MEDS ORDERED: TORADOL60 MG/2 ML PO ×3 (16:59→17:06)
[2017-06-29] MEDS ORDERED: LORAZEPAM2 MG/1 M4 ORAL (17:00)
[2017-06-29] MEDS ORDERED: NITROGLYCERIN0.4 MG SL (17:01)
[2017-06-29] MEDS ORDERED: MIRALAX17 G2 ORAL (17:02)
[2017-06-29] MEDS ORDERED: ZOFRAN4 M1 ORAL (17:02)
[2017-06-29] MEDS ORDERED: RESTORIL15 MG ORAL (17:02)
[2017-06-29] MEDS ORDERED: LOPRESSOR25 M1 ORAL (17:10)
[2017-06-29] MEDS ORDERED: Tubing IV Secondary IV ONE (18:04)
--- NOTE | 2017-06-29 21:28 | General Progress Note ---
Assessment/Plan Assessment/Plan IMPRESSION/RECS: 1. Pancytopenia secondary to liver cirrhosis/hepatitis C. has cirrhosis and splenomegaly --> For leukopenia have administered one dose of neupogen 06/27/17 --> wbc count improved 2. Leukopenia, persistent secondary to liver cirrhosis/hepatitis C. 3. Thrombocytopenia, persistent secondary to liver cirrhosis/hepatitis C/drug side effect. 4. Anemia of chronic disease. watch counts Subjective Allergies: Coded Allergies: METOCLOPRAMIDE (Verified Allergy, Severe, Anaphylaxis, 01/31/16) tongue swelling PROCHLORPERAZINE (Verified Allergy, Severe, Anaphylaxis, 01/31/16) tongue swelling PREDNISONE (Verified Allergy, Mild, Facial Edema , 07/28/15) EGG (Unverified Allergy, Unknown, 03/16/15) Pt sts she is allergic to eggs but not products made with eggs such as muffins IODINE (Verified Allergy, Unknown, 01/25/15) SHELLFISH DERIVED (Verified Allergy, Unknown, 04/07/14) Uncoded Allergies: plastic tape (Allergy, Mild, Rash, 01/25/15) PREDISONE (Allergy, Unknown, 04/12/16) SHELLFISH (Allergy, Unknown, 04/12/16) All Systems: reviewed and negative except above Subjective feeling better. no fevers or chills Objective Last 24 Hour Vital Signs Date Time Temp Pulse Resp B/P (MAP) Pulse Ox O2 Delivery O2 Flow Rate FiO2 06/29/17 17:02 97.7 06/29/17 16:00 97.7 59 17 136/81 100 Room Air 06/29/17 12:00 96.2 53 16 135/80 96 06/29/17 08:10 63 128/72 06/29/17 08:10 128/72 06/29/17 08:00 97.4 56 17 126/69 96 Room Air 06/29/17 08:00 97.7 63 20 128/72 98 Room Air 06/29/17 04:00 97.7 51 20 114/71 97 Room Air 06/29/17 00:00 Room Air 06/29/17 00:00 97.7 54 20 118/64 95 Room Air Intake and Output 06/29/17 06/30/17 19:00 07:00 Intake Total 250 ml Balance 250 ml Intake Oral 250 ml Laboratory Tests 12/4/17 05:00: White Blood Count 4.9, Red Blood Count 3.64L, Hemoglobin 11.2L, Hematocrit 33.8L , Mean Corpuscular Volume 93, Mean Corpuscular Hemoglobin 30.6, Mean Corpuscular Hemoglobin Concent 32.9, Red Cell Distribution Width 12.6, Platelet Count 62L, Mean Platelet Volume 6.5, Neutrophils (%) (Auto) , Lymphocytes (%) ( Auto) , Monocytes (%) (Auto) , Eosinophils (%) (Auto) , Basophils (%) (Auto) , Differential Total Cells Counted 100, Neutrophils % (Manual) 74, Lymphocytes % ( Manual) 22, Monocytes % (Manual) 2, Eosinophils % (Manual) 0, Basophils % ( Manual) 2, Band Neutrophils 0, Platelet Estimate DecreasedL, Platelet Morphology Normal, Hypochromasia 1+, Anisocytosis 1+, Sodium Level 132L, Potassium Level 4.0, Chloride Level 101, Carbon Dioxide Level 26, Anion Gap 5, Blood Urea Nitrogen 10, Creatinine 0.8, Estimat Glomerular Filtration Rate > 60 , Glucose Level 235#H, Calcium Level 8.1L Height (Feet): 5 Height (Inches): 2.00 Weight (Pounds): 168 General Appearance: no apparent distress EENT: normal ENT inspection Neck: normal alignment Cardiovascular: normal rate Extremities: non-tender Skin: normal pigmentation, warm/dry Buddy Rubin Jun 29, 2017 21:28
--- NOTE | 2017-06-30 07:46 | Consultation ---
DATE OF CONSULTATION: 06/29/2017 CONSULTING PHYSICIAN: Oneil Olson M.D. REFERRING PHYSICIAN: Bubba Hanley D.O. ATTENDING PHYSICIAN: Bubba Hanley D.O. HISTORY OF PRESENT ILLNESS: The patient is a 57-year-old female patient. She is coming into hospital with abdominal pain. She also has had leg injury as well. She also has a diagnosis of bipolar 2, so this consultation was requested. ALLERGIES: Iodine. SOCIAL HISTORY: Lives in [facility]. Financially supported by [facility] and Medicare. SUBSTANCE ABUSE HISTORY: Denies drug and alcohol abuse. PSYCHIATRIC HISTORY: Bipolar 2, multiple psychiatric admissions. MEDICAL HISTORY: Abdominal pain. Please see Internal Medicine note for further details. MENTAL STATUS EXAMINATION: The patient is a 57-year-old female with psychomotor retardation. Mood is depressed. Affect is guarded and restricted. Thought process is disorganized and illogical. Denies any current suicidal or homicidal thoughts. Insight and judgment is poor. DIAGNOSES: Paranoid schizophrenia with acute exacerbation, depression, bipolar 2. PLAN: Treat her with 10 mg a day and Celexa 20 mg management and encouraged her to interact appropriately with staff and other patients. Chart was reviewed and discussed with staff. I would like to thank Dr. Bubba Hanley for this interesting consultation. Oneil Olson M.D. DR: FREDDY JOB#: [id number] CC:
--- NOTE | 2017-06-30 10:42 | Diagnostic Imaging Report ---
APPROVED REPORT CPT Code: 78481 Present Symptoms Comments: R/O DVT BILATERAL: Imaging reveals a patent deep venous system bilaterally. There is no evidence of thrombus within the femoral, popliteal or tibial segments. The greater saphenous veins are also within normal limits. Doppler indicates normal spontaneous flow within these segments.
--- NOTE | 2017-06-30 23:15 | Consultation ---
DATE OF CONSULTATION: 06/29/2017 PSYCHOTHERAPY CONSULTATION PROGRESS NOTE CONSULTING PHYSICIAN: Josias Rowell M.D. TREATING ATTENDING PHYSICIAN: Bubba Hanley D.O. HISTORY OF PRESENT ILLNESS: This patient is a 57-year-old female patient from [facility]. The patient is brought to the hospital for anxiety, abdominal pain, nausea, vomiting, and headache. The patient has history of mental illness including bipolar disorder. The patient was referred for psychotherapeutic services due to feeling anxious. The patient stated that she had leg injury and she has been having abdominal pain. The patient stated that her anxiety level is high. She is tearful, crying. Denies suicidal or homicidal thoughts of ideation, however, states that she has had some difficulty sleeping and her mood has been fluctuating. PAST MEDICAL HISTORY: Includes history of gallbladder, hysterectomy, and nasal surgery. ALLERGIES: The patient is allergic to prednisone, , Reglan, iodine, and prochlorperazine. SUBSTANCE ABUSE HISTORY: The patient has history of methamphetamine use, marijuana use, alcohol use, and smoking cigarettes. PSYCHIATRIC HISTORY: The patient has a history of bipolar disorder and possible schizoaffective disorder. The patient has been treated with psychotropic medications in the past. SOCIAL HISTORY: The patient is a 57-year-old female patient from [facility]. Financially sustained through [facility]. MENTAL STATUS EXAMINATION: The patient is alert and oriented x3 to person, place, and time. Mood is anxious. Affect is congruent. Thought process disorganized. Thought content linear. The patient has poor attention and concentration. Fair insight, judgment, and impulse control. DIAGNOSIS: Rule out of schizoaffective disorder, bipolar type. PLAN: This clinician assessed the patient. Provided the patient with reality orientation and supportive psychotherapy. Encouraging the patient to participate in treatment milieu, working on the patient's coping skills and compliance . Continue with behavioral management. This clinician has reviewed the patient's chart and discussed the treatment with treatment team. Addressing the patient's anxiety and feelings of helplessness and providing her with coping skills. Josias Rowell PsyD. DR: Kristie JOB#: [id number] CC:
--- NOTE | 2017-07-01 10:44 | Discharge Summary ---
Discharge Summary Hospital Course Date of Admission Jun 26, 2017 at 20:44 Date of Discharge Jun 29, 2017 at 18:05 Admitting Diagnosis abdominal pain HPI Teetee Armstrong is a 57 year old female who was admitted on Jun 26, 2017 at 20: 44 for Abdominal Pain Hospital Course dc summary #[id number] Discharge Medications Continued Medications: Acetaminophen (Acetaminophen) 325 Mg Capsule 650 MG PO Q4HR PRN for Prn Headache/Temp > 101, CAP Al Hydroxide/mg Hydroxide (Mag-Al Liquid) 30 Ml Oral.susp 30 ML PO Q6HR, ML Aripiprazole* (Abilify*) 5 Mg Tablet 10 MG ORAL DAILY, #1 TAB Citalopram Hydrobromide* (Celexa*) 20 Mg Tablet 20 MG ORAL DAILY, TAB Diphenhydramine Hcl (Benadryl Allergy) 25 Mg Tablet 25 MG PO Q6HR, #10 TAB Insulin Aspart (Novolog Flexpen) 100 Unit/1 Ml Insuln.pen BEFORE MEALS AND HS Lisinopril (Lisinopril*) 20 Mg Tablet 40 MG ORAL DAILY, TAB Lorazepam* (Ativan*) 2 Mg Tablet 2 MG ORAL Q6HR, TAB Metoprolol Tartrate (Metoprolol Tartrate) 25 Mg Tablet 25 MG ORAL EVERY 12 HOURS, TAB Nitroglycerin (Nitroglycerin) 0.4 Mg Tab.subl 0.4 MG SL Q5M x 3 doses, TAB Ondansetron (Zofran) 4 Mg Tablet 4 MG ORAL Q6H PRN for Nausea & Vomiting, TAB Polyethylene Glycol 3350* (Miralax*) 17 Gm Powd.pack 17 GM ORAL DAILY, PACKET Temazepam* (Restoril*) 15 Mg Capsule 15 MG ORAL BEDTIME PRN for Insomnia, CAP Discharge Condition Upon Discharge: stable Discharge Disposition Patient was discharged to SNF/Subacute Facility(03) Discharge Diagnoses: Ross (Clarita)Milvia NP Jul 01, 2017 10:44
--- NOTE | 2017-07-01 23:15 | Discharge Summary 2 SIG ---
DATE OF ADMISSION: 06/26/2017 DATE OF DISCHARGE: 06/29/2017 REASON FOR ADMISSION: 57-year-old female with history of hepatitis C, cirrhosis, COPD, diabetes, hypertension, degenerative disk disease, and chronic pain syndrome, schizoaffective disorder, presented to emergency department with abdominal pain, nausea, vomiting, and diarrhea. Diarrhea described as watery and nonbloody and vomiting was nonbloody and nonbilious. AST- 52. Lipase within normal limits. Sodium -128. No leukocytosis. WBC -2 and platelets -68,000. Troponin negative. EKG showed normal sinus rhythm, no acute ischemic changes. Urinalysis negative. CT of the abdomen and pelvis revealed no acute abnormality, but showed cirrhosis and stigmata of portal hypertension including splenomegaly and recanalized umbilical vein, moderate stool. The patient was admitted for further management with diagnoses of abdominal pain, intractable nausea and vomiting, liver cirrhosis, history of hepatitis C, COPD, pancytopenia, hyponatremia, and chronic pain syndrome. HOSPITAL STAY: The patient was admitted to Med/Surg floor. The patient was started on gentle IV fluids with normal saline. Initially NPO. Antiemetic provided as needed. GI followed. LFT and lipase were closely monitored. No heparin due to the low platelets. Venous duplex of bilateral lower extremities was negative. Sequential compression device was used as mechanical DVT prophylaxis. GI prophylaxis provided. Abdominal ultrasound revealed evidence of hepatic cirrhosis, splenomegaly, possibly secondary to portal hypertension, negative for dilated ducts. Patient was started on trial of clear liquids, tolerated well. Diet was advanced as tolerated. She was clinically improving with symptomatic treatment. Per GI, the patient likely had gastroenteritis versus possible food poisoning at the facility. Sodium was up after hydration. She was able tolerate diet. Change Person followed. Pancytopenia chronic likely due to the chronic liver disease. The patient had one dose of Granix on 06/27/2017, WBC up to 7.8. Monitor counts of platelets, hemoglobin, and hematocrit at the facility. Blood sugar was managed with sliding scale of insulin. Hemoglobin A1c -7.3, at goal. Blood pressure was managed with beta-juan and BEAU inhibitor and remained stable. Supplemental oxygen titrated as needed to keep pulse oximetry above 92%. Pulmonary toilet was provided as needed. No evidence of COPD exacerbation. Pulse oximetry was stable on room air prior to discharge. Pain specialist followed for chronic pain syndrome due to osteoarthritis of the knee, lumbar spondylosis , and degenerative disk disease. Pain specialist advised on judicious pain management. Pain was addressed and controlled. Bowel regimen instituted. Psychiatrist had seen and evaluated the patient, and diagnosed the patient with paranoid schizophrenia with acute exacerbation, depression, and bipolar type 2. Psychiatrist optimized psychiatric medication regimen. The patient was cleared by all consultants for [facility]. FINAL DIAGNOSES: 1. Abdominal pain with intractable nausea and vomiting, resolved. 2. Possible gastroenteritis. 3. Possible food poisoning. 4. Liver cirrhosis. 5. History of hepatitis C. 6. Chronic obstructive pulmonary disease. 7. Pancytopenia. 8. Diabetes. 9. Hypertension. 10. Hyponatremia. 11. Chronic pain syndrome. 12. Degenerative disk disease. 13. Osteoarthritis of the knee. 14. Lumbar spondylosis. 15. Chronic pain syndrome. 16. Paranoid schizophrenia with acute exacerbation. 17. Depression. 18. Bipolar type 2 DISCHARGE MEDICATIONS: See medication reconciliation list. DISCHARGE INSTRUCTIONS: The [facility]. FOLLOWUP: Follow up with medical doctor at the facility. GI recommended outpatient colonoscopy and outpatient hepatitis C treatment. Bubba Hanley D.O. Milvia CamposKings County Hospital CenterHans N.PIsamar DR: BITA JOB#: [id number] CC: TOÑO
== END 2017-06-29 18:05 | DRG 392 ==
LOC: EDBD 20:14 → EMR 20:25 → 4E 20:44 → EDBEDREQ 21:24 → 4E 06-28 23:29
DX: K52.9 Noninfective gastroenteritis and colitis, unspecified (principal); D61.818 Other pancytopenia; K74.60 Unspecified cirrhosis of liver; E87.1 Hypo-osmolality and hyponatremia; F20.0 Paranoid schizophrenia; E11.9 Type 2 diabetes mellitus without complications; D63.8 Anemia in other chronic diseases classified elsewhere; F31.81 Bipolar II disorder; J44.9 Chronic obstructive pulmonary disease, unspecified; K72.90 Hepatic failure, unspecified without coma; R11.2 Nausea with vomiting, unspecified; G89.4 Chronic pain syndrome; M51.36 Other intervertebral disc degeneration, lumbar region; M17.9 Osteoarthritis of knee, unspecified; Z86.19 Personal history of other infectious and parasitic diseases; M47.896 Other spondylosis, lumbar region; I25.2 Old myocardial infarction; Z88.8 Allergy status to other drugs, medicaments and biological substances; Z79.4 Long term (current) use of insulin; F15.21 Other stimulant dependence, in remission; F41.9 Anxiety disorder, unspecified
CPT/HCPCS: 36415; 74176; 76700; 80048; 80053; 81003; 82150; 82962; 83036; 83690; 84443; 84484; 85007; 85025; 85610; 85730; 93005; 93970; 99285; J1815; J2405

== ENCOUNTER 2017-08-11 21:17 | Emergency (ER) | payer MEDICARE, MEDICAID ==
[~2017-08-11] VITALS: Ht 157.5 cm; Wt 67.1 kg
[~2017-08-11 21:17] MED LIST changes: +LOPRESSOR25 M1 ORAL; +LORAZEPAM2 MG/1 M4 ORAL; +NOVOLOG100 UNITS1; +RESTORIL15 MG ORAL; +TORADOL60 MG/2 ML PO; +ZOFRAN4 M1 ORAL
[2017-08-11 21:44] VITALS: BP 146/96
--- NOTE | 2017-08-11 21:56 | Emergency Room Report ---
History of Present Illness General Chief Complaint: Abnormal Labs Source: Patient, Medical Record Present Illness HPI This is a 49-year-old female with a history of chronic pain, anxiety, and thrombocytopenia. He presents with chief complaint of abnormal lab. Her labs were done 3 days ago did show platelets of 92,000. Patient complaining of increasing pain. This is a chronic issue for her. She was just recently admitted workup was negative. No nausea no vomiting. No diarrhea. Denies any other complaint. Allergies: Coded Allergies: METOCLOPRAMIDE (Verified Allergy, Severe, Anaphylaxis, 01/31/16) tongue swelling PROCHLORPERAZINE (Verified Allergy, Severe, Anaphylaxis, 01/31/16) tongue swelling PREDNISONE (Verified Allergy, Mild, Facial Edema , 07/28/15) EGG (Unverified Allergy, Unknown, 03/16/15) Pt sts she is allergic to eggs but not products made with eggs such as muffins IODINE (Verified Allergy, Unknown, 01/25/15) SHELLFISH DERIVED (Verified Allergy, Unknown, 04/07/14) Uncoded Allergies: plastic tape (Allergy, Mild, Rash, 01/25/15) CONTRAST DYE (Allergy, Unknown, 08/11/17) FISH (Allergy, Unknown, 08/11/17) PREDISONE (Allergy, Unknown, 04/12/16) SEAFOOD (Allergy, Unknown, 08/11/17) SHELLFISH (Allergy, Unknown, 04/12/16) Patient History Past Medical History: see triage record, old chart reviewed Past Surgical History: other Pertinent Family History: none Social History: Denies: smoking Last Menstrual Period: NA Now: No Immunizations: other Reviewed Nursing Documentation: PMH: Agreed, PSxH: Agreed Nursing Documentation-PMH Hx Cardiac Problems: Yes Hx Hypertension: Yes Hx Pacemaker: No Hx Asthma: Yes Hx COPD: Yes - asthma Hx Diabetes: Yes - dm type 2 Hx Cancer: No Hx Gastrointestinal Problems: Yes Hx Dialysis: No Hx Neurological Problems: Yes - Anxiety, depression, anxiety, insomnia Hx Cerebrovascular Accident: Yes Hx Seizures: Yes Hx Peripheral Neuropathy: Yes Hx Dizziness: Yes Hx Headaches: Yes Hx Weakness: Yes Hx Neurologic Surgery: No Hx Brain Shunt: No Review of Systems Eye: Denies: eye pain, blurred vision ENT: Denies: ear pain, nose congestion, throat swelling Respiratory: Denies: cough, shortness of breath Cardiovascular: Denies: chest pain, palpitations Gastrointestinal: Denies: abdominal pain, diarrhea, nausea, vomiting Musculoskeletal: Denies: back pain, joint pain Skin: Denies: rash Neurological: Denies: headache, numbness Endocrine: Denies: increased thirst, increased urine Hematologic/Lymphatic: Denies: easy bruising All Other Systems: negative except mentioned in HPI Physical Exam Vital Signs Date Time Temp Pulse Resp B/P (MAP) Pulse Ox O2 Delivery O2 Flow Rate FiO2 08/11/17 21:18 97.9 72 18 144/96 98 Room Air vitals unremarkable Sp02 EP Interpretation: reviewed, normal General Appearance: well appearing, no apparent distress, alert Head: normocephalic, atraumatic Eyes: bilateral eye PERRL, bilateral eye EOMI ENT: hearing grossly normal, normal pharynx Neck: full range of motion, supple, no meningismus Respiratory: chest non-tender, lungs clear, normal breath sounds Cardiovascular #1: regular rate, rhythm, no murmur Gastrointestinal: normal bowel sounds, non tender, no mass, no organomegaly, no bruit, non-distended Musculoskeletal: back normal, normal range of motion Psychiatric: mood/affect normal Skin: warm/dry Medical Decision Making Diagnostic Impression: Primary Impression: Chronic pain Qualified Codes: G89.4 - Chronic pain syndrome Additional Impression: Thrombocytopenia ER Course Patient has history of chronic pain. Her platelet count is actually above her usual level of 60-80,000. We'll discharge home if labs remained stable. Last Vital Signs Date Time Temp Pulse Resp B/P (MAP) Pulse Ox O2 Delivery O2 Flow Rate FiO2 08/11/17 21:44 97.9 74 18 146/96 98 Room Air Status: improved Disposition: ER SNF Condition: Stable Additional Instructions: Followup with your Dr. in 7 days. You have low platelets count. There is a chronic issue. No need to return unless there is evidence of bleeding. Return if symptom worsen. ROSIE RAMIREZ M.D. Aug 11, 2017 21:56
[2017-08-11 22:15] LABS: ANION GAP 5 mmol/L (5-15); BLOOD UREA NITROGEN 16 mg/dL (7-18); CALCIUM 8.8 MG/DL (8.5-10.1); CARBON DIOXIDE 27 MMOL/L (21-32); CHLORIDE 100 MMOL/L (98-107); CREATININE 0.9 MG/DL (0.55-1.30); POTASSIUM 4.1 MMOL/L (3.5-5.1); SODIUM 132 MMOL/L (136-145)
[2017-08-11 22:39] LABS: APPEARANCE,URINE CLEAR; BILIRUBIN, URINE NEGATIVE (NEGATIVE); COLOR,URINE BROWN; GLUCOSE, URINE (UA) NEGATIVE (NEGATIVE); KETONES,URINE NEGATIVE (NEGATIVE); LEUKOCYTE ESTERASE ,URINE 1+ (NEGATIVE); NITRITE,URINE NEGATIVE (NEGATIVE); PH,URINE 6 (4.5-8.0); PROTEIN,URINE 2+ (NEGATIVE); UROBILINOGEN,URINE 4 MG/DL (0.0-1.0)
[2017-08-11 22:45] LABS: HEMATOCRIT 37.4 % (37.0-47.0); HEMOGLOBIN 11.5 G/DL (12.0-16.0); MEAN CORPUSCULAR VOLUME 94 FL (80-99); PLATELET COUNT 94 K/UL (150-450); RED BLOOD COUNT 3.96 M/UL (4.20-5.40); RED CELL DISTRIBUTION WIDTH 13.5 % (11.6-14.8); WHITE BLOOD COUNT 3.4 K/UL (4.8-10.8)
[2017-08-11] MEDS ORDERED: Norco 5mg/325mg tab ORAL ONE (22:45)
[2017-08-11 23:00] VITALS: BP 118/74
[2017-08-12 01:00] VITALS: BP 114/70
[2017-08-12 01:10] VITALS: BP 114/70
== END 2017-08-12 01:10 ==
LOC: EDBD 21:17 → EMR 22:00
DX: G89.29 Other chronic pain (principal); D69.6 Thrombocytopenia, unspecified; I10 Essential (primary) hypertension; E11.9 Type 2 diabetes mellitus without complications; F41.9 Anxiety disorder, unspecified; F32.9 Major depressive disorder, single episode, unspecified; Z86.73 Personal history of transient ischemic attack (TIA), and cerebral infarction without residual deficits
CPT/HCPCS: 36415; 80048; 81001; 85007; 85025; 99284

== ENCOUNTER 2017-08-31 10:37 | Emergency (ER) | payer MEDICARE, MEDICAID ==
[~2017-08-31] VITALS: Ht 157.5 cm; Wt 77.1 kg
[2017-08-31] MEDS ORDERED: oxyCODONE HCL/Acetaminophen 5/325mg ORAL ONE (10:45)
[2017-08-31 11:31] LABS: HEMATOCRIT 37.7 % (37.0-47.0); HEMOGLOBIN 12.3 G/DL (12.0-16.0); MEAN CORPUSCULAR VOLUME 93 FL (80-99); PLATELET COUNT 81 K/UL (150-450); RED BLOOD COUNT 4.03 M/UL (4.20-5.40); WHITE BLOOD COUNT 2.9 K/UL (4.8-10.8)
[2017-08-31 11:35] LABS: APPEARANCE,URINE CLEAR; BILIRUBIN, URINE NEGATIVE (NEGATIVE); GLUCOSE, URINE (UA) NEGATIVE (NEGATIVE); KETONES,URINE NEGATIVE (NEGATIVE); LEUKOCYTE ESTERASE ,URINE NEGATIVE (NEGATIVE); NITRITE,URINE NEGATIVE (NEGATIVE); PH,URINE 6 (4.5-8.0); PROTEIN,URINE 1+ (NEGATIVE); UROBILINOGEN,URINE 1 MG/DL (0.0-1.0)
[2017-08-31 11:37] LABS: COLOR,URINE YELLOW
[2017-08-31 11:38] LABS: INR 1.2 (0.9-1.1)
[2017-08-31 11:40] LABS: ANION GAP 2 mmol/L (5-15); BLOOD UREA NITROGEN 11 mg/dL (7-18); CALCIUM 8.7 MG/DL (8.5-10.1); CARBON DIOXIDE 31 MMOL/L (21-32); CHLORIDE 102 MMOL/L (98-107); CREATININE 0.7 MG/DL (0.55-1.30); POTASSIUM 4.6 MMOL/L (3.5-5.1); SODIUM 135 MMOL/L (136-145)
[2017-08-31 11:53] LABS: ALANINE AMINOTRANSFERASE 75 U/L (12-78); ALBUMIN 2.6 G/DL (3.4-5.0); ALBUMIN/GLOBULIN RATIO 0.4 (1.0-2.7); ALKALINE PHOSPHATASE 77 U/L (46-116); ASPARTATE AMINO TRANSFERASE 90 U/L (15-37); BILIRUBIN,TOTAL 0.6 MG/DL (0.2-1.0); CKMB 0.8 NG/ML (0.0-3.6); CREATINE KINASE 67 U/L (26-308)
[2017-08-31 12:06] VITALS: BP 150/79
--- NOTE | 2017-08-31 12:59 | Emergency Room Report ---
History of Present Illness General Chief Complaint: Pain Source: Patient, EMS Present Illness HPI Patient had left her doctors office when she was going down stairs. She felt dizzy - like she was about to pass out. No palpitations or chest pain. At that time she also had bilateral knee pain which was worse on the L. Paramedics were summoned. EKG without injury in field. No treatment by EMS except monitoring. Patient slightly better now but states has severe pain in her knees. She states she has good pain medicine at home, but she feels it has not been working well. No fevers, rashes, change in her medications. Able to eat. No change in weight. Recent hosp 06/29/17: 1. Abdominal pain with intractable nausea and vomiting, resolved. 2. Possible gastroenteritis. 3. Possible food poisoning. 4. Liver cirrhosis. 5. History of hepatitis C. 6. Chronic obstructive pulmonary disease. 7. Pancytopenia. 8. Diabetes. 9. Hypertension. 10. Hyponatremia. 11. Chronic pain syndrome. 12. Degenerative disk disease. 13. Osteoarthritis of the knee. 14. Lumbar spondylosis. 15. Chronic pain syndrome. 16. Paranoid schizophrenia with acute exacerbation. 17. Depression. 18. Bipolar type 2 Allergies: Coded Allergies: METOCLOPRAMIDE (Verified Allergy, Severe, Anaphylaxis, 01/31/16) tongue swelling PROCHLORPERAZINE (Verified Allergy, Severe, Anaphylaxis, 01/31/16) tongue swelling PREDNISONE (Verified Allergy, Mild, Facial Edema , 07/28/15) EGG (Unverified Allergy, Unknown, 03/16/15) Pt sts she is allergic to eggs but not products made with eggs such as muffins IODINE (Verified Allergy, Unknown, 01/25/15) SHELLFISH DERIVED (Verified Allergy, Unknown, 04/07/14) UNABLE TO ASSESS (Unverified , 08/31/17) Uncoded Allergies: plastic tape (Allergy, Mild, Rash, 01/25/15) CONTRAST DYE (Allergy, Unknown, 08/11/17) FISH (Allergy, Unknown, 08/11/17) PREDISONE (Allergy, Unknown, 04/12/16) SEAFOOD (Allergy, Unknown, 08/11/17) SHELLFISH (Allergy, Unknown, 04/12/16) Patient History Past Medical History: see triage record, old chart reviewed Past Surgical History: andrew Social History: Reports: smoking, alcohol use - prior Social History Narrative at SNF Reviewed Nursing Documentation: PMH: Agreed, PSxH: Agreed Nursing Documentation-PMH Hx Cardiac Problems: Yes - CAD; OR x2 Hx Hypertension: Yes - Left knee prothesis Hx Pacemaker: No Hx Asthma: Yes Hx COPD: Yes - asthma Hx Diabetes: Yes - dm type 2 Hx Cancer: Yes - Leukemia Hx Gastrointestinal Problems: Yes - Liver Cirrhosis; Hep C Hx Dialysis: No History Of Psychiatric Problem: Yes - Schizophrenia; Bipolar Type 2 Hx Neurological Problems: Yes - Anxiety; Depression; Insomnia; Chronic pain syndrome Hx Cerebrovascular Accident: Yes Hx Seizures: Yes Hx Peripheral Neuropathy: Yes Hx Dizziness: Yes Hx Headaches: Yes Hx Weakness: Yes Hx Neurologic Surgery: No Hx Brain Shunt: No Review of Systems All Other Systems: negative except mentioned in HPI Physical Exam Vital Signs Date Time Temp Pulse Resp B/P (MAP) Pulse Ox O2 Delivery O2 Flow Rate FiO2 08/31/17 10:42 97.5 78 16 167/72 100 Room Air Sp02 EP Interpretation: reviewed, normal General Appearance: no apparent distress, GCS 15 Head: normocephalic, atraumatic Eyes: bilateral eye normal inspection, bilateral eye PERRL ENT: moist mucus membranes Neck: supple Respiratory: lungs clear, normal breath sounds Cardiovascular #1: regular rate, rhythm Cardiovascular #2: 2+ radial (R) Gastrointestinal: normal inspection, normal bowel sounds, non tender, no mass, non-distended Musculoskeletal: back normal, decreased range of motion - knees, other - bilateral knee pain, no effusions, ligaments stable Neurologic: alert, oriented x3, motor strength/tone normal, DTRs symmetric, sensory intact, other - slightly slurred Psychiatric: other - pressuring for pain medicine Skin: normal inspection, warm/dry Medical Decision Making Diagnostic Impression: Primary Impression: Exacerbation chronic knee pain Additional Impressions: Dizziness Drug-seeking behavior ER Course Patient with dizziness and knee pain. Ddx: exacerbation of chronic pain, gout, AMI, dehydration, occult infection (not knees by physical) amongst others. Evaluation with EKG, CXR, knee films. Treatment with analgesics, though limited as patient on own to go home. Discussed this with the patient - pressuring me to allow to go by taxi. EKG without injury CXR no infiltrates. Labs remarkable low WBC (chronic), elevated sed rate, elevated glucose, (neg troponin). + benzos and opiates. Patient refused knee films. Told needed these to evaluate pain. She got up, walked without difficulty and stated she wanted to go home. Patient stable for outpatient observation and treatment. Laboratory Tests Test 08/31/17 11:20 White Blood Count 2.9 K/UL (4.8-10.8) L Red Blood Count 4.03 M/UL (4.20-5.40) L Hemoglobin 12.3 G/DL (12.0-16.0) Hematocrit 37.7 % (37.0-47.0) Mean Corpuscular Volume 93 FL (80-99) Mean Corpuscular Hemoglobin 30.5 PG (27.0-31.0) Mean Corpuscular Hemoglobin Concent 32.6 G/DL (32.0-36.0) Red Cell Distribution Width 14.0 % (11.6-14.8) Platelet Count 81 K/UL (150-450) L Mean Platelet Volume 7.3 FL (6.5-10.1) Neutrophils (%) (Auto) % (45.0-75.0) Lymphocytes (%) (Auto) % (20.0-45.0) Monocytes (%) (Auto) % (1.0-10.0) Eosinophils (%) (Auto) % (0.0-3.0) Basophils (%) (Auto) % (0.0-2.0) Differential Total Cells Counted 100 Neutrophils % (Manual) 68 % (45-75) Lymphocytes % (Manual) 20 % (20-45) Monocytes % (Manual) 12 % (1-10) H Eosinophils % (Manual) 0 % (0-3) Basophils % (Manual) 0 % (0-2) Band Neutrophils 0 % (0-8) Platelet Estimate Decreased L Platelet Morphology Normal Erythrocyte Sedimentation Rate 70 MM/HR (0-30) H Prothrombin Time 13.1 SEC (9.30-11.50) H Prothrombin Time INR 1.2 (0.9-1.1) H PTT 28 SEC (23-33) Urine Color Yellow Urine Appearance Clear Urine pH 6 (4.5-8.0) Urine Specific [place] 1.020 (1.005-1.035) Urine Protein 1+ (NEGATIVE) H Urine Glucose (UA) Negative (NEGATIVE) Urine Ketones Negative (NEGATIVE) Urine Occult Blood Negative (NEGATIVE) Urine Nitrite Negative (NEGATIVE) Urine Bilirubin Negative (NEGATIVE) Urine Urobilinogen 1 MG/DL (0.0-1.0) H Urine Leukocyte Esterase Negative (NEGATIVE) Urine RBC 0-2 /HPF (0 - 2) Urine WBC 0-2 /HPF (0 - 2) Urine Squamous Epithelial Cells Occasional /LPF Urine Bacteria None /HPF (NONE) Sodium Level 135 MMOL/L (136-145) L Potassium Level 4.6 MMOL/L (3.5-5.1) Chloride Level 102 MMOL/L (98-107) Carbon Dioxide Level 31 MMOL/L (21-32) Anion Gap 2 mmol/L (5-15) L Blood Urea Nitrogen 11 mg/dL (7-18) Creatinine 0.7 MG/DL (0.55-1.30) Estimate Glomerular Filtration Rate > 60 mL/min (>60) Glucose Level 253 MG/DL (74-106) H Uric Acid 3.4 MG/DL (2.6-7.2) Calcium Level 8.7 MG/DL (8.5-10.1) Total Bilirubin 0.6 MG/DL (0.2-1.0) Aspartate Amino Transferase (AST) 90 U/L (15-37) H Alanine Aminotransferase (ALT) 75 U/L (12-78) Alkaline Phosphatase 77 U/L (46-116) Total Creatine Kinase 67 U/L (26-308) Creatine Kinase MB 0.8 NG/ML (0.0-3.6) Creatine Kinase MB Relative Index 1.1 Troponin I 0.000 ng/mL (0.000-0.056) Pro-B-Type Natriuretic Peptide 101 pg/mL (0-125) Total Protein 9.5 G/DL (6.4-8.2) H Albumin 2.6 G/DL (3.4-5.0) L Globulin 6.9 g/dL Albumin/Globulin Ratio 0.4 (1.0-2.7) L Thyroid Stimulating Hormone (TSH) 1.864 uiU/mL (0.358-3.740) Urine Opiates Screen Positive (NEGATIVE) H Urine Barbiturates Screen Negative (NEGATIVE) Phencyclidine (PCP) Screen Negative (NEGATIVE) Urine Amphetamines Screen Negative (NEGATIVE) Urine Benzodiazepines Screen Positive (NEGATIVE) H Urine Cocaine Screen Negative (NEGATIVE) Urine Marijuana (THC) Screen Negative (NEGATIVE) EKG Diagnostic Results Rate: normal Rhythm: NSR ST Segments: no acute changes Rhythm Strip Diag. Results EP Interpretation: yes Rhythm: NSR, no PVC's, no ectopy Chest X-Ray Diagnostic Results Chest X-Ray Diagnostic Results : Chest X-Ray Ordered: Yes # of Views/Limited/Complete: 1 View Indication: Other EP Interpretation: Yes Interpretation: no consolidation, no effusion, no pneumothorax, other - COPD Impression: Other Electronically Signed by: Jayson Lancaster MD Last Vital Signs Date Time Temp Pulse Resp B/P (MAP) Pulse Ox O2 Delivery O2 Flow Rate FiO2 08/31/17 13:08 97.5 67 16 150/79 100 Room Air Status: improved Disposition: [facility] SN[facility] Condition: Improved Referrals: CHARLIE PEREZ (PCP) Jayson Lancaster M.D. Aug 31, 2017 12:59
[2017-08-31 13:08] VITALS: BP 150/79
--- NOTE | 2017-08-31 16:18 | Diagnostic Imaging Report ---
Indication: Chest pain Technique: One view of the chest Comparison: 09/07/2016 Findings: Lungs and pleural spaces are clear. Heart size is normal . No significant change Impression: No acute process
--- NOTE | 2017-09-02 17:37 | Cardiology Report ---
APPROVED REPORT EKG Measurement Heart [id number] Normal sinus rhythm Minimal voltage criteria for LVH, may be normal variant Borderline ECG
== END 2017-08-31 13:33 ==
LOC: EDBD 10:37 → EDUNIT# 10:37 → EMR 12:25
DX: M25.562 Pain in left knee (principal); M25.561 Pain in right knee; G89.29 Other chronic pain; R42 Dizziness and giddiness; Z76.5 Malingerer [conscious simulation]; J44.9 Chronic obstructive pulmonary disease, unspecified; I10 Essential (primary) hypertension; E11.9 Type 2 diabetes mellitus without complications; F20.9 Schizophrenia, unspecified; F41.9 Anxiety disorder, unspecified; I25.10 Atherosclerotic heart disease of native coronary artery without angina pectoris; F32.9 Major depressive disorder, single episode, unspecified; I25.2 Old myocardial infarction; K74.60 Unspecified cirrhosis of liver; Z86.73 Personal history of transient ischemic attack (TIA), and cerebral infarction without residual deficits; Z96.652 Presence of left artificial knee joint; Z91.041 Radiographic dye allergy status; Z91.012 Allergy to eggs; Z88.0 Allergy status to penicillin; Z91.013 Allergy to seafood; Z88.8 Allergy status to other drugs, medicaments and biological substances; Z91.048 Other nonmedicinal substance allergy status; Z87.891 Personal history of nicotine dependence
CPT/HCPCS: 36415; 71045; 80053; 80307; 81003; 82550; 82553; 83880; 84443; 84484; 84550; 85007; 85025; 85610; 85651; 85730; 93005; 96361; 96374; 99285; J2405

== ENCOUNTER 2017-09-16 20:40 | Emergency (ER) | payer MEDICARE, MEDICAID ==
[~2017-09-16] VITALS: Ht 157.5 cm; Wt 70.3 kg
[2017-09-16 20:50] VITALS: BP 136/77
[2017-09-16] MEDS ORDERED: MORPHINE SUL SQ (21:33)
[2017-09-16] MEDS ORDERED: ZOLPIDEM TARTRA10 MG ORAL (21:33)
[2017-09-16] MEDS ORDERED: IMODIUM2 MG ORAL (21:33)
[2017-09-16] MEDS ORDERED: MULTI VITAMIN1 EACH ORAL (21:33)
[2017-09-16] MEDS ORDERED: CATAPRES0.1 MG ORAL (21:33)
[2017-09-16] MEDS ORDERED: LEVEMIR100 UNIT/1 SUBQ (21:33)
[2017-09-16] MEDS ORDERED: LORAZEPAM2 MG ORAL (21:33)
[2017-09-16] MEDS ORDERED: IPRAT-ALBUT 0.5-3 ML IH (21:33)
[2017-09-16] MEDS ORDERED: METFORMIN HCL1000 M1 ORAL (21:33)
--- NOTE | 2017-09-16 21:56 | Emergency Room Report ---
History of Present Illness General Chief Complaint: Abdominal Pain Source: Patient, Medical Record Present Illness HPI 57-year-old female, history of chronic abdominal pain, COPD, diabetes, depression, hypertension p/w abdominal pain for one day. Patient states that she always gets abdominal pain, has a history of pancreatitis Patient states pain localized to upper abdomen, non radiating, burning in nature , intermittent. No relieving or exacerbating factors. Pt reports n/v, 2 episodes of nbnb vomiting, denies diarrhea Denies fever, chills. No hx of abdominal surgeries. No hx of endoscopies/colonoscopies. Patient has been to the emergency room multiple times for abdominal pain, her last admission was in June, had a CAT scan performed at that time, did not reveal any acute surgical pathology Allergies: Coded Allergies: METOCLOPRAMIDE (Verified Allergy, Severe, Anaphylaxis, 01/31/16) tongue swelling PROCHLORPERAZINE (Verified Allergy, Severe, Anaphylaxis, 01/31/16) tongue swelling PREDNISONE (Verified Allergy, Mild, Facial Edema , 07/28/15) EGG (Unverified Allergy, Unknown, 03/16/15) Pt sts she is allergic to eggs but not products made with eggs such as muffins IODINE (Verified Allergy, Unknown, 01/25/15) SHELLFISH DERIVED (Verified Allergy, Unknown, 04/07/14) UNABLE TO ASSESS (Unverified , 08/31/17) Uncoded Allergies: plastic tape (Allergy, Mild, Rash, 01/25/15) CONTRAST DYE (Allergy, Unknown, 08/11/17) FISH (Allergy, Unknown, 08/11/17) PREDISONE (Allergy, Unknown, 04/12/16) SEAFOOD (Allergy, Unknown, 08/11/17) SHELLFISH (Allergy, Unknown, 04/12/16) Patient History Past Medical History: see triage record Past Surgical History: none Pertinent Family History: none Reviewed Nursing Documentation: PMH: Agreed, PSxH: Agreed Nursing Documentation-PMH Hx Cardiac Problems: Yes - CAD; NH x2 Hx Hypertension: Yes - Left knee prothesis Hx Pacemaker: No Hx Asthma: Yes Hx COPD: Yes - asthma Hx Diabetes: Yes - dm type 2 Hx Cancer: Yes - Leukemia Hx Gastrointestinal Problems: Yes - Liver Cirrhosis; Hep C Hx Dialysis: No Hx Neurological Problems: Yes - Anxiety; Depression; Insomnia; Chronic pain syndrome Hx Cerebrovascular Accident: Yes Hx Seizures: Yes Hx Peripheral Neuropathy: Yes Hx Dizziness: Yes Hx Headaches: Yes Hx Weakness: Yes Hx Neurologic Surgery: No Hx Brain Shunt: No Review of Systems All Other Systems: negative except mentioned in HPI Physical Exam Vital Signs Date Time Temp Pulse Resp B/P (MAP) Pulse Ox O2 Delivery O2 Flow Rate FiO2 09/16/17 20:44 97.7 66 17 136/77 96 Room Air 97.7 Sp02 EP Interpretation: reviewed, normal General Appearance: alert, GCS 15, non-toxic, mild distress Head: normocephalic, atraumatic Eyes: bilateral eye normal inspection, bilateral eye PERRL, bilateral eye EOMI ENT: normal ENT inspection, normal pharynx, normal voice, moist mucus membranes Neck: normal inspection, full range of motion, supple Respiratory: normal inspection, lungs clear, normal breath sounds, no respiratory distress, no retraction, no wheezing, speaking full sentences, chest symmetrical Cardiovascular #1: normal inspection, regular rate, rhythm, no edema, normal capillary refill Cardiovascular #2: 2+ radial (R), 2+ radial (L) Gastrointestinal: other - abdomen is nontender throughout, during conversation and palpation of abdomen, no grimace to palpation. soft, no guarding no ridigity. normal BS Musculoskeletal: normal inspection, back normal, normal range of motion, non- tender Neurologic: normal inspection, alert, oriented x3, responsive, motor strength/ tone normal, sensory intact, normal gait, speech normal Psychiatric: normal inspection, judgement/insight normal, memory normal Skin: normal inspection, normal color, no rash, warm/dry, well hydrated, normal turgor Medical Decision Making Diagnostic Impression: Primary Impression: Abdominal pain ER Course 57-year-old female with abdominal pain Differential Diagnosis: Gastritis, gastroenteritis, cholecystitis, appendicitis, diverticulitis, SBO, mesenteric ischemia, cardiac, UTI/pyelo At this time abdomen is soft nontender, not likely to have acute intra- abdominal surgical pathology, will hold CT for now. Plan: Basic labs, ua, ekg Pepcid, maalox, pain control, IVF ER course: Patient has remained stable during ED stay. Pain improved. Repeat abdominal exam is nontender. Labs unremarkable no nv in ED stable for DC back to SNF Disposition: Patient is to be discharged to snf Patient is instructed to follow up with their primary care doctor within 5 days. Strict return precautions discussed with patient such as fever, chills, worsening/severe abdominal pain, nausea, vomiting, black or bloody stools, which may indicate severe illness. Patient verbalizes understanding and agrees with plan. Please note that this Emergency Department Report was dictated using [employer] operator technology software, occasionally this can lead to erroneous entry secondary to interpretation by the dictation equipment EKG Diagnostic Results EP Interpretation: Yes Rate: normal Rhythm: NSR ST Segments: No acute changes ASA given to patient: No Rhythm Strip EP Interpretation: Yes Rate: 70 Rhythm: NSR, no PVCs, no ectopy Laboratory Tests Test 09/16/17 21:40 White Blood Count 2.4 K/UL (4.8-10.8) L Red Blood Count 3.68 M/UL (4.20-5.40) L Hemoglobin 11.1 G/DL (12.0-16.0) L Hematocrit 33.5 % (37.0-47.0) L Mean Corpuscular Volume 91 FL (80-99) Mean Corpuscular Hemoglobin 30.1 PG (27.0-31.0) Mean Corpuscular Hemoglobin Concent 33.0 G/DL (32.0-36.0) Red Cell Distribution Width 14.1 % (11.6-14.8) Platelet Count 91 K/UL (150-450) L Mean Platelet Volume 9.5 FL (6.5-10.1) Neutrophils (%) (Auto) % (45.0-75.0) Lymphocytes (%) (Auto) % (20.0-45.0) Monocytes (%) (Auto) % (1.0-10.0) Eosinophils (%) (Auto) % (0.0-3.0) Basophils (%) (Auto) % (0.0-2.0) Neutrophils % (Manual) Pending Lymphocytes % (Manual) Pending Platelet Estimate Pending Platelet Morphology Pending Urine Color Yellow Urine Appearance Clear Urine pH 6.5 (4.5-8.0) Urine Specific [place] 1.010 (1.005-1.035) Urine Protein 2+ (NEGATIVE) H Urine Glucose (UA) Negative (NEGATIVE) Urine Ketones Negative (NEGATIVE) Urine Occult Blood Negative (NEGATIVE) Urine Nitrite Negative (NEGATIVE) Urine Bilirubin Negative (NEGATIVE) Urine Urobilinogen 8 MG/DL (0.0-1.0) H Urine Leukocyte Esterase 2+ (NEGATIVE) H Urine RBC 0-2 /HPF (0 - 2) Urine WBC 2-4 /HPF (0 - 2) Urine Squamous Epithelial Cells Few /LPF (NONE/OCC) Urine Bacteria Few /HPF (NONE) Sodium Level 135 MMOL/L (136-145) L Potassium Level 4.0 MMOL/L (3.5-5.1) Chloride Level 101 MMOL/L (98-107) Carbon Dioxide Level 30 MMOL/L (21-32) Anion Gap 5 mmol/L (5-15) Blood Urea Nitrogen 15 mg/dL (7-18) Creatinine 0.7 MG/DL (0.55-1.30) Estimate Glomerular Filtration Rate > 60 mL/min (>60) Glucose Level 140 MG/DL (74-106) H Calcium Level 8.9 MG/DL (8.5-10.1) Total Bilirubin 0.5 MG/DL (0.2-1.0) Aspartate Amino Transferase (AST) 68 U/L (15-37) H Alanine Aminotransferase (ALT) 61 U/L (12-78) Alkaline Phosphatase 77 U/L (46-116) Total Protein 9.3 G/DL (6.4-8.2) H Albumin 2.4 G/DL (3.4-5.0) L Globulin 6.9 g/dL Albumin/Globulin Ratio 0.3 (1.0-2.7) L Lipase 296 U/L (73-393) Last Vital Signs Date Time Temp Pulse Resp B/P (MAP) Pulse Ox O2 Delivery O2 Flow Rate FiO2 09/16/17 20:44 97.7 66 17 136/77 96 Room Air 97.7 Disposition: XFER SNF Condition: Improved Patient Instructions: Abdominal Pain, Adult Catherine Bridges M.D. Sep 16, 2017 21:56
[2017-09-16 22:04] LABS: APPEARANCE,URINE CLEAR; BILIRUBIN, URINE NEGATIVE (NEGATIVE); GLUCOSE, URINE (UA) NEGATIVE (NEGATIVE); KETONES,URINE NEGATIVE (NEGATIVE); LEUKOCYTE ESTERASE ,URINE 2+ (NEGATIVE); NITRITE,URINE NEGATIVE (NEGATIVE); PH,URINE 6.5 (4.5-8.0); PROTEIN,URINE 2+ (NEGATIVE); UROBILINOGEN,URINE 8 MG/DL (0.0-1.0)
[2017-09-16 22:08] LABS: HEMATOCRIT 33.5 % (37.0-47.0); HEMOGLOBIN 11.1 G/DL (12.0-16.0); MEAN CORPUSCULAR VOLUME 91 FL (80-99); PLATELET COUNT 91 K/UL (150-450); RED BLOOD COUNT 3.68 M/UL (4.20-5.40); RED CELL DISTRIBUTION WIDTH 14.1 % (11.6-14.8); WHITE BLOOD COUNT 2.4 K/UL (4.8-10.8)
[2017-09-16 22:10] LABS: COLOR,URINE YELLOW
[2017-09-16 22:11] LABS: ANION GAP 5 mmol/L (5-15); BLOOD UREA NITROGEN 15 mg/dL (7-18); CALCIUM 8.9 MG/DL (8.5-10.1); CARBON DIOXIDE 30 MMOL/L (21-32); CHLORIDE 101 MMOL/L (98-107); CREATININE 0.7 MG/DL (0.55-1.30); SODIUM 135 MMOL/L (136-145)
[2017-09-16 22:17] LABS: ALANINE AMINOTRANSFERASE 61 U/L (12-78); ALBUMIN 2.4 G/DL (3.4-5.0); ALBUMIN/GLOBULIN RATIO 0.3 (1.0-2.7); ALKALINE PHOSPHATASE 77 U/L (46-116); ASPARTATE AMINO TRANSFERASE 68 U/L (15-37); BILIRUBIN,TOTAL 0.5 MG/DL (0.2-1.0)
[2017-09-16 23:00] VITALS: BP 148/83
[2017-09-17] VITALS: BP 144/69
--- NOTE | 2017-09-20 15:38 | Cardiology Report ---
APPROVED REPORT EKG Measurement Heart [id number] Normal sinus rhythm Minimal voltage criteria for LVH, may be normal variant Nonspecific ST abnormality Abnormal ECG
== END 2017-09-17 ==
LOC: EDBD 20:40 → EMR 20:58
DX: R10.9 Unspecified abdominal pain (principal); I25.10 Atherosclerotic heart disease of native coronary artery without angina pectoris; I25.2 Old myocardial infarction; E11.9 Type 2 diabetes mellitus without complications; Z85.6 Personal history of leukemia; Z86.73 Personal history of transient ischemic attack (TIA), and cerebral infarction without residual deficits; K74.60 Unspecified cirrhosis of liver; B19.20 Unspecified viral hepatitis C without hepatic coma; F41.9 Anxiety disorder, unspecified; F32.9 Major depressive disorder, single episode, unspecified; Z96.652 Presence of left artificial knee joint
CPT/HCPCS: 36415; 80053; 81003; 83690; 85007; 85025; 93005; 99284